=== PATIENT | male | born 1950 | race African-American/Black ===

== ENCOUNTER 2016-08-18 11:49 | Emergency (ER) | payer OTHER ==
[2016-08-18 12:02] VITALS: TEMP 98.5; BMI 22.8
--- NOTE | 2016-08-18 12:22 | PDOC ---
History of Present Illness - History of Present Illness Initial Comments: 08/18/16 12:32 The patient is a 65 year old male with a past medical hx of CVA, dementia, enlarged prostate, hypertension, hyperlipidemia and schizophrenia who presents to the ED via EMS from [facility] with a laceration to the back left side of his head. The patient had an unwitnessed fall. The patients history is limited secondary to patients baseline dementia and mental status. Social: Lives at [facility] <Altagracia Ceballos - Last Filed: 08/18/16 14:52> - General History Source: EMS, Spouse, Old Records Exam Limitations: Clinical Condition, Dementia <Letty Thakkar - Last Filed: 08/20/16 11:26> - General Chief Complaint: Laceration Stated Complaint: HEAD LACERATION Time Seen by Provider: 08/18/16 11:58 Past History <Altagracia Ceballos - Last Filed: 08/18/16 14:52> - Past Medical History Asthma: Yes CVA: Yes Dementia: Yes Disorders: Yes (enlarged prostate,uti) HTN: Yes Hypercholesterolemia: Yes Psychiatric Problems: Yes (schizophrenia) Suicide Attempt (Hx): No - Immunization History Immunization Up to Date: Yes (FLU 2013) - Psycho/Social/Smoking Cessation Hx Anxiety: Yes Suicidal Ideation: No Smoking Status: No Smoking History: Unknown if ever smoked Have you smoked in the past 12 months: No Number of Cigarettes Smoked Daily: 0 Information on smoking cessation initiated: No Hx Alcohol Use: No Drug/Substance Use Hx: No Substance Use Type: None Hx Substance Use Treatment: No <Letty Thakkar - Last Filed: 08/20/16 11:26> - Past Medical History Allergies/Adverse Reactions: Allergies Allergy/AdvReac Type Severity Reaction Status Date / Time haloperidol [From Haldol] Allergy Severe Verified 08/18/16 12:03 benztropine Allergy Verified 08/18/16 12:03 benztropine mesylate Allergy Verified 08/18/16 12:03 [From Cogentin] haloperidol lactate Allergy Verified 08/18/16 12:03 [From Haldol] Home Medications: Ambulatory Orders Acetaminophen [Tylenol] 650 mg PO Q6H PRN 05/11/15 Mirtazapine [Remeron -] 15 mg PO HS 06/19/15 Albuterol 2.5/Ipratropium 0.5 [Duoneb -] 1 neb IH TID 12/20/15 Amlodipine Besylate [Norvasc -] 5 mg PO DAILY 12/20/15 Lisinopril [Prinivil] 20 mg PO DAILY 12/20/15 Lactobacillus Acidophilus [Bacid -] 1 tab PO DAILY tab 12/23/15 Memantine HCl [Namenda -] 10 mg PO BID 08/18/16 Ranitidine [Zantac -] 150 mg PO DAILY 08/18/16 Tamsulosin HCl [Flomax] 0.4 mg PO DAILY 08/18/16 Review of Systems - Review of Systems Able to Perform ROS?: No (dementia) <Altagracia Ceballos - Last Filed: 08/18/16 14:52> *Physical Exam - Vital Signs Last Vital Signs Temp Pulse Resp BP Pulse Ox 98.5 F 72 20 147/78 100 08/18/16 12:00 08/18/16 12:00 08/18/16 12:00 08/18/16 12:00 08/18/16 12:00 - Physical Exam Comments: 08/18/16 12:33 GENERAL: +The patient is sleeping HEAD: +Hematoma and 1 cm vertical laceration on the occiput EYES: +Pupils are equal and 3 mm bilaterally, sclera anicteric, conjunctiva clear. ENT: Ears normal, nares patent, oropharynx clear without exudates. Moist mucous membranes. NECK: Normal range of motion, supple without lymphadenopathy, JVD, or masses. LUNGS: Breath sounds equal, clear to auscultation bilaterally. No wheezes, and no crackles. HEART:Regular rate and rhythm, normal S1 and S2 without murmur, rub or gallop. ABDOMEN: Soft, nontender, normoactive bowel sounds. No guarding, no rebound. EXTREMITIES: Normal range of motion, no edema. No clubbing or cyanosis. No erythema, or tenderness. NEUROLOGICAL: Cranial nerves II through XII grossly intact. Normal speech. No focal neurological deficits. MUSCULOSKELETAL: Back nontender to palpation, no CVA tenderness SKIN: Warm, Dry, normal turgor, no rashes or lesions noted. <Altagracia Ceballos - Last Filed: 08/18/16 14:52> - Vital Signs Last Vital Signs Temp Pulse Resp BP Pulse Ox 98.5 F 72 20 147/78 100 08/18/16 12:00 08/18/16 12:00 08/18/16 12:00 08/18/16 12:00 08/18/16 12:00 <Letty Thakkar - Last Filed: 08/20/16 11:26> Procedures - Laceration/Wound Repair Posterior Occipital Wound Length: to 2.5 cm Wound Explored: clean Wound's Depth, Shape: superficial Irrigated w/ Saline: Yes Betadine Prep: No Wound Debrided: minimal Wound Repaired With: [place] Progress: 08/18/16 15:08 3 bertram placed Pt tolerated this with no difficulty <Letty Thakkar - Last Filed: 08/20/16 11:26> Heart Score/ECG Review #1 ECG reviewed & interpreted by me at: 12:26 08/18/16 12:26 Sinus rhythm rate of 74bpm, axis nml, no st elevation or depression Pr: 174ms, QRS:88ms, QTc:430ms LVH <Letty Thakkar - Last Filed: 08/20/16 11:26> ED Treatment Course - LABORATORY CBC & Chemistry Diagram: 08/18/16 12:20 08/18/16 12:20 - RADIOLOGY Radiograph Interpretation: 08/18/16 14:52 CT scan of the cervical spine without intravenous contrast Coronal and sagittal reconstruction images were obtained. No gross fracture, subluxation or prevertebral soft tissue swelling is seen. No jumped facets are identified. There is prominent anterior bridging osteophytes from C4 through C6 level. There is also anterior osteophyte formation at C3-C4 and C6-C7 level. Calcified plaque at the right and left common carotid bifurcation. Visualized portion of the airway appears unremarkable. No gross enlarged lymph nodes are identified. Lung windows at the thoracic inlet demonstrates minimal biapical pleural thickening IMPRESSION: The alignment is satisfactory. No gross fracture or subluxation is seen. CT scan of the brain without intravenous contrast. Compared to prior examination dated 01/27/2016. There is moderate atrophy, mild to moderate ventricular dilatation and probable mild periventricular chronic microvascular ischemic changes. No mass lesion, focal acute infarct or intracranial hemorrhage is seen. There is no shift of the midline structures. A slightly depressed right zygomatic arch fracture is present. There is minimal mucosal thickening in the ethmoid air cells. The calvarium is intact. IMPRESSION: Minimally depressed right zygomatic arch fracture that was present on prior examination dated 01/27/2016. No acute intracranial pathology is identified. Reported By: Gil Garcia MD 08/18/16 1442 <Altagracia Ceballos - Last Filed: 08/18/16 14:52> - LABORATORY CBC & Chemistry Diagram: 08/18/16 12:20 08/18/16 12:20 <Letty Thakkar - Last Filed: 08/20/16 11:26> Medical Decision Making - Medical Decision Making 08/18/16 12:22 A portion of this note was documented by scribe services under my direction. I have reviewed the details of the note, within reason, and agree with the documentation with the following case summary and management plan written by me. Nursing documentation reviewed and incorporated into medical decision making 08/18/16 12:28 This is a 65 yo M with a history of dementia, resident of [facility] Pt had an unwitnessed fall with head trauma Occipital laceration Pt non verbal Moves extremities and closes eyes when I attempt to force eyes open to view pupils Will do basic labs, ekg (unable to get history) Will do CT head 08/18/16 15:05 08/18/16 15:05 Laboratory Tests 08/18/16 08/18/16 08/18/16 12:20 12:20 12:20 WBC 7.4 D Hgb 14.2 Hct 42.5 Plt Count 147 Neutrophils % 68.8 D Lymphocytes % 17.9 D INR 1.15 H BUN 17 D Creatinine 1.2 Creatine Kinase 134 Troponin I < 0.02 CT: no ICH, no mass (+) atrophy No Cervical spine fracture or dislocation Occipital laceration irrigated with 200 cc NS and stapled, 3 bertram Will discharge to home Staple removal in 7 days 08/18/16 15:09 <Letty Thakkar - Last Filed: 08/20/16 11:26> *DC/Admit/Observation/Transfer - Attestations Scribe Attestion: 08/18/16 12:32 Documentation prepared by Altagracia Ceballos, acting as medical appointment clerk for Letty Thakkar MD/. <Altagracia Ceballos - Last Filed: 08/18/16 14:52> - Discharge Dispostion Admit: No <Letty Thakkar Last Filed: 08/20/16 11:26> Diagnosis at time of Disposition: [facility] at [facility] Qualifiers: Encounter type: initial encounter Qualified Code(s): W19.XXXA - Unspecified fall, initial encounter Closed head injury Qualifiers: Encounter type: initial encounter Qualified Code(s): S09.90XA - Unspecified injury of head, initial encounter Occipital scalp laceration Qualifiers: Encounter type: initial encounter Qualified Code(s): S01.01XA - Laceration without foreign body of scalp, initial encounter - Discharge Dispostion Disposition: [facility] Condition at time of disposition: Stable - Patient Instructions Printed Discharge Instructions: DI for Laceration Repair, DI for Closed Head Injury Additional Instructions: [place] should be removed in 7 days Return to the ER for increased swelling, pain, drainage
[2016-08-18 12:27] LABS: EOSINOPHIL 0.6 % (0-4.5); MCH 30.5 pg (25.7-33.7); MCHC 33.5 g/dl (32.0-35.9); MEAN PLT VOLUME 8.6 fl (7.5-11.1); NEUTROPHILS 68.8 % (42.8-82.8); PLATELET COUNT 147 K/MM3 (134-434); RDW 14.1 % (11.9-15.9); WHITE BLOOD COUNT 7.4 K/mm3 (4.0-10.0)
[2016-08-18 12:40] LABS: INR 1.15 (0.82-1.09); PROTHROMBIN TIME (PATIENT) 12.7 SEC (9.98-11.88)
[2016-08-18 13:01] LABS: ALBUMIN 3.7 g/dl (3.4-5.0); ANION GAP 6 (8-16); CALCIUM 9.4 mg/dL (8.5-10.1); CO2 32 mmol/L (21-32); CREATININE 1.2 mg/dL (0.7-1.3); GLUCOSE,RANDOM 88 mg/dL (74-106); SGOT/AST 10 U/L (15-37); SGPT/ALT 15 U/L (12-78)
[2016-08-18 13:04] LABS: ALK PHOS 121 U/L (45-117); BILIRUBIN,TOTAL 0.7 mg/dL (0.2-1.0); TOT PROT 7.3 g/dl (6.4-8.2); TROPONIN I < 0.02 ng/ml (0.00-0.05)
[2016-08-18 15:22] VITALS: BP 111/73; PULSE 73
--- NOTE | 2016-08-19 21:09 | EKG ---
Test Reason : Blood Pressure : / mmHG Vent. Rate : 074 BPM Atrial Rate : 074 BPM P-R Int : 174 ms QRS Dur : 088 ms QT Int : 388 ms P-R-T Axes : 044 -06 -01 degrees QTc Int : 430 ms NORMAL SINUS RHYTHM POSSIBLE LEFT ATRIAL ENLARGEMENT LEFT VENTRICULAR HYPERTROPHY NONSPECIFIC T WAVE ABNORMALITY ABNORMAL ECG WHEN COMPARED WITH ECG OF 27-JAN-2016 06:01, NO SIGNIFICANT CHANGE WAS FOUND Confirmed by KIRA GREGORY, WEST ([id number]) on 08/19/2016 9:09:11 PM Referred By: Confirmed By:WEST MALONE MD
== END 2016-08-18 16:05 ==
LOC: JER 11:49
PROC: 0HQ0XZZ Repair Scalp Skin, External Approach (ICD-10-PCS; principal; 2016-08-18)
DX: S01.01XA Laceration without foreign body of scalp, initial encounter (principal); W18.39XA Other fall on same level, initial encounter; Y93.89 Activity, other specified; Y92.129 Unspecified place in nursing home as the place of occurrence of the external cause; I10 Essential (primary) hypertension; E78.5 Hyperlipidemia, unspecified; F20.9 Schizophrenia, unspecified; N40.0 Benign prostatic hyperplasia without lower urinary tract symptoms; Z86.73 Personal history of transient ischemic attack (TIA), and cerebral infarction without residual deficits
CPT/HCPCS: 12001-25; 36415; 70450-TC; 72125-TC; 80053; 82550; 84484; 85025; 85610; 86850; 86900; 86901; 93005; 93010; 99283-25

== ENCOUNTER 2016-11-10 11:48 | Inpatient (IN) | payer OTHER ==
[2016-11-10 12:03] VITALS: BMI 24.4
--- NOTE | 2016-11-10 12:26 | PDOC ---
History of Present Illness - General Chief Complaint: Blood Pressure Problem Stated Complaint: IRREGULAR BLOOD PRESSURE Time Seen by Provider: 11/10/16 12:08 History Source: Care Provider, Custodial Records Exam Limitations: No Limitations - History of Present Illness Initial Comments: 11/10/16 12:21 Patient was sent from [facility] for evaluation of labile blood pressure. Per notes patient has had reported orthostatic hypotension for the past few days. This morning his blood pressure was noted to be 189/114. An additional Norvasc 5 mg was given with a repeat blood pressure at approximately 2 hours later showing to be 74/48. Dr. Ontiveros was notified at the [facility] who recommended him transported to the ER for evaluation. Patient currently normotensive with blood pressures of arrival 160/101, repeat 1 hour later was 130/84. Patient is alert however remains expressively aphasic, when asked how he feels if he feels okay, he nods his head and says yes. Will respond appropriately, will lift arm when it requested and appears to be alert and appropriate. Patient has no fever, denies cough or shortness of breath or any nausea vomiting. 11/10/16 12:23 11/10/16 12:57 Timing/Duration: unsure Severity: mild, moderate Modifying Factors: improves with: movement Associated Symptoms: reports: denies symptoms Past History - Travel Traveled outside of the country in the last 30 days: No Close contact w/someone who was outside of country & ill: No - Past Medical History Allergies/Adverse Reactions: Allergies Allergy/AdvReac Type Severity Reaction Status Date / Time haloperidol [From Haldol] Allergy Severe Verified 11/10/16 12:03 benztropine Allergy Verified 11/10/16 12:03 benztropine mesylate Allergy Verified 11/10/16 12:03 [From Cogentin] haloperidol lactate Allergy Verified 11/10/16 12:03 [From Haldol] Home Medications: Ambulatory Orders Acetaminophen [Tylenol] 650 mg PO Q6H PRN 05/11/15 Mirtazapine [Remeron -] 15 mg PO HS 06/19/15 Albuterol 2.5/Ipratropium 0.5 [Duoneb -] 1 neb IH TID 12/20/15 Amlodipine Besylate [Norvasc -] 5 mg PO DAILY 12/20/15 Lisinopril [Prinivil] 20 mg PO DAILY 12/20/15 Lactobacillus Acidophilus [Bacid -] 1 tab PO DAILY tab 12/23/15 Memantine HCl [Namenda -] 10 mg PO BID 08/18/16 Ranitidine [Zantac -] 150 mg PO DAILY 08/18/16 Tamsulosin HCl [Flomax] 0.4 mg PO DAILY 08/18/16 Asthma: Yes CVA: Yes Dementia: Yes Disorders: Yes (enlarged prostate,uti) HTN: Yes Hypercholesterolemia: Yes Psychiatric Problems: Yes (schizophrenia) Suicide Attempt (Hx): No - Immunization History Immunization Up to Date: Yes (FLU 2013) - Psycho/Social/Smoking Cessation Hx Anxiety: No Suicidal Ideation: No Smoking Status: No Smoking History: Unknown if ever smoked Have you smoked in the past 12 months: No Number of Cigarettes Smoked Daily: 0 Information on smoking cessation initiated: No Hx Alcohol Use: No Drug/Substance Use Hx: No Substance Use Type: None Hx Substance Use Treatment: No Review of Systems - Review of Systems Able to Perform ROS?: Yes Is the patient limited Tanzanian proficient: Yes Constitutional: Yes: See HPI. No: Chills, Fever, Loss of Appetite HEENTM: Yes: See HPI. No: Symptoms Reported Respiratory: Yes: See HPI. No: Symptoms reported, Cough, Wheezing Musculoskeletal: Yes: Symptoms Reported, Muscle Weakness Integumentary: Yes: See HPI. No: Symptoms Reported Neurological: Yes: See HPI. No: Symptoms reported All Other Systems: Reviewed and Negative *Physical Exam - Vital Signs Last Vital Signs Temp Pulse Resp BP Pulse Ox 98.4 F 78 20 132/80 99 11/10/16 11:57 11/10/16 12:19 11/10/16 12:19 11/10/16 12:19 11/10/16 12:19 - Physical Exam General Appearance: Yes: Nourished, Appropriately Dressed. No: Apparent Distress HEENT: positive: EOMI, WHIT, Normal ENT Inspection, TMs Normal Neck: positive: Supple. negative: Tender Respiratory/Chest: positive: Lungs Clear, Normal Breath Sounds (course but clear with cough). negative: Chest Tender Cardiovascular: positive: Regular Rhythm Gastrointestinal/Abdominal: positive: Normal Bowel Sounds, Soft. negative: Tender Musculoskeletal: positive: Normal Inspection Extremity: positive: Normal Capillary Refill, Normal Inspection. negative: Normal Range of Motion (limited range of motion with right sided effected status post CVA chronic however mobile and sensation is intact) Integumentary: positive: Dry, Warm, Pale Neurologic: positive: pipe layer II-XII NML intact (patient has expressive aphasia, unable to thoroughly evaluate orientation levels), Alert, Normal Mood/Affect, Normal Response, Responsive Medical Decision Making - Medical Decision Making 11/10/16 12:50 call to [facility], and discussed transfer with nurse responsible for . Mr. Ge's care. He stated Dr. Ontiveros was concerned about his labile blood pressures. Orthostatic vital signs repeated here: 12:56 lyin/113, 80pulse 12:58 sitting : 160/98, 100 pulse 13:01 standin/87, pulse 88 Patient reports feeling well, not dizzy, however does not appear. Steady on his feet. Will discuss findings with Dr. Ontiveros and await further direction 11/10/16 12:59 11/10/16 12:59 11/10/16 13:23 Dr. Ontiveros returned call and is requesting admission for labile blood pressures , in weakness and frequent falls. Patient was updated to plan, orders written, and patient placed in 4 at that *DC/Admit/Observation/Transfer Diagnosis at time of Disposition: Orthostatic hypotension - Discharge Dispostion Admit: Yes
[2016-11-10] MEDS ORDERED: ACETAMINOPHEN 325 MG TABLET (FP) PO PRN (13:15)
[2016-11-10 13:37] LABS: BASOPHIL 0.9 % (0-2.0); MCH 29.7 pg (25.7-33.7); MCHC 33.2 g/dl (32.0-35.9); MEAN CELL VOLUME 89.5 fl (80-96); MEAN PLT VOLUME 8.5 fl (7.5-11.1); NEUTROPHILS 53.1 % (42.8-82.8); PLATELET COUNT 158 K/MM3 (134-434); RDW 13.8 % (11.9-15.9); WHITE BLOOD COUNT 5.7 K/mm3 (4.0-10.0)
[2016-11-10 13:58] LABS: INR 1.27 (0.82-1.09)
[2016-11-10 14:01] LABS: ALBUMIN 3.8 g/dl (3.4-5.0); ANION GAP 7 (8-16); BILIRUBIN,TOTAL 0.7 mg/dL (0.2-1.0); CALCIUM 9.4 mg/dL (8.5-10.1); CO2 29 mmol/L (21-32); COCKROFT - GAULT 64.54; CREATININE 1.3 mg/dL (0.7-1.3); GLUCOSE,RANDOM 91 mg/dL (74-106); SGOT/AST 11 U/L (15-37); SGPT/ALT 17 U/L (12-78); TOT PROT 7.4 g/dl (6.4-8.2)
[2016-11-10 14:09] LABS: ALK PHOS 129 U/L (45-117); THYROID STIMULATING HORMONE 0.07 uIU/ml (0.358-3.74); TROPONIN I < 0.02 ng/ml (0.00-0.05)
[2016-11-10 14:17] LABS: URINE APPEARANCE CLEAR; URINE BILIRUBIN NEGATIVE (NEGATIVE); URINE BLOOD NEGATIVE (NEGATIVE); URINE COLOR LTYELLOW; URINE GLUCOSE (UA) NEGATIVE (NEGATIVE); URINE KETONE NEGATIVE (NEGATIVE); URINE LEUK ESTERASE NEGATIVE (NEGATIVE); URINE NITRITE NEGATIVE (NEGATIVE); URINE PROTEIN NEGATIVE (NEGATIVE); URINE UROBILINOGEN NEGATIVE E.U./dl (0.2-1.0)
--- NOTE | 2016-11-10 16:38 | CON.CARD ---
Cardiology Consult (text) - Consultation Consultation Note: cc: orthostatic hypotension 66 yo with h/o htn, hl, ckd, Lewy Body Dementia who p/w orthostatic hypotension and frequent falls. pmd decreased flomax dose recently pmhx/pshx: per hpi fam hx: social hx: never smoked ros: per hpi Ambulatory Orders Acetaminophen [Tylenol] 650 mg PO Q6H PRN 05/11/15 Mirtazapine [Remeron -] 15 mg PO HS 06/19/15 Albuterol 2.5/Ipratropium 0.5 [Duoneb -] 1 neb IH TID 12/20/15 Amlodipine Besylate [Norvasc -] 5 mg PO DAILY 12/20/15 Lisinopril [Prinivil] 20 mg PO DAILY 12/20/15 Lactobacillus Acidophilus [Bacid -] 1 tab PO DAILY tab 12/23/15 Memantine HCl [Namenda -] 10 mg PO BID 08/18/16 Ranitidine [Zantac -] 150 mg PO DAILY 08/18/16 Tamsulosin HCl [Flomax] 0.4 mg PO DAILY 08/18/16 Current Medications Acetaminophen (Tylenol -) 650 mg PO Q6H PRN PRN Reason: PAIN Albuterol/Ipratropium (Duoneb -) 1 amp NEB TIDR GABI Amlodipine Besylate (Norvasc -) 5 mg PO DAILY G[facility]I Lisinopril (Prinivil) 20 mg PO DAILY [facility] Memantine (Namenda -) 10 mg PO BID G[facility]I Mirtazapine (Remeron -) 7.5 mg PO HS [facility] Ranitidine HCl (Zantac -) 150 mg PO DAILY GABI Tamsulosin HCl (Flomax -) 0.4 mg PO DAILY@0830 [facility] Vital Signs - 24 hr 11/10/16 11/10/16 11:57 12:19 Temperature 98.4 F Pulse Rate 71 Pulse Rate [ 78 Left Radial] Respiratory 20 20 Rate Blood Pressure 160/101 Blood Pressure 132/80 [Right Arm] O2 Sat by Pulse 100 99 Oximetry (%) Intake & Output 11/08/16 11/09/16 11/10/16 11/11/16 07:59 07:59 07:59 07:59 Weight 180 lb CBC, BMP 11/10/16 13:15 11/10/16 13:15 orthostatic hypotension - will start florinef, monitor for volume retention. Will need repeat bmp check - hold amlodipine.
[2016-11-10] MEDS: FLUDROCORTISONE ACETATE 0.1 MG TABLET (FP) PO SCH (21:45)
[2016-11-10] MEDS ORDERED: MIRTAZAPINE 15 MG TABLET (FP) PO SCH (22:00)
[2016-11-10] MEDS ORDERED: MIRTAZAPINE 15 MG TABLET (FP) ONE (22:06)
[2016-11-10] MEDS ORDERED: ALBUTEROL SO4 2.5/IPRATROPIUM 0.5 INH SOL 3 ML VIAL.NEB. NEB ONE (22:07)
[2016-11-10] MEDS: ALBUTEROL SO4 2.5/IPRATROPIUM 0.5 INH SOL 3 ML VIAL.NEB. NEB SCH (22:20)
[2016-11-10] MEDS: MEMANTINE HCL 10 MG TABLET (FP) PO SCH (23:10)
[2016-11-10 23:27] LABS: TROPONIN I < 0.02 ng/ml (0.00-0.05)
[2016-11-11] MEDS: ALBUTEROL SO4 2.5/IPRATROPIUM 0.5 INH SOL 3 ML VIAL.NEB. NEB SCH ×2 (04:58→06:32)
[2016-11-11 06:32] VITALS: TEMP 97.7
[2016-11-11 07:50] LABS: CALCIUM 9.2 mg/dL (8.5-10.1); COCKROFT - GAULT 83.91
[2016-11-11 08:06] LABS: TROPONIN I < 0.02 ng/ml (0.00-0.05)
[2016-11-11] MEDS ORDERED: TAMSULOSIN HCL 0.4 MG CAP.ER.24H (FP) PO SCH (08:30)
[2016-11-11] MEDS ORDERED: RANITIDINE HCL 150 MG TABLET (FP) PO SCH (10:00)
[2016-11-11] MEDS ORDERED: LISINOPRIL 20 MG TABLET (FP) PO SCH (10:00)
[2016-11-11] MEDS ORDERED: amLODIPine BESYLATE 5 MG TABLET (FP) PO SCH (10:00)
[2016-11-11] MEDS: MEMANTINE HCL 10 MG TABLET (FP) PO SCH (11:00)
[2016-11-11] MEDS: FLUDROCORTISONE ACETATE 0.1 MG TABLET (FP) PO SCH (11:00)
[2016-11-11 11:38] VITALS: BP 136/102; PULSE 80
--- NOTE | 2016-11-11 13:37 | HP ---
DATE OF ADMISSION: 11/10/2016 The patient is a 66-year-old male who was transferred from the shelter as patient was found to have labile hypertension. The patient had elevated blood pressure and was given Norvasc and subsequently was found to have orthostatic hypotension with a blood pressure of 74/48 but since admission, the patient has had normal blood pressure and has no complaints. No chest pain, palpitation, headache, dizziness. Past medical history is significant for hypertension, benign prostatic hypertrophy. His present medications include Flomax 0.4 mg p.o. daily, Zantac 150 mg daily, Remeron 15 mg daily, Namenda 10 mg twice a day, lisinopril 20 mg daily, amlodipine 50 mg daily, albuterol inhaler, and Tylenol on a p.r.n. basis. ALLERGIES: HALDOL, BENZTROPINE. SOCIAL HISTORY: Patient claims that he is , he has 2 children. He now lives in a shelter but his history is unreliable. He claims that he is a nonsmoker. He does not drink. He was a [employer]. Family history is significant for 6 siblings. There is no significant family history. Patient's history, however, is unreliable as he carries a diagnosis of dementia; however, he answers all my questions appropriately. PHYSICAL EXAMINATION: Vital Signs: He has a blood pressure of 136/102, pulse rate of 80, respiratory rate of 20, temperature 97. Head and Neck: He is not pale, not icteric. JVD is absent. Thyroid and carotids appear normal. Heart: Regular rhythm. No murmurs. Lungs: He is breathing clearly. Abdomen: Benign. Extremities: No edema. Basic metabolic profile is within normal limits. PT, PTT is normal. CBC is normal. Patient had a CT scan of the head that is normal. ASSESSMENT AND PLAN 1. Hypertension. Blood pressure is controlled and it can be fine-tuned and managed as outpatient. 2. Orthostatic hypotension. This could be also associated with medications like Flomax, etc. These things have to be monitored and controlled as outpatient. In the emergency room, the patient has no orthostatic changes. Would discharge home and follow as outpatient. Bentley [id number]
--- NOTE | 2016-11-12 10:04 | EKG ---
Test Reason : Blood Pressure : / mmHG Vent. Rate : 085 BPM Atrial Rate : 085 BPM P-R Int : 182 ms QRS Dur : 094 ms QT Int : 370 ms P-R-T Axes : 065 015 020 degrees QTc Int : 440 ms NORMAL SINUS RHYTHM POSSIBLE LEFT ATRIAL ENLARGEMENT LEFT VENTRICULAR HYPERTROPHY ABNORMAL ECG WHEN COMPARED WITH ECG OF 18-AUG-2016 12:20, NO SIGNIFICANT CHANGE WAS FOUND Confirmed by WEST MALONE MD ([id number]) on 11/12/2016 10:04:23 AM Referred By: Confirmed By:WEST MALONE MD
== END 2016-11-11 15:15 | disposition home or self-care (01) | DRG 204 ==
LOC: JER 11:48 → JERBED 13:20
PROVIDERS: ADMIT Internal Medicine Geriatric Medicine; ATTEND Internal Medicine Geriatric Medicine
DX: I95.1 Orthostatic hypotension (principal); J45.909 Unspecified asthma, uncomplicated; E78.00 Pure hypercholesterolemia, unspecified; F20.9 Schizophrenia, unspecified; N40.0 Benign prostatic hyperplasia without lower urinary tract symptoms; I12.9 Hypertensive chronic kidney disease with stage 1 through stage 4 chronic kidney disease, or unspecified chronic kidney disease; N18.9 Chronic kidney disease, unspecified; G31.83 Neurocognitive disorder with Lewy bodies; F02.80 Dementia in other diseases classified elsewhere, unspecified severity, without behavioral disturbance, psychotic disturbance, mood disturbance, and anxiety; Z86.73 Personal history of transient ischemic attack (TIA), and cerebral infarction without residual deficits; Z91.81 History of falling
CPT/HCPCS: 36415; 70450-TC; 71020-TC; 80048; 80053; 81003; 82550; 82553; 83036; 83880; 84443; 84484; 85025; 85610; 87086; 93005; 93010; 99284-25

== ENCOUNTER 2017-11-17 01:13 | Emergency (ER) | payer OTHER ==
[2017-11-17 01:53] VITALS: BP 162/91; PULSE 72; TEMP 98.1; BMI 24.4
--- NOTE | 2017-11-17 02:00 | PDOC ---
History of Present Illness <Leana Vergara - Last Filed: 11/17/17 05:13> - General History Source: Patient, Old Records Exam Limitations: No Limitations - History of Present Illness Initial Comments: 11/17/17 05:33 The patient is a 67 year old male, with a significant past medical history of HLD, alzheimer's dementia, COPD, TIA, dysphagia, anxiety, MDD, who presents to the emergency department via EMS s/p fall with, a laceration to the back of the head with associated pain. The patient is a poor historian due to his clinical condition. He reports hitting his head at [facility] where he currently resides and has associated pain. The patient cannot give further details regarding him fall. He denies any recent fevers, chills, headache or dizziness. He denies any recent nausea, vomit, diarrhea or constipation. He denies any recent chest pain or shortness of breath. He denies any recent dysuria, frequency, urgency or hematuria. Allergies: haloperidol, haloperidol lactate, benztropine, benztropine mesylate. PCP: Dr Ontiveros <Karey Cherry - Last Filed: 11/17/17 05:34> - General Chief Complaint: Injury Stated Complaint: LACERTATION TO HEAD Time Seen by Provider: 11/17/17 01:59 Past History - Past Medical History Asthma: Yes CVA: Yes COPD: No Dementia: Yes Disorders: Yes (enlarged prostate,uti) HTN: Yes Hypercholesterolemia: Yes Psychiatric Problems: Yes (schizophrenia) - Immunization History Immunization Up to Date: Yes (2013) - Suicide/Smoking/Psychosocial Hx Smoking Status: No Smoking History: Never smoked Have you smoked in the past 12 months: No Number of Cigarettes Smoked Daily: 0 Information on smoking cessation initiated: No Hx Alcohol Use: No Drug/Substance Use Hx: No Substance Use Type: None Hx Substance Use Treatment: No <Leana Vergara - Last Filed: 11/17/17 05:13> <Karey Cherry - Last Filed: 11/17/17 05:34> - Past Medical History Allergies/Adverse Reactions: Allergies Allergy/AdvReac Type Severity Reaction Status Date / Time haloperidol [From Haldol] Allergy Severe Verified 11/17/17 01:53 benztropine Allergy Verified 11/17/17 01:53 benztropine mesylate Allergy Verified 11/17/17 01:53 [From Cogentin] haloperidol lactate Allergy Verified 11/17/17 01:53 [From Haldol] Home Medications: Ambulatory Orders Acetaminophen 650 mg PO Q6H PRN 09/22/17 Fludrocortisone Acetate [Florinef -] 0.1 mg PO DAILY 09/22/17 Ipratropium/Albuterol Sulfate [Iprat-Albut 0.5-3(2.5) mg/3 ml] 3 ml IH TID PRN 09/22/17 Lactobacillus Acidophilus [Bacid -] 1 each PO DAILY 09/22/17 Lisinopril 10 mg PO DAILY 09/22/17 Memantine HCl [Namenda -] 10 mg PO BID 09/22/17 Mirtazapine [Remeron -] 15 mg PO HS 09/22/17 Ranitidine [Zantac -] 150 mg PO DAILY 09/22/17 Sodium Chloride [Saline Nasal [place]] 1 spray NS TID 09/22/17 Tamsulosin HCl [Flomax] 0.4 mg PO DAILY 09/22/17 Aspirin Coated [Ecotrin -] 81 mg PO DAILY tablet.ec 09/27/17 Atorvastatin Ca [Lipitor] 10 mg PO HS tablet 09/27/17 Review of Systems - Review of Systems Able to Perform ROS?: Yes Comments:: 11/17/17 05:33 GENERAL/CONSTITUTIONAL: No fever or chills. No weakness. +HEAD, EYES, EARS, NOSE AND THROAT: Laceration to the back of the head. No change in vision. No ear pain or discharge. No sore throat. CARDIOVASCULAR: No chest pain or shortness of breath. RESPIRATORY: No cough, wheezing, or hemoptysis. GASTROINTESTINAL: No nausea, vomiting, diarrhea or constipation. GENITOURINARY: No dysuria, frequency, or change in urination. MUSCULOSKELETAL: No joint or muscle swelling or pain. No neck or back pain. SKIN: No rash NEUROLOGIC: No headache, vertigo, loss of consciousness, or change in strength/ sensation. ENDOCRINE: No increased thirst. No abnormal weight change. HEMATOLOGIC/LYMPHATIC: No anemia, easy bleeding, or history of blood clots. ALLERGIC/IMMUNOLOGIC: No hives or skin allergy. All Other Systems: Reviewed and Negative <Karey Cherry Last Filed: 11/17/17 05:34> *Physical Exam - Vital Signs Last Vital Signs Temp Pulse Resp BP Pulse Ox 98.1 F 72 18 162/91 99 11/17/17 01:49 11/17/17 01:49 11/17/17 01:49 11/17/17 01:49 11/17/17 01:49 <Leana Vergara - Last Filed: 11/17/17 05:13> - Vital Signs Last Vital Signs Temp Pulse Resp BP Pulse Ox 98.1 F 72 18 162/91 99 11/17/17 01:49 11/17/17 01:49 11/17/17 01:49 11/17/17 01:49 11/17/17 01:49 - Physical Exam Comments: 11/17/17 05:33 +GENERAL: Weakness. Answering questions. Awake, alert, and fully oriented, in no acute distress +HEAD: 1.5in laceration to the back of the head. EYES: PERRLA, EOMI, sclera anicteric, conjunctiva clear ENT: Auricles normal inspection, hearing grossly normal, nares patent, oropharynx clear without exudates. Moist mucosa NECK: Normal ROM, supple, no lymphadenopathy, JVD, or masses LUNGS: Breath sounds equal, clear to auscultation bilaterally. No wheezes, and no crackles HEART: Regular rate and rhythm, normal S1 and S2, no murmurs, rubs or gallops ABDOMEN: Soft, nontender, normoactive bowel sounds. No guarding, no rebound. No masses EXTREMITIES: Normal range of motion, no edema. No clubbing or cyanosis. No cords, erythema, or tenderness NEUROLOGICAL: Cranial nerves II through XII grossly intact. SKIN: Warm, Dry, normal turgor, no rashes or lesions noted. <Karey Cherry - Last Filed: 11/17/17 05:34> Procedures - Laceration/Wound Repair Posterior Head Wound Length: 2.6 to 5.0 cm Wound's Depth, Shape: into muscle, linear Irrigated w/ Saline: No Betadine Prep: Yes Anesthesia: 1% Lidocaine Amount of Anesthetic (ccs): 3 Wound Repaired With: Sutures Suture Size/Type: 3:0, other Number of Sutures: 4 Layer Closure: No Sterile Dressing Applied: Yes <Leana Vergara - Last Filed: 11/17/17 05:13> Medical Decision Making - Medical Decision Making 11/17/17 05:10 Patient Name: BRANNON VELEZ THIS IS A PRELIMINARY REPORT FROM [facility]AGING [facility]SE COORDIN[facility] DATE OF SERVICE: 2017-11-17 04:33:59 IMAGES: 145 EXAM: HEAD CT WITHOUT CONTRAST HISTORY: Status post fall COMPARISON: None. FINDINGS: The ventricular system is midline and nondilated. The sulcal pattern is normal for the patient's age. There is no bleed, mass, extra-axial fluid collection or mass effect. No skull fracture or skull lesion is identified. The visualized paranasal sinuses and mastoid air cells are clear other than mild right ethmoid sinus mucosal thickening. IMPRESSION: No evidence of acute pathology. Patient Name: BRANNON VELEZ THIS IS A PRELIMINARY REPORT FROM [facility]SE COORDIN[facility] DATE OF SERVICE: 2017-11-17 04:30:56 IMAGES: [id number] EXAM: CERVICAL SPINE CT W/O CONTR HISTORY: Status post fall COMPARISON: None. FINDINGS: There is no fracture, subluxation, prevertebral soft tissue swelling. There are mild degenerative changes. Flowing anterior syndesmophytes are consistent DISH The lung apices are clear. IMPRESSION: No fracture. <Leana Vergara - Last Filed: 11/17/17 05:13> *DC/Admit/Observation/Transfer - Discharge Dispostion Decision to Admit order: No <Leana Vergara - Last Filed: 11/17/17 05:13> - Attestations Scribe Attestion: 11/17/17 05:33 Documentation prepared by Karey Cherry, acting as behavioral medical director for Leana Vergara MD. <Karey Cherry - Last Filed: 11/17/17 05:34> Diagnosis at time of Disposition: Laceration of head - Discharge Dispostion Disposition: HOME Condition at time of disposition: Improved - Referrals Referrals: Jairo Ontiveros MD [Primary Care Provider] - - Patient Instructions Printed Discharge Instructions: DI for Closed Head Injury, How to Care for Absorbable Sutures - Post Discharge Activity
== END 2017-11-17 06:31 ==
LOC: SUPCPDRO 01:13 → JER 01:13
PROC: 0JQ00ZZ Repair Scalp Subcutaneous Tissue and Fascia, Open Approach (ICD-10-PCS; principal; 2017-11-17)
DX: S01.01XA Laceration without foreign body of scalp, initial encounter (principal); W18.39XA Other fall on same level, initial encounter; Y93.89 Activity, other specified; Y92.128 Other place in nursing home as the place of occurrence of the external cause; Y99.8 Other external cause status; G20 Parkinson's disease; F02.80 Dementia in other diseases classified elsewhere, unspecified severity, without behavioral disturbance, psychotic disturbance, mood disturbance, and anxiety; J44.9 Chronic obstructive pulmonary disease, unspecified; F41.9 Anxiety disorder, unspecified; F33.9 Major depressive disorder, recurrent, unspecified; F20.9 Schizophrenia, unspecified; E78.00 Pure hypercholesterolemia, unspecified; N40.0 Benign prostatic hyperplasia without lower urinary tract symptoms; Z87.440 Personal history of urinary (tract) infections
CPT/HCPCS: 12011; 70450-TC; 72125-TC; 99282-25

== ENCOUNTER 2018-07-27 10:47 | Observation (INO) | payer OTHER ==
--- NOTE | 2018-07-27 11:13 | PDOC ---
History of Present Illness - General History Source: Patient Exam Limitations: No Limitations - History of Present Illness Initial Comments: 07/27/18 12:27 67 yo M with a hx of dementia, HTN, HLD, RF, COPD, BPH, and hx of TIA presents to the emergency department s/p unwitnessed fall at [facility]. Per the nursing staff , he fell backwards and hit his head against the radiator on the occipital region. The patient was subsequently found on the ground. Patient does not remember the event and is hard to arouse on exam. <Jeff Garg - Last Filed: 07/30/18 08:38> <Shannan Posey - Last Filed: 07/31/18 07:24> - General Stated Complaint: HEAD LACERATION Past History - Past Medical History Asthma: Yes CVA: Yes COPD: No Dementia: Yes Disorders: Yes (enlarged prostate,uti) HTN: Yes Hypercholesterolemia: Yes Psychiatric Problems: Yes (schizophrenia) - Immunization History Immunization Up to Date: Yes (2013) - Suicide/Smoking/Psychosocial Hx Smoking Status: No Smoking History: Never smoked Have you smoked in the past 12 months: No Number of Cigarettes Smoked Daily: 0 Hx Alcohol Use: No Drug/Substance Use Hx: No Substance Use Type: None Hx Substance Use Treatment: No <Jeff Garg - Last Filed: 07/30/18 08:38> <Shannan Posey - Last Filed: 07/31/18 07:24> - Past Medical History Allergies/Adverse Reactions: Allergies Allergy/AdvReac Type Severity Reaction Status Date / Time haloperidol [From Haldol] Allergy Severe Verified 11/17/17 01:53 benztropine Allergy Verified 11/17/17 01:53 benztropine mesylate Allergy Verified 11/17/17 01:53 [From Cogentin] haloperidol lactate Allergy Verified 11/17/17 01:53 [From Haldol] Home Medications: Ambulatory Orders Fludrocortisone Acetate [Florinef -] 0.1 mg PO DAILY 09/22/17 Ipratropium/Albuterol Sulfate [Iprat-Albut 0.5-3(2.5) mg/3 ml] 3 ml IH TID PRN 09/22/17 Memantine HCl [Namenda -] 10 mg PO BID 09/22/17 Sodium Chloride [Saline Nasal [place]] 1 spray NS TID 09/22/17 Tamsulosin HCl [Flomax] 0.4 mg PO DAILY 09/22/17 Amlodipine Besylate 5 mg PO DAILY 07/27/18 Carbidopa/Levodopa 25/100 [Sinemet 25/100 -] 1 each PO TID 07/27/18 Oseltamivir Phosphate [Tamiflu] 75 mg PO DAILY 07/27/18 Valproic Acid (As Sodium Salt) [Valproic Acid] 500 mg PO DAILY 07/27/18 Review of Systems - Review of Systems Able to Perform ROS?: No (dementia) Is the patient limited Persian proficient: No <Jeff Garg - Last Filed: 07/30/18 08:38> *Physical Exam - Physical Exam General Appearance: Yes: Nourished, Appropriately Dressed, Thin, Other ( pleasantly demented ). No: Apparent Distress HEENT: positive: EOMI, WHIT, Normal ENT Inspection, Normal Voice, Symmetrical, TMs Normal, Pharynx Normal, Hearing Grossly Normal, Other (posterior occipital laceration left midline). negative: Pale Conjunctivae, Scleral Icterus (R), Scleral Icterus (L), Muffled/Hoarse voice, Pharyngeal Erythema, Tonsillar Exudate, Tonsillar Erythema, Nasal Congestion, Rhinorrhea, Sinus Tenderness, Excessive drooling Neck: positive: Trachea midline, Supple. negative: Tender, Lymphadenopathy (R) , Lymphadenopathy (L), Tender lateral, Tender midline Respiratory/Chest: positive: Other (rhonchi breath sounds bilaterally). negative: Chest Tender, Lungs Clear, Normal Breath Sounds, Respiratory Distress , Accessory Muscle Use Cardiovascular: positive: Regular Rhythm, Regular Rate, S1, S2. negative: Systolic Murmur Gastrointestinal/Abdominal: positive: Normal Bowel Sounds, Flat, Soft. negative : Tender, Guarding, Rebound Lymphatic: negative: Adenopathy Musculoskeletal: positive: Normal Inspection. negative: CVA Tenderness, Vertebral Tenderness Extremity: positive: Normal Capillary Refill, Normal Inspection, Normal Range of Motion. 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 negative: Fully Oriented (oriented to self only), EOM Palsy, Facial Droop, Sensory Deficit <Jeff Garg - Last Filed: 07/30/18 08:38> - Vital Signs Last Vital Signs Temp Pulse Resp BP Pulse Ox 98.0 F 78 20 156/78 95 07/28/18 12:40 07/28/18 12:40 07/28/18 12:40 07/28/18 12:40 07/28/18 12:40 <PoseyShannan Isaak - Last Filed: 07/31/18 07:24> Moderate Sedation - Procedure Monitoring Vital Signs: Procedure Monitoring Vital Signs Temperature 98.0 F 07/28/18 12:40 Pulse Rate 78 07/28/18 12:40 Respiratory Rate 20 07/28/18 12:40 Blood Pressure 156/78 07/28/18 12:40 O2 Sat by Pulse Oximetry (%) 95 07/28/18 12:40 <Shannan Posey - Last Filed: 07/31/18 07:24> Procedures - Laceration/Wound Repair Left Posterior Head Wound Length: to 2.5 cm Wound Explored: clean Wound's Depth, Shape: superficial Irrigated w/ Saline: Yes Betadine Prep: Yes Amount of Anesthetic (ccs): 0 Wound Debrided: minimal Wound Repaired With: [place] Number of Sutures: 3 Layer Closure: No Sterile Dressing Applied: Yes (bacitracin applied) <Jeff Garg - Last Filed: 07/30/18 08:38> Heart Score/ECG Review - ECG Intrepretation Comment:: T wave inversion in leads II, III, and avF changed from previous eKG. No ST elevations or depressions noted on EKG. <Jeff Garg - Last Filed: 07/30/18 08:38> ED Treatment Course - LABORATORY CBC & Chemistry Diagram: 07/27/18 12:24 07/28/18 07:08 <Jeff Garg - Last Filed: 07/30/18 08:38> - LABORATORY CBC & Chemistry Diagram: 07/27/18 12:24 07/28/18 07:08 - ADDITIONAL ORDERS Additional order review: 07/27/18 12:24 RBC 4.60 MCV 89.8 MCHC 34.5 RDW 14.3 MPV 9.2 Neutrophils % 61.1 Lymphocytes % 25.6 D Monocytes % 10.8 H Eosinophils % 1.2 Basophils % 1.3 - RADIOLOGY Radiology Studies Ordered: Category Date Time Status CHEST - PA [RAD] Stat Radiology 07/27/18 11:56 Completed - Medications Given in the ED: ED Medications Discontinued Medications Generic Name Dose Route Start Last Admin Trade Name Nirav PRN Reason Stop Dose Admin Amlodipine Besylate 5 mg 07/28/18 10:00 07/28/18 11:53 Norvasc - PO Not Given DAILY GABI Amlodipine Besylate 5 mg 07/27/18 18:48 07/27/18 18:57 Norvasc - PO 07/27/18 18:49 5 mg ONCE ONE Administration Carbidopa/Levodopa 1 each 07/27/18 22:00 07/28/18 06:57 Sinemet 25/100 - PO Not Given TID GABI Diphtheria/Tetanus/Acell Pertussis 0.5 ml 07/27/18 11:53 07/27/18 15:11 Adacel Adolescent/Adult - IM 07/27/18 11:54 Not Given .ONCE ONE Fludrocortisone Acetate 0.1 mg 07/28/18 10:00 07/28/18 11:00 Florinef - PO Not Given DAILY [facility] Heparin Sodium (Porcine) 5,000 unit 07/27/18 15:45 07/28/18 06:33 Heparin - SQ 5,000 unit TID GABI Administration Lorazepam 2 mg 07/27/18 20:28 07/27/18 20:45 Ativan Injection - IVPUSH 07/27/18 20:29 2 mg ONCE ONE Administration Memantine 10 mg 07/27/18 22:00 07/28/18 11:53 Namenda - PO Not Given BID [facility] Oseltamivir Phosphate 75 mg 07/28/18 10:00 07/28/18 11:59 Tamiflu - PO 07/31/18 09:59 Not Given DAILY [facility] Pantoprazole Sodium 20 mg 07/28/18 10:00 07/28/18 11:56 Protonix - PO Not Given DAILY [facility] Sodium Chloride 1 spray 07/27/18 22:00 07/28/18 07:04 [place] Nasal [place] - NS Not Given TID [facility] Tamsulosin HCl 0.4 mg 07/28/18 08:30 07/28/18 11:51 Flomax - PO Not Given DAILY@0830 [facility] Valproate Sodium 500 mg 07/28/18 10:00 07/28/18 11:00 Depakene - PO Not Given DAILY [facility] Shannan Nelson - Last Filed: 07/31/18 07:24> Medical Decision Making - Medical Decision Making 67 yo M with a hx of dementia, HTN, HLD, RF, COPD, BPH, and hx of TIA presents to the emergency department s/p unwitnessed fall at [facility]. Initial vitals: Initial Vital Signs Temp Pulse Resp BP Pulse Ox 98.2 F 80 18 127/77 98 07/27/18 11:27 07/27/18 11:27 07/27/18 11:27 07/27/18 11:27 07/27/18 11:27 Work up: ddx: CVA (ischemic vs hemorrhagic) vs TIA vs Subdural vs subarachnoid vs cervical fracture vs syncope (cardiogenic vs metabolic vs infectious etiology) Laboratory Tests 07/27/18 07/27/18 07/27/18 12:24 12:24 12:24 WBC 6.1 RBC 4.60 Hgb 14.2 Hct 41.3 MCV 89.8 MCH 31.0 MCHC 34.5 RDW 14.3 Plt Count 159 MPV 9.2 Absolute Neuts (auto) 3.7 Neutrophils % 61.1 Lymphocytes % 25.6 D Monocytes % 10.8 H Eosinophils % 1.2 Basophils % 1.3 Nucleated RBC % 0 PT with INR 12.70 INR 1.08 Sodium 140 Potassium 4.4 Chloride 106 Carbon Dioxide 29 Anion Gap 5 L BUN 23 H Creatinine 1.3 Creat Clearance w eGFR 55.06 Random Glucose 82 Calcium 8.9 Magnesium 2.5 H Total Bilirubin 0.6 AST 15 ALT 19 Alkaline Phosphatase 189 H Creatine Kinase 109 Troponin I < 0.02 Total Protein 7.5 Albumin 3.4 TSH 0.55 D labs within normal limits. CT head and cervical spine shows no acute intracranial pathologies and fractures/dislocations respectively. patient has no complaints of pain. Interventions given: IVF. given boostrix for tdap update. patient was stapled. trop negative and EKG shows concerning TWI in multiple leads; will admit for cardiac workup. Dispo: Admit <Jeff Garg - Last Filed: 07/30/18 08:38> *DC/Admit/Observation/Transfer - Discharge Dispostion Decision to Admit order: No <Jeff Garg - Last Filed: 07/30/18 08:38> - Discharge Dispostion Decision to Admit order: Yes <Shannan Posey - Last Filed: 07/31/18 07:24> Diagnosis at time of Disposition: Abnormal EKG Laceration of head Qualifiers: Encounter type: initial encounter Location of open wound of head: scalp Foreign body presence: without foreign body Qualified Code(s): S01.01XA - Laceration without foreign body of scalp, initial encounter Fall Qualifiers: Encounter type: initial encounter Qualified Code(s): W19.XXXA - Unspecified fall, initial encounter - Discharge Dispostion Condition at time of disposition: Guarded
[2018-07-27 11:32] VITALS: BMI 46.7
--- NOTE | 2018-07-27 11:51 | PDOC ---
Attending Attestation - Resident Resident Name: Jeff Garg - ED Attending Attestation I have performed the following: I have examined & evaluated the patient, The case was reviewed & discussed with the resident, I agree w/resident's findings & plan - HPI HPI: 07/27/18 11:49 The patient is a 67 year old male with a significant past medical history of hyperlipidemia, asthma, alzheimers dementia, COPD, dysphagia, TIA, anxiety and MDD who present to the emergency department from [facility] via EMS from retirement with a head lac s/p unwitnessed fall against radiator. Unclear LOC. history limited 2/2 dementia Of note, currently on Tamiflu since 07/25/[address] [facility]. Full code. Social history: Lives at retirement. PMD: Dr. Najera - Physicial Exam PE: 07/27/18 11:49 NAD, demented, minimally verbal. Thin and frail appearing. +posterior scalp laceration with surrounding swelling. PERRL, EOMI, nl conjunctiva, anicteric; neck supple. lungs with adventitial vs rhonchorous breath sounds. RRR, abdomen soft nontender. FINE x4, no focal neuro deficits. No facial droop. No peripheral edema. normal color for ethnicity, WWP. 07/27/18 12:17 - Medical Decision Making 07/27/18 11:49 See HPI for details Vital signs reviewed, wnl. normotensive here/ DDx. CVA, ICH, SDH, EDH, C spine injury/fx. cervical sprain. syncope, ischemia, ACS, arrhythmia, infection. Prior notes reviewed, including admissions, discharges and consultations. laboratory results and imaging reviewed, basic labs and lytes wnl, UA_pending CXR_no acute pathology, stable from prior Cardiac panel_negative trop. EKG normal sinus rhythm, no interval abnormalities, narrow QRS, ST and T wave segments and morphology normal. Nonspecific T wave abnormalities with new TWI in II, III, AVF, changed from prior, suspecting ischemia ED course: CT head and C spine neg for acute bleed/fx or injuries, chronic microvascular changes noted. old dens fx noted. - scalp laceration stapled, see procedure note by resident. - clinically appearing dry, given IVF hydration. Tdap updated here. dispo: admit for fall, abnormal EKG r/o ACS and unclear etiology for his fall and high fall risk 07/27/18 13:32 07/27/18 15:46 Heart Score/ECG Review - ECG Impressions Normal ECG: No Comment:: 07/27/18 11:50 EKG normal sinus rhythm, no interval abnormalities, narrow QRS, ST and T wave segments and morphology normal. Nonspecific T wave abnormalities with new TWI in II, III, AVF, changed from prior, suspecting ischemia
[2018-07-27] MEDS ORDERED: DIPHTH,PERTUSS(ACELL),TET VAC 0.5 ML VIAL IM ONE (11:53)
[2018-07-27 12:30] LABS: BASO % 1.3 % (0-2.0); EOS % 1.2 % (0-4.5); HEMATOCRIT 41.3 % (35.4-49); HEMOGLOBIN 14.2 GM/dL (11.7-16.9); LYMPH % 25.6 % (8-40); MCHC 34.5 g/dl (32.0-35.9); MEAN CELL VOLUME 89.8 fl (80-96); MEAN PLT VOLUME 9.2 fl (7.5-11.1); MONO % 10.8 % (3.8-10.2); NEUT % 61.1 % (42.8-82.8); PLATELET COUNT 159 K/MM3 (134-434); RDW 14.3 % (11.9-15.9); WHITE BLOOD COUNT 6.1 K/mm3 (4.0-10.0)
[2018-07-27 12:53] LABS: INR 1.08 (0.83-1.09); PROTHROMBIN TIME (PATIENT) 12.7 SEC (9.7-13.0)
[2018-07-27 13:07] LABS: ALBUMIN 3.4 g/dl (3.4-5.0); ALK PHOS 189 U/L (45-117); ANION GAP 5 MMOL/L (8-16); BILIRUBIN,TOTAL 0.6 mg/dL (0.2-1); BLOOD UREA NITROGEN 23 mg/dL (7-18); CALCIUM 8.9 mg/dL (8.5-10.1); CHLORIDE 106 mmol/L (98-107); CO2 29 mmol/L (21-32); CREATININE 1.3 mg/dL (0.55-1.3); GLUCOSE,RANDOM 82 mg/dL (74-106); MAGNESIUM 2.5 mg/dL (1.8-2.4); POTASSIUM 4.4 mmol/L (3.5-5.1); SGOT/AST 15 U/L (15-37); SGPT/ALT 19 U/L (13-61); SODIUM 140 mmol/L (136-145); TOT PROT 7.5 g/dl (6.4-8.2)
--- NOTE | 2018-07-27 13:27 | EKG ---
Test Reason : Blood Pressure : / mmHG Vent. Rate : 077 BPM Atrial Rate : 077 BPM P-R Int : 196 ms QRS Dur : 086 ms QT Int : 396 ms P-R-T Axes : 048 -02 -11 degrees QTc Int : 448 ms NORMAL SINUS RHYTHM VOLTAGE CRITERIA FOR LEFT VENTRICULAR HYPERTROPHY ABNORMAL ECG Confirmed by Clif Sommer MD ([id number]) on 07/27/2018 1:27:25 PM Referred By: Confirmed By:Clif Sommer MD
[2018-07-27] MEDS ORDERED: DIPHTH,PERTUSS(ACELL),TET 0.5 ML DISP.SYRIN IM ONE (14:54)
[2018-07-27] MEDS ORDERED: ALBUTEROL SO4 2.5/IPRATROPIUM 0.5 INH SOL 3 ML VIAL.NEB. NEB PRN (15:52)
--- NOTE | 2018-07-27 15:53 | HP ---
CHIEF COMPLAINT: S/P unwitnessed fall PCP: Dr. Ontiveros HISTORY OF PRESENT ILLNESS: Patient is a 67 year old male with a PMHx of Alzheimers dementia, Parkinsonian features, Lewy body dementia with behavioral disturbance, Hyperthyroidism, BPH, HTN, HLD, Asthma/COPD, Hx of TIA with Dysphagia, anxiety/MDD who was BIBEMS from [facility] s/p mechanical unwitnessed fall. According ED staff and nursing staff, patient was found on the floor with his body against the radiator and a laceration at the left occipital region. Patient poor historian and unable to provide any further history. Of note, patient was found to be Influenza positive at the long term and has been on Tamiflu 75mg daily since 07/25/18 and will need a total of 7 days. ER course was notable for: (1) Head CT negative (2) Troponins negative (3) New EKG changes with T wave inversions at the inferior leads Recent Travel: Unable to obtain PAST MEDICAL HISTORY: Alzheimers dementia Parkinsonian features Lewy body dementia with behavioral disturbance Hyperthyroidism BPH HTN HLD Asthma/COPD Hx of TIA with Dysphagia anxiety/MDD PAST SURGICAL HISTORY: Unable to obtain Social History: Lives at [facility] Unable to obtain Family History: N/A Allergies: haloperidol [From Haldol] Allergy (Severe, Verified 11/17/17 01:53) benztropine Allergy (Verified 11/17/17 01:53) HOME MEDICATIONS: Home Medications Medication Instructions Recorded Fludrocortisone Acetate [Florinef 0.1 mg PO DAILY 09/22/17 -] Ipratropium/Albuterol Sulfate 3 ml IH TID PRN 09/22/17 [Iprat-Albut 0.5-3(2.5) mg/3 ml] Memantine HCl [Namenda -] 10 mg PO BID 09/22/17 Sodium Chloride [Saline Nasal 1 spray NS TID 09/22/17 [place]] Tamsulosin HCl [Flomax] 0.4 mg PO DAILY 09/22/17 Amlodipine Besylate 5 mg PO DAILY 07/27/18 Carbidopa/Levodopa 25/100 [Sinemet 1 each PO TID 07/27/18 25/100 -] Oseltamivir Phosphate [Tamiflu] 75 mg PO DAILY 07/27/18 Valproic Acid (As Sodium Salt) 500 mg PO DAILY 07/27/18 [Valproic Acid] REVIEW OF SYSTEMS Unable to obtain PHYSICAL EXAMINATION Vital Signs - 24 hr 07/27/18 11:27 Temperature 98.2 F Pulse Rate 80 Respiratory 18 Rate Blood Pressure 127/77 O2 Sat by Pulse 98 Oximetry (%) GENERAL: Awake, alert, not oriented, hard of speaking, in no acute distress. HEAD: 2.5 cm superficial laceration at the left posterior head EYES: Pupils equal, round and reactive to light, sclera anicteric, conjunctiva clear. ENT: Dry mucous membranes. NECK: Normal range of motion, supple without lymphadenopathy, JVD, or masses. LUNGS: Poor inspiratory effort with Rhonchi's bilaterally and anteriorly with no crackles or wheezes. No accessory muscle use. HEART: Regular rate and rhythm, normal S1 and S2 without murmur, rub or gallop. ABDOMEN: Soft, nontender, not distended, normoactive bowel sounds. MUSCULOSKELETAL: No CVA tenderness. UPPER EXTREMITIES: No peripheral edema. LOWER EXTREMITIES: No peripheral edema. (+) Multiple toes with fungal infection NEUROLOGICAL: Motor strength 5/5 in b/l upper extremities. 4/5 in LE. Hard of speaking with stuttering. Unable to articulate the words PSYCHIATRIC: Good eye contact. SKIN: Warm, dry, normal turgor, no rashes or lesions noted, normal capillary refill. Laboratory Results 07/27/18 07/27/18 07/27/18 12:24 12:24 12:24 WBC 6.1 RBC 4.60 Hgb 14.2 Hct 41.3 MCV 89.8 MCH 31.0 MCHC 34.5 RDW 14.3 Plt Count 159 MPV 9.2 Absolute Neuts (auto) 3.7 Neutrophils % 61.1 Lymphocytes % 25.6 D Monocytes % 10.8 H Eosinophils % 1.2 Basophils % 1.3 Nucleated RBC % 0 PT with INR 12.70 INR 1.08 Sodium 140 Potassium 4.4 Chloride 106 Carbon Dioxide 29 Anion Gap 5 L BUN 23 H Creatinine 1.3 Creat Clearance w eGFR 55.06 Random Glucose 82 Calcium 8.9 Magnesium 2.5 H Total Bilirubin 0.6 AST 15 ALT 19 Alkaline Phosphatase 189 H Creatine Kinase 109 Troponin I < 0.02 Total Protein 7.5 Albumin 3.4 ASSESSMENT/PLAN: Patient is a 67 year old male who was BIBEMS for unwitnessed fall and was found to have a head Laceration as well as EKG changes. Patient admitted to telemetry for further monitoring and management. S/P Unwitnessed Fall -Will Need to rule out cardiac vs. neurologicsl etiology. Patient has dementia with previous falls in the past -Head CT negative for acute pathologies -EKG changes with t-wave inversions -Troponin negative x1 will repeat -TSH ordered -Frequent neuro checks Q6H EKG Changes -Patient has EKG changes with T-wave inversions in inferior leads from previous EKG (09/2018). -Troponin negative X1 with repeat at 1900. -Continuous cardiac monitoring -Obs tele to rule out any arrythmias Left Posterior Head Laceration -S/P fall to the head -3 bertram placed in the ED -Will need to have them removed in 7 days HTN -Controlled -Continue home medication Amlodipine 5mg daily -Continue to monitor BP Orthostatic Hypotension -Continue home medication Florinef 0.1mg daily -Continue to monitor BP BPH -Continue home dose Flomax 0.4mg daily Alzheimers dementia/Parkinsonian features /Lewy body dementia with behavioral disturbance -Continue home medication Sinemet 25/100 TID -Continue Namenda 10mg BID HLD -On no medications Asthma/COPD -1 amp Duo-Neb Q6H PRN -Monitor 02 -Maintain 02 saturation >90% Positive [facility] at [facility] -Currently being treated at the custodial with Tamiflu -Continue Tamiflu 75mg daily for 7 days. (Day #3) -Tylenol 650mg Q4H PRN for pain and fevers -Supportive Care F/E/N -On no fluids -Electrolytes wnl -Chopped solid diet with thin liquids and Ensure BID Prophylaxis -High risk. EAM. Heparin 5000 units TID -Protonix 20mg daily for GI Disposition -Full code -Tele obs -PT for deconditioning Paeg Phillips [id number] Visit type - Emergency Visit Emergency Visit: Yes ED Registration Date: 07/27/18 Care time: The patient presented to the Emergency Department on the above date and was hospitalized for further evaluation of their emergent condition. - New Patient This patient is new to me today: Yes Date on this admission: 07/27/18 - Critical Care Critical Care patient: No
[2018-07-27] MEDS ORDERED: HEPARIN NA (PORCINE) 5,000 UNITS/ML 1ML VIAL ONE (16:09)
[2018-07-27] MEDS: HEPARIN NA (PORCINE) 5,000 UNITS/ML 1ML VIAL SQ SCH ×2 (16:11→22:59)
[2018-07-27] MEDS ORDERED: ACETAMINOPHEN 325 MG TABLET (FP) PO PRN (16:42)
--- NOTE | 2018-07-27 16:44 | PN ---
Teaching Attending Note Name of Resident: Page Phillips ATTENDING PHYSICIAN STATEMENT I saw and evaluated the patient. I reviewed the resident's note and discussed the case with the resident. I agree with the resident's findings and plan as documented. SUBJECTIVE: unable to obtain Past Medical History [employer]RAW[employer]INE [employer] Dementia Cardio/Vascular HTN,Hyperlipdemia Renal/ Renal Failure Past Surgical History Past Surgical History None Allergies Allergy/AdvReac Type Severity Reaction Status Date / Time haloperidol [From Haldol] Allergy Severe Verified 11/17/17 01:53 benztropine Allergy Verified 11/17/17 01:53 benztropine mesylate Allergy Verified 11/17/17 01:53 [From Cogentin] haloperidol lactate Allergy Verified 11/17/17 01:53 [From Haldol] Social History Smoking history Never smoked Have you smoked in the past 12 No months Hx Alcohol Use No History of Substance Use None Usual Living Arrangement [facility] OBJECTIVE: Last Vital Signs Temp Pulse Resp BP Pulse Ox 36.8 C 80 18 127/77 98 07/27/18 11:27 07/27/18 11:27 07/27/18 11:27 07/27/18 11:27 07/27/18 11:27 Gen: nad Pulm: ronchi bilaterally CV: rrr w/o m/r/g Abd: +bs, s/nt/nd Ext: no c/c/e CBC, BMP 07/27/18 12:24 07/27/18 12:24 ASSESSMENT AND PLAN: -admit patient under observation to telemetry -monitor for arrhythmia -since last ECHO and carotid ultrasound were done in september of last year, will repeat -PT consult -continue tamiflu -prn duonebs -fall risk precautions -continue outpatient regimen -plan for discharge tomorrow Problem List - Problems (1) Fall Code(s): W19.XXXA - UNSPECIFIED FALL, INITIAL ENCOUNTER Qualifiers: Encounter type: initial encounter Qualified Code(s): W19.XXXA - Unspecified fall, initial encounter (2) Laceration of head Code(s): S01.91XA - LACERATION W/O FOREIGN BODY OF UNSP PART OF HEAD, INIT Qualifiers: Encounter type: initial encounter Location of open wound of head: scalp Foreign body presence: without foreign body Qualified Code(s): S01.01XA - Laceration without foreign body of scalp, initial encounter (3) Hyperthyroidism Code(s): E05.90 - THYROTOXICOSIS, UNSP WITHOUT THYROTOXIC CRISIS OR STORM (4) BPH (benign prostatic hyperplasia) Code(s): N40.0 - BENIGN PROSTATIC HYPERPLASIA WITHOUT LOWER URINRY TRACT SYMP (5) COPD (chronic obstructive pulmonary disease) Code(s): J44.9 - CHRONIC OBSTRUCTIVE PULMONARY DISEASE, UNSPECIFIED (6) HLD (hyperlipidemia) Code(s): E78.5 - HYPERLIPIDEMIA, UNSPECIFIED (7) HTN (hypertension) Code(s): I10 - ESSENTIAL (PRIMARY) HYPERTENSION Qualifiers: Hypertension type: essential hypertension Qualified Code(s): I10 - Essential (primary) hypertension (8) Lewy body dementia with behavioral disturbance Code(s): G31.83 - DEMENTIA WITH LEWY BODIES; F02.81 - DEMENTIA IN OTH DISEASES CLASSD ELSWHR W BEHAVIORAL DISTURB (9) Orthostatic hypotension Code(s): I95.1 - ORTHOSTATIC HYPOTENSION (10) Influenza A Code(s): J10.1 - FLU DUE TO OTH IDENT INFLUENZA VIRUS W OTH RESP MANIFEST
[2018-07-27 16:50] LABS: URINE APPEARANCE CLEAR; URINE BILIRUBIN NEGATIVE (<2.0 mg/dL); URINE COLOR YELLOW; URINE GLUCOSE (UA) NEGATIVE (NEGATIVE); URINE KETONE NEGATIVE (NEGATIVE); URINE LEUK ESTERASE NEGATIVE (NEGATIVE); URINE NITRITE NEGATIVE (NEGATIVE); URINE PROTEIN NEGATIVE (NEGATIVE)
[2018-07-27] MEDS ORDERED: amLODIPine BESYLATE 5 MG TABLET (FP) PO ONE (18:48)
[2018-07-27] MEDS ORDERED: amLODIPine BESYLATE 5 MG TABLET (FP) ONE (18:55)
[2018-07-27] MEDS ORDERED: LORazepam 2 MG/ML SDV VIAL IVPUSH ONE (20:28)
[2018-07-27] MEDS ORDERED: LORazepam 2 MG/ML SDV VIAL ONE (20:33)
[2018-07-27] MEDS: SODIUM CHLORIDE NASAL SPRAY 44 ML BOTTLE NS SCH (22:59)
[2018-07-27] MEDS: CARBIDOPA/LEVODOPA 25/100 TABLET (FP) PO SCH (22:59)
[2018-07-27] MEDS: MEMANTINE HCL 10 MG TABLET (FP) PO SCH (22:59)
[2018-07-28] MEDS ORDERED: HEPARIN NA (PORCINE) 5,000 UNITS/ML 1ML VIAL ONE (06:17)
[2018-07-28] MEDS ORDERED: CARBIDOPA/LEVODOPA 25/100 TABLET (FP) ONE (06:17)
[2018-07-28] MEDS: HEPARIN NA (PORCINE) 5,000 UNITS/ML 1ML VIAL SQ SCH (06:33)
[2018-07-28] MEDS: CARBIDOPA/LEVODOPA 25/100 TABLET (FP) PO SCH (06:57)
[2018-07-28] MEDS: SODIUM CHLORIDE NASAL SPRAY 44 ML BOTTLE NS SCH (07:04)
[2018-07-28] MEDS ORDERED: TAMSULOSIN HCL 0.4 MG CAP PO SCH (08:30)
[2018-07-28 09:03] LABS: ALBUMIN 3.3 g/dl (3.4-5.0); ALK PHOS 176 U/L (45-117); ANION GAP 5 MMOL/L (8-16); BILIRUBIN,TOTAL 0.8 mg/dL (0.2-1); BLOOD UREA NITROGEN 20 mg/dL (7-18); CALCIUM 8.9 mg/dL (8.5-10.1); CHLORIDE 106 mmol/L (98-107); CO2 29 mmol/L (21-32); CREATININE 0.9 mg/dL (0.55-1.3); GLUCOSE,RANDOM 78 mg/dL (74-106); MAGNESIUM 2.4 mg/dL (1.8-2.4); PHOSPHOROUS 2.7 mg/dL (2.5-4.9); POTASSIUM 4.1 mmol/L (3.5-5.1); SGOT/AST 11 U/L (15-37); SGPT/ALT 16 U/L (13-61); SODIUM 140 mmol/L (136-145); TOT PROT 7.2 g/dl (6.4-8.2)
[2018-07-28] MEDS ORDERED: VALPROATE SODIUM 250 MG/5 ML UNIT DOSE CUP PO SCH (10:00)
[2018-07-28] MEDS ORDERED: amLODIPine BESYLATE 5 MG TABLET (FP) PO SCH (10:00)
[2018-07-28] MEDS ORDERED: FLUDROCORTISONE ACETATE 0.1 MG TABLET (FP) PO SCH (10:00)
[2018-07-28] MEDS ORDERED: PANTOPRAZOLE 20 MG TABLET (FP) PO SCH (10:00)
[2018-07-28] MEDS ORDERED: OSELTAMIVIR PHOSPHATE 75 MG CAPSULE PO SCH (10:00)
--- NOTE | 2018-07-28 10:48 | ECHO ---
Name: BRANNON VELEZ Exam:Adult Echocardiogram Study Date: 07/28/2018 09:45 AM Age: 67 yrs Reason For Study: FALL ? SYNCOPE Height: 74 in Weight: 364 lb BSA: 2.8 m2 MMode/2D Measurements & Calculations IVSd: 0.86 cm Ao root diam: 3.1 cm LVIDd: 4.7 cm LA dimension: 3.1 cm LVIDs: 3.4 cm LVPWd: 0.81 cm EDV(Teich): 103.3 ml TAPSE: 3.5 cm ESV(Teich): 47.7 ml Doppler Measurements & Calculations MV E max julian: 31.8 cm/sec Ao V2 max: 106.2 cm/sec MV A max julian: 56.5 cm/sec Ao max P.5 mmHg MV E/A: 0.56 Ao V2 mean: 63.0 cm/sec MV dec time: 0.16 sec Ao mean P.9 mmHg Ao V2 VTI: 18.0 cm AI P1/2t: 445.3 msec AI max julian: 435.6 cm/sec LV V1 max P.9 mmHg AI max P.9 mmHg LV V1 mean P.90 mmHg LV V1 max: 69.3 cm/sec AI dec slope: 286.5 cm/sec2 LV V1 mean: 43.8 cm/sec LV V1 VTI: 14.2 cm MR max julian: 413.4 cm/sec TR max julian: 188.1 cm/sec MR max P.4 mmHg TR max P.2 mmHg PI end-d julian: 145.5 cm/sec Med Peak E' Julian: 3.7 cm/sec Med E/e': 8.6 Lat Peak E' Julian: 4.3 cm/sec Lat E/e': 7.3 Procedure A complete two-dimensional transthoracic echocardiogram was performed (2D, M-mode, Doppler and color flow Doppler). Left Ventricle The left ventricle is normal in size. Left ventricular systolic function is normal. Grade I diastolic dysfunction, (abnormal relaxation pattern). Ratio E/E'= 8. No regional wall motion abnormalities note d. Right Ventricle The right ventricle is normal size. The right ventricular systolic function is normal. RV systolic TD I is 12 cm/s. Atria The left atrial size is normal. Right atrial size is normal. Mitral Valve There is mild mitral annular calcification. There is mild mitral regurgitation. Tricuspid Valve The tricuspid valve is normal in structure and function. There is mild to moderate tricuspid regurgit ation. Right ventricular systolic pressure is normal. Aortic Valve There is mild aortic sclerosis.;. Mild aortic regurgitation. Pulmonic Valve The pulmonic valve is not well visualized. Mild pulmonic valvular regurgitation. Great Vessels The aortic root is normal size. Pericardium/Pleura There is no pericardial effusion. Interpretation Summary The left ventricle is normal in size. Left ventricular systolic function is normal. No regional wall motion abnormalities noted. Grade I diastolic dysfunction, (abnormal relaxation pattern). Ratio E/E'= 8 The right ventricular systolic function is normal. The left atrial size is normal. Right atrial size is normal. There is mild mitral annular calcification. There is mild mitral regurgitation. There is mild to moderate tricuspid regurgitation. Right ventricular systolic pressure is normal. There is mild aortic sclerosis.; Mild aortic regurgitation. Mild pulmonic valvular regurgitation. There is no pericardial effusion. Previous study is not available for comparison Emanuel Joyner MD 07/28/2018 10:47 AM
--- NOTE | 2018-07-28 11:23 | DS ---
Physical Examination Vital Signs: Vital Signs Temperature 97.0 F L 07/28/18 07:19 Pulse Rate 88 07/28/18 07:19 Respiratory Rate 20 07/28/18 07:19 Blood Pressure 192/109 H 07/28/18 07:19 O2 Sat by Pulse Oximetry (%) 100 07/28/18 07:19 Constitutional: Yes: Well Nourished, No Distress, Calm Cardiovascular: Yes: Regular Rate and Rhythm Respiratory: Yes: WNL, Regular, CTA Bilaterally. No: Accessory Muscle Use, SOB , Tachypnea, Wheezes Gastrointestinal: Yes: WNL, Normal Bowel Sounds, Soft. No: Distention, Tenderness Renal/: Yes: Incontinence Edema: No Neurological: Yes: Confusion, Lethargy Labs: CBC, BMP 07/27/18 12:24 07/28/18 07:08 Discharge Summary Reason For Visit: FALL Current Active Problems Fall (Acute) Influenza A (Acute) Laceration of head (Acute) Hospital Course: 67 year old male admitted for evaluation of possible unwitnessed fall at SNF. Pt was found by staff. Head CT neg. Echo w/out acute findings. trop x 2 negative. All imaging w/out fx. Carotid ultrasound pending. Daughter at bedside and requests pt to be discharged back to SNF,I informed her that we are still waiting on the carotid ultrasound and explained the reason for doing the test and daughter reports she understands and she refuses and demands pt to be discharged. Pt is medically stable for discharge to SNF, labs unremarkable, all infectious/cardiac/neuro etiology negative at the moment. Continue care as prior. - Instructions Diet, Activity, Other Instructions: resume as prior Referrals: Jairo Ontiveros MD [Primary Care Provider] - Disposition: [facility] - Home Medications Comprehensive Discharge Medication List: Ambulatory Orders Fludrocortisone Acetate [Florinef -] 0.1 mg PO DAILY 09/22/17 Ipratropium/Albuterol Sulfate [Iprat-Albut 0.5-3(2.5) mg/3 ml] 3 ml IH TID PRN 09/22/17 Memantine HCl [Namenda -] 10 mg PO BID 09/22/17 Sodium Chloride [Saline Nasal [place]] 1 spray NS TID 09/22/17 Tamsulosin HCl [Flomax] 0.4 mg PO DAILY 09/22/17 Amlodipine Besylate 5 mg PO DAILY 07/27/18 Carbidopa/Levodopa 25/100 [Sinemet 25/100 -] 1 each PO TID 07/27/18 Oseltamivir Phosphate [Tamiflu] 75 mg PO DAILY 07/27/18 Valproic Acid (As Sodium Salt) [Valproic Acid] 500 mg PO DAILY 07/27/18
[2018-07-28] MEDS: MEMANTINE HCL 10 MG TABLET (FP) PO SCH (11:53)
[2018-07-28 12:45] VITALS: BP 156/78; PULSE 78; TEMP 98
--- NOTE | 2018-07-29 16:32 | EKG ---
Test Reason : Blood Pressure : / mmHG Vent. Rate : 073 BPM Atrial Rate : 074 BPM P-R Int : 188 ms QRS Dur : 080 ms QT Int : 416 ms P-R-T Axes : 055 006 005 degrees QTc Int : 458 ms SINUS RHYTHM WITH OCCASIONAL PREMATURE VENTRICULAR COMPLEXES VOLTAGE CRITERIA FOR LEFT VENTRICULAR HYPERTROPHY ABNORMAL ECG WHEN COMPARED WITH ECG OF 27-JUL-2018 11:31, PREMATURE VENTRICULAR COMPLEXES ARE NOW PRESENT Confirmed by Jerrod Bustos ([id number]) on 07/29/2018 4:31:50 PM Referred By: Confirmed By:Jerrod Bustos
== END 2018-07-28 12:59 ==
LOC: JER 10:47 → JERBED 13:55
PROVIDERS: ADMIT Internal Medicine; ATTEND Nurse Practitioner Family
PROC: 0HQ0XZZ Repair Scalp Skin, External Approach (ICD-10-PCS; principal; 2018-07-27)
PROC: 3E033GC Introduction of Other Therapeutic Substance into Peripheral Vein, Percutaneous Approach (ICD-10-PCS; 2018-07-27)
PROC: 3E013GC Introduction of Other Therapeutic Substance into Subcutaneous Tissue, Percutaneous Approach (ICD-10-PCS; 2018-07-27)
PROC: 3E0F7GC Introduction of Other Therapeutic Substance into Respiratory Tract, Via Natural or Artificial Opening (ICD-10-PCS; 2018-07-27)
DX: S01.01XA Laceration without foreign body of scalp, initial encounter (principal); W01.198A Fall on same level from slipping, tripping and stumbling with subsequent striking against other object, initial encounter; Y93.89 Activity, other specified; Y92.128 Other place in nursing home as the place of occurrence of the external cause; R94.31 Abnormal electrocardiogram [ECG] [EKG]; I10 Essential (primary) hypertension; E78.5 Hyperlipidemia, unspecified; G30.9 Alzheimer's disease, unspecified; F02.81 Dementia in other diseases classified elsewhere, unspecified severity, with behavioral disturbance; G31.83 Neurocognitive disorder with Lewy bodies; J44.9 Chronic obstructive pulmonary disease, unspecified; N40.0 Benign prostatic hyperplasia without lower urinary tract symptoms; M06.9 Rheumatoid arthritis, unspecified; F41.9 Anxiety disorder, unspecified; F32.9 Major depressive disorder, single episode, unspecified; E05.90 Thyrotoxicosis, unspecified without thyrotoxic crisis or storm; I95.1 Orthostatic hypotension; J10.1 Influenza due to other identified influenza virus with other respiratory manifestations
CPT/HCPCS: 12011; 36415; 70450-TC; 71045-TC-FY; 72125-TC; 80053; 81003; 82550; 82962; 83735; 84100; 84443; 84484; 85025; 85610; 87086; 93005; 93010; 93306-TC; 94640; 96372; 96374; 99285-25; G0378; J1644

== ENCOUNTER 2018-08-19 10:13 | Inpatient (IN) | payer OTHER ==
[2018-08-19 10:52] LABS: URINE APPEARANCE SLCLOUDY; URINE BILIRUBIN NEGATIVE (<2.0 mg/dL); URINE COLOR YELLOW; URINE GLUCOSE (UA) NEGATIVE (NEGATIVE); URINE KETONE NEGATIVE (NEGATIVE); URINE LEUK ESTERASE NEGATIVE (NEGATIVE); URINE NITRITE NEGATIVE (NEGATIVE); URINE PROTEIN 1+ (NEGATIVE); URINE UROBILINOGEN NEGATIVE mg/dL (0.2-1.0)
[2018-08-19 11:01] LABS: VENOUS PC02 56.6 mmHg (38-52); VENOUS PH 7.37 (7.32-7.42); VENOUS PO2 27.7 mmHg (28-48)
[2018-08-19 11:05] LABS: BASO % 0.7 % (0-2.0); EOS % 1.9 % (0-4.5); HEMATOCRIT 41.5 % (35.4-49); HEMOGLOBIN 14.2 GM/dL (11.7-16.9); LYMPH % 24.6 % (8-40); MCH 30.8 pg (25.7-33.7); MCHC 34.2 g/dl (32.0-35.9); MEAN CELL VOLUME 90.3 fl (80-96); MEAN PLT VOLUME 9.3 fl (7.5-11.1); MONO % 9.6 % (3.8-10.2); NEUT % 63.2 % (42.8-82.8); PLATELET COUNT 126 K/MM3 (134-434); RBC 4.59 M/mm3 (4.00-5.60); RDW 14.5 % (11.9-15.9); WHITE BLOOD COUNT 5.1 K/mm3 (4.0-10.0)
--- NOTE | 2018-08-19 11:09 | PDOC ---
Documentation entered by Sarah Osman SCRIBE, acting as scribe for Sean Dixon MD. Attending Attestation - Resident Resident Name: Diane Duenas - ED Attending Attestation I have performed the following: I have examined & evaluated the patient, The case was reviewed & discussed with the resident, I agree w/resident's findings & plan, Exceptions are as noted - HPI HPI: 08/19/18 10:44 The patient is a 67 year old male, with a significant past medical history of HLD, alzheimer's dementia, COPD, TIA, dysphagia, anxiety, MDD, who presents to the emergency department via EMS from [place] after being found by nursing staff on the floor, unresponsive and hypothermic. The patient is unable to provide history secondary to clinical condition. Allergies: haloperidol, haloperidol lactate, benztropine, benztropine mesylate. PCP: Dr Ontiveros 08/19/18 11:08 - Physicial Exam PE: 08/19/18 10:45 ROS: A complete review of 10 out of 10 review of systems is taken and is negative apart from what is previously mentioned below and in the HPI. Physical Exam: Vitals: Triage vital signs reviewed General Appearance: (+) Somnolent and minimally responsive to painful stimuli. well nourished, well developed Head: Atraumatic Eyes: Pupils equal reactive round, extraocular movement intact Neck: Supple; No nuchal rigidity Chest Wall: Nontender Cardiac: Regular rate and rhythm, no murmurs, no rubs, no gallops Lungs: (+) course breath sounds bilaterally. Abdomen: Soft, nondistended, normal bowel sounds, nontender to palpation Extremities: Full range of motion to all extremities, no cyanosis, clubbing, or edema Skin: Warm and dry, no rashes or lesions, no rash, no petechiae Neuro: (+) minimally responsive to painful stimuli Psych: Normal mood, normal affect - Medical Decision Making 08/19/18 13:57 67 years old with altered mental status Patient is minimally responsive to painful stimuli daughter is at the bedside says patient occasionally becomes like this unsafe to discharge home given that patient is supposed to take meals and medications by mouth we'll require a dysfunction screen here in the emergency department his workup thus for in the ED has been unremarkable his head CT is negative for acute pathology his laboratory analysis and urinalysis is grossly unremarkable his chest x-ray was unremarkable his EKG is nonischemic His altered mental status may be secondary poly pharmacy and the recent addition of seroquel. Will recommend holding seroquel for now and admission to the hospital for further management with appropriate services and consultation. Heart Score/ECG Review - ECG Impressions Comment:: 08/19/18 18:20 EKG performed at [facility] demonstrates normal sinus rhythm no ST elevations incomplete right bundle-branch block T-wave inversion in leads 3 aVF Interpreted by me. Sean Dixon MD, MD/DO: This documentation has been prepared by the Dawson pappas Amanda, SCRIBE, under my direction and personally reviewed by me in its entirety. I confirm that the documentation accurately reflects all work, treatment, procedures, and medical decision making performed by me.
[2018-08-19 11:24] LABS: INR 1.06 (0.83-1.09); PROTHROMBIN TIME (PATIENT) 12.5 SEC (9.7-13.0)
[2018-08-19 11:26] LABS: ACTIVATED PTT 31.4 SECONDS (25.2-36.5)
[2018-08-19 11:35] LABS: ALBUMIN 3.5 g/dl (3.4-5.0); ALK PHOS 218 U/L (45-117); ANION GAP 5 MMOL/L (8-16); BILIRUBIN,TOTAL 0.6 mg/dL (0.2-1); BLOOD UREA NITROGEN 25 mg/dL (7-18); CALCIUM 9.5 mg/dL (8.5-10.1); CHLORIDE 105 mmol/L (98-107); CO2 32 mmol/L (21-32); CREATININE 1.3 mg/dL (0.55-1.3); GLUCOSE,RANDOM 76 mg/dL (74-106); POTASSIUM 4.5 mmol/L (3.5-5.1); SGOT/AST 14 U/L (15-37); SGPT/ALT 21 U/L (13-61); SODIUM 142 mmol/L (136-145); TOT PROT 7.9 g/dl (6.4-8.2)
--- NOTE | 2018-08-19 12:01 | PDOC ---
History of Present Illness <Sean Dixon - Last Filed: 08/20/18 11:39> - History of Present Illness Initial Comments: 08/19/18 12:00 Pt is a 67yo M with PMH of Alzheimer's dementia, COPD, CVA, HTN sent from from [facility] for being unresponsive. Pt was found on the floor and not responding. Upon arrival to ED, pt was found to be hypothermic. Unable to obtain further information from pt. Per daughter, pt was acting normally last Saturday but was started on Seroquel 2 days ago and when she went to visit him, he was not talking. hypothermic. <Diane Duenas - Last Filed: 08/20/18 20:30> - General Chief Complaint: Altered Mental Status Stated Complaint: AMS Time Seen by Provider: 08/19/18 10:20 Past History <Sean Dixon - Last Filed: 08/20/18 11:39> - Past Medical History Asthma: Yes CVA: Yes COPD: No Dementia: Yes (alzheimers) Disorders: Yes (enlarged prostate,uti) HTN: Yes Hypercholesterolemia: Yes Psychiatric Problems: Yes (schizophrenia) - Immunization History Immunization Up to Date: Yes (2013) - Suicide/Smoking/Psychosocial Hx Smoking Status: No Smoking History: Never smoked Have you smoked in the past 12 months: No Number of Cigarettes Smoked Daily: 0 Information on smoking cessation initiated: No Hx Alcohol Use: No Drug/Substance Use Hx: No Substance Use Type: None Hx Substance Use Treatment: No <Diane Duenas - Last Filed: 08/20/18 20:30> - Past Medical History Allergies/Adverse Reactions: Allergies Allergy/AdvReac Type Severity Reaction Status Date / Time haloperidol [From Haldol] Allergy Severe Verified 08/19/18 10:16 benztropine Allergy Verified 08/19/18 10:16 benztropine mesylate Allergy Verified 08/19/18 10:16 [From Cogentin] haloperidol lactate Allergy Verified 08/19/18 10:16 [From Haldol] Home Medications: Ambulatory Orders Fludrocortisone Acetate [Florinef -] 0.1 mg PO DAILY 09/22/17 Ipratropium/Albuterol Sulfate [Iprat-Albut 0.5-3(2.5) mg/3 ml] 3 ml IH TID PRN 09/22/17 Memantine HCl [Namenda -] 10 mg PO BID 09/22/17 Sodium Chloride [Saline Nasal [place]] 1 spray NS TID 09/22/17 Tamsulosin HCl [Flomax] 0.4 mg PO DAILY 09/22/17 Amlodipine Besylate 5 mg PO DAILY 07/27/18 Carbidopa/Levodopa 25/100 [Sinemet 25/100 -] 1 each PO TID 07/27/18 Valproic Acid (As Sodium Salt) [Valproic Acid] 500 mg PO BID 07/27/18 Acetaminophen [Acetaminophen 8 Hour] 650 mg PO Q6H 08/19/18 Divalproex *ER* [Depakote *ER* -] 500 mg PO BID 08/19/18 Quetiapine Fumarate [Seroquel -] 25 mg PO BID 08/19/18 Review of Systems - Review of Systems Able to Perform ROS?: No <Diane Duenas - Last Filed: 08/20/18 20:30> *Physical Exam - Vital Signs Last Vital Signs Temp Pulse Resp BP Pulse Ox 97.9 F 79 17 147/86 100 08/20/18 06:48 08/20/18 06:48 08/20/18 06:48 08/20/18 06:48 08/20/18 07:25 <Sean Dixon - Last Filed: 08/20/18 11:39> - Vital Signs Last Vital Signs Temp Pulse Resp BP Pulse Ox 96.5 F L 68 14 168/110 H 99 08/19/18 10:17 08/19/18 11:15 08/19/18 11:15 08/19/18 11:15 08/19/18 11:15 - Physical Exam General Appearance: Yes: Thin, Other (atraumatic, normocephalic) HEENT: positive: WHIT, Pharynx Normal, Other (pt not opening eyes, preventing passive eye opening. ). negative: Excessive drooling Neck: positive: Trachea midline, Supple. negative: Lymphadenopathy (R), Lymphadenopathy (L) Respiratory/Chest: positive: Decreased Breath Sounds (at bases). negative: Labored Respiration, Crackles, Rales, Rhonchi, Stridor Cardiovascular: positive: Regular Rhythm, Regular Rate, S1, S2. negative: Edema , JVD, Murmur Vascular Pulses: Carotid (R): 2+, Carotid (L): 2+, Dorsalis-Pedis (R): 2+, Doralis-Pedis (L): 2+ Gastrointestinal/Abdominal: positive: Normal Bowel Sounds, Soft. negative: Distended, Guarding, Rebound, Tenderness Male Genitalia: positive: normal genitalia Musculoskeletal: negative: CVA Tenderness Extremity: positive: Normal Capillary Refill, Pelvis Stable. negative: Pedal Edema, Swelling Neurologic: positive: Respond to painful stimul, Responsive. negative: Fully Oriented, Alert, Normal Response, Motor Strength 5/5 (unable to assess), Sensory Deficit <Diane Duenas - Last Filed: 08/20/18 20:30> Moderate Sedation - Procedure Monitoring Vital Signs: Procedure Monitoring Vital Signs Temperature 97.9 F 08/20/18 06:48 Pulse Rate 79 08/20/18 06:48 Respiratory Rate 17 08/20/18 06:48 Blood Pressure 147/86 08/20/18 06:48 O2 Sat by Pulse Oximetry (%) 100 08/20/18 07:25 <Sean Dixon - Last Filed: 08/20/18 11:39> - Procedure Monitoring Vital Signs: Procedure Monitoring Vital Signs Temperature 96.5 F L 08/19/18 10:17 Pulse Rate 68 08/19/18 11:15 Respiratory Rate 14 08/19/18 11:15 Blood Pressure 168/110 H 08/19/18 11:15 O2 Sat by Pulse Oximetry (%) 99 08/19/18 11:15 <Diane Duenas - Last Filed: 08/20/18 20:30> ED Treatment Course - LABORATORY CBC & Chemistry Diagram: 08/19/18 10:43 08/19/18 10:43 - ADDITIONAL ORDERS Additional order review: 08/19/18 10:50 Blood Culture - Preliminary Blood - Peripheral Venous NO GROWTH OBTAINED AFTER 24 HOURS, INCUBATION TO CONTINUE FOR 4 DAYS. 08/19/18 10:43 Blood Culture - Preliminary Blood - Peripheral Venous NO GROWTH OBTAINED AFTER 24 HOURS, INCUBATION TO CONTINUE FOR 4 DAYS. 08/19/18 10:39 Urine Culture - Final Urine - Urine Clean Catch NO GROWTH OBTAINED 08/19/18 08/19/18 10:44 10:43 RBC 4.59 MCV 90.3 MCHC 34.2 RDW 14.5 MPV 9.3 Neutrophils % 63.2 Lymphocytes % 24.6 Monocytes % 9.6 Eosinophils % 1.9 Basophils % 0.7 POC Glucometer 80 - RADIOLOGY Radiology Studies Ordered: Category Date Time Status HEAD CT WITHOUT CONTRAST [CT] Stat CT Scan 08/19/18 11:30 Completed CHEST X-RAY PORTABLE* [RAD] Stat Radiology 08/19/18 10:20 Completed - Medications Given in the ED: ED Medications Discontinued Medications Generic Name Dose Route Start Last Admin Trade Name Freq PRN Reason Stop Dose Admin Metoprolol Tartrate 5 mg 08/19/18 13:33 08/19/18 13:50 Lopressor Injection - IVPUSH 08/19/18 13:34 5 mg ONCE ONE Administration <Sean Dixon - Last Filed: 08/20/18 11:39> - LABORATORY CBC & Chemistry Diagram: 08/19/18 10:43 08/19/18 10:43 - ADDITIONAL ORDERS Additional order review: Laboratory Results 08/19/18 08/19/18 08/19/18 10:44 10:43 10:43 PT with INR INR PTT (Actin FS) VBG pH POC VBG pCO2 POC VBG pO2 Mixed VBG HCO3 Sodium Potassium Chloride Carbon Dioxide Anion Gap BUN Creatinine Creat Clearance w eGFR POC Glucometer 80 Random Glucose Lactic Acid 1.3 Calcium Total Bilirubin AST ALT Alkaline Phosphatase Troponin I < 0.02 Total Protein Albumin Urine Color Urine Appearance Urine pH Ur Specific [place] Urine Protein Urine Glucose (UA) Urine Ketones Urine Blood Urine Nitrite Urine Bilirubin Urine Urobilinogen Ur Leukocyte Esterase Urine WBC (Auto) Urine RBC (Auto) 08/19/18 08/19/18 08/19/18 10:43 10:43 10:43 PT with INR 12.50 INR 1.06 PTT (Actin FS) 31.4 VBG pH 7.37 POC VBG pCO2 56.6 H POC VBG pO2 27.7 L Mixed VBG HCO3 31.8 H Sodium 142 Potassium 4.5 Chloride 105 Carbon Dioxide 32 Anion Gap 5 L BUN 25 H Creatinine 1.3 Creat Clearance w eGFR 55.06 POC Glucometer Random Glucose 76 Lactic Acid Calcium 9.5 Total Bilirubin 0.6 AST 14 L ALT 21 Alkaline Phosphatase 218 H Troponin I Total Protein 7.9 Albumin 3.5 Urine Color Urine Appearance Urine pH Ur Specific [place] Urine Protein Urine Glucose (UA) Urine Ketones Urine Blood Urine Nitrite Urine Bilirubin Urine Urobilinogen Ur Leukocyte Esterase Urine WBC (Auto) Urine RBC (Auto) 08/19/18 10:36 PT with INR INR PTT (Actin FS) VBG pH POC VBG pCO2 POC VBG pO2 Mixed VBG HCO3 Sodium Potassium Chloride Carbon Dioxide Anion Gap BUN Creatinine Creat Clearance w eGFR POC Glucometer Random Glucose Lactic Acid Calcium Total Bilirubin AST ALT Alkaline Phosphatase Troponin I Total Protein Albumin Urine Color Yellow Urine Appearance Slcloudy Urine pH 6.0 Ur Specific [place] 1.019 Urine Protein 1+ H Urine Glucose (UA) Negative Urine Ketones Negative Urine Blood 3+ H Urine Nitrite Negative Urine Bilirubin Negative Urine Urobilinogen Negative Ur Leukocyte Esterase Negative Urine WBC (Auto) 10 Urine RBC (Auto) 1300 08/19/18 08/19/18 10:44 10:43 RBC 4.59 MCV 90.3 MCHC 34.2 RDW 14.5 MPV 9.3 Neutrophils % 63.2 Lymphocytes % 24.6 Monocytes % 9.6 Eosinophils % 1.9 Basophils % 0.7 POC Glucometer 80 <Diane Duenas - Last Filed: 08/20/18 20:30> Medical Decision Making - Medical Decision Making 08/20/18 20:22 Pt is a 67yo M with PMH of Alzheimer's dementia, COPD, CVA, HTN sent from from [facility] for being unresponsive. Pt was found on the floor and not responding. Upon arrival to ED, pt was found to be hypothermic. Unable to obtain further information from pt. Per daughter, pt was acting normally last Saturday but was started on Seroquel 2 days ago and when she went to visit him, he was not talking. hypothermic. Vitals: hypertensive, hypothermic PE: decreased breath sounds at lung base. Pt occasionally responding to commands, protecting airway. Saturating well on RA. Ddx includes but not limited to sepsis, polypharmacy, medication reaction/ interactions, electrolyte abnormality, metabolic disturbance. -sepsis workup -BGM (normal) -ua, ucx -ekg, cxr, CT head 08/20/18 20:25 Labs wnl. slightly elevated CO2. straight cath insert was traumatic, explaining the blood. CT head did not show acute changes or bleeding Pt given metopolol for bp. Daughter seen at bedside, explained that pt is occasionally nonverbal like at presentation however hypothermia unexplained. Most likely due to polypharmacy. Pt will be admitted <Diane Duenas - Last Filed: 08/20/18 20:30> *DC/Admit/Observation/Transfer <Sean Dixon - Last Filed: 08/20/18 11:39> - Discharge Dispostion Decision to Admit order: Yes <Diane Duenas - Last Filed: 08/20/18 20:30> Diagnosis at time of Disposition: Altered mental status Qualifiers: Altered mental status type: unspecified Qualified Code(s): R41.82 - Altered mental status, unspecified Hypothermia Qualifiers: Encounter type: initial encounter Qualified Code(s): T68.XXXA - Hypothermia, initial encounter - Discharge Dispostion Condition at time of disposition: Good
[2018-08-19] MEDS ORDERED: METOPROLOL TARTRATE 5 MG/5 ML VIAL IVPUSH ONE (13:33)
[2018-08-19] MEDS ORDERED: METOPROLOL TARTRATE 5 MG/5 ML VIAL ONE (13:45)
--- NOTE | 2018-08-19 13:45 | EKG ---
Test Reason : Blood Pressure : / mmHG Vent. Rate : 070 BPM Atrial Rate : 070 BPM P-R Int : 192 ms QRS Dur : 094 ms QT Int : 404 ms P-R-T Axes : 043 003 -05 degrees QTc Int : 436 ms NORMAL SINUS RHYTHM VOLTAGE CRITERIA FOR LEFT VENTRICULAR HYPERTROPHY ABNORMAL ECG WHEN COMPARED WITH ECG OF 27-JUL-2018 15:57, PREMATURE VENTRICULAR COMPLEXES ARE NO LONGER PRESENT Confirmed by MD Luis Fernando, Toi ([id number]) on 08/19/2018 1:45:34 PM Referred By: Confirmed By:Toi Gould MD
[2018-08-20] MEDS ORDERED: SODIUM CHLORIDE 0.9% 1000 ML INFUS.BAG IV ONE (11:38)
[2018-08-20] MEDS ORDERED: ALBUTEROL SO4 2.5/IPRATROPIUM 0.5 INH SOL 3 ML VIAL.NEB. NEB PRN (12:30)
[2018-08-20] MEDS ORDERED: ACETAMINOPHEN 325 MG TABLET (FP) PO PRN (12:31)
--- NOTE | 2018-08-20 12:36 | HP ---
Admitting History and Physical - Primary Care Physician PCP: Jairo Ontiveros - Admission Chief Complaint: Unable to obtain History of Present Illness: Mr Bowen is a 67 year old male who presented yesterday with AMS. Unfortunately patient spent 24 hours in the ER before I was made aware of the pending admission. Per ER Mr Bowen was sent over for AMS. He was recently started on seroquel and on Saturday was found on the floor unresponsive and hypothermic. He was brought to the ED on Saturday and planned for admission, however there was confusion to which physician was the proper admitting physician so no orders were placed from decision to admit until I was contacted 24 hours later. Upon seeing the patient, who is well known to me, he was arousable to voice and appears close to baseline. Generally he is not very responsive but arouses to voice. 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 Cardiovascular: Yes: HTN, Hyperlipdemia Renal/: Yes: Renal Failure - Past Surgical History Past Surgical History: Yes: None - Smoking History Smoking history: Never smoked Have you smoked in the past 12 months: No Aproximately how many cigarettes per day: 0 - Alcohol/Substance Use Hx Alcohol Use: No History of Substance Use: reports: None - Social History Usual Living Arrangement: Yes: Senior Care ADL: Support Services History of Recent Travel: Yes Home Medications - Allergies Allergies/Adverse Reactions: Allergies Allergy/AdvReac Type Severity Reaction Status Date / Time haloperidol [From Haldol] Allergy Severe Verified 08/19/18 10:16 benztropine Allergy Verified 08/19/18 10:16 benztropine mesylate Allergy Verified 08/19/18 10:16 [From Cogentin] haloperidol lactate Allergy Verified 08/19/18 10:16 [From Haldol] - Home Medications Home Medications: Ambulatory Orders Fludrocortisone Acetate [Florinef -] 0.1 mg PO DAILY 09/22/17 Ipratropium/Albuterol Sulfate [Iprat-Albut 0.5-3(2.5) mg/3 ml] 3 ml IH TID PRN 09/22/17 Memantine HCl [Namenda -] 10 mg PO BID 09/22/17 Sodium Chloride [Saline Nasal [place]] 1 spray NS TID 09/22/17 Tamsulosin HCl [Flomax] 0.4 mg PO DAILY 09/22/17 Amlodipine Besylate 5 mg PO DAILY 07/27/18 Carbidopa/Levodopa 25/100 [Sinemet 25/100 -] 1 each PO TID 07/27/18 Valproic Acid (As Sodium Salt) [Valproic Acid] 500 mg PO BID 07/27/18 Acetaminophen [Acetaminophen 8 Hour] 650 mg PO Q6H 08/19/18 Divalproex *ER* [Depakote *ER* -] 500 mg PO BID 08/19/18 Quetiapine Fumarate [Seroquel -] 25 mg PO BID 08/19/18 Family Disease History - Family Disease History Family History: Unremarkable Review of Systems Unable to obtain ROS, reason: dementia Physical Examination Vital Signs: Vital Signs Temperature 36.9 C 08/20/18 11:58 Pulse Rate 79 08/20/18 11:57 Respiratory Rate 13 08/20/18 11:57 Blood Pressure 169/94 08/20/18 11:57 O2 Sat by Pulse Oximetry (%) 100 08/20/18 11:57 Constitutional: Yes: No Distress, Calm Eyes: Yes: Conjunctiva Clear, PERRL HENT: Yes: Atraumatic, Normocephalic Cardiovascular: Yes: Regular Rate and Rhythm. No: Gallop, Murmur, Rub Respiratory: Yes: Regular, CTA Bilaterally. No: Rales, Rhonchi, Wheezes Gastrointestinal: Yes: Normal Bowel Sounds, Soft. No: Distention, Tenderness Extremities: Yes: WNL Edema: No Labs: CBC, BMP 08/19/18 10:43 08/19/18 10:43 Imaging - Results Chest X-ray: Report Reviewed, Image Reviewed Problem List - Problems (1) Fall Assessment/Plan: -patient often presents with falls -admit under observation -fall risk precautions -PT consult Code(s): W19.XXXA - UNSPECIFIED FALL, INITIAL ENCOUNTER Qualifiers: Encounter type: initial encounter Qualified Code(s): W19.XXXA - Unspecified fall, initial encounter (2) Toxic metabolic encephalopathy Assessment/Plan: -suspect secondary to seroquel -patient appears closer to baseline today and improved from yesterday per ED doctor -continue to hold seroquel -gentle hydration -monitor Code(s): G92 - TOXIC ENCEPHALOPATHY (3) Dehydration Assessment/Plan: -gentle hydration x24 hours Code(s): E86.0 - DEHYDRATION (4) BPH (benign prostatic hyperplasia) Assessment/Plan: -continue flomax Code(s): N40.0 - BENIGN PROSTATIC HYPERPLASIA WITHOUT LOWER URINRY TRACT SYMP (5) COPD (chronic obstructive pulmonary disease) Assessment/Plan: -not in exacerbation -prn duonebs Code(s): J44.9 - CHRONIC OBSTRUCTIVE PULMONARY DISEASE, UNSPECIFIED (6) HTN (hypertension) Assessment/Plan: -continue norvasc Code(s): I10 - ESSENTIAL (PRIMARY) HYPERTENSION Qualifiers: Hypertension type: essential hypertension Qualified Code(s): I10 - Essential (primary) hypertension (7) Orthostatic hypotension Assessment/Plan: -continue florinef Code(s): I95.1 - ORTHOSTATIC HYPOTENSION (8) Lewy body dementia with behavioral disturbance Assessment/Plan: -continue depakote, depakene, namenda, and sinemet -hold seroquel Code(s): G31.83 - DEMENTIA WITH LEWY BODIES; F02.81 - DEMENTIA IN OTH DISEASES CLASSD ELSWHR W BEHAVIORAL DISTURB
[2018-08-20] MEDS ORDERED: SODIUM CHLORIDE 1,000 ML IV SCH (12:45)
[2018-08-20] MEDS: SODIUM CHLORIDE NASAL SPRAY 44 ML BOTTLE NS SCH ×4 (15:07→22:31)
[2018-08-20] MEDS: CARBIDOPA/LEVODOPA 25/100 TABLET (FP) PO SCH ×3 (15:25→22:21)
[2018-08-20] MEDS ORDERED: METOPROLOL TARTRATE 5 MG/5 ML VIAL IVPUSH ONE ×3 (20:55→23:00)
[2018-08-20] MEDS ORDERED: amLODIPine BESYLATE 5 MG TABLET (FP) PO ONE ×2 (20:57→22:30)
[2018-08-20] MEDS: VALPROATE SODIUM 250 MG/5 ML UNIT DOSE CUP PO SCH ×2 (21:35→22:22)
[2018-08-20] MEDS: DIVALPROEX NA *ER* EXTEND REL 500 MG TABLET.SA (FP) PO SCH ×2 (21:35→22:22)
[2018-08-20] MEDS: MEMANTINE HCL 10 MG TABLET (FP) PO SCH (21:36)
[2018-08-20] MEDS ORDERED: DEXTROSE 50%-WATER - 25 GM/50 ML VIAL IVPUSH ONE ×2 (21:45→21:46)
[2018-08-20] MEDS ORDERED: DEXTROSE 50%-WATER 25 GM/50 ML DISP.SYRIN ONE (21:45)
[2018-08-20 22:02] LABS: BASO % 0.4 % (0-2.0); EOS % 0.5 % (0-4.5); HEMATOCRIT 40.9 % (35.4-49); HEMOGLOBIN 14.1 GM/dL (11.7-16.9); LYMPH % 14.5 % (8-40); MCHC 34.5 g/dl (32.0-35.9); MEAN CELL VOLUME 89.9 fl (80-96); MEAN PLT VOLUME 9.3 fl (7.5-11.1); MONO % 8.1 % (3.8-10.2); NEUT % 76.5 % (42.8-82.8); PLATELET COUNT 123 K/MM3 (134-434); RBC 4.55 M/mm3 (4.00-5.60); RDW 14.2 % (11.9-15.9)
[2018-08-20 22:30] LABS: ANION GAP 8 MMOL/L (8-16); BLOOD UREA NITROGEN 24 mg/dL (7-18); CHLORIDE 108 mmol/L (98-107); CO2 28 mmol/L (21-32); CREATININE 1.1 mg/dL (0.55-1.3); GLUCOSE,RANDOM 83 mg/dL (74-106); MAGNESIUM 2.4 mg/dL (1.8-2.4); PHOSPHOROUS 2.8 mg/dL (2.5-4.9); POTASSIUM 4.2 mmol/L (3.5-5.1); SODIUM 143 mmol/L (136-145)
[2018-08-20 23:52] VITALS: BMI 20.9
[2018-08-21] MEDS: SODIUM CHLORIDE NASAL SPRAY 44 ML BOTTLE NS SCH ×3 (05:27→22:16)
[2018-08-21] MEDS ORDERED: PT OWN MED DRAWER 7, Y5N ONE ×4 (05:31→10:30)
[2018-08-21] MEDS: CARBIDOPA/LEVODOPA 25/100 TABLET (FP) PO SCH ×4 (05:32→22:16)
[2018-08-21] MEDS ORDERED: DEXTROSE 50%-WATER - 25 GM/50 ML VIAL IVPUSH ONE (05:37)
[2018-08-21] MEDS ORDERED: DEXTROSE 50%-WATER - 25 GM/50 ML VIAL ONE (05:45)
[2018-08-21 07:24] LABS: BASO % 0.3 % (0-2.0); EOS % 1.3 % (0-4.5); HEMATOCRIT 37.1 % (35.4-49); HEMOGLOBIN 12.6 GM/dL (11.7-16.9); LYMPH % 22.1 % (8-40); MCH 30.3 pg (25.7-33.7); MEAN CELL VOLUME 89.1 fl (80-96); MEAN PLT VOLUME 9.6 fl (7.5-11.1); MONO % 8.6 % (3.8-10.2); NEUT % 67.7 % (42.8-82.8); PLATELET COUNT 124 K/MM3 (134-434); RBC 4.16 M/mm3 (4.00-5.60); RDW 14.1 % (11.9-15.9); WHITE BLOOD COUNT 6.6 K/mm3 (4.0-10.0)
[2018-08-21 08:05] LABS: ANION GAP 7 MMOL/L (8-16); BLOOD UREA NITROGEN 22 mg/dL (7-18); CALCIUM 8.9 mg/dL (8.5-10.1); CHLORIDE 108 mmol/L (98-107); CO2 28 mmol/L (21-32); CREATININE 1.1 mg/dL (0.55-1.3); GLUCOSE,RANDOM 111 mg/dL (74-106); MAGNESIUM 2.1 mg/dL (1.8-2.4); PHOSPHOROUS 2.5 mg/dL (2.5-4.9); POTASSIUM 4.1 mmol/L (3.5-5.1); SODIUM 143 mmol/L (136-145)
[2018-08-21] MEDS: amLODIPine BESYLATE 5 MG TABLET (FP) PO SCH (10:05)
[2018-08-21] MEDS: MEMANTINE HCL 10 MG TABLET (FP) PO SCH ×2 (10:05→22:16)
[2018-08-21] MEDS: DIVALPROEX NA *ER* EXTEND REL 500 MG TABLET.SA (FP) PO SCH ×3 (10:06→22:16)
[2018-08-21] MEDS: TAMSULOSIN HCL 0.4 MG CAP PO SCH (10:19)
[2018-08-21] MEDS: FLUDROCORTISONE ACETATE 0.1 MG TABLET (FP) PO SCH (10:19)
[2018-08-21] MEDS: VALPROATE SODIUM 250 MG/5 ML UNIT DOSE CUP PO SCH ×2 (10:19→22:16)
--- NOTE | 2018-08-21 11:47 | PN ---
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, Physician Chief Complaint: Unable to obtain, somnolent and cannot arouse. Daughter at bedside, says was awake and interactive earlier. She notes him coughing, however said she gave him some soup and fluids which he tolerated according to her but started coughing after this. - Current Medication List Current Medications: Active Medications Acetaminophen (Tylenol -) 650 mg PO Q4H PRN PRN Reason: FEVER Albuterol/Ipratropium (Duoneb -) 1 amp NEB Q8H PRN PRN Reason: copd Amlodipine Besylate (Norvasc -) 5 mg PO DAILY [facility] Last Admin: 08/21/18 10:05 Dose: 5 mg Carbidopa/Levodopa (Sinemet 25/100 -) 1 each PO TID [facility] Last Admin: 08/21/18 05:50 Dose: Not Given Divalproex Sodium (Depakote *Er* -) 500 mg PO BID [facility] Last Admin: 08/21/18 10:20 Dose: Not Given Fludrocortisone Acetate (Florinef -) 0.1 mg PO DAILY [facility] Last Admin: 08/21/18 10:19 Dose: Not Given Sodium Chloride (Normal Saline -) 1,000 mls @ 50 mls/hr IV ASDIR [facility] Stop: 08/21/18 12:32 Last Admin: 08/20/18 14:00 Dose: 50 mls/hr Memantine (Namenda -) 10 mg PO BID [facility] Last Admin: 08/21/18 10:05 Dose: 10 mg Sodium Chloride (Major [place] Nasal [place] -) 1 spray NS TID [facility] Last Admin: 08/21/18 05:27 Dose: Not Given Tamsulosin HCl (Flomax -) 0.4 mg PO DAILY [facility] Last Admin: 08/21/18 10:19 Dose: Not Given Valproate Sodium (Depakene -) 500 mg PO BID [facility] Last Admin: 08/21/18 10:19 Dose: Not Given - Objective Vital Signs: Vital Signs Temperature 37.2 C 08/21/18 10:00 Pulse Rate 77 08/21/18 10:00 Respiratory Rate 18 08/21/18 10:00 Blood Pressure 162/94 08/21/18 10:00 O2 Sat by Pulse Oximetry (%) 98 08/21/18 04:00 Constitutional: Yes: Other (somnolent, protecting airway) Cardiovascular: Yes: Regular Rate and Rhythm. No: Gallop, Murmur, Rub Respiratory: Yes: Regular, Cough (wet sounding), Rhonchi (slight). No: Rales, Wheezes Gastrointestinal: Yes: Normal Bowel Sounds, Soft. No: Distention, Tenderness Extremities: Yes: WNL Edema: No Labs: CBC, BMP 08/21/18 06:30 08/21/18 06:30 INR, PTT INR 1.06 (0.83-1.09) 08/19/18 10:43 Problem List - Problems (1) Fall Code(s): W19.XXXA - UNSPECIFIED FALL, INITIAL ENCOUNTER Qualifiers: Encounter type: initial encounter Qualified Code(s): W19.XXXA - Unspecified fall, initial encounter (2) Toxic metabolic encephalopathy Code(s): G92 - TOXIC ENCEPHALOPATHY (3) Dehydration Code(s): E86.0 - DEHYDRATION (4) BPH (benign prostatic hyperplasia) Code(s): N40.0 - BENIGN PROSTATIC HYPERPLASIA WITHOUT LOWER URINRY TRACT SYMP (5) COPD (chronic obstructive pulmonary disease) Code(s): J44.9 - CHRONIC OBSTRUCTIVE PULMONARY DISEASE, UNSPECIFIED (6) HTN (hypertension) Code(s): I10 - ESSENTIAL (PRIMARY) HYPERTENSION Qualifiers: Hypertension type: essential hypertension Qualified Code(s): I10 - Essential (primary) hypertension (7) Orthostatic hypotension Code(s): I95.1 - ORTHOSTATIC HYPOTENSION (8) Lewy body dementia with behavioral disturbance Code(s): G31.83 - DEMENTIA WITH LEWY BODIES; F02.81 - DEMENTIA IN OTH DISEASES CLASSD ELSWHR W BEHAVIORAL DISTURB Assessment/Plan (1) Fall Assessment/Plan: -patient remains somnolent today -PT consulted -suspect will be difficult to control since, per daughter, gets up frequently in the SNF Code(s): W19.XXXA - UNSPECIFIED FALL, INITIAL ENCOUNTER Qualifiers: Encounter type: initial encounter Qualified Code(s): W19.XXXA - Unspecified fall, initial encounter (2) Toxic metabolic encephalopathy Assessment/Plan: -currently remains somnolent -continue holding seroquel -cannot ascertain if secondary to seroquel or progression of dementia -continue hydration -will make npo, concern for aspiration -speech therapy consulted -pCXR to evaluate for aspiration -will make inpatient, unsafe discharge at this time Code(s): G92 - TOXIC ENCEPHALOPATHY (3) Dehydration Assessment/Plan: -continue hydration while npo Code(s): E86.0 - DEHYDRATION (4) BPH (benign prostatic hyperplasia) Assessment/Plan: -continue flomax Code(s): N40.0 - BENIGN PROSTATIC HYPERPLASIA WITHOUT LOWER URINRY TRACT SYMP (5) COPD (chronic obstructive pulmonary disease) Assessment/Plan: -not in exacerbation -prn duonebs Code(s): J44.9 - CHRONIC OBSTRUCTIVE PULMONARY DISEASE, UNSPECIFIED (6) HTN (hypertension) Assessment/Plan: -continue norvasc -prn IV metoprolol Code(s): I10 - ESSENTIAL (PRIMARY) HYPERTENSION Qualifiers: Hypertension type: essential hypertension Qualified Code(s): I10 - Essential (primary) hypertension (7) Orthostatic hypotension Assessment/Plan: -monitor, may need to hold florinef while solely in bed Code(s): I95.1 - ORTHOSTATIC HYPOTENSION (8) Lewy body dementia with behavioral disturbance Assessment/Plan: -holding seroquel -otherwise continue current regimen Code(s): G31.83 - DEMENTIA WITH LEWY BODIES; F02.81 - DEMENTIA IN OTH DISEASES CLASSD ESME W BEHAVIORAL DISTURB
--- NOTE | 2018-08-21 14:33 | CONSULT ---
Admitting History and Physical - Primary Care Physician PCP: Hesham Carrizales - Admission History of Present Illness: The patient is a 67 year old male, with a significant past medical history of HLD, dementia, COPD, TIA, dysphagia, anxiety, MDD, who presents to the emergency department via EMS from [place] after being found by nursing staff on the floor, unresponsive and hypothermic. Per PMD,pt was somnolent and cannot arouse. Daughter was at bedside, reported he was awake and interactive and she fed him soup and fluids. He started coughing after this. Nursing was unable to give him meds, with oral holding, coughing, requiring suctioning. Last seen by me September 2017,with impulsive drinking of thin liquid, downgraded to puree/nectar. He has been admitted since but I did not see him. Pt has been on chopped diet/thin liquids/and sandwiches at [place]. 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 However, pt did suck actively on tsp with applesauce.) - Hearing Hearing: Normal Hearing Aide: No Speech Evaluation - Communication Primary Language: [place] Communication: Yes: Non-Communicable (Too lethargic. H/o unintelligible jargon in September 2017) - Swallow Evaluation/Bedside Assessment Current Nutritional Intake: NPO Labial Seal: WFL Oral Prep Time: Increased Timing of Swallow: Delayed (rare initiation but lethargic) Recommendations - Speech Evaluation, Impression/Plan Impression: Awake earlier, given Barley soup by daughter, observed by POWER SYSTEM DISPATCHER. POWER SYSTEM DISPATCHER reported that he did seem to tolerate PO initially but then started coughing. For me, quite lethargic with no reponse to verbalizations or sternal rub. However, pt did suck actively on tsp with applesauce. Rare swallow elicited. Oral holding/cough when alert per report.Suspect swallow delay or lack of initiation places pt at high risk of aspiration at this time.Pt pulled out Iv. Pt will likely pull out NGT unless securely restrained. - Dysphagia Impressions/Plan Dysphagia Impressions: Suspect Aspiration *Silent aspiration: cannot be R/O at bedside Recommendations: Other (Can medication be given through IV? To reassess as pt becomes more alert.) - Recommendations Diet Consistency: NPO Liquids: NPO
[2018-08-22] MEDS: CARBIDOPA/LEVODOPA 25/100 TABLET (FP) PO SCH ×3 (06:11→22:15)
[2018-08-22] MEDS: SODIUM CHLORIDE NASAL SPRAY 44 ML BOTTLE NS SCH ×3 (06:11→22:15)
[2018-08-22 06:42] LABS: BASO % 0.5 % (0-2.0); EOS % 0.9 % (0-4.5); HEMATOCRIT 38.9 % (35.4-49); HEMOGLOBIN 13.3 GM/dL (11.7-16.9); LYMPH % 20.5 % (8-40); MCH 30.7 pg (25.7-33.7); MCHC 34.1 g/dl (32.0-35.9); MEAN CELL VOLUME 89.8 fl (80-96); MEAN PLT VOLUME 9.2 fl (7.5-11.1); MONO % 11.9 % (3.8-10.2); NEUT % 66.2 % (42.8-82.8); PLATELET COUNT 130 K/MM3 (134-434); RBC 4.34 M/mm3 (4.00-5.60); RDW 14.2 % (11.9-15.9); WHITE BLOOD COUNT 8.1 K/mm3 (4.0-10.0)
[2018-08-22 08:10] LABS: ANION GAP 4 MMOL/L (8-16); BLOOD UREA NITROGEN 19 mg/dL (7-18); CALCIUM 8.7 mg/dL (8.5-10.1); CHLORIDE 109 mmol/L (98-107); CO2 28 mmol/L (21-32); CREATININE 1.1 mg/dL (0.55-1.3); GLUCOSE,RANDOM 74 mg/dL (74-106); MAGNESIUM 2.1 mg/dL (1.8-2.4); PHOSPHOROUS 2.9 mg/dL (2.5-4.9); SODIUM 142 mmol/L (136-145)
[2018-08-22] MEDS ORDERED: PT OWN MED DRAWER 7, Y5N ONE ×2 (10:07→23:49)
--- NOTE | 2018-08-22 11:47 | PN ---
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, COMPOSING MACHINE OPERATOR/TENDER - Note 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: 67 yo male seen at bedside for f/u to swallow eval by COMPOSING MACHINE OPERATOR/TENDER Val Alexander with recommendations for NPO. Pt is obtunded (AMS) with minimal response to gentle tactile and auditory stimuli. Pt presents with open mouth posture, occasional eyes open and non-verbal. Nasal cannula in use. present for this session and provided PMHX. COMPOSING MACHINE OPERATOR/TENDER unable to assess swallow function at this time. Recommendations: continue NPO status at this time. . Provide frequent oral care. Pt may have ice chips for hydration when awake and alert. COMPOSING MACHINE OPERATOR/TENDER to follow up when pt mental status improves. Results given verbally to monorail charger operator and to pcp via chart.
[2018-08-22] MEDS: VALPROATE SODIUM 250 MG/5 ML UNIT DOSE CUP PO SCH ×2 (12:21→22:15)
[2018-08-22] MEDS: FLUDROCORTISONE ACETATE 0.1 MG TABLET (FP) PO SCH (12:22)
[2018-08-22] MEDS: DIVALPROEX NA *ER* EXTEND REL 500 MG TABLET.SA (FP) PO SCH ×2 (12:22→22:15)
[2018-08-22] MEDS: TAMSULOSIN HCL 0.4 MG CAP PO SCH (12:22)
[2018-08-22] MEDS: ENOXAPARIN NA (PORCINE) 40 MG/0.4 ML DISP.SYRIN SQ SCH (12:24)
[2018-08-22] MEDS: MEMANTINE HCL 10 MG TABLET (FP) PO SCH ×2 (12:34→22:15)
[2018-08-22] MEDS: amLODIPine BESYLATE 5 MG TABLET (FP) PO SCH (12:35)
--- NOTE | 2018-08-22 13:16 | CON.ID ---
Consult Consult Specialty:: infectious diseases Referred by:: Reason for Consultation:: ams,bacteremia - History of Present Illness Chief Complaint: ams History of Present Illness: patient unable to give any history which is taken from the charts 67 year old male who presented yesterday with AMS. . Per ER Mr Bowen was sent over for AMS. He was recently started on seroquel and on Saturday was found on the floor unresponsive and hypothermic. 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 Cardio/Vascular: Yes: HTN, Hyperlipdemia Renal/: Yes: Renal Failure - Past Surgical History Past Surgical History: Yes: None - Alcohol/Substance Use Hx Alcohol Use: No History of Substance Use: reports: None - Smoking History Smoking history: Unknown if ever smoked Have you smoked in the past 12 months: No Aproximately how many cigarettes per day: 0 - Social History Usual Living Arrangement: Detention ADL: Support Services History of Recent Travel: Yes Home Medications - Allergies Allergies/Adverse Reactions: Allergies Allergy/AdvReac Type Severity Reaction Status Date / Time haloperidol [From Haldol] Allergy Severe Verified 08/19/18 10:16 benztropine Allergy Verified 08/19/18 10:16 benztropine mesylate Allergy Verified 08/19/18 10:16 [From Cogentin] haloperidol lactate Allergy Verified 08/19/18 10:16 [From Haldol] - Home Medications Home Medications: Ambulatory Orders RX: Fludrocortisone Acetate [Florinef -] 0.1 mg PO DAILY 09/22/17 RX: Ipratropium/Albuterol Sulfate [Iprat-Albut 0.5-3(2.5) mg/3 ml] 3 ml IH TID PRN 09/22/17 RX: Memantine HCl [Namenda -] 10 mg PO BID 09/22/17 RX: Sodium Chloride [Saline Nasal [place]] 1 spray NS TID 09/22/17 RX: Tamsulosin HCl [Flomax] 0.4 mg PO DAILY 09/22/17 RX: Amlodipine Besylate 5 mg PO DAILY 07/27/18 RX: Carbidopa/Levodopa 25/100 [Sinemet 25/100 -] 1 each PO TID 07/27/18 Acetaminophen [Acetaminophen 8 Hour] 650 mg PO Q6H 08/19/18 Divalproex *ER* [Depakote *ER* -] 500 mg PO BID 08/19/18 Quetiapine Fumarate [Seroquel -] 75 mg PO BID 08/27/18 Review of Systems Unable to obtain ROS, reason: unable to obtain Physical Exam Vital Signs: Vital Signs Temperature 97.9 F 08/22/18 10:00 Pulse Rate 79 08/22/18 10:00 Respiratory Rate 18 08/22/18 10:00 Blood Pressure 150/92 08/22/18 10:00 O2 Sat by Pulse Oximetry (%) 97 08/21/18 10:00 Constitutional: Yes: Anxious, Other (restless) Eyes: Yes: Conjunctiva Clear HENT: Yes: Atraumatic, Normocephalic Neck: Yes: Supple, Trachea Midline Cardiovascular: Yes: Regular Rate and Rhythm Respiratory: Yes: Regular, Poor Air Entry (bases) Gastrointestinal: Yes: Normal Bowel Sounds, Soft Musculoskeletal: Yes: WNL Extremities: Yes: WNL Neurological: Yes: Confusion, Lethargy Psychiatric: Yes: Other Labs: CBC, BMP 08/22/18 06:00 08/22/18 06:00 Imaging - Results Chest X-ray: Report Reviewed, Image Reviewed Cat Scan: Report Reviewed, Image Reviewed Assessment/Plan Assessment/Plan (1) Fall Code(s): W19.XXXA - UNSPECIFIED FALL, INITIAL ENCOUNTER Qualifiers: Encounter type: initial encounter Qualified Code(s): W19.XXXA - Unspecified fall, initial encounter (2) Toxic metabolic encephalopathy Code(s): G92 - TOXIC ENCEPHALOPATHY (3) Dehydration Code(s): E86.0 - DEHYDRATION (4) BPH (benign prostatic hyperplasia) Code(s): N40.0 - BENIGN PROSTATIC HYPERPLASIA WITHOUT LOWER URINRY TRACT SYMP (5) COPD (chronic obstructive pulmonary disease) Code(s): J44.9 - CHRONIC OBSTRUCTIVE PULMONARY DISEASE, UNSPECIFIED (6) HTN (hypertension) Code(s): I10 - ESSENTIAL (PRIMARY) HYPERTENSION Qualifiers: Hypertension type: essential hypertension Qualified Code(s): I10 - Essential (primary) hypertension (7) Orthostatic hypotension Code(s): I95.1 - ORTHOSTATIC HYPOTENSION (8) Lewy body dementia with behavioral disturbance Code(s): G31.83 - DEMENTIA WITH LEWY BODIES; F02.81 - DEMENTIA IN OTH DISEASES CLASSD ELSWHR W BEHAVIORAL DISTURB (9) Positive blood cultures - plan will start patient on abx await for identification of the organism will repeat blood cx rest as per the team nutrition and hydration
--- NOTE | 2018-08-22 13:53 | PN ---
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, Physician Chief Complaint: Unable to obtain, remains somnolent - Current Medication List Current Medications: Active Medications Acetaminophen (Tylenol -) 650 mg PO Q4H PRN PRN Reason: FEVER Albuterol/Ipratropium (Duoneb -) 1 amp NEB Q8H PRN PRN Reason: copd Last Admin: 08/22/18 13:22 Dose: 1 amp Amlodipine Besylate (Norvasc -) 5 mg PO DAILY [facility] Last Admin: 08/22/18 12:35 Dose: Not Given Carbidopa/Levodopa (Sinemet 25/100 -) 1 each PO TID [facility] Last Admin: 08/22/18 06:11 Dose: Not Given Divalproex Sodium (Depakote *Er* -) 500 mg PO BID [facility] Last Admin: 08/22/18 12:22 Dose: Not Given Enoxaparin Sodium (Lovenox -) 40 mg SQ DAILY [facility] Last Admin: 08/22/18 12:24 Dose: 40 mg Fludrocortisone Acetate (Florinef -) 0.1 mg PO DAILY [facility] Last Admin: 08/22/18 12:22 Dose: Not Given Vancomycin HCl 1,500 mg/ (Dextrose) 500 mls @ 250 mls/hr IVPB ONCE ONE; Protocol Stop: 08/22/18 15:59 Memantine (Namenda -) 10 mg PO BID [facility] Last Admin: 08/22/18 12:34 Dose: Not Given Metoprolol Tartrate (Lopressor Injection -) 5 mg IVPUSH Q4H PRN PRN Reason: HYPERTENSION Sodium Chloride ([place] Nasal [place] -) 1 spray NS TID [facility] Last Admin: 08/22/18 06:11 Dose: Not Given Tamsulosin HCl (Flomax -) 0.4 mg PO DAILY [facility] Last Admin: 08/22/18 12:22 Dose: Not Given Valproate Sodium (Depakene -) 500 mg PO BID [facility] Last Admin: 08/22/18 12:21 Dose: Not Given - Objective Vital Signs: Vital Signs Temperature 36.6 C 08/22/18 10:00 Pulse Rate 79 08/22/18 10:00 Respiratory Rate 18 08/22/18 10:00 Blood Pressure 150/92 08/22/18 10:00 O2 Sat by Pulse Oximetry (%) 97 08/21/18 10:00 Constitutional: Yes: Well Nourished, No Distress, Calm Cardiovascular: Yes: Regular Rate and Rhythm. No: Gallop, Murmur, Rub Respiratory: Yes: Regular, On Nasal O2, Rhonchi. No: CTA Bilaterally, Rales, Wheezes Gastrointestinal: Yes: Normal Bowel Sounds, Soft. No: Distention, Tenderness Extremities: Yes: WNL Edema: No Labs: CBC, BMP 08/22/18 06:00 08/22/18 06:00 INR, PTT INR 1.06 (0.83-1.09) 08/19/18 10:43 Problem List - Problems (1) Fall Code(s): W19.XXXA - UNSPECIFIED FALL, INITIAL ENCOUNTER Qualifiers: Encounter type: initial encounter Qualified Code(s): W19.XXXA - Unspecified fall, initial encounter (2) Toxic metabolic encephalopathy Code(s): G92 - TOXIC ENCEPHALOPATHY (3) Dehydration Code(s): E86.0 - DEHYDRATION (4) BPH (benign prostatic hyperplasia) Code(s): N40.0 - BENIGN PROSTATIC HYPERPLASIA WITHOUT LOWER URINRY TRACT SYMP (5) COPD (chronic obstructive pulmonary disease) Code(s): J44.9 - CHRONIC OBSTRUCTIVE PULMONARY DISEASE, UNSPECIFIED (6) HTN (hypertension) Code(s): I10 - ESSENTIAL (PRIMARY) HYPERTENSION Qualifiers: Hypertension type: essential hypertension Qualified Code(s): I10 - Essential (primary) hypertension (7) Orthostatic hypotension Code(s): I95.1 - ORTHOSTATIC HYPOTENSION (8) Lewy body dementia with behavioral disturbance Code(s): G31.83 - DEMENTIA WITH LEWY BODIES; F02.81 - DEMENTIA IN OTH DISEASES CLASSD ELSWHR W BEHAVIORAL DISTURB Assessment/Plan (1) Fall Assessment/Plan: -remains somnolent Code(s): W19.XXXA - UNSPECIFIED FALL, INITIAL ENCOUNTER Qualifiers: Encounter type: initial encounter Qualified Code(s): W19.XXXA - Unspecified fall, initial encounter (2) Toxic metabolic encephalopathy Assessment/Plan: -mental status has not improved -lower suspicion secondary to seroquel -will check ammonia level -consult neurology Code(s): G92 - TOXIC ENCEPHALOPATHY (3) Dehydration Assessment/Plan: -continue hydration while npo Code(s): E86.0 - DEHYDRATION (4) BPH (benign prostatic hyperplasia) Assessment/Plan: -continue flomax Code(s): N40.0 - BENIGN PROSTATIC HYPERPLASIA WITHOUT LOWER URINRY TRACT SYMP (5) COPD (chronic obstructive pulmonary disease) Assessment/Plan: -not in exacerbation -prn duonebs Code(s): J44.9 - CHRONIC OBSTRUCTIVE PULMONARY DISEASE, UNSPECIFIED (6) HTN (hypertension) Assessment/Plan: -continue norvasc -prn IV metoprolol Code(s): I10 - ESSENTIAL (PRIMARY) HYPERTENSION Qualifiers: Hypertension type: essential hypertension Qualified Code(s): I10 - Essential (primary) hypertension (7) Orthostatic hypotension Assessment/Plan: -monitor, Code(s): I95.1 - ORTHOSTATIC HYPOTENSION (8) Lewy body dementia with behavioral disturbance Assessment/Plan: -currently holding all medications since npo Code(s): G31.83 - DEMENTIA WITH LEWY BODIES; F02.81 - DEMENTIA IN OTH DISEASES CLASSD ELSWHR W BEHAVIORAL DISTURB (9) Positive blood cultures -patient without fever or leukocytosis -suspect blood cultures contaminant -will recheck today -ID consult
[2018-08-22] MEDS ORDERED: VANCOMYCIN HCL 1,500 MG in DEXTROSE 5%-WATER - 500 ML IVPB ONE (14:00)
[2018-08-22] MEDS: SODIUM CHLORIDE 1,000 ML IV SCH (14:26)
--- NOTE | 2018-08-22 17:11 | CONSULT ---
Consult - text type - Consultation Consultation Note: Neurology History of Present Illness: 67 year old male who presented yesterday with AMS from care home. Reportedly , was found on the floor unresponsive and hypothermic. He was brought to the ED for further evaluation and management. He was improving but developed lethargy and somnolence and thus I was consulted this AM. CT head was completed and reviewed and without acute changes. Spoke to nurse and she described patient to be unarousable this AM and required sternal rub. However, during my visit late afternoon, was awake, alert, and minimally cooperative which seems to be his baseline. Agree with hospitalist, likely AMS and toxic metabolic encephalopthy. This may possibly be from dose of serquel or dehydration. ID note reviewed. He does have underlying dementia as noted below but presentation more consistent with delirium. Labs reviewed as below. Patient appears to have improved. 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: Yes: HTN, Hyperlipdemia Renal/: Yes: Renal Failure - Past Surgical History Past Surgical History: Yes: None - Smoking History Smoking history: Never smoked Have you smoked in the past 12 months: No Aproximately how many cigarettes per day: 0 - Alcohol/Substance Use Hx Alcohol Use: No History of Substance Use: reports: None - Social History Usual Living Arrangement: Yes: Long Term ADL: Support Services History of Recent Travel: Yes Home Medications - Allergies Allergies/Adverse Reactions: Allergies Allergy/AdvReac Type Severity Reaction Status Date / Time haloperidol [From Haldol] Allergy Severe Verified 08/19/18 10:16 benztropine Allergy Verified 08/19/18 10:16 benztropine mesylate Allergy Verified 08/19/18 10:16 [From Cogentin] haloperidol lactate Allergy Verified 08/19/18 10:16 [From Haldol] - Home Medications Home Medications: Ambulatory Orders Fludrocortisone Acetate [Florinef -] 0.1 mg PO DAILY 09/22/17 Ipratropium/Albuterol Sulfate [Iprat-Albut 0.5-3(2.5) mg/3 ml] 3 ml IH TID PRN 09/22/17 Memantine HCl [Namenda -] 10 mg PO BID 09/22/17 Sodium Chloride [Saline Nasal [place]] 1 spray NS TID 09/22/17 Tamsulosin HCl [Flomax] 0.4 mg PO DAILY 09/22/17 Amlodipine Besylate 5 mg PO DAILY 07/27/18 Carbidopa/Levodopa 25/100 [Sinemet 25/100 -] 1 each PO TID 07/27/18 Valproic Acid (As Sodium Salt) [Valproic Acid] 500 mg PO BID 07/27/18 Acetaminophen [Acetaminophen 8 Hour] 650 mg PO Q6H 08/19/18 Divalproex *ER* [Depakote *ER* -] 500 mg PO BID 08/19/18 Quetiapine Fumarate [Seroquel -] 25 mg PO BID 08/19/18 Family Disease History - Family Disease History Family History: Unremarkable Review of Systems Unable to obtain ROS, reason: dementia Physical Examination Vital Signs: Vital Signs Temperature 36.9 C 08/20/18 11:58 Pulse Rate 79 08/20/18 11:57 Respiratory Rate 13 08/20/18 11:57 Blood Pressure 169/94 08/20/18 11:57 O2 Sat by Pulse Oximetry (%) 100 08/20/18 11:57 Constitutional: Yes: No Distress, Calm Eyes: Yes: Conjunctiva Clear, PERRL HENT: Yes: Atraumatic, Normocephalic Cardiovascular: Yes: Regular Rate and Rhythm. No: Gallop, Murmur, Rub Respiratory: Yes: Regular, CTA Bilaterally. No: Rales, Rhonchi, Wheezes Gastrointestinal: Yes: Normal Bowel Sounds, Soft. No: Distention, Tenderness Extremities: Yes: WNL Edema: No CBCD WBC 8.1 K/mm3 (4.0-10.0) 08/22/18 06:00 RBC 4.34 M/mm3 (4.00-5.60) 08/22/18 06:00 Hgb 13.3 GM/dL (11.7-16.9) 08/22/18 06:00 Hct 38.9 % (35.4-49) 08/22/18 06:00 MCV 89.8 fl (80-96) 08/22/18 06:00 MCHC 34.1 g/dl (32.0-35.9) 08/22/18 06:00 RDW 14.2 % (11.9-15.9) 08/22/18 06:00 Plt Count 130 K/MM3 (134-434) L 08/22/18 06:00 MPV 9.2 fl (7.5-11.1) 08/22/18 06:00 CMP Sodium 142 mmol/L (136-145) 08/22/18 06:00 Potassium 4.0 mmol/L (3.5-5.1) 08/22/18 06:00 Chloride 109 mmol/L (98-107) H 08/22/18 06:00 Carbon Dioxide 28 mmol/L (21-32) 08/22/18 06:00 Anion Gap 4 MMOL/L (8-16) L 08/22/18 06:00 BUN 19 mg/dL (7-18) H 08/22/18 06:00 Creatinine 1.1 mg/dL (0.55-1.3) 08/22/18 06:00 Creat Clearance w eGFR > 60 (>60) 08/22/18 06:00 Random Glucose 74 mg/dL (74-106) 08/22/18 06:00 Calcium 8.7 mg/dL (8.5-10.1) 08/22/18 06:00 Total Bilirubin 0.6 mg/dL (0.2-1) 08/19/18 10:43 AST 14 U/L (15-37) L 08/19/18 10:43 ALT 21 U/L (13-61) 08/19/18 10:43 Alkaline Phosphatase 218 U/L (45-117) H 08/19/18 10:43 Total Protein 7.9 g/dl (6.4-8.2) 08/19/18 10:43 Albumin 3.5 g/dl (3.4-5.0) 08/19/18 10:43 CARDIAC ENZYMES Troponin I < 0.02 ng/ml (0.00-0.05) 08/19/18 10:[address] head reviewed Plan: 67 year old male who presented yesterday with AMS from care home. Reportedly , was found on the floor unresponsive and hypothermic. He was brought to the ED for further evaluation and management. He was improving but developed lethargy and somnolence and thus I was consulted this AM. CT head was completed and reviewed and without acute changes. Spoke to nurse and she described patient to be unarousable this AM and required sternal rub. However, during my visit late afternoon, was awake, alert, and minimally cooperative which seems to be his baseline. Agree with hospitalist, likely AMS and toxic metabolic encephalopthy. This may possibly be from dose of serquel or dehydration. ID note reviewed. He does have underlying dementia as noted below but presentation more consistent with delirium. Labs reviewed as below. Agree with Ammonia level. Monitor off seroquel for now. Continued gentle hydration. Can take Namenda and Sinemet, don' t believe these are etiology. Also on depakote, can continue for now. If furhter mental status decline, then would reduce depakote to 250bid. Patient appears to have improved. Fall precautions, DVT ppx. Continued close monitoring of mental status, if remains at baseline, can consider return to facility.
[2018-08-23] MEDS: SODIUM CHLORIDE 1,000 ML IV SCH ×3 (06:12→21:37)
[2018-08-23] MEDS: CARBIDOPA/LEVODOPA 25/100 TABLET (FP) PO SCH ×3 (06:34→21:39)
[2018-08-23] MEDS: SODIUM CHLORIDE NASAL SPRAY 44 ML BOTTLE NS SCH ×3 (06:34→21:38)
[2018-08-23 06:52] LABS: BASO % 0.5 % (0-2.0); EOS % 0.6 % (0-4.5); HEMATOCRIT 35.7 % (35.4-49); HEMOGLOBIN 12.2 GM/dL (11.7-16.9); LYMPH % 19.1 % (8-40); MCH 30.4 pg (25.7-33.7); MCHC 34.3 g/dl (32.0-35.9); MEAN CELL VOLUME 88.7 fl (80-96); MEAN PLT VOLUME 8.7 fl (7.5-11.1); MONO % 10.7 % (3.8-10.2); NEUT % 69.1 % (42.8-82.8); PLATELET COUNT 126 K/MM3 (134-434); RBC 4.02 M/mm3 (4.00-5.60); WHITE BLOOD COUNT 8.5 K/mm3 (4.0-10.0)
[2018-08-23 07:47] LABS: ANION GAP 5 MMOL/L (8-16); BLOOD UREA NITROGEN 17 mg/dL (7-18); CALCIUM 8.6 mg/dL (8.5-10.1); CHLORIDE 109 mmol/L (98-107); CO2 28 mmol/L (21-32); CREATININE 1.2 mg/dL (0.55-1.3); GLUCOSE,RANDOM 75 mg/dL (74-106); MAGNESIUM 2.2 mg/dL (1.8-2.4); POTASSIUM 3.8 mmol/L (3.5-5.1); SODIUM 142 mmol/L (136-145)
[2018-08-23] MEDS: VALPROATE SODIUM 250 MG/5 ML UNIT DOSE CUP PO SCH ×2 (09:34→21:38)
[2018-08-23] MEDS: DIVALPROEX NA *ER* EXTEND REL 500 MG TABLET.SA (FP) PO SCH ×2 (09:34→21:38)
[2018-08-23] MEDS: TAMSULOSIN HCL 0.4 MG CAP PO SCH (09:34)
[2018-08-23] MEDS: FLUDROCORTISONE ACETATE 0.1 MG TABLET (FP) PO SCH (09:35)
[2018-08-23] MEDS: MEMANTINE HCL 10 MG TABLET (FP) PO SCH ×2 (09:35→21:38)
[2018-08-23] MEDS: amLODIPine BESYLATE 5 MG TABLET (FP) PO SCH (09:35)
[2018-08-23] MEDS: ENOXAPARIN NA (PORCINE) 40 MG/0.4 ML DISP.SYRIN SQ SCH (09:40)
--- NOTE | 2018-08-23 10:18 | PN ---
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, Physician Chief Complaint: Patient awake today, mutters answers so cannot obtain subjective but much improved today from past two days. - Current Medication List Current Medications: Active Medications Acetaminophen (Tylenol -) 650 mg PO Q4H PRN PRN Reason: FEVER Albuterol/Ipratropium (Duoneb -) 1 amp NEB Q8H PRN PRN Reason: copd Last Admin: 08/22/18 13:22 Dose: 1 amp Amlodipine Besylate (Norvasc -) 5 mg PO DAILY [facility] Last Admin: 08/23/18 09:35 Dose: Not Given Carbidopa/Levodopa (Sinemet 25/100 -) 1 each PO TID [facility] Last Admin: 08/23/18 06:34 Dose: Not Given Divalproex Sodium (Depakote *Er* -) 500 mg PO BID [facility] Last Admin: 08/23/18 09:34 Dose: Not Given Enoxaparin Sodium (Lovenox -) 40 mg SQ DAILY [facility] Last Admin: 08/23/18 09:40 Dose: 40 mg Fludrocortisone Acetate (Florinef -) 0.1 mg PO DAILY [facility] Last Admin: 08/23/18 09:35 Dose: Not Given Sodium Chloride (Normal Saline -) 1,000 mls @ 75 mls/hr IV ASDIR [facility] Last Admin: 08/23/18 06:12 Dose: 75 mls/hr Memantine (Namenda -) 10 mg PO BID [facility] Last Admin: 08/23/18 09:35 Dose: Not Given Metoprolol Tartrate (Lopressor Injection -) 5 mg IVPUSH Q4H PRN PRN Reason: HYPERTENSION Sodium Chloride ([place] Nasal [place] -) 1 spray NS TID [facility] Last Admin: 08/23/18 06:34 Dose: 1 spray Tamsulosin HCl (Flomax -) 0.4 mg PO DAILY [facility] Last Admin: 08/23/18 09:34 Dose: Not Given Valproate Sodium (Depakene -) 500 mg PO BID [facility] Last Admin: 08/23/18 09:34 Dose: Not Given - Objective Vital Signs: Vital Signs Temperature 37.4 C 08/23/18 06:00 Pulse Rate 77 08/23/18 06:00 Respiratory Rate 18 08/23/18 08:39 Blood Pressure 140/84 08/23/18 06:00 O2 Sat by Pulse Oximetry (%) 96 08/23/18 08:39 Constitutional: Yes: Well Nourished, No Distress, Calm Cardiovascular: Yes: Regular Rate and Rhythm. No: Gallop, Murmur, Rub Respiratory: Yes: Regular, CTA Bilaterally. No: Rales, Rhonchi, Wheezes Gastrointestinal: Yes: Normal Bowel Sounds, Soft. No: Distention, Tenderness Extremities: Yes: WNL Edema: No Labs: CBC, BMP 08/23/18 06:15 08/23/18 06:15 INR, PTT INR 1.06 (0.83-1.09) 08/19/18 10:43 Problem List - Problems (1) Fall Code(s): W19.XXXA - UNSPECIFIED FALL, INITIAL ENCOUNTER Qualifiers: Encounter type: initial encounter Qualified Code(s): W19.XXXA - Unspecified fall, initial encounter (2) Toxic metabolic encephalopathy Code(s): G92 - TOXIC ENCEPHALOPATHY (3) Dehydration Code(s): E86.0 - DEHYDRATION (4) BPH (benign prostatic hyperplasia) Code(s): N40.0 - BENIGN PROSTATIC HYPERPLASIA WITHOUT LOWER URINRY TRACT SYMP (5) COPD (chronic obstructive pulmonary disease) Code(s): J44.9 - CHRONIC OBSTRUCTIVE PULMONARY DISEASE, UNSPECIFIED (6) HTN (hypertension) Code(s): I10 - ESSENTIAL (PRIMARY) HYPERTENSION Qualifiers: Hypertension type: essential hypertension Qualified Code(s): I10 - Essential (primary) hypertension (7) Orthostatic hypotension Code(s): I95.1 - ORTHOSTATIC HYPOTENSION (8) Lewy body dementia with behavioral disturbance Code(s): G31.83 - DEMENTIA WITH LEWY BODIES; F02.81 - DEMENTIA IN OTH DISEASES CLASSD ELSWHR W BEHAVIORAL DISTURB Assessment/Plan (1) Fall Assessment/Plan: -more awake today -continue fall precautions -PT when safe Code(s): W19.XXXA - UNSPECIFIED FALL, INITIAL ENCOUNTER Qualifiers: Encounter type: initial encounter Qualified Code(s): W19.XXXA - Unspecified fall, initial encounter (2) Toxic metabolic encephalopathy Assessment/Plan: -appreciate neurology assistance -mental status improved today -ammonia level normal -hopefully medications wearing off -monitor Code(s): G92 - TOXIC ENCEPHALOPATHY (3) Dehydration Assessment/Plan: -continue hydration while npo Code(s): E86.0 - DEHYDRATION (4) BPH (benign prostatic hyperplasia) Assessment/Plan: -continue flomax Code(s): N40.0 - BENIGN PROSTATIC HYPERPLASIA WITHOUT LOWER URINRY TRACT SYMP (5) COPD (chronic obstructive pulmonary disease) Assessment/Plan: -not in exacerbation -prn duonebs Code(s): J44.9 - CHRONIC OBSTRUCTIVE PULMONARY DISEASE, UNSPECIFIED (6) HTN (hypertension) Assessment/Plan: -continue norvasc -prn IV metoprolol Code(s): I10 - ESSENTIAL (PRIMARY) HYPERTENSION Qualifiers: Hypertension type: essential hypertension Qualified Code(s): I10 - Essential (primary) hypertension (7) Orthostatic hypotension Assessment/Plan: -monitor, Code(s): I95.1 - ORTHOSTATIC HYPOTENSION (8) Lewy body dementia with behavioral disturbance Assessment/Plan: -currently holding all medications since npo Code(s): G31.83 - DEMENTIA WITH LEWY BODIES; F02.81 - DEMENTIA IN OTH DISEASES CLASSD ELSWHR W BEHAVIORAL DISTURB (9) Positive blood cultures -appreciate Dr Harrison assistance -had fever overnight, also received vancomycin -blood cultures repeated -follow up culture results -defer further antibiotics to Dr Harrison
--- NOTE | 2018-08-23 15:38 | PN ---
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, Physician History of Present Illness: confused still mental status not at base line awaiting cx reports - Current Medication List Current Medications: Active Medications Acetaminophen (Tylenol -) 650 mg PO Q4H PRN PRN Reason: FEVER Albuterol/Ipratropium (Duoneb -) 1 amp NEB Q8H PRN PRN Reason: copd Last Admin: 08/22/18 13:22 Dose: 1 amp Amlodipine Besylate (Norvasc -) 5 mg PO DAILY [facility] Last Admin: 08/23/18 09:35 Dose: Not Given Carbidopa/Levodopa (Sinemet 25/100 -) 1 each PO TID [facility] Last Admin: 08/23/18 06:34 Dose: Not Given Divalproex Sodium (Depakote *Er* -) 500 mg PO BID [facility] Last Admin: 08/23/18 09:34 Dose: Not Given Enoxaparin Sodium (Lovenox -) 40 mg SQ DAILY [facility] Last Admin: 08/23/18 09:40 Dose: 40 mg Fludrocortisone Acetate (Florinef -) 0.1 mg PO DAILY [facility] Last Admin: 08/23/18 09:35 Dose: Not Given Sodium Chloride (Normal Saline -) 1,000 mls @ 75 mls/hr IV ASDIR [facility] Last Admin: 08/23/18 06:12 Dose: 75 mls/hr Memantine (Namenda -) 10 mg PO BID [facility] Last Admin: 08/23/18 09:35 Dose: Not Given Metoprolol Tartrate (Lopressor Injection -) 5 mg IVPUSH Q4H PRN PRN Reason: HYPERTENSION Sodium Chloride ([place] Nasal [place] -) 1 spray NS TID [facility] Last Admin: 08/23/18 06:34 Dose: 1 spray Tamsulosin HCl (Flomax -) 0.4 mg PO DAILY [facility] Last Admin: 08/23/18 09:34 Dose: Not Given Valproate Sodium (Depakene -) 500 mg PO BID [facility] Last Admin: 08/23/18 09:34 Dose: Not Given - Objective Vital Signs: Vital Signs Temperature 99.7 F H 08/23/18 13:59 Pulse Rate 86 08/23/18 13:59 Respiratory Rate 18 08/23/18 13:59 Blood Pressure 134/96 08/23/18 13:59 O2 Sat by Pulse Oximetry (%) 96 08/23/18 08:39 Constitutional: Yes: No Distress, Calm, Other Cardiovascular: Yes: Regular Rate and Rhythm Respiratory: Yes: Regular, CTA Bilaterally Gastrointestinal: Yes: Normal Bowel Sounds, Soft Musculoskeletal: Yes: WNL Extremities: Yes: WNL Neurological: Yes: Lethargy, Other (confused) Psychiatric: Yes: Other Labs: CBC, BMP 08/23/18 06:15 08/23/18 06:15 INR, PTT INR 1.06 (0.83-1.09) 08/19/18 10:43 Assessment/Plan Problem List - Problems (1) Fall Code(s): W19.XXXA - UNSPECIFIED FALL, INITIAL ENCOUNTER Qualifiers: Encounter type: initial encounter Qualified Code(s): W19.XXXA - Unspecified fall, initial encounter (2) Toxic metabolic encephalopathy Code(s): G92 - TOXIC ENCEPHALOPATHY (3) Dehydration Code(s): E86.0 - DEHYDRATION (4) BPH (benign prostatic hyperplasia) Code(s): N40.0 - BENIGN PROSTATIC HYPERPLASIA WITHOUT LOWER URINRY TRACT SYMP (5) COPD (chronic obstructive pulmonary disease) Code(s): J44.9 - CHRONIC OBSTRUCTIVE PULMONARY DISEASE, UNSPECIFIED (6) HTN (hypertension) Code(s): I10 - ESSENTIAL (PRIMARY) HYPERTENSION Qualifiers: Hypertension type: essential hypertension Qualified Code(s): I10 - Essential (primary) hypertension (7) Orthostatic hypotension Code(s): I95.1 - ORTHOSTATIC HYPOTENSION (8) Lewy body dementia with behavioral disturbance Code(s): G31.83 - DEMENTIA WITH LEWY BODIES; F02.81 - DEMENTIA IN OTH DISEASES CLASSD ELSWHR W BEHAVIORAL DISTURB plan continue abx monitor mental status repeat blood cx negative so far nutrition rest as per the team
[2018-08-23] MEDS: VANCOMYCIN HCL 1,500 MG in DEXTROSE 5%-WATER - 500 ML IVPB SCH (16:28)
[2018-08-24] MEDS ORDERED: PT OWN MED DRAWER 7, Y5N ONE ×3 (05:27→15:31)
[2018-08-24] MEDS: SODIUM CHLORIDE NASAL SPRAY 44 ML BOTTLE NS SCH ×3 (06:18→22:46)
[2018-08-24] MEDS: CARBIDOPA/LEVODOPA 25/100 TABLET (FP) PO SCH ×3 (06:18→22:45)
[2018-08-24 07:29] LABS: BASO % 0.5 % (0-2.0); EOS % 1.3 % (0-4.5); HEMATOCRIT 34.1 % (35.4-49); HEMOGLOBIN 11.6 GM/dL (11.7-16.9); LYMPH % 21.6 % (8-40); MCH 30.3 pg (25.7-33.7); MCHC 34.1 g/dl (32.0-35.9); MEAN CELL VOLUME 88.9 fl (80-96); MEAN PLT VOLUME 8.8 fl (7.5-11.1); MONO % 12.3 % (3.8-10.2); NEUT % 64.3 % (42.8-82.8); PLATELET COUNT 149 K/MM3 (134-434); RBC 3.83 M/mm3 (4.00-5.60); WHITE BLOOD COUNT 7.1 K/mm3 (4.0-10.0)
[2018-08-24 08:23] LABS: ANION GAP 5 MMOL/L (8-16); BLOOD UREA NITROGEN 18 mg/dL (7-18); CALCIUM 8.1 mg/dL (8.5-10.1); CHLORIDE 110 mmol/L (98-107); CO2 27 mmol/L (21-32); GLUCOSE,RANDOM 74 mg/dL (74-106); PHOSPHOROUS 2.7 mg/dL (2.5-4.9); POTASSIUM 3.9 mmol/L (3.5-5.1); SODIUM 142 mmol/L (136-145)
[2018-08-24] MEDS: ENOXAPARIN NA (PORCINE) 40 MG/0.4 ML DISP.SYRIN SQ SCH (09:48)
[2018-08-24] MEDS: VALPROATE SODIUM 250 MG/5 ML UNIT DOSE CUP PO SCH ×2 (10:42→22:45)
[2018-08-24] MEDS: amLODIPine BESYLATE 5 MG TABLET (FP) PO SCH (10:43)
[2018-08-24] MEDS: DIVALPROEX NA *ER* EXTEND REL 500 MG TABLET.SA (FP) PO SCH ×2 (10:43→22:45)
[2018-08-24] MEDS: TAMSULOSIN HCL 0.4 MG CAP PO SCH (10:43)
[2018-08-24] MEDS: MEMANTINE HCL 10 MG TABLET (FP) PO SCH ×2 (10:43→22:45)
[2018-08-24] MEDS: FLUDROCORTISONE ACETATE 0.1 MG TABLET (FP) PO SCH (10:43)
[2018-08-24] MEDS: SODIUM CHLORIDE 1,000 ML IV SCH (13:49)
--- NOTE | 2018-08-24 14:48 | PN ---
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, Physician History of Present Illness: stable mental status better - Current Medication List Current Medications: Active Medications Acetaminophen (Tylenol -) 650 mg PO Q4H PRN PRN Reason: FEVER Albuterol/Ipratropium (Duoneb -) 1 amp NEB Q8H PRN PRN Reason: copd Last Admin: 08/22/18 13:22 Dose: 1 amp Amlodipine Besylate (Norvasc -) 5 mg PO DAILY [facility] Last Admin: 08/24/18 10:43 Dose: Not Given Carbidopa/Levodopa (Sinemet 25/100 -) 1 each PO TID [facility] Last Admin: 08/24/18 14:17 Dose: Not Given Divalproex Sodium (Depakote *Er* -) 500 mg PO BID [facility] Last Admin: 08/24/18 10:43 Dose: Not Given Enoxaparin Sodium (Lovenox -) 40 mg SQ DAILY [facility] Last Admin: 08/24/18 09:48 Dose: 40 mg Fludrocortisone Acetate (Florinef -) 0.1 mg PO DAILY [facility] Last Admin: 08/24/18 10:43 Dose: Not Given Sodium Chloride (Normal Saline -) 1,000 mls @ 75 mls/hr IV ASDIR [facility] Last Admin: 08/24/18 13:49 Dose: 75 mls/hr Vancomycin HCl 1,500 mg/ (Dextrose) 500 mls @ 250 mls/hr IVPB DAILY@1600 [facility]; Protocol Last Admin: 08/23/18 16:28 Dose: 250 mls/hr Memantine (Namenda -) 10 mg PO BID [facility] Last Admin: 08/24/18 10:43 Dose: Not Given Metoprolol Tartrate (Lopressor Injection -) 5 mg IVPUSH Q4H PRN PRN Reason: HYPERTENSION Sodium Chloride ([place] -) 1 spray NS TID [facility] Last Admin: 08/24/18 13:41 Dose: 1 spray Tamsulosin HCl (Flomax -) 0.4 mg PO DAILY [facility] Last Admin: 08/24/18 10:43 Dose: Not Given Valproate Sodium (Depakene -) 500 mg PO BID [facility] Last Admin: 08/24/18 10:42 Dose: Not Given - Objective Vital Signs: Vital Signs Temperature 98.6 F 08/24/18 14:02 Pulse Rate 74 08/24/18 14:02 Respiratory Rate 20 08/24/18 14:02 Blood Pressure 152/87 08/24/18 14:02 O2 Sat by Pulse Oximetry (%) 95 08/24/18 09:00 Constitutional: Yes: No Distress Cardiovascular: Yes: S1, S2 Respiratory: Yes: Regular, CTA Bilaterally Gastrointestinal: Yes: Normal Bowel Sounds, Soft Musculoskeletal: Yes: WNL Extremities: Yes: WNL Neurological: Yes: Alert, Lethargy, Other (confusion) Psychiatric: Yes: Other Labs: CBC, BMP 08/24/18 06:10 08/24/18 06:10 INR, PTT INR 1.06 (0.83-1.09) 08/19/18 10:43 Assessment/Plan Assessment/Plan (1) Fall Code(s): W19.XXXA - UNSPECIFIED FALL, INITIAL ENCOUNTER Qualifiers: Encounter type: initial encounter Qualified Code(s): W19.XXXA - Unspecified fall, initial encounter (2) Toxic metabolic encephalopathy Code(s): G92 - TOXIC ENCEPHALOPATHY (3) Dehydration Code(s): E86.0 - DEHYDRATION (4) BPH (benign prostatic hyperplasia) Code(s): N40.0 - BENIGN PROSTATIC HYPERPLASIA WITHOUT LOWER URINRY TRACT SYMP (5) COPD (chronic obstructive pulmonary disease) Code(s): J44.9 - CHRONIC OBSTRUCTIVE PULMONARY DISEASE, UNSPECIFIED (6) HTN (hypertension) Code(s): I10 - ESSENTIAL (PRIMARY) HYPERTENSION Qualifiers: Hypertension type: essential hypertension Qualified Code(s): I10 - Essential (primary) hypertension (7) Orthostatic hypotension Code(s): I95.1 - ORTHOSTATIC HYPOTENSION (8) Lewy body dementia with behavioral disturbance Code(s): G31.83 - DEMENTIA WITH LEWY BODIES; F02.81 - DEMENTIA IN OTH DISEASES CLASSD ELSWHR W BEHAVIORAL DISTURB (9) Positive blood cultures - plan continue abx close watch monitor mental status rest as per the team
--- NOTE | 2018-08-24 15:05 | PN ---
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, Physician Chief Complaint: Unable to obtain, patient awake and trying to communicate but unable to understand words. Much improved from admission. - Current Medication List Current Medications: Active Medications Acetaminophen (Tylenol -) 650 mg PO Q4H PRN PRN Reason: FEVER Albuterol/Ipratropium (Duoneb -) 1 amp NEB Q8H PRN PRN Reason: copd Last Admin: 08/22/18 13:22 Dose: 1 amp Amlodipine Besylate (Norvasc -) 5 mg PO DAILY [facility] Last Admin: 08/24/18 10:43 Dose: Not Given Carbidopa/Levodopa (Sinemet 25/100 -) 1 each PO TID [facility] Last Admin: 08/24/18 14:17 Dose: Not Given Divalproex Sodium (Depakote *Er* -) 500 mg PO BID [facility] Last Admin: 08/24/18 10:43 Dose: Not Given Enoxaparin Sodium (Lovenox -) 40 mg SQ DAILY [facility] Last Admin: 08/24/18 09:48 Dose: 40 mg Fludrocortisone Acetate (Florinef -) 0.1 mg PO DAILY [facility] Last Admin: 08/24/18 10:43 Dose: Not Given Sodium Chloride (Normal Saline -) 1,000 mls @ 75 mls/hr IV ASDIR [facility] Last Admin: 08/24/18 13:49 Dose: 75 mls/hr Vancomycin HCl 1,500 mg/ (Dextrose) 500 mls @ 250 mls/hr IVPB DAILY@1600 [facility]; Protocol Last Admin: 08/23/18 16:28 Dose: 250 mls/hr Memantine (Namenda -) 10 mg PO BID [facility] Last Admin: 08/24/18 10:43 Dose: Not Given Metoprolol Tartrate (Lopressor Injection -) 5 mg IVPUSH Q4H PRN PRN Reason: HYPERTENSION Sodium Chloride ([place] -) 1 spray NS TID [facility] Last Admin: 08/24/18 13:41 Dose: 1 spray Tamsulosin HCl (Flomax -) 0.4 mg PO DAILY [facility] Last Admin: 08/24/18 10:43 Dose: Not Given Valproate Sodium (Depakene -) 500 mg PO BID [facility] Last Admin: 08/24/18 10:42 Dose: Not Given - Objective Vital Signs: Vital Signs Temperature 37.0 C 08/24/18 14:02 Pulse Rate 74 08/24/18 14:02 Respiratory Rate 20 08/24/18 14:02 Blood Pressure 152/87 08/24/18 14:02 O2 Sat by Pulse Oximetry (%) 95 08/24/18 09:00 Constitutional: Yes: Well Nourished, No Distress, Calm Cardiovascular: Yes: Regular Rate and Rhythm. No: Gallop, Murmur, Rub Respiratory: Yes: Regular, CTA Bilaterally. No: Rales, Rhonchi, Wheezes Gastrointestinal: Yes: Normal Bowel Sounds, Soft. No: Distention, Tenderness Extremities: Yes: WNL Edema: No Labs: CBC, BMP 08/24/18 06:10 08/24/18 06:10 INR, PTT INR 1.06 (0.83-1.09) 08/19/18 10:43 Problem List - Problems (1) Fall Code(s): W19.XXXA - UNSPECIFIED FALL, INITIAL ENCOUNTER Qualifiers: Encounter type: initial encounter Qualified Code(s): W19.XXXA - Unspecified fall, initial encounter (2) Toxic metabolic encephalopathy Code(s): G92 - TOXIC ENCEPHALOPATHY (3) Dehydration Code(s): E86.0 - DEHYDRATION (4) BPH (benign prostatic hyperplasia) Code(s): N40.0 - BENIGN PROSTATIC HYPERPLASIA WITHOUT LOWER URINRY TRACT SYMP (5) COPD (chronic obstructive pulmonary disease) Code(s): J44.9 - CHRONIC OBSTRUCTIVE PULMONARY DISEASE, UNSPECIFIED (6) HTN (hypertension) Code(s): I10 - ESSENTIAL (PRIMARY) HYPERTENSION Qualifiers: Hypertension type: essential hypertension Qualified Code(s): I10 - Essential (primary) hypertension (7) Orthostatic hypotension Code(s): I95.1 - ORTHOSTATIC HYPOTENSION (8) Lewy body dementia with behavioral disturbance Code(s): G31.83 - DEMENTIA WITH LEWY BODIES; F02.81 - DEMENTIA IN OTH DISEASES CLASSD ELSWHR W BEHAVIORAL DISTURB Assessment/Plan (1) Fall Assessment/Plan: -more awake today -continue fall precautions -PT when safe Code(s): W19.XXXA - UNSPECIFIED FALL, INITIAL ENCOUNTER Qualifiers: Encounter type: initial encounter Qualified Code(s): W19.XXXA - Unspecified fall, initial encounter (2) Toxic metabolic encephalopathy Assessment/Plan: -continues to improve -suspect close to baseline Code(s): G92 - TOXIC ENCEPHALOPATHY (3) Dehydration Assessment/Plan: -continue hydration while npo Code(s): E86.0 - DEHYDRATION (4) BPH (benign prostatic hyperplasia) Assessment/Plan: -continue flomax Code(s): N40.0 - BENIGN PROSTATIC HYPERPLASIA WITHOUT LOWER URINRY TRACT SYMP (5) COPD (chronic obstructive pulmonary disease) Assessment/Plan: -not in exacerbation -prn duonebs Code(s): J44.9 - CHRONIC OBSTRUCTIVE PULMONARY DISEASE, UNSPECIFIED (6) HTN (hypertension) Assessment/Plan: -continue norvasc -prn IV metoprolol Code(s): I10 - ESSENTIAL (PRIMARY) HYPERTENSION Qualifiers: Hypertension type: essential hypertension Qualified Code(s): I10 - Essential (primary) hypertension (7) Orthostatic hypotension Assessment/Plan: -monitor Code(s): I95.1 - ORTHOSTATIC HYPOTENSION (8) Lewy body dementia with behavioral disturbance Assessment/Plan: -currently holding all medications since npo -RN states patient still coughing -speech to reassess tomorrow -may need PEG tube Code(s): G31.83 - DEMENTIA WITH LEWY BODIES; F02.81 - DEMENTIA IN OTH DISEASES CLASSD ELSWHR W BEHAVIORAL DISTURB (9) Positive blood cultures -case d/w Dr Harrison -continue vancomycin
[2018-08-24] MEDS: VANCOMYCIN HCL 1,500 MG in DEXTROSE 5%-WATER - 500 ML IVPB SCH (16:50)
[2018-08-25] MEDS: METOPROLOL TARTRATE 5 MG/5 ML VIAL IVPUSH PRN ×2 (02:44→17:25)
[2018-08-25] MEDS: CARBIDOPA/LEVODOPA 25/100 TABLET (FP) PO SCH ×3 (05:33→21:56)
[2018-08-25] MEDS: SODIUM CHLORIDE NASAL SPRAY 44 ML BOTTLE NS SCH ×3 (05:34→23:27)
[2018-08-25 07:03] LABS: BASO % 0.9 % (0-2.0); EOS % 1.7 % (0-4.5); HEMATOCRIT 33.8 % (35.4-49); HEMOGLOBIN 11.7 GM/dL (11.7-16.9); LYMPH % 19.9 % (8-40); MCH 30.5 pg (25.7-33.7); MCHC 34.8 g/dl (32.0-35.9); MEAN CELL VOLUME 87.6 fl (80-96); MEAN PLT VOLUME 8.7 fl (7.5-11.1); MONO % 12.9 % (3.8-10.2); NEUT % 64.6 % (42.8-82.8); PLATELET COUNT 173 K/MM3 (134-434); RBC 3.86 M/mm3 (4.00-5.60); RDW 13.8 % (11.9-15.9); WHITE BLOOD COUNT 7.2 K/mm3 (4.0-10.0)
[2018-08-25 07:37] LABS: ANION GAP 8 MMOL/L (8-16); BLOOD UREA NITROGEN 14 mg/dL (7-18); CALCIUM 8.2 mg/dL (8.5-10.1); CHLORIDE 106 mmol/L (98-107); CO2 26 mmol/L (21-32); CREATININE 0.9 mg/dL (0.55-1.3); GLUCOSE,RANDOM 82 mg/dL (74-106); MAGNESIUM 1.7 mg/dL (1.8-2.4); PHOSPHOROUS 2.5 mg/dL (2.5-4.9); POTASSIUM 3.8 mmol/L (3.5-5.1); SODIUM 140 mmol/L (136-145)
--- NOTE | 2018-08-25 09:24 | PN ---
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 (short form) - Note 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: Neurology History of Present Illness: 67 year old male who presented yesterday with AMS from group home. Reportedly , was found on the floor unresponsive and hypothermic. He was brought to the ED for further evaluation and management. He was improving but developed lethargy and somnolence and thus I was consulted. CT head was completed and reviewed and without acute changes. Spoke to nurse and she described patient to be unarousable and initlaly required sternal rub. However, during my visit late Saturday afternoon, was awake, alert, and minimally cooperative which seems to be his baseline. Agree with hospitalist, likely AMS and toxic metabolic encephalopthy. This may possibly be from dose of serquel or dehydration. ID note reviewed, patient given vanco, positive blood cultures. He does have underlying dementia as noted below but presentation more consistent with delirium. Remains with limited movements but awake. Active Medications Acetaminophen (Tylenol -) 650 mg PO Q4H PRN PRN Reason: FEVER Albuterol/Ipratropium (Duoneb -) 1 amp NEB Q8H PRN PRN Reason: copd Last Admin: 08/22/18 13:22 Dose: 1 amp Amlodipine Besylate (Norvasc -) 5 mg PO DAILY [facility] Last Admin: 08/24/18 10:43 Dose: Not Given Carbidopa/Levodopa (Sinemet 25/100 -) 1 each PO TID [facility] Last Admin: 08/25/18 05:33 Dose: Not Given Divalproex Sodium (Depakote *Er* -) 500 mg PO BID [facility] Last Admin: 08/24/18 22:45 Dose: Not Given Enoxaparin Sodium (Lovenox -) 40 mg SQ DAILY [facility] Last Admin: 08/24/18 09:48 Dose: 40 mg Fludrocortisone Acetate (Florinef -) 0.1 mg PO DAILY [facility] Last Admin: 08/24/18 10:43 Dose: Not Given Sodium Chloride (Normal Saline -) 1,000 mls @ 75 mls/hr IV ASDIR [facility] Last Admin: 08/24/18 13:49 Dose: 75 mls/hr Vancomycin HCl 1,500 mg/ (Dextrose) 500 mls @ 250 mls/hr IVPB DAILY@1600 [facility]; Protocol Last Admin: 08/24/18 16:50 Dose: 250 mls/hr Memantine (Namenda -) 10 mg PO BID [facility] Last Admin: 08/24/18 22:45 Dose: Not Given Metoprolol Tartrate (Lopressor Injection -) 5 mg IVPUSH Q4H PRN PRN Reason: HYPERTENSION Last Admin: 08/25/18 02:44 Dose: 5 mg Sodium Chloride ([place] Nasal [place] -) 1 spray NS TID [facility] Last Admin: 08/25/18 05:34 Dose: 1 spray Tamsulosin HCl (Flomax -) 0.4 mg PO DAILY [facility] Last Admin: 08/24/18 10:43 Dose: Not Given Valproate Sodium (Depakene -) 500 mg PO BID [facility] Last Admin: 08/24/18 22:45 Dose: Not Given Physical Examination Vital Signs Period Temp Pulse Resp BP Sys/Rubi Pulse Ox Last 24 Hr 98.6 F-99.8 F 72-82 18-20 152-176/85-101 96 Constitutional: Yes: No Distress, Calm Eyes: Yes: Conjunctiva Clear, PERRL HENT: Yes: Atraumatic, Normocephalic Cardiovascular: Yes: Regular Rate and Rhythm. No: Gallop, Murmur, Rub Respiratory: Yes: Regular, CTA Bilaterally. No: Rales, Rhonchi, Wheezes Gastrointestinal: Yes: Normal Bowel Sounds, Soft. No: Distention, Tenderness Extremities: Yes: WNL Neuro: Awake, alert, minimally interactive, moves extremities slowly but no focal deficits, intact to LT, responds to tactile stim Edema: No CBCD WBC 7.2 K/mm3 (4.0-10.0) 08/25/18 06:30 RBC 3.86 M/mm3 (4.00-5.60) L 08/25/18 06:30 Hgb 11.7 GM/dL (11.7-16.9) 08/25/18 06:30 Hct 33.8 % (35.4-49) L 08/25/18 06:30 MCV 87.6 fl (80-96) 08/25/18 06:30 MCHC 34.8 g/dl (32.0-35.9) 08/25/18 06:30 RDW 13.8 % (11.9-15.9) 08/25/18 06:30 Plt Count 173 K/MM3 (134-434) 08/25/18 06:30 MPV 8.7 fl (7.5-11.1) 08/25/18 06:30 CMP Sodium 140 mmol/L (136-145) 08/25/18 06:30 Potassium 3.8 mmol/L (3.5-5.1) 08/25/18 06:30 Chloride 106 mmol/L (98-107) 08/25/18 06:30 Carbon Dioxide 26 mmol/L (21-32) 08/25/18 06:30 Anion Gap 8 MMOL/L (8-16) 08/25/18 06:30 BUN 14 mg/dL (7-18) 08/25/18 06:30 Creatinine 0.9 mg/dL (0.55-1.3) 08/25/18 06:30 Creat Clearance w eGFR > 60 (>60) 08/25/18 06:30 Random Glucose 82 mg/dL (74-106) 08/25/18 06:30 Calcium 8.2 mg/dL (8.5-10.1) L 08/25/18 06:30 Total Bilirubin 0.6 mg/dL (0.2-1) 08/19/18 10:43 AST 14 U/L (15-37) L 08/19/18 10:43 ALT 21 U/L (13-61) 08/19/18 10:43 Alkaline Phosphatase 218 U/L (45-117) H 08/19/18 10:43 Total Protein 7.9 g/dl (6.4-8.2) 08/19/18 10:43 Albumin 3.5 g/dl (3.4-5.0) 08/19/18 10:43 CARDIAC ENZYMES Troponin I < 0.02 ng/ml (0.00-0.05) 08/19/18 10:[address] head reviewed Plan: 89 year old male who presented yesterday with AMS from group home. Reportedly , was found on the floor unresponsive and hypothermic. He was brought to the ED for further evaluation and management. He was improving but developed lethargy and somnolence and thus I was consulted. CT head was completed and reviewed and without acute changes. Spoke to nurse and she described patient to be unarousable and initlaly required sternal rub. However, during my visit late Saturday afternoon, was awake, alert, and minimally cooperative which seems to be his baseline. Agree with hospitalist, likely AMS and toxic metabolic encephalopthy. This may possibly be from dose of serquel or dehydration. ID note reviewed, patient given vanco, positive blood cultures. He does have underlying dementia as noted below but presentation more consistent with delirium. Remains with limited movements but awake. Continued gentle hydration. Can take Namenda and Sinemet, don't believe these are etiology. Also on depakote , can continue for now. If further mental status decline, then would reduce depakote to 250bid. Patient appears to have improved. Fall precautions, DVT ppx. ID follow up, infectious mgmt, recommended.
[2018-08-25] MEDS: ENOXAPARIN NA (PORCINE) 40 MG/0.4 ML DISP.SYRIN SQ SCH (10:51)
[2018-08-25] MEDS: VALPROATE SODIUM 250 MG/5 ML UNIT DOSE CUP PO SCH ×2 (10:52→21:56)
[2018-08-25] MEDS: DIVALPROEX NA *ER* EXTEND REL 500 MG TABLET.SA (FP) PO SCH ×2 (10:52→21:56)
[2018-08-25] MEDS: TAMSULOSIN HCL 0.4 MG CAP PO SCH (10:53)
[2018-08-25] MEDS: MEMANTINE HCL 10 MG TABLET (FP) PO SCH ×2 (10:53→21:56)
[2018-08-25] MEDS: FLUDROCORTISONE ACETATE 0.1 MG TABLET (FP) PO SCH (10:53)
[2018-08-25] MEDS: amLODIPine BESYLATE 5 MG TABLET (FP) PO SCH (10:53)
--- NOTE | 2018-08-25 11:02 | PN ---
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: Selected Entries 08/22/18 08/22/18 08/22/18 02:00 06:00 10:00 Breakfast Supper Temperature 98.1 F 98.0 F 97.9 F 08/22/18 08/22/18 08/22/18 14:00 22:00 22:48 Breakfast NPO Supper 0 Temperature 99.2 F 98 F 100.6 F H 08/23/18 08/23/18 08/23/18 01:27 06:00 09:22 Breakfast NPO Supper Temperature 100.1 F H 99.3 F 08/23/18 08/23/18 08/23/18 10:00 13:59 17:53 Breakfast Supper Temperature 98.2 F 99.7 F H 98.7 F 08/23/18 08/23/18 08/24/18 18:00 22:00 03:00 Breakfast Supper NPO Temperature 99.6 F 98.5 F 08/24/18 08/24/18 08/24/18 06:12 14:02 18:00 Breakfast Supper Temperature 98.9 F 98.6 F 99.5 F 08/24/18 08/24/18 08/25/18 21:35 22:00 02:00 Breakfast Supper NPO Temperature 99.2 F 99.8 F H 08/25/18 06:54 Breakfast Supper Temperature 99.4 F Laboratory Tests 08/24/18 08/25/18 06:10 06:30 WBC 7.1 7.2 Pt awake today, rare eye contact,Non verbal/non vocal for me. Rare unintelligible speech for nursing.Swallow reassessed. Sucked on spoon with no posterior transet and no swallow reflex elecited with 1/3 tsp applesauce and tsp water. Pt suctioned, bite reflex on [place], Audible upper airway congestion. Pt has been NPO including medication. High risk of aspiration persists. Pt is a full code. Consider- Temporary NGT for meds/nutrition vs PEG vs comfort? What are pt's end of life wishes? Continue NPO.
--- NOTE | 2018-08-25 12:05 | PN ---
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, Physician History of Present Illness: calm still confused - Current Medication List Current Medications: Active Medications Acetaminophen (Tylenol -) 650 mg PO Q4H PRN PRN Reason: FEVER Albuterol/Ipratropium (Duoneb -) 1 amp NEB Q8H PRN PRN Reason: copd Last Admin: 08/22/18 13:22 Dose: 1 amp Amlodipine Besylate (Norvasc -) 5 mg PO DAILY [facility] Last Admin: 08/25/18 10:53 Dose: Not Given Carbidopa/Levodopa (Sinemet 25/100 -) 1 each PO TID [facility] Last Admin: 08/25/18 05:33 Dose: Not Given Divalproex Sodium (Depakote *Er* -) 500 mg PO BID [facility] Last Admin: 08/25/18 10:52 Dose: Not Given Enoxaparin Sodium (Lovenox -) 40 mg SQ DAILY [facility] Last Admin: 08/25/18 10:51 Dose: 40 mg Fludrocortisone Acetate (Florinef -) 0.1 mg PO DAILY [facility] Last Admin: 08/25/18 10:53 Dose: Not Given Sodium Chloride (Normal Saline -) 1,000 mls @ 75 mls/hr IV ASDIR [facility] Last Admin: 08/24/18 13:49 Dose: 75 mls/hr Vancomycin HCl 1,500 mg/ (Dextrose) 500 mls @ 250 mls/hr IVPB DAILY@1600 [facility]; Protocol Last Admin: 08/24/18 16:50 Dose: 250 mls/hr Memantine (Namenda -) 10 mg PO BID [facility] Last Admin: 08/25/18 10:53 Dose: Not Given Metoprolol Tartrate (Lopressor Injection -) 5 mg IVPUSH Q4H PRN PRN Reason: HYPERTENSION Last Admin: 08/25/18 02:44 Dose: 5 mg Sodium Chloride ([place] Nasal [place] -) 1 spray NS TID [facility] Last Admin: 08/25/18 05:34 Dose: 1 spray Tamsulosin HCl (Flomax -) 0.4 mg PO DAILY [facility] Last Admin: 08/25/18 10:53 Dose: Not Given Valproate Sodium (Depakene -) 500 mg PO BID [facility] Last Admin: 08/25/18 10:52 Dose: Not Given - Objective Vital Signs: Vital Signs Temperature 99.4 F 08/25/18 06:54 Pulse Rate 74 08/25/18 06:54 Respiratory Rate 18 08/25/18 06:54 Blood Pressure 152/85 08/25/18 06:54 O2 Sat by Pulse Oximetry (%) 96 08/24/18 21:00 Constitutional: Yes: No Distress, Calm Cardiovascular: Yes: S1, S2 Gastrointestinal: Yes: Normal Bowel Sounds, Soft Musculoskeletal: Yes: WNL Extremities: Yes: WNL Neurological: Yes: Lethargy, Other Psychiatric: Yes: Other Labs: CBC, BMP 08/25/18 06:30 08/25/18 06:30 INR, PTT INR 1.06 (0.83-1.09) 08/19/18 10:43 Assessment/Plan Problem List - Problems (1) Fall Code(s): W19.XXXA - UNSPECIFIED FALL, INITIAL ENCOUNTER Qualifiers: Encounter type: initial encounter Qualified Code(s): W19.XXXA - Unspecified fall, initial encounter (2) Toxic metabolic encephalopathy Code(s): G92 - TOXIC ENCEPHALOPATHY (3) Dehydration Code(s): E86.0 - DEHYDRATION (4) BPH (benign prostatic hyperplasia) Code(s): N40.0 - BENIGN PROSTATIC HYPERPLASIA WITHOUT LOWER URINRY TRACT SYMP (5) COPD (chronic obstructive pulmonary disease) Code(s): J44.9 - CHRONIC OBSTRUCTIVE PULMONARY DISEASE, UNSPECIFIED (6) HTN (hypertension) Code(s): I10 - ESSENTIAL (PRIMARY) HYPERTENSION Qualifiers: Hypertension type: essential hypertension Qualified Code(s): I10 - Essential (primary) hypertension (7) Orthostatic hypotension Code(s): I95.1 - ORTHOSTATIC HYPOTENSION (8) Lewy body dementia with behavioral disturbance Code(s): G31.83 - DEMENTIA WITH LEWY BODIES; F02.81 - DEMENTIA IN OTH DISEASES CLASSD ELSWHR W BEHAVIORAL DISTURB plan continue abx will check a trough might deescalate abx by wed rest continue current mgmt
--- NOTE | 2018-08-25 12:34 | PN ---
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, Physician Chief Complaint: Unable to obtain, patient wakes up and tries to communicate. - Current Medication List Current Medications: Active Medications Acetaminophen (Tylenol -) 650 mg PO Q4H PRN PRN Reason: FEVER Amlodipine Besylate (Norvasc -) 5 mg PO DAILY [facility] Last Admin: 08/25/18 10:53 Dose: Not Given Carbidopa/Levodopa (Sinemet 25/100 -) 1 each PO TID [facility] Last Admin: 08/25/18 05:33 Dose: Not Given Divalproex Sodium (Depakote *Er* -) 500 mg PO BID [facility] Last Admin: 08/25/18 10:52 Dose: Not Given Enoxaparin Sodium (Lovenox -) 40 mg SQ DAILY [facility] Last Admin: 08/25/18 10:51 Dose: 40 mg Fludrocortisone Acetate (Florinef -) 0.1 mg PO DAILY [facility] Last Admin: 08/25/18 10:53 Dose: Not Given Sodium Chloride (Normal Saline -) 1,000 mls @ 75 mls/hr IV ASDIR [facility] Last Admin: 08/24/18 13:49 Dose: 75 mls/hr Vancomycin HCl 1,500 mg/ (Dextrose) 500 mls @ 250 mls/hr IVPB DAILY@1600 [facility]; Protocol Last Admin: 08/24/18 16:50 Dose: 250 mls/hr Memantine (Namenda -) 10 mg PO BID [facility] Last Admin: 08/25/18 10:53 Dose: Not Given Metoprolol Tartrate (Lopressor Injection -) 5 mg IVPUSH Q4H PRN PRN Reason: HYPERTENSION Last Admin: 08/25/18 02:44 Dose: 5 mg Sodium Chloride ([place] Nasal [place] -) 1 spray NS TID [facility] Last Admin: 08/25/18 05:34 Dose: 1 spray Tamsulosin HCl (Flomax -) 0.4 mg PO DAILY [facility] Last Admin: 08/25/18 10:53 Dose: Not Given Valproate Sodium (Depakene -) 500 mg PO BID [facility] Last Admin: 08/25/18 10:52 Dose: Not Given - Objective Vital Signs: Vital Signs Temperature 37.4 C 08/25/18 06:54 Pulse Rate 74 08/25/18 06:54 Respiratory Rate 18 08/25/18 06:54 Blood Pressure 152/85 08/25/18 06:54 O2 Sat by Pulse Oximetry (%) 96 08/24/18 21:00 Constitutional: Yes: Well Nourished, No Distress, Calm Cardiovascular: Yes: Regular Rate and Rhythm. No: Gallop, Murmur, Rub Respiratory: Yes: Regular, CTA Bilaterally. No: Rales, Rhonchi, Wheezes Gastrointestinal: Yes: Normal Bowel Sounds, Soft. No: Distention, Tenderness Extremities: Yes: WNL Edema: No Labs: CBC, BMP 08/25/18 06:30 08/25/18 06:30 INR, PTT INR 1.06 (0.83-1.09) 08/19/18 10:43 Problem List - Problems (1) Fall Code(s): W19.XXXA - UNSPECIFIED FALL, INITIAL ENCOUNTER Qualifiers: Encounter type: initial encounter Qualified Code(s): W19.XXXA - Unspecified fall, initial encounter (2) Toxic metabolic encephalopathy Code(s): G92 - TOXIC ENCEPHALOPATHY (3) Dehydration Code(s): E86.0 - DEHYDRATION (4) BPH (benign prostatic hyperplasia) Code(s): N40.0 - BENIGN PROSTATIC HYPERPLASIA WITHOUT LOWER URINRY TRACT SYMP (5) COPD (chronic obstructive pulmonary disease) Code(s): J44.9 - CHRONIC OBSTRUCTIVE PULMONARY DISEASE, UNSPECIFIED (6) HTN (hypertension) Code(s): I10 - ESSENTIAL (PRIMARY) HYPERTENSION Qualifiers: Hypertension type: essential hypertension Qualified Code(s): I10 - Essential (primary) hypertension (7) Orthostatic hypotension Code(s): I95.1 - ORTHOSTATIC HYPOTENSION (8) Lewy body dementia with behavioral disturbance Code(s): G31.83 - DEMENTIA WITH LEWY BODIES; F02.81 - DEMENTIA IN OTH DISEASES CLASSD ELSWHR W BEHAVIORAL DISTURB Assessment/Plan (1) Fall Assessment/Plan: -more awake today -continue fall precautions -PT consulted Code(s): W19.XXXA - UNSPECIFIED FALL, INITIAL ENCOUNTER Qualifiers: Encounter type: initial encounter Qualified Code(s): W19.XXXA - Unspecified fall, initial encounter (2) Toxic metabolic encephalopathy Assessment/Plan: -resolved -suspect this is new baseline -will d/w family placing NGT and possible PEG tube Code(s): G92 - TOXIC ENCEPHALOPATHY (3) Dehydration Assessment/Plan: -continue hydration while npo Code(s): E86.0 - DEHYDRATION (4) BPH (benign prostatic hyperplasia) Assessment/Plan: -continue flomax Code(s): N40.0 - BENIGN PROSTATIC HYPERPLASIA WITHOUT LOWER URINRY TRACT SYMP (5) COPD (chronic obstructive pulmonary disease) Assessment/Plan: -not in exacerbation -prn duonebs Code(s): J44.9 - CHRONIC OBSTRUCTIVE PULMONARY DISEASE, UNSPECIFIED (6) HTN (hypertension) Assessment/Plan: -continue norvasc -prn IV metoprolol Code(s): I10 - ESSENTIAL (PRIMARY) HYPERTENSION Qualifiers: Hypertension type: essential hypertension Qualified Code(s): I10 - Essential (primary) hypertension (7) Orthostatic hypotension Assessment/Plan: -monitor Code(s): I95.1 - ORTHOSTATIC HYPOTENSION (8) Lewy body dementia with behavioral disturbance Assessment/Plan: -still unsafe to feed -continue NPO -as above Code(s): G31.83 - DEMENTIA WITH LEWY BODIES; F02.81 - DEMENTIA IN OTH DISEASES CLASSD ELSWHR W BEHAVIORAL DISTURB (9) Positive blood cultures -case d/w Dr Harrison -continue vancomycin
[2018-08-25] MEDS: SODIUM CHLORIDE 1,000 ML IV SCH (14:45)
[2018-08-25] MEDS: AMINO ACIDS 4.25%/D5W 1,000 ML IV SCH (16:25)
[2018-08-25] MEDS ORDERED: ACETAMINOPHEN 1000 MG/100 ML VIAL (NON FORMULARY) IVPB ONE (18:30)
[2018-08-25] MEDS ORDERED: VANCOMYCIN HCL 1,250 MG in DEXTROSE 5%-WATER - 250 ML IVPB ONE (18:40)
--- NOTE | 2018-08-25 18:40 | PN ---
Physical Exam: SUBJECTIVE: Patient seen and examined; lethargic; not eating; starting clinamex ; OBJECTIVE: Vital Signs Period Temp Pulse Resp BP Sys/Rubi Pulse Ox Last 24 Hr 99.1 F-101.2 F 72-81 16-20 145-176/85-101 96 GENERAL: The patient is awake, alert, and fully oriented, in no acute distress. NECK: Trachea midline, full range of motion, supple. LUNGS: decreased breath sounds HEART: Regular rate and rhythm, S1, S2 without murmur, rub or gallop. ABDOMEN: Soft, nontender, nondistended, normoactive bowel sounds, no guarding, no rebound, no hepatosplenomegaly, no masses. EXTREMITIES: 2+ pulses, warm, well-perfused, no edema. NEUROLOGICAL: lethargic Laboratory Results - last 24 hr 08/25/18 08/25/18 08/25/18 06:30 06:30 16:00 WBC 7.2 RBC 3.86 L Hgb 11.7 Hct 33.8 L MCV 87.6 MCH 30.5 MCHC 34.8 RDW 13.8 Plt Count 173 MPV 8.7 Absolute Neuts (auto) 4.6 Neutrophils % 64.6 Lymphocytes % 19.9 Monocytes % 12.9 H Eosinophils % 1.7 Basophils % 0.9 Nucleated RBC % 0 Sodium 140 Potassium 3.8 Chloride 106 Carbon Dioxide 26 Anion Gap 8 BUN 14 Creatinine 0.9 Creat Clearance w eGFR > 60 Random Glucose 82 Calcium 8.2 L Phosphorus 2.5 Magnesium 1.7 L Vancomycin Pre-Dose 8.4 L Active Medications Generic Name Dose Route Start Last Admin Trade Name Freq PRN Reason Stop Dose Admin Acetaminophen 650 mg 08/20/18 12:31 Tylenol - PO Q4H PRN FEVER Acetaminophen 1,000 mg 08/25/18 18:30 Ofirmev Injection - IVPB 08/25/18 18:31 ONCE ONE Amlodipine Besylate 5 mg 08/21/18 10:00 08/25/18 10:53 Norvasc - PO Not Given DAILY [facility] Carbidopa/Levodopa 1 each 08/20/18 14:00 08/25/18 14:43 Sinemet 25/100 - PO Not Given TID [facility] Divalproex Sodium 500 mg 08/20/18 22:00 08/25/18 10:52 Depakote *Er* - PO Not Given BID [facility] Enoxaparin Sodium 40 mg 08/22/18 10:00 08/25/18 10:51 Lovenox - SQ 40 mg DAILY [facility] Administration Fludrocortisone Acetate 0.1 mg 08/21/18 10:00 08/25/18 10:53 Florinef - PO Not Given DAILY [facility] Sodium Chloride 1,000 mls @ 75 mls/hr 08/22/18 14:00 08/25/18 14:45 Normal Saline - IV 75 mls/hr ASDIR [facility] Administration Vancomycin HCl 1,500 mg/ 500 mls @ 250 mls/hr 08/23/18 16:00 08/24/18 16:50 Dextrose IVPB 250 mls/hr DAILY@1600 [facility] Administration Protocol Amino Acids 1,000 mls @ 42 mls/hr 08/25/18 16:00 08/25/18 16:25 Clinimix - IV 42 mls/hr Q12H [facility] Administration Memantine 10 mg 08/20/18 22:00 08/25/18 10:53 Namenda - PO Not Given BID [facility] Metoprolol Tartrate 5 mg 08/21/18 11:45 08/25/18 02:44 Lopressor Injection - IVPUSH 5 mg Q4H PRN Administration HYPERTENSION Sodium Chloride 1 spray 08/20/18 14:00 08/25/18 14:46 [place] Nasal [place] - NS 1 spray TID [facility] Administration Tamsulosin HCl 0.4 mg 08/21/18 10:00 08/25/18 10:53 Flomax - PO Not Given DAILY [facility] Valproate Sodium 500 mg 08/20/18 22:00 08/25/18 10:52 Depakene - PO Not Given BID [facility] ASSESSMENT/PLAN: This is a 67 year old male with dementia sent home form [place] due to unresponsiveness;found to have blood culture. #AMS found to be bacteremic: lethargic -on IV antibiotics; vanco -trough vanco 8.4; -called by nurse axillary temp 102; will give another dose of vancomycin 1250mg IVPB; and IV Tylenol #Lewy body dementia ; -cont namenda, cinemet -currently restrained #protein malnutrition: -not eating; started on clinimex -discuss peg tube with family #fall: -fall precautions #COPDhx; controlled #HTN: controlled on norvas #HLD: cont statin #BPH: cont on flomax #Electrolytes wnl #dvt ppl; on lovenox Visit type - Emergency Visit Emergency Visit: Yes ED Registration Date: 08/21/18 Care time: The patient presented to the Emergency Department on the above date and was hospitalized for further evaluation of their emergent condition. - New Patient This patient is new to me today: Yes Date on this admission: 08/25/18 - Critical Care Critical Care patient: No
[2018-08-25] MEDS: VANCOMYCIN HCL 1,500 MG in DEXTROSE 5%-WATER - 500 ML IVPB SCH (18:58)
[2018-08-25] MEDS ORDERED: METOPROLOL TARTRATE 5 MG/5 ML VIAL IVPUSH PRN ×2 (20:11→20:52)
[2018-08-26] MEDS: AMINO ACIDS 4.25%/D5W 1,000 ML IV SCH ×2 (03:40→16:48)
[2018-08-26] MEDS ORDERED: VANCOMYCIN HCL 1,250 MG in DEXTROSE 5%-WATER - 250 ML IVPB ONE (04:00)
[2018-08-26] MEDS: CARBIDOPA/LEVODOPA 25/100 TABLET (FP) PO SCH ×3 (04:59→23:02)
[2018-08-26] MEDS: SODIUM CHLORIDE NASAL SPRAY 44 ML BOTTLE NS SCH ×3 (05:27→23:26)
[2018-08-26 07:03] LABS: EOS % 1.8 % (0-4.5); HEMATOCRIT 33.4 % (35.4-49); HEMOGLOBIN 11.7 GM/dL (11.7-16.9); LYMPH % 25.5 % (8-40); MCH 30.6 pg (25.7-33.7); MEAN CELL VOLUME 87.3 fl (80-96); MEAN PLT VOLUME 8.6 fl (7.5-11.1); MONO % 12.7 % (3.8-10.2); PLATELET COUNT 191 K/MM3 (134-434); RBC 3.83 M/mm3 (4.00-5.60); RDW 13.5 % (11.9-15.9)
[2018-08-26 07:35] LABS: ANION GAP 6 MMOL/L (8-16); BLOOD UREA NITROGEN 15 mg/dL (7-18); CALCIUM 7.7 mg/dL (8.5-10.1); CHLORIDE 104 mmol/L (98-107); CO2 27 mmol/L (21-32); CREATININE 0.9 mg/dL (0.55-1.3); GLUCOSE,RANDOM 112 mg/dL (74-106); MAGNESIUM 1.7 mg/dL (1.8-2.4); PHOSPHOROUS 2.5 mg/dL (2.5-4.9); POTASSIUM 3.6 mmol/L (3.5-5.1); SODIUM 137 mmol/L (136-145)
--- NOTE | 2018-08-26 09:05 | PN ---
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 (short form) - Note 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: Neurology History of Present Illness: 67 year old male who presented yesterday with AMS from [facility]. Reportedly , was found on the floor unresponsive and hypothermic. He was brought to the ED for further evaluation and management. He was improving but developed lethargy and somnolence and thus I was consulted. CT head was completed and reviewed and without acute changes. Spoke to nurse and she described patient to be unarousable and initlaly required sternal rub. However, during my visit late Saturday afternoon, was awake, alert, and minimally cooperative which seems to be his baseline. Agree with hospitalist, likely AMS and toxic metabolic encephalopthy. This may possibly be from dose of serquel or dehydration. ID note reviewed, patient given vanco, positive blood cultures. He does have underlying dementia as noted below but presentation more consistent with delirium. Was waving hello to me this morning, hypophonic, not articulating clearly which is baseline for him. Active Medications Acetaminophen (Tylenol -) 650 mg PO Q4H PRN PRN Reason: FEVER Amlodipine Besylate (Norvasc -) 5 mg PO DAILY [facility] Last Admin: 08/25/18 10:53 Dose: Not Given Carbidopa/Levodopa (Sinemet 25/100 -) 1 each PO TID [facility] Last Admin: 08/26/18 04:59 Dose: Not Given Divalproex Sodium (Depakote *Er* -) 500 mg PO BID [facility] Last Admin: 08/25/18 21:56 Dose: Not Given Enoxaparin Sodium (Lovenox -) 40 mg SQ DAILY [facility] Last Admin: 08/25/18 10:51 Dose: 40 mg Fludrocortisone Acetate (Florinef -) 0.1 mg PO DAILY [facility] Last Admin: 08/25/18 10:53 Dose: Not Given Sodium Chloride (Normal Saline -) 1,000 mls @ 75 mls/hr IV ASDIR [facility] Last Admin: 08/25/18 14:45 Dose: 75 mls/hr Vancomycin HCl 1,500 mg/ (Dextrose) 500 mls @ 250 mls/hr IVPB DAILY@1600 [facility]; Protocol Last Admin: 08/25/18 18:58 Dose: 250 mls/hr Amino Acids (Clinimix -) 1,000 mls @ 42 mls/hr IV Q12H [facility] Last Admin: 08/26/18 03:40 Dose: Not Given Memantine (Namenda -) 10 mg PO BID [facility] Last Admin: 08/25/18 21:56 Dose: Not Given Metoprolol Tartrate (Lopressor Injection -) 5 mg IVPUSH Q4H PRN PRN Reason: HYPERTENSION Sodium Chloride ([place] Nasal [place] -) 1 spray NS TID [facility] Last Admin: 08/26/18 05:27 Dose: 1 spray Tamsulosin HCl (Flomax -) 0.4 mg PO DAILY [facility] Last Admin: 08/25/18 10:53 Dose: Not Given Valproate Sodium (Depakene -) 500 mg PO BID [facility] Last Admin: 08/25/18 21:56 Dose: Not Given Physical Examination Vital Signs Period Temp Pulse Resp BP Sys/Rubi Pulse Ox Last 24 Hr 97.6 F-101.2 F 73-80 16-20 119-175/75-99 97 Constitutional: Yes: No Distress, Calm Eyes: Yes: Conjunctiva Clear, PERRL HENT: Yes: Atraumatic, Normocephalic Cardiovascular: Yes: Regular Rate and Rhythm. No: Gallop, Murmur, Rub Respiratory: Yes: Regular, CTA Bilaterally. No: Rales, Rhonchi, Wheezes Gastrointestinal: Yes: Normal Bowel Sounds, Soft. No: Distention, Tenderness Extremities: Yes: WNL Neuro: Awake, alert, minimally interactive, moves extremities slowly but no focal deficits, intact to LT, responds to tactile stim Edema: No CBCD WBC 7.0 K/mm3 (4.0-10.0) 08/26/18 06:30 RBC 3.83 M/mm3 (4.00-5.60) L 08/26/18 06:30 Hgb 11.7 GM/dL (11.7-16.9) 08/26/18 06:30 Hct 33.4 % (35.4-49) L 08/26/18 06:30 MCV 87.3 fl (80-96) 08/26/18 06:30 MCHC 35.0 g/dl (32.0-35.9) 08/26/18 06:30 RDW 13.5 % (11.9-15.9) 08/26/18 06:30 Plt Count 191 K/MM3 (134-434) 08/26/18 06:30 MPV 8.6 fl (7.5-11.1) 08/26/18 06:30 CMP Sodium 137 mmol/L (136-145) 08/26/18 06:30 Potassium 3.6 mmol/L (3.5-5.1) 08/26/18 06:30 Chloride 104 mmol/L (98-107) 08/26/18 06:30 Carbon Dioxide 27 mmol/L (21-32) 08/26/18 06:30 Anion Gap 6 MMOL/L (8-16) L 08/26/18 06:30 BUN 15 mg/dL (7-18) 08/26/18 06:30 Creatinine 0.9 mg/dL (0.55-1.3) 08/26/18 06:30 Creat Clearance w eGFR > 60 (>60) 08/26/18 06:30 Calcium 7.7 mg/dL (8.5-10.1) L 08/26/18 06:30 Total Bilirubin 0.6 mg/dL (0.2-1) 08/19/18 10:43 AST 14 U/L (15-37) L 08/19/18 10:43 ALT 21 U/L (13-61) 08/19/18 10:43 Alkaline Phosphatase 218 U/L (45-117) H 08/19/18 10:43 Total Protein 7.9 g/dl (6.4-8.2) 08/19/18 10:43 Albumin 3.5 g/dl (3.4-5.0) 08/19/18 10:[address] head reviewed Plan: 89 year old male who presented yesterday with AMS from [facility]. Reportedly , was found on the floor unresponsive and hypothermic. He was brought to the ED for further evaluation and management. He was improving but developed lethargy and somnolence and thus I was consulted. CT head was completed and reviewed and without acute changes. Spoke to nurse and she described patient to be unarousable and initlaly required sternal rub. However, during my visit late Saturday afternoon, was awake, alert, and minimally cooperative which seems to be his baseline. Agree with hospitalist, likely AMS and toxic metabolic encephalopthy. This may possibly be from dose of serquel or dehydration. ID note reviewed, patient given vanco, positive blood cultures. He does have underlying dementia as noted below but presentation more consistent with delirium. Remains with limited movements but awake. Continued gentle hydration. Can take Namenda and Sinemet, don't believe these are etiology. Also on depakote , can continue for now. If further mental status decline, then would reduce depakote to 250bid. Patient appears to have improved. Fall precautions, DVT ppx. ID follow up, infectious mgmt, recommended. Remains on vanco. Neurologically mental status improved.
[2018-08-26] MEDS: MEMANTINE HCL 10 MG TABLET (FP) PO SCH ×2 (10:24→23:02)
[2018-08-26] MEDS: amLODIPine BESYLATE 5 MG TABLET (FP) PO SCH (10:24)
[2018-08-26] MEDS: VALPROATE SODIUM 250 MG/5 ML UNIT DOSE CUP PO SCH ×2 (10:24→23:01)
[2018-08-26] MEDS: TAMSULOSIN HCL 0.4 MG CAP PO SCH (10:24)
[2018-08-26] MEDS: DIVALPROEX NA *ER* EXTEND REL 500 MG TABLET.SA (FP) PO SCH ×2 (10:24→22:52)
[2018-08-26] MEDS: FLUDROCORTISONE ACETATE 0.1 MG TABLET (FP) PO SCH (10:24)
[2018-08-26] MEDS: ENOXAPARIN NA (PORCINE) 40 MG/0.4 ML DISP.SYRIN SQ SCH (10:39)
[2018-08-26] MEDS: METOPROLOL TARTRATE 5 MG/5 ML VIAL IVPUSH PRN (10:45)
[2018-08-26] MEDS ORDERED: MAGNESIUM SULF 50% (8.12 MEQ/2 ML-1 GM VIAL) IVPB ONE (12:30)
[2018-08-26] MEDS: SODIUM CHLORIDE 1,000 ML IV SCH (14:02)
--- NOTE | 2018-08-26 14:11 | PN ---
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, [facility] - Note 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: Selected Entries 08/25/18 08/25/18 08/25/18 02:00 06:54 14:00 Supper Temperature 99.8 F H 99.4 F 99.1 F 08/25/18 08/25/18 08/25/18 16:50 21:00 23:38 Supper NPO Temperature 101.2 F H 97.6 F 08/26/18 08/26/18 02:00 06:00 Supper Temperature 99.7 F H 99.2 F Laboratory Tests 08/26/18 06:30 WBC 7.0 Pt reassessed with his daughter present. Pt with eyes intermittently open today , verbalizing, although intelligibility is impaired. Pt accepted trials of puree, with delayed swallow onset, sometimes absent, but triggered more so than previous evaluations. Swallow itself, once tiggered, is quite brisk. Intermittent throat clearing observed. Tongue with white patches-r/o thrush Suggest: Trial of Dys puree./[place] thick liquid/Magic cup/2 AUGUST HN Feed only when alert Remind pt to swallow with each bite Single sips, no continuous drinking Monitor nutritional/Pulmonary status. r/o thrush
--- NOTE | 2018-08-26 14:58 | PN ---
Physical Exam: SUBJECTIVE: Patient seen and examined; fever 101F yesterday evening given extra dose of vancomycin; lethargic, but improved OBJECTIVE: Vital Signs Period Temp Pulse Resp BP Sys/Rubi Pulse Ox Last 24 Hr 97.6 F-101.2 F 73-84 16-20 113-179/75-99 97 GENERAL: The patient is awake, lethargic, able to say name but not answer to questions of follow commands, LUNGS: Breath sounds equal, clear to auscultation bilaterally, no wheezes, no crackles, no accessory muscle use. HEART: Regular rate and rhythm, S1, S2 without murmur, rub or gallop. ABDOMEN: Soft, nontender, nondistended, normoactive bowel sounds, no guarding, no rebound, no hepatosplenomegaly, no masses. EXTREMITIES: 2+ pulses, warm, well-perfused, no edema. NEUROLOGICAL: lethargic, not able to follow commands; Laboratory Results - last 24 hr 08/25/18 08/26/18 08/26/18 16:00 06:30 06:30 WBC 7.0 RBC 3.83 L Hgb 11.7 Hct 33.4 L MCV 87.3 MCH 30.6 MCHC 35.0 RDW 13.5 Plt Count 191 MPV 8.6 Absolute Neuts (auto) 4.1 Neutrophils % 59.0 Lymphocytes % 25.5 D Monocytes % 12.7 H Eosinophils % 1.8 Basophils % 1.0 Nucleated RBC % 0 Sodium 137 Potassium 3.6 Chloride 104 Carbon Dioxide 27 Anion Gap 6 L BUN 15 Creatinine 0.9 Creat Clearance w eGFR > 60 Random Glucose 112 H Calcium 7.7 L Phosphorus 2.5 Magnesium 1.7 L Vancomycin Pre-Dose 8.4 L Active Medications Generic Name Dose Route Start Last Admin Trade Name Freq PRN Reason Stop Dose Admin Acetaminophen 650 mg 08/20/18 12:31 Tylenol - PO Q4H PRN FEVER Amlodipine Besylate 5 mg 08/21/18 10:00 08/26/18 10:24 Norvasc - PO Not Given DAILY [facility] Carbidopa/Levodopa 1 each 08/20/18 14:00 08/26/18 14:03 Sinemet 25/100 - PO Not Given TID [facility] Divalproex Sodium 500 mg 08/20/18 22:00 08/26/18 10:24 Depakote *Er* - PO Not Given BID [facility] Enoxaparin Sodium 40 mg 08/22/18 10:00 08/26/18 10:39 Lovenox - SQ 40 mg DAILY [facility] Administration Fludrocortisone Acetate 0.1 mg 08/21/18 10:00 08/26/18 10:24 Florinef - PO Not Given DAILY [facility] Vancomycin HCl 1,500 mg/ 500 mls @ 250 mls/hr 08/23/18 16:00 08/25/18 18:58 Dextrose IVPB 250 mls/hr DAILY@1600 [facility] Administration Protocol Amino Acids 1,000 mls @ 42 mls/hr 08/25/18 16:00 08/26/18 03:40 Clinimix - IV Not Given Q12H [facility] Memantine 10 mg 08/20/18 22:00 08/26/18 10:24 Namenda - PO Not Given BID [facility] Metoprolol Tartrate 5 mg 08/25/18 21:25 08/26/18 10:45 Lopressor Injection - IVPUSH 5 mg Q4H PRN Administration HYPERTENSION Sodium Chloride 1 spray 08/20/18 14:00 08/26/18 14:02 [place] Nasal [place] - NS 1 spray TID [facility] Administration Tamsulosin HCl 0.4 mg 08/21/18 10:00 08/26/18 10:24 Flomax - PO Not Given DAILY [facility] Valproate Sodium 500 mg 08/20/18 22:00 08/26/18 10:24 Depakene - PO Not Given BID [facility] ASSESSMENT/PLAN: This is a 67 year old male with dementia sent home form [place] due to unresponsiveness;found to have alex + blood culture x one bottle. Work up for etiology includes infectious vs metabolic, mal nutrition, dementia. Multifactorial. #AMS found to be bacteremic: lethargic; -cont IV ; vanco -trough vanco 8.4; -sridevi ID recs #Lewy body dementia ; -cont namenda, cinemet -restart cinemet; now pn puree diet -currently restrained #malnutrition: -started on clinimex -seen by speech; swallow; -start purre diet -nutrition consult #fall: -fall precautions #COPDhx; controlled #HTN: controlled on norvas #HLD: cont statin #BPH: cont on flomax #hypomagnesimia; replace #Diet: puree diet as per speech/swallow #dvt ppl; on lovenox Visit type - Emergency Visit Emergency Visit: Yes ED Registration Date: 08/21/18 Care time: The patient presented to the Emergency Department on the above date and was hospitalized for further evaluation of their emergent condition. - New Patient This patient is new to me today: No - Critical Care Critical Care patient: No
--- NOTE | 2018-08-26 15:18 | PN ---
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, Physician History of Present Illness: patient spiked fever vanco trough noted given additional dose currently patient comfortable more awake still restless with sitter - Current Medication List Current Medications: Active Medications Acetaminophen (Tylenol -) 650 mg PO Q4H PRN PRN Reason: FEVER Amlodipine Besylate (Norvasc -) 5 mg PO DAILY [facility] Last Admin: 08/26/18 10:24 Dose: Not Given Carbidopa/Levodopa (Sinemet 25/100 -) 1 each PO TID [facility] Last Admin: 08/26/18 14:03 Dose: Not Given Divalproex Sodium (Depakote *Er* -) 500 mg PO BID [facility] Last Admin: 08/26/18 10:24 Dose: Not Given Enoxaparin Sodium (Lovenox -) 40 mg SQ DAILY [facility] Last Admin: 08/26/18 10:39 Dose: 40 mg Fludrocortisone Acetate (Florinef -) 0.1 mg PO DAILY [facility] Last Admin: 08/26/18 10:24 Dose: Not Given Vancomycin HCl 1,500 mg/ (Dextrose) 500 mls @ 250 mls/hr IVPB DAILY@1600 [facility]; Protocol Last Admin: 08/25/18 18:58 Dose: 250 mls/hr Amino Acids (Clinimix -) 1,000 mls @ 42 mls/hr IV Q12H [facility] Last Admin: 08/26/18 03:40 Dose: Not Given Memantine (Namenda -) 10 mg PO BID [facility] Last Admin: 08/26/18 10:24 Dose: Not Given Metoprolol Tartrate (Lopressor Injection -) 5 mg IVPUSH Q4H PRN PRN Reason: HYPERTENSION Last Admin: 08/26/18 10:45 Dose: 5 mg Sodium Chloride ([place] Nasal [place] -) 1 spray NS TID [facility] Last Admin: 08/26/18 14:02 Dose: 1 spray Tamsulosin HCl (Flomax -) 0.4 mg PO DAILY [facility] Last Admin: 08/26/18 10:24 Dose: Not Given Valproate Sodium (Depakene -) 500 mg PO BID [facility] Last Admin: 08/26/18 10:24 Dose: Not Given - Objective Vital Signs: Vital Signs Temperature 98.9 F 08/26/18 14:00 Pulse Rate 83 08/26/18 14:00 Respiratory Rate 16 08/26/18 14:00 Blood Pressure 113/79 08/26/18 14:00 O2 Sat by Pulse Oximetry (%) 97 08/25/18 21:00 Constitutional: Yes: Anxious, Other (restless,) Cardiovascular: Yes: Regular Rate and Rhythm Respiratory: Yes: Regular, CTA Bilaterally Gastrointestinal: Yes: Normal Bowel Sounds, Soft Musculoskeletal: Yes: WNL Extremities: Yes: WNL Neurological: Yes: Confusion, Other Psychiatric: Yes: Other Labs: CBC, BMP 08/26/18 06:30 08/26/18 06:30 INR, PTT INR 1.06 (0.83-1.09) 08/19/18 10:43 Assessment/Plan Assessment/Plan (1) Fall Code(s): W19.XXXA - UNSPECIFIED FALL, INITIAL ENCOUNTER Qualifiers: Encounter type: initial encounter Qualified Code(s): W19.XXXA - Unspecified fall, initial encounter (2) Toxic metabolic encephalopathy Code(s): G92 - TOXIC ENCEPHALOPATHY (3) Dehydration Code(s): E86.0 - DEHYDRATION (4) BPH (benign prostatic hyperplasia) Code(s): N40.0 - BENIGN PROSTATIC HYPERPLASIA WITHOUT LOWER URINRY TRACT SYMP (5) COPD (chronic obstructive pulmonary disease) Code(s): J44.9 - CHRONIC OBSTRUCTIVE PULMONARY DISEASE, UNSPECIFIED (6) HTN (hypertension) Code(s): I10 - ESSENTIAL (PRIMARY) HYPERTENSION Qualifiers: Hypertension type: essential hypertension Qualified Code(s): I10 - Essential (primary) hypertension (7) Orthostatic hypotension Code(s): I95.1 - ORTHOSTATIC HYPOTENSION (8) Lewy body dementia with behavioral disturbance Code(s): G31.83 - DEMENTIA WITH LEWY BODIES; F02.81 - DEMENTIA IN OTH DISEASES CLASSD ELSWHR W BEHAVIORAL DISTURB (9) Positive blood cultures - plan continue abx will monitor vanco repeat blood cx noted await for finalization rest as per the team
[2018-08-26] MEDS ORDERED: PT OWN MED DRAWER 7, Y5N ONE ×2 (16:45→22:47)
[2018-08-26] MEDS: VANCOMYCIN HCL 1,500 MG in DEXTROSE 5%-WATER - 500 ML IVPB SCH (17:44)
--- NOTE | 2018-08-26 17:57 | PN ---
Teaching Attending Note Name of Resident: Lety Moore ATTENDING PHYSICIAN STATEMENT I saw and evaluated the patient. I reviewed the resident's note and discussed the case with the resident. I agree with the resident's findings and plan as documented. SUBJECTIVE: Mr Bowen is able to say his name and say he is hungry. Unable to obtain further subjective OBJECTIVE: Last Vital Signs Temp Pulse Resp BP Pulse Ox 37.2 C 83 16 113/79 97 08/26/18 14:00 08/26/18 14:00 08/26/18 14:00 08/26/18 14:00 08/25/18 21:00 Gen: nad Pulm: ctab w/o w/r/r CV: rrr w/o m/r/g Abd: +bs, s/nt/nd Ext: no c/c/e CBC, BMP 08/26/18 06:30 08/26/18 06:30 ASSESSMENT AND PLAN: (1) Fall Assessment/Plan: -more awake today -continue fall precautions -PT following Code(s): W19.XXXA - UNSPECIFIED FALL, INITIAL ENCOUNTER Qualifiers: Encounter type: initial encounter Qualified Code(s): W19.XXXA - Unspecified fall, initial encounter (2) Toxic metabolic encephalopathy Assessment/Plan: -resolved -suspect this is new baseline -seen by speech therapy -trial diet Code(s): G92 - TOXIC ENCEPHALOPATHY (3) Dehydration Assessment/Plan: -continue hydration while npo Code(s): E86.0 - DEHYDRATION (4) BPH (benign prostatic hyperplasia) Assessment/Plan: -continue flomax Code(s): N40.0 - BENIGN PROSTATIC HYPERPLASIA WITHOUT LOWER URINRY TRACT SYMP (5) COPD (chronic obstructive pulmonary disease) Assessment/Plan: -not in exacerbation -prn duonebs Code(s): J44.9 - CHRONIC OBSTRUCTIVE PULMONARY DISEASE, UNSPECIFIED (6) HTN (hypertension) Assessment/Plan: -continue norvasc -prn IV metoprolol Code(s): I10 - ESSENTIAL (PRIMARY) HYPERTENSION Qualifiers: Hypertension type: essential hypertension Qualified Code(s): I10 - Essential (primary) hypertension (7) Orthostatic hypotension Assessment/Plan: -monitor Code(s): I95.1 - ORTHOSTATIC HYPOTENSION (8) Lewy body dementia with behavioral disturbance Assessment/Plan: -improved today -seen by speech therapy -trial diet Code(s): G31.83 - DEMENTIA WITH LEWY BODIES; F02.81 - DEMENTIA IN OTH DISEASES CLASSD ESME Rodriguez BEHAVIORAL DISTURB (9) Positive blood cultures -case d/w Dr Harrison -continue vancomycin Problem List - Problems (1) Fall Code(s): W19.XXXA - UNSPECIFIED FALL, INITIAL ENCOUNTER Qualifiers: Encounter type: initial encounter Qualified Code(s): W19.XXXA - Unspecified fall, initial encounter (2) Toxic metabolic encephalopathy Code(s): G92 - TOXIC ENCEPHALOPATHY (3) Dehydration Code(s): E86.0 - DEHYDRATION (4) BPH (benign prostatic hyperplasia) Code(s): N40.0 - BENIGN PROSTATIC HYPERPLASIA WITHOUT LOWER URINRY TRACT SYMP (5) COPD (chronic obstructive pulmonary disease) Code(s): J44.9 - CHRONIC OBSTRUCTIVE PULMONARY DISEASE, UNSPECIFIED (6) HTN (hypertension) Code(s): I10 - ESSENTIAL (PRIMARY) HYPERTENSION Qualifiers: Hypertension type: essential hypertension Qualified Code(s): I10 - Essential (primary) hypertension (7) Orthostatic hypotension Code(s): I95.1 - ORTHOSTATIC HYPOTENSION (8) Lewy body dementia with behavioral disturbance Code(s): G31.83 - DEMENTIA WITH LEWY BODIES; F02.81 - DEMENTIA IN OTH DISEASES CLASSD ESME Rodriguez BEHAVIORAL DISTURB
[2018-08-27] MEDS ORDERED: PT OWN MED DRAWER 7, Y5N ONE ×7 (03:11→17:55)
[2018-08-27] MEDS: VANCOMYCIN 750 MG in DEXTROSE 5%-WATER - 250 ML IVPB SCH (03:45)
[2018-08-27] MEDS: AMINO ACIDS 4.25%/D5W 1,000 ML IV SCH ×2 (03:46→17:50)
[2018-08-27 06:09] LABS: BASO % 0.7 % (0-2.0); EOS % 1.2 % (0-4.5); HEMATOCRIT 34.1 % (35.4-49); LYMPH % 25.6 % (8-40); MCH 30.7 pg (25.7-33.7); MCHC 35.1 g/dl (32.0-35.9); MEAN CELL VOLUME 87.3 fl (80-96); MEAN PLT VOLUME 8.2 fl (7.5-11.1); NEUT % 60.5 % (42.8-82.8); PLATELET COUNT 199 K/MM3 (134-434); RDW 13.5 % (11.9-15.9); WHITE BLOOD COUNT 7.8 K/mm3 (4.0-10.0)
[2018-08-27 06:41] LABS: ALBUMIN 2.6 g/dl (3.4-5.0); ALK PHOS 127 U/L (45-117); ANION GAP 7 MMOL/L (8-16); BILIRUBIN,TOTAL 0.8 mg/dL (0.2-1); BLOOD UREA NITROGEN 14 mg/dL (7-18); CALCIUM 8.1 mg/dL (8.5-10.1); CHLORIDE 103 mmol/L (98-107); CO2 27 mmol/L (21-32); GLUCOSE,RANDOM 113 mg/dL (74-106); PHOSPHOROUS 2.6 mg/dL (2.5-4.9); POTASSIUM 3.4 mmol/L (3.5-5.1); SGOT/AST 8 U/L (15-37); SGPT/ALT 9 U/L (13-61); SODIUM 136 mmol/L (136-145); TOT PROT 6.5 g/dl (6.4-8.2)
[2018-08-27] MEDS: SODIUM CHLORIDE NASAL SPRAY 44 ML BOTTLE NS SCH ×3 (06:41→23:07)
[2018-08-27] MEDS: CARBIDOPA/LEVODOPA 25/100 TABLET (FP) PO SCH ×3 (06:54→23:07)
[2018-08-27] MEDS ORDERED: MAGNESIUM SULF 50% (8.12 MEQ/2 ML-1 GM VIAL) IVPB ONE (08:26)
--- NOTE | 2018-08-27 08:58 | PN ---
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 (short form) - Note 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: Neurology History of Present Illness: 67 year old male who presented yesterday with AMS from custodial. Reportedly , was found on the floor unresponsive and hypothermic. He was brought to the ED for further evaluation and management. He was improving but developed lethargy and somnolence and thus I was consulted. CT head was completed and reviewed and without acute changes. Spoke to nurse and she described patient to be unarousable and initlaly required sternal rub. However, during my visit late Saturday afternoon, was awake, alert, and minimally cooperative which seems to be his baseline. Agree with hospitalist, likely AMS and toxic metabolic encephalopthy. This may possibly be from dose of serquel or dehydration. ID note reviewed, patient given vanco, positive blood cultures. He does have underlying dementia as noted below but presentation more consistent with delirium. Alert this AM and hypophonic in speech, unclear verbalization, seems to be at his baseline without lethagy, some somnolence noted. Not aggitated or uncooperative. Active Medications Acetaminophen (Tylenol -) 650 mg PO Q4H PRN PRN Reason: FEVER Amlodipine Besylate (Norvasc -) 5 mg PO DAILY [facility] Last Admin: 08/26/18 10:24 Dose: Not Given Carbidopa/Levodopa (Sinemet 25/100 -) 1 each PO TID [facility] Last Admin: 08/27/18 06:54 Dose: Not Given Divalproex Sodium (Depakote *Er* -) 500 mg PO BID [facility] Last Admin: 08/26/18 22:52 Dose: Not Given Enoxaparin Sodium (Lovenox -) 40 mg SQ DAILY [facility] Last Admin: 08/26/18 10:39 Dose: 40 mg Fludrocortisone Acetate (Florinef -) 0.1 mg PO DAILY [facility] Last Admin: 08/26/18 10:24 Dose: Not Given Vancomycin HCl 1,500 mg/ (Dextrose) 500 mls @ 250 mls/hr IVPB DAILY@1600 [facility]; Protocol Last Admin: 08/26/18 17:44 Dose: 250 mls/hr Amino Acids (Clinimix -) 1,000 mls @ 42 mls/hr IV Q12H [facility] Last Admin: 08/27/18 03:46 Dose: 42 mls/hr Vancomycin HCl 750 mg/ (Dextrose) 250 mls @ 250 mls/hr IVPB DAILY@0400 [facility] Last Admin: 08/27/18 03:45 Dose: 250 mls/hr Potassium Chloride (Potassium Chloride 10 Meq Premix Ivpb -) 10 meq in 100 mls @ 100 mls/hr IVPB Q60M [facility] Stop: 08/27/18 11:29 Memantine (Namenda -) 10 mg PO BID [facility] Last Admin: 08/26/18 23:02 Dose: Not Given Metoprolol Tartrate (Lopressor Injection -) 5 mg IVPUSH Q4H PRN PRN Reason: HYPERTENSION Last Admin: 08/26/18 10:45 Dose: 5 mg Nystatin (Nystatin Oral Suspension -) 500,000 units PO Q6HPO [facility] Sodium Chloride ([place] Nasal [place] -) 1 spray NS TID [facility] Last Admin: 08/27/18 06:41 Dose: 1 spray Tamsulosin HCl (Flomax -) 0.4 mg PO DAILY [facility] Last Admin: 08/26/18 10:24 Dose: Not Given Valproate Sodium (Depakene -) 500 mg PO BID [facility] Last Admin: 08/26/18 23:01 Dose: Not Given Physical Examination Vital Signs Temperature 99.4 F 08/27/18 06:00 Pulse Rate 65 08/27/18 06:00 Respiratory Rate 20 08/27/18 06:00 Blood Pressure 136/84 08/27/18 06:00 O2 Sat by Pulse Oximetry (%) 97 08/26/18 21:00 Constitutional: Yes: No Distress, Calm Eyes: Yes: Conjunctiva Clear, PERRL HENT: Yes: Atraumatic, Normocephalic Cardiovascular: Yes: Regular Rate and Rhythm. No: Gallop, Murmur, Rub Respiratory: Yes: Regular, CTA Bilaterally. No: Rales, Rhonchi, Wheezes Gastrointestinal: Yes: Normal Bowel Sounds, Soft. No: Distention, Tenderness Extremities: Yes: WNL Neuro: Awake, alert, minimally interactive, moves extremities slowly but no focal deficits, intact to LT, responds to tactile stim Edema: No CBCD WBC 7.8 K/mm3 (4.0-10.0) 08/27/18 05:55 RBC 3.90 M/mm3 (4.00-5.60) L 08/27/18 05:55 Hgb 12.0 GM/dL (11.7-16.9) 08/27/18 05:55 Hct 34.1 % (35.4-49) L 08/27/18 05:55 MCV 87.3 fl (80-96) 08/27/18 05:55 MCHC 35.1 g/dl (32.0-35.9) 08/27/18 05:55 RDW 13.5 % (11.9-15.9) 08/27/18 05:55 Plt Count 199 K/MM3 (134-434) 08/27/18 05:55 MPV 8.2 fl (7.5-11.1) 08/27/18 05:55 CMP Sodium 136 mmol/L (136-145) 08/27/18 05:55 Potassium 3.4 mmol/L (3.5-5.1) L 08/27/18 05:55 Chloride 103 mmol/L (98-107) 08/27/18 05:55 Carbon Dioxide 27 mmol/L (21-32) 08/27/18 05:55 Anion Gap 7 MMOL/L (8-16) L 08/27/18 05:55 BUN 14 mg/dL (7-18) 08/27/18 05:55 Creatinine 1.0 mg/dL (0.55-1.3) 08/27/18 05:55 Creat Clearance w eGFR > 60 (>60) 08/27/18 05:55 Random Glucose 113 mg/dL (74-106) H 08/27/18 05:55 Calcium 8.1 mg/dL (8.5-10.1) L 08/27/18 05:55 Total Bilirubin 0.8 mg/dL (0.2-1) 08/27/18 05:55 AST 8 U/L (15-37) L 08/27/18 05:55 ALT 9 U/L (13-61) L 08/27/18 05:55 Alkaline Phosphatase 127 U/L (45-117) H 08/27/18 05:55 Total Protein 6.5 g/dl (6.4-8.2) 08/27/18 05:55 Albumin 2.6 g/dl (3.4-5.0) L 08/27/18 05:55 CARDIAC ENZYMES Troponin I < 0.02 ng/ml (0.00-0.05) 08/19/18 10:[address] head reviewed Plan: 89 year old male who presented yesterday with AMS from custodial. Reportedly , was found on the floor unresponsive and hypothermic. He was brought to the ED for further evaluation and management. He was improving but developed lethargy and somnolence and thus I was consulted. CT head was completed and reviewed and without acute changes. Spoke to nurse and she described patient to be unarousable and initlaly required sternal rub. However, during my visit late Saturday afternoon, was awake, alert, and minimally cooperative which seems to be his baseline. Agree with hospitalist, likely AMS and toxic metabolic encephalopthy. This may possibly be from dose of serquel or dehydration. ID note reviewed, patient given vanco, positive blood cultures. He does have underlying dementia as noted below but presentation more consistent with delirium. Remains with limited movements but awake. Continued gentle hydration. Can take Namenda and Sinemet, don't believe these are etiology. Also on depakote , can continue for now. If further mental status decline, then would reduce depakote to 250bid. Patient appears to have improved. Fall precautions, DVT ppx. ID follow up, infectious mgmt, recommended. Remains on vanco. Neurologically mental status near baseline. Monitor for decline/deterioration.
[2018-08-27] MEDS: DIVALPROEX NA *ER* EXTEND REL 500 MG TABLET.SA (FP) PO SCH (10:26)
[2018-08-27] MEDS: VALPROATE SODIUM 250 MG/5 ML UNIT DOSE CUP PO SCH (10:26)
[2018-08-27] MEDS: FLUDROCORTISONE ACETATE 0.1 MG TABLET (FP) PO SCH (10:27)
[2018-08-27] MEDS: TAMSULOSIN HCL 0.4 MG CAP PO SCH (10:27)
[2018-08-27] MEDS: MEMANTINE HCL 10 MG TABLET (FP) PO SCH ×2 (10:27→23:06)
[2018-08-27] MEDS: amLODIPine BESYLATE 5 MG TABLET (FP) PO SCH (10:27)
[2018-08-27] MEDS: ENOXAPARIN NA (PORCINE) 40 MG/0.4 ML DISP.SYRIN SQ SCH (10:28)
[2018-08-27] MEDS: KCL 10 MEQ IVPB 10 MEQ/100 ML INFUS.BAG IVPB SCH ×3 (11:15→13:28)
--- NOTE | 2018-08-27 11:23 | PN ---
Physical Exam: SUBJECTIVE: Patient seen and examined; more awake and alert; had puree food yest ; although as per nurse he is not taking meds; or wanting to open mouth OBJECTIVE: Vital Signs Period Temp Pulse Resp BP Sys/Rubi Pulse Ox Last 24 Hr 98.9 F-100.4 F 65-84 16-20 113-148/79-84 97 GENERAL: The patient is lethargis; but now able to arouse; eye opening Throat: thrush; whit palate LUNGS: decreased breath sounds HEART: Regular rate and rhythm, S1, S2 without murmur, rub or gallop. ABDOMEN: Soft, nontender, nondistended, normoactive bowel sounds, no guarding, no rebound, no hepatosplenomegaly, no masses. EXTREMITIES: 2+ pulses, warm, well-perfused, no edema. NEUROLOGICAL: mild improvement in mental status; eye open ; but not wanting to open mouth Laboratory Results - last 24 hr 08/27/18 08/27/18 05:55 05:55 WBC 7.8 RBC 3.90 L Hgb 12.0 Hct 34.1 L MCV 87.3 MCH 30.7 MCHC 35.1 RDW 13.5 Plt Count 199 MPV 8.2 Absolute Neuts (auto) 4.7 Neutrophils % 60.5 Lymphocytes % 25.6 Monocytes % 12.0 H Eosinophils % 1.2 Basophils % 0.7 Nucleated RBC % 0 Sodium 136 Potassium 3.4 L Chloride 103 Carbon Dioxide 27 Anion Gap 7 L BUN 14 Creatinine 1.0 Creat Clearance w eGFR > 60 Random Glucose 113 H Calcium 8.1 L Phosphorus 2.6 Magnesium 2.0 Total Bilirubin 0.8 AST 8 L ALT 9 L Alkaline Phosphatase 127 H Total Protein 6.5 Albumin 2.6 L Active Medications Generic Name Dose Route Start Last Admin Trade Name Freq PRN Reason Stop Dose Admin Acetaminophen 650 mg 08/20/18 12:31 Tylenol - PO Q4H PRN FEVER Amlodipine Besylate 5 mg 08/21/18 10:00 08/27/18 10:27 Norvasc - PO Not Given DAILY [facility] Carbidopa/Levodopa 1 each 08/20/18 14:00 08/27/18 06:54 Sinemet 25/100 - PO Not Given TID [facility] Divalproex Sodium 500 mg 08/20/18 22:00 03/13/19 10:26 Depakote *Er* - PO Not Given BID [facility] Enoxaparin Sodium 40 mg 08/22/18 10:00 08/27/18 10:28 Lovenox - SQ 40 mg DAILY [facility] Administration Fludrocortisone Acetate 0.1 mg 08/21/18 10:00 08/27/18 10:27 Florinef - PO Not Given DAILY [facility] Vancomycin HCl 1,500 mg/ 500 mls @ 250 mls/hr 08/23/18 16:00 08/26/18 17:44 Dextrose IVPB 250 mls/hr DAILY@1600 [facility] Administration Protocol Amino Acids 1,000 mls @ 42 mls/hr 08/25/18 16:00 08/27/18 03:46 Clinimix - IV 42 mls/hr Q12H [facility] Administration Vancomycin HCl 750 mg/ 250 mls @ 250 mls/hr 08/27/18 04:00 08/27/18 03:45 Dextrose IVPB 250 mls/hr DAILY@0400 [facility] Administration Potassium Chloride 10 meq in 100 mls @ 100 mls/hr 08/27/18 08:30 Potassium Chloride 10 Meq Premix Ivpb - IVPB 08/27/18 11:29 Q60M [facility] Memantine 10 mg 08/20/18 22:00 08/27/18 10:27 Namenda - PO Not Given BID [facility] Metoprolol Tartrate 5 mg 08/25/18 21:25 08/26/18 10:45 Lopressor Injection - IVPUSH 5 mg Q4H PRN Administration HYPERTENSION Nystatin 500,000 units 08/27/18 12:00 Nystatin Oral Suspension - PO Q6HPO [facility] Sodium Chloride 1 spray 08/20/18 14:00 08/27/18 06:41 [place] Nasal [place] - NS 1 spray TID [facility] Administration Tamsulosin HCl 0.4 mg 08/21/18 10:00 08/27/18 10:27 Flomax - PO Not Given DAILY [facility] Valproate Sodium 500 mg 08/20/18 22:00 08/27/18 10:26 Depakene - PO Not Given BID [facility] ASSESSMENT/PLAN: This is a 67 year old male with dementia sent home form [place] due to unresponsiveness;found to have alex + blood culture x one bottle. Work up for etiology includes infectious vs metabolic, mal nutrition, dementia. Multifactorial. #AMS found to be bacteremic: lethargic; metabolic syn -cont IV ; vanco -low grade fever ml due to met encephalopathy -sridevi ID recs #thrush -start nystatin #Lewy body dementia ; -cont namenda, cinemet -restart cinemet; now pn puree diet -currently restrained #malnutrition: -started on clinimex -seen by speech; swallow; -start puree diet -nutrition consult -need to reconsider peg tube if patient refusing food; #fall: -fall precautions #COPDhx; controlled #HTN: controlled on norvas #HLD: cont statin #BPH: cont on flomax #hypomagnesimia; replaced #hypokalemia: replaced #Diet: puree diet #dvt ppl; on lovenox Visit type - Emergency Visit Emergency Visit: Yes ED Registration Date: 08/21/18 Care time: The patient presented to the Emergency Department on the above date and was hospitalized for further evaluation of their emergent condition. - New Patient This patient is new to me today: No - Critical Care Critical Care patient: No
--- NOTE | 2018-08-27 11:30 | PN ---
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, Physician History of Present Illness: patient is more awake answering few questions still very lethargic and drowsy - Current Medication List Current Medications: Active Medications Acetaminophen (Tylenol -) 650 mg PO Q4H PRN PRN Reason: FEVER Amlodipine Besylate (Norvasc -) 5 mg PO DAILY [facility] Last Admin: 08/27/18 10:27 Dose: Not Given Carbidopa/Levodopa (Sinemet 25/100 -) 1 each PO TID [facility] Last Admin: 08/27/18 06:54 Dose: Not Given Divalproex Sodium (Depakote *Er* -) 500 mg PO BID [facility] Last Admin: 08/27/18 10:26 Dose: Not Given Enoxaparin Sodium (Lovenox -) 40 mg SQ DAILY [facility] Last Admin: 08/27/18 10:28 Dose: 40 mg Fludrocortisone Acetate (Florinef -) 0.1 mg PO DAILY [facility] Last Admin: 08/27/18 10:27 Dose: Not Given Vancomycin HCl 1,500 mg/ (Dextrose) 500 mls @ 250 mls/hr IVPB DAILY@1600 [facility]; Protocol Last Admin: 08/26/18 17:44 Dose: 250 mls/hr Amino Acids (Clinimix -) 1,000 mls @ 42 mls/hr IV Q12H [facility] Last Admin: 08/27/18 03:46 Dose: 42 mls/hr Vancomycin HCl 750 mg/ (Dextrose) 250 mls @ 250 mls/hr IVPB DAILY@0400 [facility] Last Admin: 08/27/18 03:45 Dose: 250 mls/hr Memantine (Namenda -) 10 mg PO BID [facility] Last Admin: 08/27/18 10:27 Dose: Not Given Metoprolol Tartrate (Lopressor Injection -) 5 mg IVPUSH Q4H PRN PRN Reason: HYPERTENSION Last Admin: 08/26/18 10:45 Dose: 5 mg Nystatin (Nystatin Oral Suspension -) 500,000 units PO Q6HPO [facility] Sodium Chloride ([place] Nasal [place] -) 1 spray NS TID [facility] Last Admin: 08/27/18 06:41 Dose: 1 spray Tamsulosin HCl (Flomax -) 0.4 mg PO DAILY [facility] Last Admin: 08/27/18 10:27 Dose: Not Given Valproate Sodium (Depakene -) 500 mg PO BID [facility] Last Admin: 03/13/19 10:26 Dose: Not Given - Objective Vital Signs: Vital Signs Temperature 99.4 F 08/27/18 06:00 Pulse Rate 65 08/27/18 06:00 Respiratory Rate 20 08/27/18 06:00 Blood Pressure 136/84 08/27/18 06:00 O2 Sat by Pulse Oximetry (%) 97 08/26/18 21:00 Constitutional: Yes: No Distress, Calm Cardiovascular: Yes: Regular Rate and Rhythm Respiratory: Yes: Regular, CTA Bilaterally Gastrointestinal: Yes: Normal Bowel Sounds, Soft Musculoskeletal: Yes: WNL Extremities: Yes: WNL Neurological: Yes: Other Labs: CBC, BMP 08/27/18 05:55 08/27/18 05:55 INR, PTT INR 1.06 (0.83-1.09) 08/19/18 10:43 Assessment/Plan Assessment/Plan (1) Fall Code(s): W19.XXXA - UNSPECIFIED FALL, INITIAL ENCOUNTER Qualifiers: Encounter type: initial encounter Qualified Code(s): W19.XXXA - Unspecified fall, initial encounter (2) Toxic metabolic encephalopathy Code(s): G92 - TOXIC ENCEPHALOPATHY (3) Dehydration Code(s): E86.0 - DEHYDRATION (4) BPH (benign prostatic hyperplasia) Code(s): N40.0 - BENIGN PROSTATIC HYPERPLASIA WITHOUT LOWER URINRY TRACT SYMP (5) COPD (chronic obstructive pulmonary disease) Code(s): J44.9 - CHRONIC OBSTRUCTIVE PULMONARY DISEASE, UNSPECIFIED (6) HTN (hypertension) Code(s): I10 - ESSENTIAL (PRIMARY) HYPERTENSION Qualifiers: Hypertension type: essential hypertension Qualified Code(s): I10 - Essential (primary) hypertension (7) Orthostatic hypotension Code(s): I95.1 - ORTHOSTATIC HYPOTENSION (8) Lewy body dementia with behavioral disturbance Code(s): G31.83 - DEMENTIA WITH LEWY BODIES; F02.81 - DEMENTIA IN OTH DISEASES CLASSD ELSWHR W BEHAVIORAL DISTURB (9) Positive blood cultures - plan continue abx close watch monitor mental status rest as per the team
--- NOTE | 2018-08-27 11:54 | PN ---
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, COMMERCIAL CORRESPONDENT - Note 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: Selected Entries 08/26/18 08/26/18 08/26/18 02:00 06:00 14:00 Supper Temperature 99.7 F H 99.2 F 98.9 F 08/26/18 08/26/18 08/27/18 18:00 22:00 02:00 Supper 25% Temperature 100.4 F H 99.6 F 99.9 F H 08/27/18 06:00 Supper Temperature 99.4 F Laboratory Tests 08/27/18 05:55 WBC 7.8 Although pt was alert, verbalizing, swallowing yesterday, pt holding po trials and spitting it out today. Consider PEG insertion with possible pleasure feedings in future in pt improves.
[2018-08-27] MEDS: NYSTATIN 500,000 UNITS/5 ML SUSPENSION PO SCH ×3 (13:28→23:07)
--- NOTE | 2018-08-27 13:54 | PN ---
Teaching Attending Note Name of Resident: Lety Moore ATTENDING PHYSICIAN STATEMENT I saw and evaluated the patient. I reviewed the resident's note and discussed the case with the resident. I agree with the resident's findings and plan as documented with exceptions below. SUBJECTIVE: Patient seen and examined. at bedside, lethargic, follows few commands, attempting to feed. Unable to do ROS. OBJECTIVE: Vital Signs Period Temp Pulse Resp BP Sys/Rubi Pulse Ox Last 24 Hr 98.9 F-100.4 F 65-84 16-20 113-148/79-84 97 Intake & Output 08/24/18 08/25/18 08/26/18 08/27/18 23:59 23:59 23:59 23:59 Intake Total 1650 814 Balance 1650 814 General: sitting in bed, lethargic Chest: poor effort, occasional coarse rales Abdomen:soft, NT, ND Extremities: no edema Neuro: lethargic, follows few commands, facial symmetry, minimally follows commands, generalized weakness, no focal deficits, but limited exam given lack of full co-operation Home Medications Medication Instructions Recorded Fludrocortisone Acetate [Florinef 0.1 mg PO DAILY 09/22/17 -] Ipratropium/Albuterol Sulfate 3 ml IH TID PRN 09/22/17 [Iprat-Albut 0.5-3(2.5) mg/3 ml] Memantine HCl [Namenda -] 10 mg PO BID 09/22/17 Sodium Chloride [[place] Nasal 1 spray NS TID 09/22/17 [place]] Tamsulosin HCl [Flomax] 0.4 mg PO DAILY 09/22/17 Amlodipine Besylate 5 mg PO DAILY 07/27/18 Carbidopa/Levodopa 25/100 [Sinemet 1 each PO TID 07/27/18 25/100 -] Valproic Acid (As Sodium Salt) 500 mg PO BID 07/27/18 [Valproic Acid] Acetaminophen [Acetaminophen 8 650 mg PO Q6H 08/19/18 Hour] Divalproex *ER* [Depakote *ER* -] 500 mg PO BID 08/19/18 Quetiapine Fumarate [Seroquel -] 25 mg PO BID 08/19/18 Active Medications Acetaminophen (Tylenol -) 650 mg PO Q4H PRN PRN Reason: FEVER Amlodipine Besylate (Norvasc -) 5 mg PO DAILY [facility] Last Admin: 08/27/18 10:27 Dose: Not Given Carbidopa/Levodopa (Sinemet 25/100 -) 1 each PO TID [facility] Last Admin: 08/27/18 06:54 Dose: Not Given Divalproex Sodium (Depakote *Er* -) 500 mg PO BID [facility] Last Admin: 08/27/18 10:26 Dose: Not Given Enoxaparin Sodium (Lovenox -) 40 mg SQ DAILY [facility] Last Admin: 08/27/18 10:28 Dose: 40 mg Fludrocortisone Acetate (Florinef -) 0.1 mg PO DAILY [facility] Last Admin: 08/27/18 10:27 Dose: Not Given Vancomycin HCl 1,500 mg/ (Dextrose) 500 mls @ 250 mls/hr IVPB DAILY@1600 [facility]; Protocol Last Admin: 08/26/18 17:44 Dose: 250 mls/hr Amino Acids (Clinimix -) 1,000 mls @ 42 mls/hr IV Q12H [facility] Last Admin: 08/27/18 03:46 Dose: 42 mls/hr Vancomycin HCl 750 mg/ (Dextrose) 250 mls @ 250 mls/hr IVPB DAILY@0400 [facility] Last Admin: 08/27/18 03:45 Dose: 250 mls/hr Memantine (Namenda -) 10 mg PO BID [facility] Last Admin: 08/27/18 10:27 Dose: Not Given Metoprolol Tartrate (Lopressor Injection -) 5 mg IVPUSH Q4H PRN PRN Reason: HYPERTENSION Last Admin: 08/26/18 10:45 Dose: 5 mg Nystatin (Nystatin Oral Suspension -) 500,000 units PO Q6HPO [facility] Last Admin: 08/27/18 13:28 Dose: 500,000 units Sodium Chloride ([place] Nasal [place] -) 1 spray NS TID [facility] Last Admin: 08/27/18 13:39 Dose: 1 spray Tamsulosin HCl (Flomax -) 0.4 mg PO DAILY [facility] Last Admin: 08/27/18 10:27 Dose: Not Given Valproate Sodium (Depakene -) 500 mg PO BID [facility] Last Admin: 08/27/18 10:26 Dose: Not Given Laboratory Results - last 24 hr 08/27/18 08/27/18 05:55 05:55 WBC 7.8 RBC 3.90 L Hgb 12.0 Hct 34.1 L MCV 87.3 MCH 30.7 MCHC 35.1 RDW 13.5 Plt Count 199 MPV 8.2 Absolute Neuts (auto) 4.7 Neutrophils % 60.5 Lymphocytes % 25.6 Monocytes % 12.0 H Eosinophils % 1.2 Basophils % 0.7 Nucleated RBC % 0 Sodium 136 Potassium 3.4 L Chloride 103 Carbon Dioxide 27 Anion Gap 7 L BUN 14 Creatinine 1.0 Creat Clearance w eGFR > 60 Random Glucose 113 H Calcium 8.1 L Phosphorus 2.6 Magnesium 2.0 Total Bilirubin 0.8 AST 8 L ALT 9 L Alkaline Phosphatase 127 H Total Protein 6.5 Albumin 2.6 L Microbiology 08/22/18 12:10 Blood - Peripheral Venous Blood Culture - Final NO GROWTH AFTER 5 DAYS INCUBATION 08/22/18 12:00 Blood - Peripheral Venous Blood Culture - Final NO GROWTH AFTER 5 DAYS INCUBATION 08/23/18 07:38 Blood - Peripheral Venous Blood Culture - Preliminary NO GROWTH OBTAINED AFTER 96 HOURS, INCUBATION TO CONTINUE FOR 1 DAYS. 08/23/18 06:15 Blood - Peripheral Venous Blood Culture - Preliminary NO GROWTH OBTAINED AFTER 96 HOURS, INCUBATION TO CONTINUE FOR 1 DAYS. 08/19/18 10:43 Blood - Peripheral Venous Blood Culture - Final Gemella Morbillorum 08/19/18 10:50 Blood - Peripheral Venous Blood Culture - Final Gemella Morbillorum 08/19/18 10:39 Urine - Urine Clean Catch Urine Culture - Final NO GROWTH OBTAINED ASSESSMENT AND PLAN: 67 yom with PMHx of Alzheimers dementia, Parkinsonian features, Lewy body dementia with behavioral disturbance, Hyperthyroidism, BPH, HTN, HLD, Asthma/ COPD, Hx of TIA with Dysphagia, anxiety/MDD recently started on seroquel, admitted with AMS, found on floor, hypothermic/unresponsive. -AMS, suspect toxic metabolic encephalopathy from infection, ?aspiration, medication related (recently started on seroquel) -Unwitnessed fall -Hypothermia, ?From infection -Alzheimer's dementia -Parkinsonian features -LEwy body dementia with behavioral disturbance -Hyperthyroidism -BPH -HTN -HLD -Asthma/COPD -h/o TIA -Dysphagia -Anxiety/MDD Plan; Discussed with suha, patient was started on seroquel 75 mg BID on 08/18. Also was transitioned from valproic acid to depakote ER on 08/18. As discussed with NH RN, patient with occasional poor responsiveness and overall reliable po intake till 2 days prior to admission. Continue to hold seroquel. D/c valproic acid. Continue depakote, taper to 250 mg BID as recommended by neurology as mental status overall not much better (patient was on valproate 500 mg daily on recent admit in 07/2018) ID input noted. vancomycin. repeat blood cx neg. CT chest to assess for airspace disease/aspiration as would also help ascertain need for feeding tube. Sinemet as tolerated Discussed with Sol, Palliative care. patient was started on PO trial yesterday , however still with poor intake, keeps spitting medications. Will monitor over 24 hours and discuss with family if can assist in improving medication compliance. In the meantime, taper depakote. Continue ongoing palliative care discussion with family to address PEG tube for feeding if continues to have poor oral intake. Clinimix till able to address rn long term care nutrition. Do not think is a candidate for NG tube given his mental status and high risk for pulling. DVTPPX lovenox Dispo pending plan above, plan for d/c back to [facility]. Discussed with , also with palliative care.
[2018-08-27] MEDS: VANCOMYCIN HCL 1,500 MG in DEXTROSE 5%-WATER - 500 ML IVPB SCH (18:25)
[2018-08-28] MEDS: VANCOMYCIN 750 MG in DEXTROSE 5%-WATER - 250 ML IVPB SCH (03:15)
[2018-08-28] MEDS: AMINO ACIDS 4.25%/D5W 1,000 ML IV SCH ×2 (06:45→18:38)
[2018-08-28] MEDS: NYSTATIN 500,000 UNITS/5 ML SUSPENSION PO SCH ×3 (06:47→18:38)
[2018-08-28] MEDS: SODIUM CHLORIDE NASAL SPRAY 44 ML BOTTLE NS SCH ×3 (06:48→22:36)
[2018-08-28] MEDS: CARBIDOPA/LEVODOPA 25/100 TABLET (FP) PO SCH ×3 (06:48→22:36)
[2018-08-28 08:06] LABS: BASO % 0.8 % (0-2.0); EOS % 1.7 % (0-4.5); HEMATOCRIT 32.9 % (35.4-49); HEMOGLOBIN 11.4 GM/dL (11.7-16.9); LYMPH % 21.7 % (8-40); MCH 30.4 pg (25.7-33.7); MCHC 34.7 g/dl (32.0-35.9); MEAN CELL VOLUME 87.7 fl (80-96); MEAN PLT VOLUME 8.4 fl (7.5-11.1); MONO % 10.1 % (3.8-10.2); NEUT % 65.7 % (42.8-82.8); PLATELET COUNT 229 K/MM3 (134-434); RBC 3.75 M/mm3 (4.00-5.60); RDW 13.8 % (11.9-15.9); WHITE BLOOD COUNT 7.7 K/mm3 (4.0-10.0)
[2018-08-28 08:42] LABS: ALBUMIN 2.6 g/dl (3.4-5.0); ALK PHOS 120 U/L (45-117); ANION GAP 6 MMOL/L (8-16); BILIRUBIN,TOTAL 0.6 mg/dL (0.2-1); BLOOD UREA NITROGEN 16 mg/dL (7-18); CALCIUM 8.4 mg/dL (8.5-10.1); CHLORIDE 104 mmol/L (98-107); CO2 25 mmol/L (21-32); CREATININE 0.8 mg/dL (0.55-1.3); GLUCOSE,RANDOM 97 mg/dL (74-106); MAGNESIUM 2.2 mg/dL (1.8-2.4); PHOSPHOROUS 2.5 mg/dL (2.5-4.9); POTASSIUM 3.5 mmol/L (3.5-5.1); SGOT/AST 12 U/L (15-37); SGPT/ALT 6 U/L (13-61); SODIUM 135 mmol/L (136-145); TOT PROT 6.5 g/dl (6.4-8.2)
--- NOTE | 2018-08-28 09:14 | PN ---
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 (short form) - Note 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: Neurology History of Present Illness: 67 year old male who presented yesterday with AMS from [facility]. Reportedly , was found on the floor unresponsive and hypothermic. He was brought to the ED for further evaluation and management. He was improving but developed lethargy and somnolence and thus I was consulted. CT head was completed and reviewed and without acute changes. Spoke to nurse and she described patient to be unarousable and initlaly required sternal rub. However, during my visit late Saturday afternoon, was awake, alert, and minimally cooperative which seems to be his baseline. Agree with hospitalist, likely AMS and toxic metabolic encephalopthy. This may possibly be from dose of serquel or dehydration. ID note reviewed, patient given vanco, positive blood cultures. He does have underlying dementia as noted below but presentation more consistent with delirium. Alert this AM and hypophonic in speech, unclear verbalization, seems to be at his baseline without lethagy, some somnolence noted. Not aggitated or uncooperative. CT chest reviewed and confirmed L sided consolidation, consistent with PNA. Remains on Vanco. Active Medications Acetaminophen (Tylenol -) 650 mg PO Q4H PRN PRN Reason: FEVER Amlodipine Besylate (Norvasc -) 5 mg PO DAILY [facility] Last Admin: 08/27/18 10:27 Dose: Not Given Carbidopa/Levodopa (Sinemet 25/100 -) 1 each PO TID [facility] Last Admin: 08/28/18 06:48 Dose: 1 each Divalproex Sodium (Depakote *Er* -) 500 mg PO DAILY [facility] Enoxaparin Sodium (Lovenox -) 40 mg SQ DAILY [facility] Last Admin: 08/27/18 10:28 Dose: 40 mg Fludrocortisone Acetate (Florinef -) 0.1 mg PO DAILY [facility] Last Admin: 08/27/18 10:27 Dose: Not Given Vancomycin HCl 1,500 mg/ (Dextrose) 500 mls @ 250 mls/hr IVPB DAILY@1600 [facility]; Protocol Last Admin: 08/27/18 18:25 Dose: 250 mls/hr Amino Acids (Clinimix -) 1,000 mls @ 42 mls/hr IV Q12H [facility] Last Admin: 08/28/18 06:45 Dose: 42 mls/hr Vancomycin HCl 750 mg/ (Dextrose) 250 mls @ 250 mls/hr IVPB DAILY@0400 [facility] Last Admin: 08/28/18 03:15 Dose: 250 mls/hr Memantine (Namenda -) 10 mg PO BID [facility] Last Admin: 08/27/18 23:06 Dose: 10 mg Metoprolol Tartrate (Lopressor Injection -) 5 mg IVPUSH Q4H PRN PRN Reason: HYPERTENSION Last Admin: 08/26/18 10:45 Dose: 5 mg Nystatin (Nystatin Oral Suspension -) 500,000 units PO Q6HPO [facility] Last Admin: 08/28/18 06:47 Dose: 500,000 units Sodium Chloride ([place] Nasal [place] -) 1 spray NS TID [facility] Last Admin: 08/28/18 06:48 Dose: 1 spray Tamsulosin HCl (Flomax -) 0.4 mg PO DAILY [facility] Last Admin: 08/27/18 10:27 Dose: Not Given Physical Examination Vital Signs Period Temp Pulse Resp BP Sys/Rubi Pulse Ox Last 24 Hr 97.9 F-99.2 F 62-82 16-20 115-139/65-94 95-100 Constitutional: Yes: No Distress, Calm Eyes: Yes: Conjunctiva Clear, PERRL HENT: Yes: Atraumatic, Normocephalic Cardiovascular: Yes: Regular Rate and Rhythm. No: Gallop, Murmur, Rub Respiratory: Yes: Regular, CTA Bilaterally. No: Rales, Rhonchi, Wheezes Gastrointestinal: Yes: Normal Bowel Sounds, Soft. No: Distention, Tenderness Extremities: Yes: WNL Neuro: Awake, alert, minimally interactive, moves extremities slowly but no focal deficits, intact to LT, responds to tactile stim Edema: No CBCD WBC 7.7 K/mm3 (4.0-10.0) 08/28/18 06:17 RBC 3.75 M/mm3 (4.00-5.60) L 08/28/18 06:17 Hgb 11.4 GM/dL (11.7-16.9) L 08/28/18 06:17 Hct 32.9 % (35.4-49) L 08/28/18 06:17 MCV 87.7 fl (80-96) 08/28/18 06:17 MCHC 34.7 g/dl (32.0-35.9) 08/28/18 06:17 RDW 13.8 % (11.9-15.9) 08/28/18 06:17 Plt Count 229 K/MM3 (134-434) 08/28/18 06:17 MPV 8.4 fl (7.5-11.1) 08/28/18 06:17 CMP Sodium 135 mmol/L (136-145) L 08/28/18 06:17 Potassium 3.5 mmol/L (3.5-5.1) 08/28/18 06:17 Chloride 104 mmol/L (98-107) 08/28/18 06:17 Carbon Dioxide 25 mmol/L (21-32) 08/28/18 06:17 Anion Gap 6 MMOL/L (8-16) L 08/28/18 06:17 BUN 16 mg/dL (7-18) 08/28/18 06:17 Creatinine 0.8 mg/dL (0.55-1.3) 08/28/18 06:17 Creat Clearance w eGFR > 60 (>60) 08/28/18 06:17 Random Glucose 97 mg/dL (74-106) 08/28/18 06:17 Calcium 8.4 mg/dL (8.5-10.1) L 08/28/18 06:17 Total Bilirubin 0.6 mg/dL (0.2-1) 08/28/18 06:17 AST 12 U/L (15-37) L 08/28/18 06:17 ALT 6 U/L (13-61) L 08/28/18 06:17 Alkaline Phosphatase 120 U/L (45-117) H 08/28/18 06:17 Total Protein 6.5 g/dl (6.4-8.2) 08/28/18 06:17 Albumin 2.6 g/dl (3.4-5.0) L 08/28/18 06:17 CARDIAC ENZYMES Troponin I < 0.02 ng/ml (0.00-0.05) 08/19/18 10:[address] head reviewed Plan: 89 year old male who presented yesterday with AMS from prison. Reportedly , was found on the floor unresponsive and hypothermic. He was brought to the ED for further evaluation and management. He was improving but developed lethargy and somnolence and thus I was consulted. CT head was completed and reviewed and without acute changes. Spoke to nurse and she described patient to be unarousable and initlaly required sternal rub. However, during my visit late Saturday afternoon, was awake, alert, and minimally cooperative which seems to be his baseline. Agree with hospitalist, likely AMS and toxic metabolic encephalopthy. This may possibly be from dose of serquel or dehydration. ID note reviewed, patient given vanco, positive blood cultures. He does have underlying dementia as noted below but presentation more consistent with delirium. Remains with limited movements but awake. Continued gentle hydration. Can take Namenda and Sinemet, don't believe these are etiology. Also on depakote , can continue for now. If further mental status decline, then would reduce depakote to 250bid. CT chest confirmed consolidation and likely PNA. ID follow up, infectious mgmt, recommended. Remains on vanco. Neurologically mental status near baseline. Monitor for decline/deterioration.
[2018-08-28] MEDS ORDERED: PT OWN MED DRAWER 7, Y5N ONE ×3 (10:13→22:06)
[2018-08-28] MEDS: FLUDROCORTISONE ACETATE 0.1 MG TABLET (FP) PO SCH (10:17)
[2018-08-28] MEDS: ENOXAPARIN NA (PORCINE) 40 MG/0.4 ML DISP.SYRIN SQ SCH (10:17)
[2018-08-28] MEDS: amLODIPine BESYLATE 5 MG TABLET (FP) PO SCH (10:17)
[2018-08-28] MEDS: MEMANTINE HCL 10 MG TABLET (FP) PO SCH ×2 (10:17→22:35)
[2018-08-28] MEDS: DIVALPROEX NA *ER* EXTEND REL 500 MG TABLET.SA (FP) PO SCH ×2 (10:17→11:57)
[2018-08-28] MEDS: TAMSULOSIN HCL 0.4 MG CAP PO SCH ×2 (10:17→11:57)
--- NOTE | 2018-08-28 11:13 | PN ---
Teaching Attending Note Name of Resident: Lety Moore ATTENDING PHYSICIAN STATEMENT I saw and evaluated the patient. I reviewed the resident's note and discussed the case with the resident. I agree with the resident's findings and plan as documented with exceptions below. SUBJECTIVE: Patient seen and examined. More awake, conversant, asking for food, wondering about his blood sugars, asking for sandwich, does not want apple sauce. OBJECTIVE: Vital Signs Period Temp Pulse Resp BP Sys/Ruib Pulse Ox Last 24 Hr 97.9 F-98.5 F 62-82 16-19 115-135/65-94 95-100 Intake & Output 08/25/18 08/26/18 08/27/18 08/28/18 23:59 23:59 23:59 23:59 Intake Total 1650 814 922 Balance 1650 814 922 General: sitting in bed, slurred speech but more awake and conversant today Chest: poor effort, scattered rales, L>R Abdomen:soft, NT, ND Extremities: no edema Home Medications Medication Instructions Recorded Fludrocortisone Acetate [Florinef 0.1 mg PO DAILY 09/22/17 -] Ipratropium/Albuterol Sulfate 3 ml IH TID PRN 09/22/17 [Iprat-Albut 0.5-3(2.5) mg/3 ml] Memantine HCl [Namenda -] 10 mg PO BID 09/22/17 Sodium Chloride [Saline Nasal 1 spray NS TID 09/22/17 [place]] Tamsulosin HCl [Flomax] 0.4 mg PO DAILY 09/22/17 Amlodipine Besylate 5 mg PO DAILY 07/27/18 Carbidopa/Levodopa 25/100 [Sinemet 1 each PO TID 07/27/18 25/100 -] Acetaminophen [Acetaminophen 8 650 mg PO Q6H 08/19/18 Hour] Divalproex *ER* [Depakote *ER* -] 500 mg PO BID 08/19/18 Quetiapine Fumarate [Seroquel -] 75 mg PO BID 08/27/18 Active Medications Acetaminophen (Tylenol -) 650 mg PO Q4H PRN PRN Reason: FEVER Amlodipine Besylate (Norvasc -) 5 mg PO DAILY [facility] Last Admin: 08/28/18 10:17 Dose: 5 mg Carbidopa/Levodopa (Sinemet 25/100 -) 1 each PO TID [facility] Last Admin: 08/28/18 06:48 Dose: 1 each Divalproex Sodium (Depakote *Er* -) 500 mg PO DAILY [facility] Last Admin: 08/28/18 10:17 Dose: 500 mg Enoxaparin Sodium (Lovenox -) 40 mg SQ DAILY [facility] Last Admin: 08/28/18 10:17 Dose: 40 mg Fludrocortisone Acetate (Florinef -) 0.1 mg PO DAILY [facility] Last Admin: 08/28/18 10:17 Dose: 0.1 mg Vancomycin HCl 1,500 mg/ (Dextrose) 500 mls @ 250 mls/hr IVPB DAILY@1600 [facility]; Protocol Last Admin: 08/27/18 18:25 Dose: 250 mls/hr Amino Acids (Clinimix -) 1,000 mls @ 42 mls/hr IV Q12H [facility] Last Admin: 08/28/18 06:45 Dose: 42 mls/hr Vancomycin HCl 750 mg/ (Dextrose) 250 mls @ 250 mls/hr IVPB DAILY@0400 [facility] Last Admin: 08/28/18 03:15 Dose: 250 mls/hr Memantine (Namenda -) 10 mg PO BID [facility] Last Admin: 08/28/18 10:17 Dose: 10 mg Metoprolol Tartrate (Lopressor Injection -) 5 mg IVPUSH Q4H PRN PRN Reason: HYPERTENSION Last Admin: 08/26/18 10:45 Dose: 5 mg Nystatin (Nystatin Oral Suspension -) 500,000 units PO Q6HPO [facility] Last Admin: 08/28/18 06:47 Dose: 500,000 units Sodium Chloride ([place] Nasal [place] -) 1 spray NS TID [facility] Last Admin: 08/28/18 06:48 Dose: 1 spray Tamsulosin HCl (Flomax -) 0.4 mg PO DAILY [facility] Last Admin: 08/28/18 10:17 Dose: 0.4 mg Laboratory Results - last 24 hr 08/28/18 08/28/18 08/28/18 06:17 06:17 06:17 WBC 7.7 RBC 3.75 L Hgb 11.4 L Hct 32.9 L MCV 87.7 MCH 30.4 MCHC 34.7 RDW 13.8 Plt Count 229 MPV 8.4 Absolute Neuts (auto) 5.1 Neutrophils % 65.7 Lymphocytes % 21.7 Monocytes % 10.1 Eosinophils % 1.7 Basophils % 0.8 Nucleated RBC % 0 Sodium 135 L Potassium 3.5 Chloride 104 Carbon Dioxide 25 Anion Gap 6 L BUN 16 Creatinine 0.8 Creat Clearance w eGFR > 60 Random Glucose 97 Calcium 8.4 L Phosphorus 2.5 Magnesium 2.2 Total Bilirubin 0.6 AST 12 L ALT 6 L Alkaline Phosphatase 120 H Total Protein 6.5 Albumin 2.6 L TSH 0.32 L D Free T4 1.29 H Random Vancomycin 08/28/18 09:30 WBC RBC Hgb Hct MCV MCH MCHC RDW Plt Count MPV Absolute Neuts (auto) Neutrophils % Lymphocytes % Monocytes % Eosinophils % Basophils % Nucleated RBC % Sodium Potassium Chloride Carbon Dioxide Anion Gap BUN Creatinine Creat Clearance w eGFR Random Glucose Calcium Phosphorus Magnesium Total Bilirubin AST ALT Alkaline Phosphatase Total Protein Albumin TSH Free T4 Random Vancomycin 25.6 CT chest results reviewed ASSESSMENT AND PLAN: 67 yom with PMHx of Alzheimers dementia, Parkinsonian features, Lewy body dementia with behavioral disturbance, Hyperthyroidism, BPH, HTN, HLD, Asthma/ COPD, Hx of TIA with Dysphagia, anxiety/MDD recently started on seroquel, admitted with AMS, found on floor, hypothermic/unresponsive. -AMS, suspect toxic metabolic encephalopathy from infection, ?aspiration, medication related (recently started on seroquel) -STEVE/LLL PNA, suspect aspiration PNA -Unwitnessed fall -Hypothermia, ?From infection -Alzheimer's dementia -Parkinsonian features -LEwy body dementia with behavioral disturbance -Hyperthyroidism -BPH -HTN -HLD -Asthma/COPD -h/o TIA -Dysphagia -Anxiety/MDD Plan; More awake today, asking for food. Discussed with Sheri Alexander, will follow up repeat speech/swallow eval, PO as tolerated with calorie count. CT Chest noted, Suspect aspiration PNA. Currently afebrile with normal WBC. On vancomycin based on blood cx, hold off on additional abx. Aspiration precautions. Vanco levels noted, however sent right after abx administration this AM, discussed with nursing to repeat trough dose this Afternoon. Redose accordingly. Discussed with suha, patient was started on seroquel 75 mg BID on 08/18. Also was transitioned from valproic acid to depakote ER on 08/18. As discussed with NH RN, patient with occasional poor responsiveness and overall reliable po intake till 2 days prior to admission. Continue to hold seroquel. Depakote decreased to 500 mg daily for now. Suspect medication changes partly contributory to AMS on admission Sinemet as tolerated Palliative care input noted. Continue ongoing PEG discussions with family based on clinical improvement and PO intake. Mental status improved though patient ongoing aspiration risk due to underlying neurological condition. Do not think is a candidate for NG tube given his mental status and high risk for pulling. D/c clinimix once PO feeds improved. DVTPPX lovenox Dispo pending plan above, plan for d/c back to [facility]. Discussed with , also with palliative care. PLan discussed with nursing, all questions answered.
[2018-08-28] MEDS: VALPROATE SODIUM 250 MG/5 ML UNIT DOSE CUP PO SCH ×2 (14:41→22:35)
--- NOTE | 2018-08-28 14:42 | PN ---
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, RN RADIOLOGY - Note 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: Today, significant improvement with good KARY, verbal, good po acceptance and tolerance, Selected Entries 08/27/18 08/27/18 08/28/18 10:00 22:00 02:00 Breakfast Lunch Supper 25% 25% Temperature 98.3 F 08/28/18 08/28/18 08/28/18 06:00 08:30 10:00 Breakfast 75% Lunch Supper Temperature 98.4 F 97.9 F 08/28/18 14:26 Breakfast Lunch 100% Supper Temperature 97.9 F Laboratory Tests 08/28/18 06:17 WBC 7.7 Per Palliative care, pt did not want PEG but NGT only, if needed. CT chest Acute Left PNA. Consider MBS r/o aspiration? Has not had one previously. Will that change mgmt? Pt on puree/nectar with overtly good tolerance. Silent aspiration can not be r/ o at bedside.
--- NOTE | 2018-08-28 15:39 | PN ---
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, Physician History of Present Illness: patient much more awake and alert tolerating food no complaints - Current Medication List Current Medications: Active Medications Acetaminophen (Tylenol -) 650 mg PO Q4H PRN PRN Reason: FEVER Amlodipine Besylate (Norvasc -) 5 mg PO DAILY [facility] Last Admin: 08/28/18 10:17 Dose: 5 mg Carbidopa/Levodopa (Sinemet 25/100 -) 1 each PO TID [facility] Last Admin: 08/28/18 14:54 Dose: 1 each Enoxaparin Sodium (Lovenox -) 40 mg SQ DAILY [facility] Last Admin: 08/28/18 10:17 Dose: 40 mg Fludrocortisone Acetate (Florinef -) 0.1 mg PO DAILY [facility] Last Admin: 08/28/18 10:17 Dose: 0.1 mg Vancomycin HCl 1,500 mg/ (Dextrose) 500 mls @ 250 mls/hr IVPB DAILY@1600 [facility]; Protocol Last Admin: 08/27/18 18:25 Dose: 250 mls/hr Amino Acids (Clinimix -) 1,000 mls @ 42 mls/hr IV Q12H [facility] Last Admin: 08/28/18 06:45 Dose: 42 mls/hr Vancomycin HCl 750 mg/ (Dextrose) 250 mls @ 250 mls/hr IVPB DAILY@0400 [facility] Last Admin: 08/28/18 03:15 Dose: 250 mls/hr Memantine (Namenda -) 10 mg PO BID [facility] Last Admin: 08/28/18 10:17 Dose: 10 mg Metoprolol Tartrate (Lopressor Injection -) 5 mg IVPUSH Q4H PRN PRN Reason: HYPERTENSION Last Admin: 08/26/18 10:45 Dose: 5 mg Nystatin (Nystatin Oral Suspension -) 500,000 units PO Q6HPO [facility] Last Admin: 08/28/18 14:52 Dose: 500,000 units Sodium Chloride ([place] Nasal [place] -) 1 spray NS TID [facility] Last Admin: 08/28/18 14:56 Dose: 1 spray Tamsulosin HCl (Flomax -) 0.4 mg PO DAILY [facility] Last Admin: 08/28/18 11:57 Dose: Not Given Valproate Sodium (Depakene -) 250 mg PO BID [facility] Last Admin: 08/28/18 14:41 Dose: 250 mg - Objective Vital Signs: Vital Signs Temperature 97.9 F 08/28/18 14:26 Pulse Rate 74 08/28/18 14:26 Respiratory Rate 17 08/28/18 14:26 Blood Pressure 116/68 08/28/18 14:26 O2 Sat by Pulse Oximetry (%) 95 08/28/18 08:31 Constitutional: Yes: No Distress, Calm Cardiovascular: Yes: Regular Rate and Rhythm Respiratory: Yes: Regular, CTA Bilaterally Gastrointestinal: Yes: Normal Bowel Sounds, Soft Musculoskeletal: Yes: WNL Extremities: Yes: WNL Neurological: Yes: Alert, Other Psychiatric: Yes: Other Labs: CBC, BMP 08/28/18 06:17 08/28/18 06:17 INR, PTT INR 1.06 (0.83-1.09) 08/19/18 10:43 Assessment/Plan Assessment/Plan (1) Fall Code(s): W19.XXXA - UNSPECIFIED FALL, INITIAL ENCOUNTER Qualifiers: Encounter type: initial encounter Qualified Code(s): W19.XXXA - Unspecified fall, initial encounter (2) Toxic metabolic encephalopathy Code(s): G92 - TOXIC ENCEPHALOPATHY (3) Dehydration Code(s): E86.0 - DEHYDRATION (4) BPH (benign prostatic hyperplasia) Code(s): N40.0 - BENIGN PROSTATIC HYPERPLASIA WITHOUT LOWER URINRY TRACT SYMP (5) COPD (chronic obstructive pulmonary disease) Code(s): J44.9 - CHRONIC OBSTRUCTIVE PULMONARY DISEASE, UNSPECIFIED (6) HTN (hypertension) Code(s): I10 - ESSENTIAL (PRIMARY) HYPERTENSION Qualifiers: Hypertension type: essential hypertension Qualified Code(s): I10 - Essential (primary) hypertension (7) Orthostatic hypotension Code(s): I95.1 - ORTHOSTATIC HYPOTENSION (8) Lewy body dementia with behavioral disturbance Code(s): G31.83 - DEMENTIA WITH LEWY BODIES; F02.81 - DEMENTIA IN OTH DISEASES CLASSD ELSWHR W BEHAVIORAL DISTURB (9) Positive blood cultures - plan continue abx will consider deescalting once patient is s table rest as per the team nutrition
[2018-08-28] MEDS: VANCOMYCIN HCL 1,500 MG in DEXTROSE 5%-WATER - 500 ML IVPB SCH (19:39)
--- NOTE | 2018-08-28 23:18 | CONSULT ---
Consult Consult Specialty:: endocrinology Referred by:: dr.shukla bernardo Reason for Consultation:: abnormal thyroid function - History of Present Illness Chief Complaint: ams History of Present Illness: 67 year old male who presented with AMS. . was found on the floor unresponsive and hypothermic. 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 Cardio/Vascular: Yes: HTN, Hyperlipdemia Renal/: Yes: Renal Failure - Past Surgical History Past Surgical History: Yes: None - Alcohol/Substance Use Hx Alcohol Use: No History of Substance Use: reports: None - Smoking History Smoking history: Unknown if ever smoked Have you smoked in the past 12 months: No Aproximately how many cigarettes per day: 0 - Social History Usual Living Arrangement: Group Home ADL: Support Services History of Recent Travel: Yes Home Medications - Allergies Allergies/Adverse Reactions: Allergies Allergy/AdvReac Type Severity Reaction Status Date / Time haloperidol [From Haldol] Allergy Severe Verified 08/19/18 10:16 benztropine Allergy Verified 08/19/18 10:16 benztropine mesylate Allergy Verified 08/19/18 10:16 [From Cogentin] haloperidol lactate Allergy Verified 08/19/18 10:16 [From Haldol] - Home Medications Home Medications: Ambulatory Orders Fludrocortisone Acetate [Florinef -] 0.1 mg PO DAILY 09/22/17 Ipratropium/Albuterol Sulfate [Iprat-Albut 0.5-3(2.5) mg/3 ml] 3 ml IH TID PRN 09/22/17 Memantine HCl [Namenda -] 10 mg PO BID 09/22/17 Sodium Chloride [Saline Nasal [place]] 1 spray NS TID 09/22/17 Tamsulosin HCl [Flomax] 0.4 mg PO DAILY 09/22/17 Amlodipine Besylate 5 mg PO DAILY 07/27/18 Carbidopa/Levodopa 25/100 [Sinemet 25/100 -] 1 each PO TID 07/27/18 Acetaminophen [Acetaminophen 8 Hour] 650 mg PO Q6H 08/19/18 Divalproex *ER* [Depakote *ER* -] 500 mg PO BID 08/19/18 Quetiapine Fumarate [Seroquel -] 75 mg PO BID 08/27/18 Review of Systems Unable to obtain ROS, reason: lethargic - Review of Systems Constitutional: reports: Lethargy, Weakness Physical Exam Vital Signs: Vital Signs Temperature 98 F 08/28/18 18:42 Pulse Rate 75 08/28/18 18:42 Respiratory Rate 18 08/28/18 18:42 Blood Pressure 130/71 08/28/18 18:42 O2 Sat by Pulse Oximetry (%) 95 08/28/18 08:31 Constitutional: Yes: Calm Eyes: Yes: EOM Intact HENT: Yes: Normocephalic Neck: Yes: Trachea Midline Cardiovascular: Yes: Regular Rate and Rhythm Respiratory: Yes: CTA Bilaterally Gastrointestinal: Yes: Normal Bowel Sounds ...Rectal Exam: Yes: Deferred Renal/: Yes: WNL Breast(s): Yes: WNL Musculoskeletal: Yes: Joint Stiffness, Muscle Weakness Extremities: Yes: WNL Neurological: Yes: Alert, Aphasia, Confusion, Weakness Labs: CBC, BMP 08/28/18 06:17 08/28/18 06:17 Assessment/Plan Current Active Problems abnormal thyroid function central , euthyroid sick syndrome adrenal deficiency Altered mental status (Acute) Hypothermia (Acute) Abnormal Lab Results 08/28/18 08/28/18 08/28/18 06:17 06:17 06:17 RBC 3.75 L Hgb 11.4 L Hct 32.9 L Sodium 135 L Anion Gap 6 L Calcium 8.4 L AST 12 L ALT 6 L Alkaline Phosphatase 120 H Albumin 2.6 L TSH 0.32 L D Free T4 1.29 H Vancomycin Pre-Dose 08/28/18 16:20 RBC Hgb Hct Sodium Anion Gap Calcium AST ALT Alkaline Phosphatase Albumin TSH Free T4 Vancomycin Pre-Dose 17.0 L Laboratory Results - last 24 hr 08/28/18 08/28/18 08/28/18 06:17 06:17 06:17 WBC 7.7 RBC 3.75 L Hgb 11.4 L Hct 32.9 L MCV 87.7 MCH 30.4 MCHC 34.7 RDW 13.8 Plt Count 229 MPV 8.4 Absolute Neuts (auto) 5.1 Neutrophils % 65.7 Lymphocytes % 21.7 Monocytes % 10.1 Eosinophils % 1.7 Basophils % 0.8 Nucleated RBC % 0 Sodium 135 L Potassium 3.5 Chloride 104 Carbon Dioxide 25 Anion Gap 6 L BUN 16 Creatinine 0.8 Creat Clearance w eGFR > 60 Random Glucose 97 Calcium 8.4 L Phosphorus 2.5 Magnesium 2.2 Total Bilirubin 0.6 AST 12 L ALT 6 L Alkaline Phosphatase 120 H Total Protein 6.5 Albumin 2.6 L TSH 0.32 L D Free T4 1.29 H Random Vancomycin Vancomycin Pre-Dose 08/28/18 08/28/18 09:30 16:20 WBC RBC Hgb Hct MCV MCH MCHC RDW Plt Count MPV Absolute Neuts (auto) Neutrophils % Lymphocytes % Monocytes % Eosinophils % Basophils % Nucleated RBC % Sodium Potassium Chloride Carbon Dioxide Anion Gap BUN Creatinine Creat Clearance w eGFR Random Glucose Calcium Phosphorus Magnesium Total Bilirubin AST ALT Alkaline Phosphatase Total Protein Albumin TSH Free T4 Random Vancomycin 25.6 Vancomycin Pre-Dose 17.0 L plan: repeat free t4 tsh [id number] acth /cortisol level
[2018-08-29] MEDS: NYSTATIN 500,000 UNITS/5 ML SUSPENSION PO SCH ×4 (00:56→17:24)
[2018-08-29] MEDS ORDERED: PT OWN MED DRAWER 7, Y5N ONE ×3 (04:50→17:35)
[2018-08-29] MEDS: AMINO ACIDS 4.25%/D5W 1,000 ML IV SCH ×3 (04:56→16:57)
[2018-08-29] MEDS: VANCOMYCIN 750 MG in DEXTROSE 5%-WATER - 250 ML IVPB SCH (04:56)
[2018-08-29] MEDS: SODIUM CHLORIDE NASAL SPRAY 44 ML BOTTLE NS SCH ×3 (05:38→22:45)
[2018-08-29] MEDS: CARBIDOPA/LEVODOPA 25/100 TABLET (FP) PO SCH ×3 (05:39→22:44)
--- NOTE | 2018-08-29 08:51 | PN ---
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 (short form) - Note 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: Neurology History of Present Illness: 67 year old male who presented yesterday with AMS from detention. Reportedly , was found on the floor unresponsive and hypothermic. He was brought to the ED for further evaluation and management. He was improving but developed lethargy and somnolence and thus I was consulted. CT head was completed and reviewed and without acute changes. Spoke to nurse and she described patient to be unarousable and initially required sternal rub. This may possibly be from dose of serquel or dehydration. ID following, patient given vanco, positive blood cultures. He does have underlying dementia as noted below but presentation more consistent with delirium. Remains alert and hypophonic in speech, unclear verbalization, seems to be at his baseline without lethagy, some somnolence noted. Not aggitated or uncooperative. CT chest reviewed and confirmed L sided consolidation, consistent with PNA. Remains on Vanco. Dr. garg note reviewed. Neurologically stable. Active Medications Acetaminophen (Tylenol -) 650 mg PO Q4H PRN PRN Reason: FEVER Amlodipine Besylate (Norvasc -) 5 mg PO DAILY [facility] Last Admin: 08/28/18 10:17 Dose: 5 mg Carbidopa/Levodopa (Sinemet 25/100 -) 1 each PO TID [facility] Last Admin: 08/29/18 05:39 Dose: 1 each Enoxaparin Sodium (Lovenox -) 40 mg SQ DAILY [facility] Last Admin: 08/28/18 10:17 Dose: 40 mg Fludrocortisone Acetate (Florinef -) 0.1 mg PO DAILY [facility] Last Admin: 08/28/18 10:17 Dose: 0.1 mg Vancomycin HCl 1,500 mg/ (Dextrose) 500 mls @ 250 mls/hr IVPB DAILY@1600 [facility]; Protocol Last Admin: 08/28/18 19:39 Dose: 250 mls/hr Amino Acids (Clinimix -) 1,000 mls @ 42 mls/hr IV Q12H [facility] Last Admin: 08/29/18 07:05 Dose: 42 mls/hr Vancomycin HCl 750 mg/ (Dextrose) 250 mls @ 250 mls/hr IVPB DAILY@0400 [facility] Last Admin: 08/29/18 04:56 Dose: 250 mls/hr Memantine (Namenda -) 10 mg PO BID [facility] Last Admin: 08/28/18 22:35 Dose: 10 mg Metoprolol Tartrate (Lopressor Injection -) 5 mg IVPUSH Q4H PRN PRN Reason: HYPERTENSION Last Admin: 08/26/18 10:45 Dose: 5 mg Nystatin (Nystatin Oral Suspension -) 500,000 units PO Q6HPO [facility] Last Admin: 08/29/18 05:38 Dose: 500,000 units Sodium Chloride ([place] Nasal [place] -) 1 spray NS TID [facility] Last Admin: 08/29/18 05:38 Dose: 1 spray Tamsulosin HCl (Flomax -) 0.4 mg PO DAILY [facility] Last Admin: 08/28/18 11:57 Dose: Not Given Valproate Sodium (Depakene -) 250 mg PO BID [facility] Last Admin: 08/28/18 22:35 Dose: 250 mg Physical Examination Vital Signs Period Temp Pulse Resp BP Sys/Rubi Pulse Ox Last 24 Hr 97.9 F-99.9 F 65-75 17-20 113-130/68-71 98 Constitutional: Yes: No Distress, Calm Eyes: Yes: Conjunctiva Clear, PERRL HENT: Yes: Atraumatic, Normocephalic Cardiovascular: Yes: Regular Rate and Rhythm. No: Gallop, Murmur, Rub Respiratory: Yes: Regular, CTA Bilaterally. No: Rales, Rhonchi, Wheezes Gastrointestinal: Yes: Normal Bowel Sounds, Soft. No: Distention, Tenderness Extremities: Yes: WNL Neuro: Awake, alert, minimally interactive, moves extremities slowly but no focal deficits, intact to LT, responds to tactile stim Edema: No CBCD WBC 7.7 K/mm3 (4.0-10.0) 08/28/18 06:17 RBC 3.75 M/mm3 (4.00-5.60) L 08/28/18 06:17 Hgb 11.4 GM/dL (11.7-16.9) L 08/28/18 06:17 Hct 32.9 % (35.4-49) L 08/28/18 06:17 MCV 87.7 fl (80-96) 08/28/18 06:17 MCHC 34.7 g/dl (32.0-35.9) 08/28/18 06:17 RDW 13.8 % (11.9-15.9) 08/28/18 06:17 Plt Count 229 K/MM3 (134-434) 08/28/18 06:17 MPV 8.4 fl (7.5-11.1) 08/28/18 06:17 CMP Sodium 135 mmol/L (136-145) L 08/28/18 06:17 Potassium 3.5 mmol/L (3.5-5.1) 08/28/18 06:17 Chloride 104 mmol/L (98-107) 08/28/18 06:17 Carbon Dioxide 25 mmol/L (21-32) 08/28/18 06:17 Anion Gap 6 MMOL/L (8-16) L 08/28/18 06:17 BUN 16 mg/dL (7-18) 08/28/18 06:17 Creatinine 0.8 mg/dL (0.55-1.3) 08/28/18 06:17 Creat Clearance w eGFR > 60 (>60) 08/28/18 06:17 Random Glucose 97 mg/dL (74-106) 08/28/18 06:17 Calcium 8.4 mg/dL (8.5-10.1) L 08/28/18 06:17 Total Bilirubin 0.6 mg/dL (0.2-1) 08/28/18 06:17 AST 12 U/L (15-37) L 08/28/18 06:17 ALT 6 U/L (13-61) L 08/28/18 06:17 Alkaline Phosphatase 120 U/L (45-117) H 08/28/18 06:17 Total Protein 6.5 g/dl (6.4-8.2) 08/28/18 06:17 Albumin 2.6 g/dl (3.4-5.0) L 08/28/18 06:17 CARDIAC ENZYMES Troponin I < 0.02 ng/ml (0.00-0.05) 08/19/18 10:[address] head reviewed Plan: 67 year old male who presented yesterday with AMS from detention. Reportedly , was found on the floor unresponsive and hypothermic. He was brought to the ED for further evaluation and management. He was improving but developed lethargy and somnolence and thus I was consulted. CT head was completed and reviewed and without acute changes. Spoke to nurse and she described patient to be unarousable and initially required sternal rub. This may possibly be from dose of serquel or dehydration. ID following, patient given vanco, positive blood cultures. He does have underlying dementia as noted below but presentation more consistent with delirium. Remains alert and hypophonic in speech, unclear verbalization, seems to be at his baseline without lethagy, some somnolence noted. Not aggitated or uncooperative. CT chest reviewed and confirmed L sided consolidation, consistent with PNA. Remains on Vanco. Dr. garg note reviewed. Neurologically stable. Continued gentle hydration. Can take Namenda and Sinemet, don't believe these are etiology. Also on depakote, can continue for now. CT chest confirmed consolidation and likely PNA. ID follow up, infectious mgmt, recommended. Remains on vanco. Neurologically mental status near baseline. Monitor for decline/deterioration. Neurologically stable.
[2018-08-29] MEDS: TAMSULOSIN HCL 0.4 MG CAP PO SCH (09:21)
[2018-08-29] MEDS: FLUDROCORTISONE ACETATE 0.1 MG TABLET (FP) PO SCH ×2 (09:22→09:35)
[2018-08-29] MEDS: VALPROATE SODIUM 250 MG/5 ML UNIT DOSE CUP PO SCH ×3 (09:23→22:43)
[2018-08-29] MEDS: amLODIPine BESYLATE 5 MG TABLET (FP) PO SCH ×2 (09:23→09:35)
[2018-08-29] MEDS: MEMANTINE HCL 10 MG TABLET (FP) PO SCH ×3 (09:23→22:43)
--- NOTE | 2018-08-29 11:03 | PN ---
Teaching Attending Note Name of Resident: Lety Moore ATTENDING PHYSICIAN STATEMENT I saw and evaluated the patient. I reviewed the resident's note and discussed the case with the resident. I agree with the resident's findings and plan as documented with exceptions below. SUBJECTIVE: Patient seen and examined. Sounds gurgly , incomprehensible speech, denies pain , further ROS limited given the same. OBJECTIVE: Vital Signs Period Temp Pulse Resp BP Sys/Rubi Pulse Ox Last 24 Hr 97.9 F-99.9 F 65-75 17-20 103-130/56-71 98 Intake & Output 08/26/18 08/27/18 08/28/18 08/29/18 23:59 23:59 23:59 23:59 Intake Total 088 908 5661 Balance 894 197 1050 General: sitting in bed, audible gurling sounds Chest: bilateral coarse scattered audible rales, no wheezing Abdomen:soft, NT Extremities: no edema Neuro: awake, interactive, incomprehensible speech, moves all extremities. Unchanged exam from yesterday Home Medications Medication Instructions Recorded Fludrocortisone Acetate [Florinef 0.1 mg PO DAILY 09/22/17 -] Ipratropium/Albuterol Sulfate 3 ml IH TID PRN 09/22/17 [Iprat-Albut 0.5-3(2.5) mg/3 ml] Memantine HCl [Namenda -] 10 mg PO BID 09/22/17 Sodium Chloride [[place] Nasal 1 spray NS TID 09/22/17 [place]] Tamsulosin HCl [Flomax] 0.4 mg PO DAILY 09/22/17 Amlodipine Besylate 5 mg PO DAILY 07/27/18 Carbidopa/Levodopa 25/100 [Sinemet 1 each PO TID 07/27/18 25/100 -] Acetaminophen [Acetaminophen 8 650 mg PO Q6H 08/19/18 Hour] Divalproex *ER* [Depakote *ER* -] 500 mg PO BID 08/19/18 Quetiapine Fumarate [Seroquel -] 75 mg PO BID 08/27/18 Active Medications Acetaminophen (Tylenol -) 650 mg PO Q4H PRN PRN Reason: FEVER Amlodipine Besylate (Norvasc -) 5 mg PO DAILY [facility] Last Admin: 08/29/18 09:35 Dose: Not Given Carbidopa/Levodopa (Sinemet 25/100 -) 1 each PO TID [facility] Last Admin: 08/29/18 05:39 Dose: 1 each Fludrocortisone Acetate (Florinef -) 0.1 mg PO DAILY [facility] Last Admin: 08/29/18 09:35 Dose: Not Given Vancomycin HCl 1,500 mg/ (Dextrose) 500 mls @ 250 mls/hr IVPB DAILY@1600 [facility]; Protocol Last Admin: 08/28/18 19:39 Dose: 250 mls/hr Amino Acids (Clinimix -) 1,000 mls @ 42 mls/hr IV Q12H [facility] Last Admin: 08/29/18 07:05 Dose: 42 mls/hr Vancomycin HCl 750 mg/ (Dextrose) 250 mls @ 250 mls/hr IVPB DAILY@0400 [facility] Last Admin: 08/29/18 04:56 Dose: 250 mls/hr Memantine (Namenda -) 10 mg PO BID [facility] Last Admin: 08/29/18 09:34 Dose: Not Given Metoprolol Tartrate (Lopressor Injection -) 5 mg IVPUSH Q4H PRN PRN Reason: HYPERTENSION Last Admin: 08/26/18 10:45 Dose: 5 mg Nystatin (Nystatin Oral Suspension -) 500,000 units PO Q6HPO [facility] Last Admin: 08/29/18 05:38 Dose: 500,000 units Sodium Chloride ([place] Nasal [place] -) 1 spray NS TID [facility] Last Admin: 08/29/18 05:38 Dose: 1 spray Tamsulosin HCl (Flomax -) 0.4 mg PO DAILY [facility] Last Admin: 08/28/18 11:57 Dose: Not Given Valproate Sodium (Depakene -) 250 mg PO BID [facility] Last Admin: 08/29/18 09:33 Dose: Not Given Laboratory Results - last 24 hr 08/28/18 08/28/18 08/29/18 09:30 16:20 05:30 TSH 0.24 L D Free T4 1.27 H Random Vancomycin 25.6 Vancomycin Pre-Dose 17.0 L Microbiology 08/23/18 07:38 Blood - Peripheral Venous Blood Culture - Final NO GROWTH AFTER 5 DAYS INCUBATION 08/23/18 06:15 Blood - Peripheral Venous Blood Culture - Final NO GROWTH AFTER 5 DAYS INCUBATION 08/22/18 12:10 Blood - Peripheral Venous Blood Culture - Final NO GROWTH AFTER 5 DAYS INCUBATION 08/22/18 12:00 Blood - Peripheral Venous Blood Culture - Final NO GROWTH AFTER 5 DAYS INCUBATION 08/19/18 10:43 Blood - Peripheral Venous Blood Culture - Final [place]ella [place] 08/19/18 10:50 Blood - Peripheral Venous Blood Culture - Final Gemella [place] 08/19/18 10:39 Urine - Urine Clean Catch Urine Culture - Final NO GROWTH OBTAINED ASSESSMENT AND PLAN: 67 yom with PMHx of Alzheimers dementia, Parkinsonian features, Lewy body dementia with behavioral disturbance, Hyperthyroidism, BPH, HTN, HLD, Asthma/ COPD, Hx of TIA with Dysphagia, anxiety/MDD recently started on seroquel, admitted with AMS, found on floor, hypothermic/unresponsive. -AMS, suspect toxic metabolic encephalopathy from infection, ?aspiration, medication related (recently started on seroquel) -STEVE/LLL PNA, suspect aspiration PNA -Unwitnessed fall -Hypothermia, ?From infection -Alzheimer's dementia -Parkinsonian features -LEwy body dementia with behavioral disturbance -Hyperthyroidism -BPH -HTN -HLD -Asthma/COPD -h/o TIA -Dysphagia -Anxiety/MDD Plan; Audible rales today after advancing PO yesterday. Suspect ongoing aspiration. Discussed with speech therapist, MBS today. Palliative care input noted. Family meeting to address ongoing aspiration pending MBS and overall goals of care. Discussed with Dr. Harrison, d/c vancomycin, start augmentin and monitor for new symptoms. High aspiration risk, low threshold to advance abx in case of fevers/ leucocytosis or respiratory distress. Discussed with [place], patient was started on seroquel 75 mg BID on 08/18 and transitioned from valproic acid to depakote ER on 08/18. As discussed with [facility] RN, patient with occasional poor responsiveness and overall reliable po intake till 2 days prior to admission. Continue to hold seroquel. Depakote decreased to 250 mg BID. Suspect medication changes partly contributory to AMS on admission Sinemet as tolerated Do not think is a candidate for NG tube given his mental status and high risk for pulling. D/c clinimix once PO adequate and goals of care addressed. DVTPPX lovenox Dispo pending plan above, plan for d/c back to [facility]. PLan discussed with nursing, CM, speech therapist, all questions answered.
--- NOTE | 2018-08-29 11:54 | PN ---
Physical Exam: SUBJECTIVE: Patient seen and examined; still having difficult with feedings, not wanting to open mouth. Currently on dyspahgia diet. afebrile. ; diffiuclty with barium swallow;patient did not want to participate OBJECTIVE: Vital Signs Period Temp Pulse Resp BP Sys/Rubi Pulse Ox Last 24 Hr 97.9 F-99.9 F 65-75 17-20 103-130/56-71 98 GENERAL: The patient is awake, more arousable,not wanting to take po intake; oral thrus LUNGS:decreased breath sounds HEART: Regular rate and rhythm, S1, S2 without murmur, rub or gallop. ABDOMEN: Soft, nontender, nondistended, normoactive bowel sounds, no guarding, no rebound, no hepatosplenomegaly, no masses. EXTREMITIES: 2+ pulses, warm, well-perfused, no edema. NEUROLOGICAL: dementia; parkinsons; not wantiong to answer PSYCH: Normal mood, normal affect. SKIN: Warm, dry, normal turgor, no rashes or lesions noted Laboratory Results - last 24 hr 08/28/18 08/29/18 16:20 05:30 TSH 0.24 L D Free T4 1.27 H Vancomycin Pre-Dose 17.0 L Active Medications Generic Name Dose Route Start Last Admin Trade Name Freq PRN Reason Stop Dose Admin Acetaminophen 650 mg 08/20/18 12:31 Tylenol - PO Q4H PRN FEVER Amlodipine Besylate 5 mg 08/21/18 10:00 08/29/18 09:35 Norvasc - PO Not Given DAILY [facility] Amoxicillin/Clavulanate Potassium 875 mg 08/29/18 17:30 Augmentin 125 Mg/5 Ml Oral Suspension - PO BID@0800,1730 [facility] Carbidopa/Levodopa 1 each 08/20/18 14:00 08/29/18 05:39 Sinemet 25/100 - PO 1 each TID [facility] Administration Fludrocortisone Acetate 0.1 mg 08/21/18 10:00 08/29/18 09:35 Florinef - PO Not Given DAILY [facility] Amino Acids 1,000 mls @ 42 mls/hr 08/25/18 16:00 08/29/18 07:05 Clinimix - IV 42 mls/hr Q12H [facility] Administration Memantine 10 mg 08/20/18 22:00 08/29/18 09:34 Namenda - PO Not Given BID [facility] Metoprolol Tartrate 5 mg 08/25/18 21:25 08/26/18 10:45 Lopressor Injection - IVPUSH 5 mg Q4H PRN Administration HYPERTENSION Nystatin 500,000 units 08/27/18 12:00 08/29/18 05:38 Nystatin Oral Suspension - PO 500,000 units Q6HPO [facility] Administration Sodium Chloride 1 spray 08/20/18 14:00 08/29/18 05:38 [place] Nasal [place] - NS 1 spray TID [facility] Administration Tamsulosin HCl 0.4 mg 08/21/18 10:00 08/28/18 11:57 Flomax - PO Not Given DAILY [facility] Valproate Sodium 250 mg 08/28/18 13:00 08/29/18 09:33 Depakene - PO Not Given BID [facility] ASSESSMENT/PLAN: This is a 67 year old male with dementia sent home form [place] due to unresponsiveness;found to have alex + blood culture x one bottle. Work up for etiology includes infectious vs metabolic, mal nutrition, dementia. Multifactorial. #AMS found to be bacteremic: lethargic; metabolic syn -started on augmentin oral soln -low grade fever ml due to met encephalopathy -sridevi ID recs # po intake; -did dot want to participate with barium swalloe; -goal s of care need to be discusses; consider peg tube #malnutrition: -started on clinimex -seen by speech; swallow; -started puree diet -nutrition consult -need to reconsider peg tube if patient refusing food; discuss goals of car with family #thrush -nystatin #labs indicate hypothyroid; -follow up t3; -endocrine following #Lewy body dementia ; -cont namenda, cinemet -restart cinemet; now pn puree diet -currently restraine #fall: -fall precautions #COPDhx; controlled #HTN: controlled on norvas #HLD: cont statin #BPH: cont on flomax #hypomagnesimia; replaced #hypokalemia: replaced #Diet: puree diet #dvt ppl; on lovenox Visit type - Emergency Visit Emergency Visit: Yes ED Registration Date: 08/21/18 Care time: The patient presented to the Emergency Department on the above date and was hospitalized for further evaluation of their emergent condition. - New Patient This patient is new to me today: No - Critical Care Critical Care patient: No
--- NOTE | 2018-08-29 14:42 | PN ---
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, Physician History of Present Illness: stable awake no complaints calm - Current Medication List Current Medications: Active Medications Acetaminophen (Tylenol -) 650 mg PO Q4H PRN PRN Reason: FEVER Amlodipine Besylate (Norvasc -) 5 mg PO DAILY [facility] Last Admin: 08/29/18 09:35 Dose: Not Given Amoxicillin/Clavulanate Potassium (Augmentin 250 Mg/5 Ml Oral Suspension -) 500 mg PO TIDCM [facility] Carbidopa/Levodopa (Sinemet 25/100 -) 1 each PO TID [facility] Last Admin: 08/29/18 05:39 Dose: 1 each Fludrocortisone Acetate (Florinef -) 0.1 mg PO DAILY [facility] Last Admin: 08/29/18 09:35 Dose: Not Given Amino Acids (Clinimix -) 1,000 mls @ 42 mls/hr IV Q12H [facility] Last Admin: 08/29/18 07:05 Dose: 42 mls/hr Memantine (Namenda -) 10 mg PO BID [facility] Last Admin: 08/29/18 09:34 Dose: Not Given Metoprolol Tartrate (Lopressor Injection -) 5 mg IVPUSH Q4H PRN PRN Reason: HYPERTENSION Last Admin: 08/26/18 10:45 Dose: 5 mg Nystatin (Nystatin Oral Suspension -) 500,000 units PO Q6HPO [facility] Last Admin: 08/29/18 12:40 Dose: 500,000 units Sodium Chloride ([place] Nasal [place] -) 1 spray NS TID [facility] Last Admin: 08/29/18 05:38 Dose: 1 spray Tamsulosin HCl (Flomax -) 0.4 mg PO DAILY [facility] Last Admin: 08/28/18 11:57 Dose: Not Given Valproate Sodium (Depakene -) 250 mg PO BID [facility] Last Admin: 08/29/18 09:33 Dose: Not Given - Objective Vital Signs: Vital Signs Temperature 99.9 F H 08/29/18 09:40 Pulse Rate 75 08/29/18 09:40 Respiratory Rate 18 08/29/18 09:40 Blood Pressure 103/56 L 08/29/18 09:40 O2 Sat by Pulse Oximetry (%) 98 08/28/18 21:00 Constitutional: Yes: No Distress, Calm Cardiovascular: Yes: Regular Rate and Rhythm Respiratory: Yes: Regular, CTA Bilaterally, On Nasal O2 Gastrointestinal: Yes: Normal Bowel Sounds, Soft Musculoskeletal: Yes: WNL Extremities: Yes: WNL Neurological: Yes: Alert Psychiatric: Yes: Alert Labs: CBC, BMP 08/28/18 06:17 08/28/18 06:17 INR, PTT INR 1.06 (0.83-1.09) 08/19/18 10:43 Assessment/Plan Assessment/Plan (1) Fall Code(s): W19.XXXA - UNSPECIFIED FALL, INITIAL ENCOUNTER Qualifiers: Encounter type: initial encounter Qualified Code(s): W19.XXXA - Unspecified fall, initial encounter (2) Toxic metabolic encephalopathy Code(s): G92 - TOXIC ENCEPHALOPATHY (3) Dehydration Code(s): E86.0 - DEHYDRATION (4) BPH (benign prostatic hyperplasia) Code(s): N40.0 - BENIGN PROSTATIC HYPERPLASIA WITHOUT LOWER URINRY TRACT SYMP (5) COPD (chronic obstructive pulmonary disease) Code(s): J44.9 - CHRONIC OBSTRUCTIVE PULMONARY DISEASE, UNSPECIFIED (6) HTN (hypertension) Code(s): I10 - ESSENTIAL (PRIMARY) HYPERTENSION Qualifiers: Hypertension type: essential hypertension Qualified Code(s): I10 - Essential (primary) hypertension (7) Orthostatic hypotension Code(s): I95.1 - ORTHOSTATIC HYPOTENSION (8) Lewy body dementia with behavioral disturbance Code(s): G31.83 - DEMENTIA WITH LEWY BODIES; F02.81 - DEMENTIA IN OTH DISEASES CLASSD ELSWHR W BEHAVIORAL DISTURB (9) Positive blood cultures - plan continue abx can stop abx from tomorrow and monitor off of them nutrition rest as per the team
--- NOTE | 2018-08-29 16:54 | PN ---
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, NURSE FIRST ASSIST - Note 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: Case reviewed with PMD. Limited assessment of aspiration during MBS due to oral holding. AStrong suspicion for risk of aspiration, likely sec to orpharyngeal dyscoordination. Trial Puree/honey thick liquid.Moniutor PO tolerance/pulmonary status. Family have not decided on PEG insertion. For PEG in future, if indicated.
[2018-08-29] MEDS: AMOX TR/POTASSIUM CLAVULANATE 250 MG/5 ML BOTTLE PO SCH (17:24)
[2018-08-29] MEDS ORDERED: AMOX TR/POTASSIUM CLAVULANATE 125 MG/5 ML BOTTLE 75ML PO SCH (17:30)
--- NOTE | 2018-08-29 23:24 | PN ---
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, Physician Chief Complaint: ams,difficult responsive yet incoherent speech History of Present Illness: 67 y male with ams,admitted for changes in behavior,found to have weakness and hypothermia,abnormal tfts - Current Medication List Current Medications: Active Medications Acetaminophen (Tylenol -) 650 mg PO Q4H PRN PRN Reason: FEVER Amlodipine Besylate (Norvasc -) 5 mg PO DAILY [facility] Last Admin: 08/29/18 09:35 Dose: Not Given Amoxicillin/Clavulanate Potassium (Augmentin 250 Mg/5 Ml Oral Suspension -) 500 mg PO TIDCM [facility] Last Admin: 08/29/18 17:24 Dose: Not Given Carbidopa/Levodopa (Sinemet 25/100 -) 1 each PO TID [facility] Last Admin: 08/29/18 22:44 Dose: Not Given Fludrocortisone Acetate (Florine[place] -) 0.1 mg PO DAILY [facility] Last Admin: 08/29/18 09:35 Dose: Not Given Amino Acids (Clinimix -) 1,000 mls @ 42 mls/hr IV Q12H [facility] Last Admin: 08/29/18 16:57 Dose: 42 mls/hr Memantine (Namenda -) 10 mg PO BID [facility] Last Admin: 08/29/18 22:43 Dose: Not Given Metoprolol Tartrate (Lopressor Injection -) 5 mg IVPUSH Q4H PRN PRN Reason: HYPERTENSION Last Admin: 08/26/18 10:45 Dose: 5 mg Nystatin (Nystatin Oral Suspension -) 500,000 units PO Q6HPO [facility] Last Admin: 08/29/18 17:24 Dose: Not Given Sodium Chloride ([place] Nasal [place] -) 1 spray NS TID [facility] Last Admin: 08/29/18 22:45 Dose: 1 spray Tamsulosin HCl (Flomax -) 0.4 mg PO DAILY [facility] Last Admin: 08/28/18 11:57 Dose: Not Given Valproate Sodium (Depakene -) 250 mg PO BID [facility] Last Admin: 08/29/18 22:43 Dose: Not Given - Objective Vital Signs: Vital Signs Temperature 98.1 F 08/29/18 22:32 Pulse Rate 70 08/29/18 22:32 Respiratory Rate 18 08/29/18 22:32 Blood Pressure 137/90 08/29/18 22:32 O2 Sat by Pulse Oximetry (%) 98 08/29/18 21:00 Constitutional: Yes: Calm Eyes: Yes: EOM Intact HENT: Yes: Normocephalic Neck: Yes: Trachea Midline Cardiovascular: Yes: Regular Rate and Rhythm Respiratory: Yes: CTA Bilaterally Gastrointestinal: Yes: WNL Musculoskeletal: Yes: Joint Stiffness, Muscle Weakness Edema: No Neurological: Yes: Alert, Confusion, Weakness Labs: CBC, BMP 08/28/18 06:17 08/28/18 06:17 INR, PTT INR 1.06 (0.83-1.09) 08/19/18 10:43 Problem List - Problems (1) Altered mental status Code(s): R41.82 - ALTERED MENTAL STATUS, UNSPECIFIED Qualifiers: Altered mental status type: unspecified Qualified Code(s): R41.82 - Altered mental status, unspecified (2) Hypothermia Code(s): T68.XXXA - HYPOTHERMIA, INITIAL ENCOUNTER Qualifiers: Encounter type: initial encounter Qualified Code(s): T68.XXXA - Hypothermia , initial encounter (3) Hyperthyroidism Code(s): E05.90 - THYROTOXICOSIS, UNSP WITHOUT THYROTOXIC CRISIS OR STORM (4) Euthyroid sick syndrome Code(s): E07.81 - SICK-EUTHYROID SYNDROME Assessment/Plan Current Active Problems Altered mental status (Acute) Hypothermia (Acute euthyroid sick syndrome Abnormal Lab Results 08/29/18 05:30 TSH 0.24 L D Free T4 1.27 H clinical determinants await free t4 direct dialysis given overall clinical presentation free t4 may be transient elevated
[2018-08-30] MEDS: NYSTATIN 500,000 UNITS/5 ML SUSPENSION PO SCH ×5 (00:05→23:11)
[2018-08-30] MEDS: AMINO ACIDS 4.25%/D5W 1,000 ML IV SCH ×2 (06:31→16:09)
[2018-08-30] MEDS: SODIUM CHLORIDE NASAL SPRAY 44 ML BOTTLE NS SCH ×3 (06:34→23:11)
[2018-08-30] MEDS: CARBIDOPA/LEVODOPA 25/100 TABLET (FP) PO SCH ×3 (06:35→23:10)
[2018-08-30] MEDS ORDERED: PT OWN MED DRAWER 7, Y5N ONE ×2 (06:47→08:49)
[2018-08-30 06:54] LABS: EOS % 1.6 % (0-4.5); HEMATOCRIT 34.5 % (35.4-49); HEMOGLOBIN 11.9 GM/dL (11.7-16.9); LYMPH % 24.9 % (8-40); MCH 30.4 pg (25.7-33.7); MCHC 34.5 g/dl (32.0-35.9); MEAN PLT VOLUME 8.3 fl (7.5-11.1); MONO % 9.8 % (3.8-10.2); NEUT % 62.7 % (42.8-82.8); PLATELET COUNT 285 K/MM3 (134-434); RBC 3.93 M/mm3 (4.00-5.60); RDW 13.7 % (11.9-15.9)
[2018-08-30 07:29] LABS: ANION GAP 8 MMOL/L (8-16); BLOOD UREA NITROGEN 15 mg/dL (7-18); CALCIUM 8.7 mg/dL (8.5-10.1); CHLORIDE 105 mmol/L (98-107); CO2 25 mmol/L (21-32); GLUCOSE,RANDOM 86 mg/dL (74-106); MAGNESIUM 2.1 mg/dL (1.8-2.4); PHOSPHOROUS 2.8 mg/dL (2.5-4.9); POTASSIUM 3.5 mmol/L (3.5-5.1); SODIUM 139 mmol/L (136-145)
[2018-08-30] MEDS: METOPROLOL TARTRATE 5 MG/5 ML VIAL IVPUSH PRN (08:55)
[2018-08-30] MEDS: AMOX TR/POTASSIUM CLAVULANATE 250 MG/5 ML BOTTLE PO SCH (10:58)
[2018-08-30] MEDS: amLODIPine BESYLATE 5 MG TABLET (FP) PO SCH (10:58)
[2018-08-30] MEDS: VALPROATE SODIUM 250 MG/5 ML UNIT DOSE CUP PO SCH ×2 (10:58→23:09)
[2018-08-30] MEDS: FLUDROCORTISONE ACETATE 0.1 MG TABLET (FP) PO SCH (10:58)
[2018-08-30] MEDS: MEMANTINE HCL 10 MG TABLET (FP) PO SCH ×2 (10:58→23:09)
[2018-08-30] MEDS: TAMSULOSIN HCL 0.4 MG CAP PO SCH (10:58)
--- NOTE | 2018-08-30 11:19 | PN ---
Physical Exam: SUBJECTIVE: Patient seen and examined, incomprehensible speech, responds to name , but unable to do ROS. OBJECTIVE: Vital Signs Period Temp Pulse Resp BP Sys/Rubi Pulse Ox Last 24 Hr 98.0 F-98.9 F 68-78 18-18 136-157/82-97 98-98 GENERAL: awake, responds to name, confused, incomprehensible, less gurgly today Chest; audible rales but improved Abdomen:soft, NT, ND Extremities: no edema neuro: Awake, responds to name, incomprehensible speech, does not follow commands, moves all extremities, unchanged exam from yesterday otherwise Neck: soft, supple. Laboratory Results - last 24 hr 08/29/18 08/30/18 08/30/18 05:30 06:15 06:15 WBC 7.0 RBC 3.93 L Hgb 11.9 Hct 34.5 L MCV 88.0 MCH 30.4 MCHC 34.5 RDW 13.7 Plt Count 285 D MPV 8.3 Absolute Neuts (auto) 4.4 Neutrophils % 62.7 Lymphocytes % 24.9 Monocytes % 9.8 Eosinophils % 1.6 Basophils % 1.0 Nucleated RBC % 0 Sodium 139 Potassium 3.5 Chloride 105 Carbon Dioxide 25 Anion Gap 8 BUN 15 Creatinine 1.0 Creat Clearance w eGFR 74.53 Random Glucose 86 Calcium 8.7 Phosphorus 2.8 Magnesium 2.1 Total T3 75.00 Active Medications Generic Name Dose Route Start Last Admin Trade Name Danielitoq PRN Reason Stop Dose Admin Acetaminophen 650 mg 08/20/18 12:31 Tylenol - PO Q4H PRN FEVER Amlodipine Besylate 5 mg 08/21/18 10:00 08/30/18 10:58 Norvasc - PO Not Given DAILY [facility] Carbidopa/Levodopa 1 each 08/20/18 14:00 08/30/18 06:35 Sinemet 25/100 - PO Not Given TID GABI Fludrocortisone Acetate 0.1 mg 08/21/18 10:00 08/30/18 10:58 Florinef - PO Not Given DAILY [facility] Amino Acids 1,000 mls @ 42 mls/hr 08/25/18 16:00 08/30/18 06:31 Clinimix - IV Not Given Q12H GABI Ampicillin Sodium/Sulbactam 100 mls @ 200 mls/hr 08/30/18 15:00 Sodium 1.5 gm/ Sodium Chloride IVPB Q6H-IV GABI Potassium Chloride 10 meq in 100 mls @ 100 mls/hr 08/30/18 11:15 Potassium Chloride 10 Meq Premix Ivpb - IVPB 08/30/18 13:14 Q60M [facility] Memantine 10 mg 08/20/18 22:00 08/30/18 10:58 Namenda - PO Not Given BID [facility] Metoprolol Tartrate 5 mg 08/25/18 21:25 08/26/18 10:45 Lopressor Injection - IVPUSH 5 mg Q4H PRN Administration HYPERTENSION Nystatin 500,000 units 08/27/18 12:00 08/30/18 06:32 Nystatin Oral Suspension - PO 500,000 units Q6HPO GABI Administration Sodium Chloride 1 spray 08/20/18 14:00 08/30/18 06:34 [place] Nasal [place] - NS 1 spray TID GABI Administration Tamsulosin HCl 0.4 mg 08/21/18 10:00 08/30/18 10:58 Flomax - PO Not Given DAILY [facility] Valproate Sodium 250 mg 08/28/18 13:00 08/30/18 10:58 Depakene - PO Not Given BID [facility] Microbiology 08/23/18 07:38 Blood - Peripheral Venous Blood Culture - Final NO GROWTH AFTER 5 DAYS INCUBATION 08/23/18 06:15 Blood - Peripheral Venous Blood Culture - Final NO GROWTH AFTER 5 DAYS INCUBATION 08/22/18 12:10 Blood - Peripheral Venous Blood Culture - Final NO GROWTH AFTER 5 DAYS INCUBATION 08/22/18 12:00 Blood - Peripheral Venous Blood Culture - Final NO GROWTH AFTER 5 DAYS INCUBATION 08/19/18 10:43 Blood - Peripheral Venous Blood Culture - Final Gemella Morbillorum 08/19/18 10:50 Blood - Peripheral Venous Blood Culture - Final Gemella Morbillorum 08/19/18 10:39 Urine - Urine Clean Catch Urine Culture - Final NO GROWTH OBTAINED ASSESSMENT/PLAN: 67 yom with PMHx of Alzheimers dementia, Parkinsonian features, Lewy body dementia with behavioral disturbance, Hyperthyroidism, BPH, HTN, HLD, Asthma/ COPD, Hx of TIA with Dysphagia, anxiety/MDD recently started on seroquel, admitted with AMS, found on floor, hypothermic/unresponsive. -AMS, suspect toxic metabolic encephalopathy from infection, ?aspiration, medication related (recently started on seroquel) -STEVE/LLL PNA, suspect aspiration PNA -Unwitnessed fall -Hypothermia, ?From infection -Alzheimer's dementia -Parkinsonian features -LEwy body dementia with behavioral disturbance -Hyperthyroidism -BPH -HTN -HLD -Asthma/COPD -h/o TIA -Dysphagia -Anxiety/MDD Plan; MBS noted, patient did not co-operate with PO. Discussed with nursing, holds food and meds in mouth, spits, noted coughing. Discussed with on 08/29, explained in detail about current lack of co- operation, ongoing aspiration. Not a candidate for NG tube as high risk for pulling and would not address retirement concerns for poor cognition, lack of co- operation with PO and ongoing aspiration. does not want to decide on feeding tube currently. Relays full understanding of risks of feeding including aspiration, PNA, respiratory failure and . 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 Ethics consult. Not taking po. D/c augmentin. Will place on ceftriaxone/flagyl for now to cover for aspiration PNA. Was recently started on seroquel at [facility] on 08/18, stopped in 2 days. Unlikely to be still contributory to his mental status. Sinemet as tolerated. Depakote decreased. DVTPPX lovenox d/c tele Declined by [facility]. Dispo planning on hold given ongoing clinical concerns, no SNF bed available. Plan discussed with nursing and CM, all questions answered. Visit type - Emergency Visit Emergency Visit: Yes ED Registration Date: 08/21/18 Care time: The patient presented to the Emergency Department on the above date and was hospitalized for further evaluation of their emergent condition. - New Patient This patient is new to me today: No - Critical Care Critical Care patient: No - Discharge Referral Referred to [facility] Med P.C.: No
[2018-08-30] MEDS ORDERED: PIPERACILLIN/TAZOB 3.375 GM 3.375 GM in DEXTROSE 5%-WATER - 50 ML IVPB SCH (11:30)
[2018-08-30] MEDS: KCL 10 MEQ IVPB 10 MEQ/100 ML INFUS.BAG IVPB SCH ×2 (11:56→13:09)
[2018-08-30] MEDS ORDERED: cefTRIAXone SODIUM 1 GM VIAL ONE (14:25)
[2018-08-30] MEDS ORDERED: DEXTROSE 5%-WATER - 50 ML IVPB ONE (14:25)
[2018-08-30] MEDS: CEFTRIAXONE 1 GM in DEXTROSE 5%-WATER - 50 ML IVPB SCH (14:33)
[2018-08-30] MEDS ORDERED: AMPICILLIN NA/SULBACTAM NA 1.5 GM in SODIUM CHLORIDE 100 ML IVPB SCH (15:00)
--- NOTE | 2018-08-30 18:20 | PN ---
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, Physician History of Present Illness: Pt seen and examined. Events noted. He remains lethargic, not tolerating oral intake. - Current Medication List Current Medications: Active Medications Acetaminophen (Tylenol -) 650 mg PO Q4H PRN PRN Reason: FEVER Amlodipine Besylate (Norvasc -) 5 mg PO DAILY [facility] Last Admin: 08/30/18 10:58 Dose: Not Given Carbidopa/Levodopa (Sinemet 25/100 -) 1 each PO TID GABI Last Admin: 08/30/18 13:09 Dose: Not Given Fludrocortisone Acetate (Florinef -) 0.1 mg PO DAILY [facility] Last Admin: 08/30/18 10:58 Dose: Not Given Amino Acids (Clinimix -) 1,000 mls @ 42 mls/hr IV Q12H [facility]ABI Last Admin: 08/30/18 16:09 Dose: 42 mls/hr Ceftriaxone Sodium 1 gm/ (Dextrose) 50 mls @ 200 mls/hr IVPB DAILY [facility]; Protocol Last Admin: 08/30/18 14:33 Dose: 200 mls/hr Memantine (Namenda -) 10 mg PO BID [facility] Last Admin: 08/30/18 10:58 Dose: Not Given Metoprolol Tartrate (Lopressor Injection -) 5 mg IVPUSH Q4H PRN PRN Reason: HYPERTENSION Last Admin: 08/30/18 08:55 Dose: 5 mg Nystatin (Nystatin Oral Suspension -) 500,000 units PO Q6HPO GABI Last Admin: 08/30/18 17:09 Dose: 500,000 units Sodium Chloride ([place] Nasal [place] -) 1 spray NS TID [facility] Last Admin: 08/30/18 13:09 Dose: 1 spray Tamsulosin HCl (Flomax -) 0.4 mg PO DAILY [facility] Last Admin: 08/30/18 10:58 Dose: Not Given Valproate Sodium (Depakene -) 250 mg PO BID [facility] Last Admin: 08/30/18 10:58 Dose: Not Given - Objective Vital Signs: Vital Signs Temperature 97.5 F L 08/30/18 13:13 Pulse Rate 75 08/30/18 13:13 Respiratory Rate 20 08/30/18 13:13 Blood Pressure 143/83 08/30/18 13:13 O2 Sat by Pulse Oximetry (%) 98 08/30/18 09:00 Constitutional: Yes: No Distress Cardiovascular: Yes: Regular Rate and Rhythm Respiratory: Yes: Regular Gastrointestinal: Yes: Normal Bowel Sounds, Soft Extremities: Yes: WNL Neurological: Yes: Lethargy Labs: CBC, BMP 08/30/18 06:15 08/30/18 06:15 INR, PTT INR 1.06 (0.83-1.09) 08/19/18 10:43 Microbiology 08/23/18 07:38 Blood - Peripheral Venous Blood Culture - Final NO GROWTH AFTER 5 DAYS INCUBATION 08/23/18 06:15 Blood - Peripheral Venous Blood Culture - Final NO GROWTH AFTER 5 DAYS INCUBATION 08/22/18 12:10 Blood - Peripheral Venous Blood Culture - Final NO GROWTH AFTER 5 DAYS INCUBATION 08/22/18 12:00 Blood - Peripheral Venous Blood Culture - Final NO GROWTH AFTER 5 DAYS INCUBATION 08/19/18 10:43 Blood - Peripheral Venous Blood Culture - Final Gemella Morbillorum 08/19/18 10:50 Blood - Peripheral Venous Blood Culture - Final Gemella Morbillorum 08/19/18 10:39 Urine - Urine Clean Catch Urine Culture - Final NO GROWTH OBTAINED - ....Imaging Chest X-ray: Report Reviewed Cat Scan: Report Reviewed Problem List - Problems (1) Altered mental status Code(s): R41.82 - ALTERED MENTAL STATUS, UNSPECIFIED Qualifiers: Altered mental status type: unspecified Qualified Code(s): R41.82 - Altered mental status, unspecified (2) Hyperthyroidism Code(s): E05.90 - THYROTOXICOSIS, UNSP WITHOUT THYROTOXIC CRISIS OR STORM (3) BPH (benign prostatic hyperplasia) Code(s): N40.0 - BENIGN PROSTATIC HYPERPLASIA WITHOUT LOWER URINRY TRACT SYMP (4) COPD (chronic obstructive pulmonary disease) Code(s): J44.9 - CHRONIC OBSTRUCTIVE PULMONARY DISEASE, UNSPECIFIED (5) HLD (hyperlipidemia) Code(s): E78.5 - HYPERLIPIDEMIA, UNSPECIFIED (6) HTN (hypertension) Code(s): I10 - ESSENTIAL (PRIMARY) HYPERTENSION Qualifiers: Hypertension type: essential hypertension Qualified Code(s): I10 - Essential (primary) hypertension (7) Lewy body dementia with behavioral disturbance Code(s): G31.83 - DEMENTIA WITH LEWY BODIES; F02.81 - DEMENTIA IN OTH DISEASES CLASSD ELSWHR W BEHAVIORAL DISTURB Assessment/Plan b/l PNA - likely Aspiration -- Pt not taking po antibiotics, will switch to Clindamycin, continue Ceftriaxone ordered -- aspiration precautions -- awaiting for decision on Peg placement continue monitor d/w Dr. Robb
[2018-08-31] MEDS: AMINO ACIDS 4.25%/D5W 1,000 ML IV SCH ×2 (06:39→16:11)
[2018-08-31] MEDS: SODIUM CHLORIDE NASAL SPRAY 44 ML BOTTLE NS SCH ×3 (06:40→22:31)
[2018-08-31] MEDS: CARBIDOPA/LEVODOPA 25/100 TABLET (FP) PO SCH ×3 (06:40→22:27)
[2018-08-31] MEDS: NYSTATIN 500,000 UNITS/5 ML SUSPENSION PO SCH ×4 (06:40→23:47)
[2018-08-31] MEDS ORDERED: PT OWN MED DRAWER 7, Y5N ONE ×2 (08:07→13:31)
[2018-08-31] MEDS ORDERED: cefTRIAXone SODIUM 1 GM VIAL ONE (08:07)
[2018-08-31] MEDS ORDERED: DEXTROSE 5%-WATER - 50 ML IVPB ONE (08:07)
[2018-08-31] MEDS: CEFTRIAXONE 1 GM in DEXTROSE 5%-WATER - 50 ML IVPB SCH (09:19)
[2018-08-31] MEDS: amLODIPine BESYLATE 5 MG TABLET (FP) PO SCH (09:21)
[2018-08-31] MEDS: FLUDROCORTISONE ACETATE 0.1 MG TABLET (FP) PO SCH (09:21)
[2018-08-31] MEDS: MEMANTINE HCL 10 MG TABLET (FP) PO SCH ×2 (09:21→22:27)
[2018-08-31] MEDS: VALPROATE SODIUM 250 MG/5 ML UNIT DOSE CUP PO SCH ×2 (09:21→22:27)
[2018-08-31] MEDS: TAMSULOSIN HCL 0.4 MG CAP PO SCH (09:21)
--- NOTE | 2018-08-31 10:19 | PN ---
Physical Exam: SUBJECTIVE: Patient seen and examined, lethargic, minimal incomprehensible speech, unable to do ROS. OBJECTIVE: Vital Signs Period Temp Pulse Resp BP Sys/Rubi Pulse Ox Last 24 Hr 97.5 F-98.4 F 65-75 16-20 130-143/75-86 98 Intake & Output 08/28/18 08/29/18 08/30/18 08/31/18 23:59 23:59 23:59 23:59 Intake Total 1020 1263 420 Output Total 0 Balance 1020 1263 420 GENERAL: awake, responds to name, confused, incomprehensible, less gurgly today Chest; poor air entry and effort, occasional scattered coarse rales, limited exam given lack of co-operation Abdomen:soft, NT, ND Extremities: no edema neuro: Awake, responds to name, incomprehensible speech, does not follow commands, moves all extremities, unchanged exam from yesterday otherwise Neck: soft, supple. Laboratory Results - last 24 hr 08/29/18 08/29/18 05:30 05:30 Cortisol AM Sample 6.2 ACTH 13.2 Active Medications Generic Name Dose Route Start Last Admin Trade Name Nirav PRN Reason Stop Dose Admin Acetaminophen 650 mg 08/20/18 12:31 Tylenol - PO Q4H PRN FEVER Amlodipine Besylate 5 mg 08/21/18 10:00 08/31/18 09:21 Norvasc - PO Not Given DAILY [facility] Carbidopa/Levodopa 1 each 08/20/18 14:00 08/31/18 06:40 Sinemet 25/100 - PO Not Given TID GABI Fludrocortisone Acetate 0.1 mg 08/21/18 10:00 08/31/18 09:21 Florinef - PO Not Given DAILY [facility] Amino Acids 1,000 mls @ 42 mls/hr 08/25/18 16:00 08/31/18 06:39 Clinimix - IV Not Given Q12H GABI Ceftriaxone Sodium 1 gm/ 50 mls @ 200 mls/hr 08/30/18 11:45 08/31/18 09:19 Dextrose IVPB 200 mls/hr DAILY [facility]I Administration Protocol Clindamycin Phosphate 600 mg in 50 mls @ 100 mls/hr 08/31/18 18:30 Cleocin 600 Mg Premix Ivpb - IVPB Q8H-IV GABI Protocol Memantine 10 mg 08/20/18 22:00 08/31/18 09:21 Namenda - PO Not Given BID [facility] Metoprolol Tartrate 5 mg 08/25/18 21:25 08/30/18 08:55 Lopressor Injection - IVPUSH 5 mg Q4H PRN Administration HYPERTENSION Nystatin 500,000 units 08/27/18 12:00 08/31/18 06:40 Nystatin Oral Suspension - PO 500,000 units Q6HPO GABI Administration Sodium Chloride 1 spray 08/20/18 14:00 08/31/18 06:40 [place] Nasal [place] - NS 1 spray TID GABI Administration Tamsulosin HCl 0.4 mg 08/21/18 10:00 08/31/18 09:21 Flomax - PO Not Given DAILY [facility] Valproate Sodium 250 mg 08/28/18 13:00 08/31/18 09:21 Depakene - PO Not Given BID [facility] Microbiology 08/23/18 07:38 Blood - Peripheral Venous Blood Culture - Final NO GROWTH AFTER 5 DAYS INCUBATION 08/23/18 06:15 Blood - Peripheral Venous Blood Culture - Final NO GROWTH AFTER 5 DAYS INCUBATION 08/22/18 12:10 Blood - Peripheral Venous Blood Culture - Final NO GROWTH AFTER 5 DAYS INCUBATION 08/22/18 12:00 Blood - Peripheral Venous Blood Culture - Final NO GROWTH AFTER 5 DAYS INCUBATION 08/19/18 10:43 Blood - Peripheral Venous Blood Culture - Final Gemella Morbillorum 08/19/18 10:50 Blood - Peripheral Venous Blood Culture - Final Gemella Morbillorum 08/19/18 10:39 Urine - Urine Clean Catch Urine Culture - Final NO GROWTH OBTAINED ASSESSMENT/PLAN: 67 yom with PMHx of Alzheimers dementia, Parkinsonian features, Lewy body dementia with behavioral disturbance, Hyperthyroidism, BPH, HTN, HLD, Asthma/ COPD, Hx of TIA with Dysphagia, anxiety/MDD recently started on seroquel, admitted with AMS, found on floor, hypothermic/unresponsive. -AMS, suspect toxic metabolic encephalopathy from infection, ?aspiration, medication related (recently started on seroquel) -STEVE/LLL PNA, suspect aspiration PNA -Unwitnessed fall -Hypothermia, ?From infection -Alzheimer's dementia -Parkinsonian features -LEwy body dementia with behavioral disturbance -Hyperthyroidism -BPH -HTN -HLD -Asthma/COPD -h/o TIA -Dysphagia -Anxiety/MDD Plan; MBS noted, patient did not co-operate with PO. Discussed with nursing, holds food and meds in mouth, spits, noted coughing. Discussed with on 08/29, explained in detail about current lack of co- operation, ongoing aspiration. 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 does not want to decide on feeding tube inspite of multiple attempts to address current poo oral intake, lack of co-operation and high risk for progressive decline and malnutrition. Relays full understanding of risks of feeding including aspiration, PNA, respiratory failure and . Patient continues to refuse meds and PO.Suspect from underlying neurological disorder and severe cognitive dysfunction. Palliative care/ethics consult and family meeting to address goals of care. Ceftriaxone/clindamycin day 2 to cover for aspiration PNA. Was recently started on seroquel at [facility] on 08/18, stopped in 2 days. Unlikely to be still contributory to his mental status. Sinemet as tolerated. Depakote decreased. DVTPPX lovenox Await med-surg bed. Declined by [facility]. Dispo planning on hold given ongoing clinical concerns, no SNF bed available. Plan discussed with nursing and CM, all questions answered. Visit type - Emergency Visit Emergency Visit: Yes ED Registration Date: 08/21/18 Care time: The patient presented to the Emergency Department on the above date and was hospitalized for further evaluation of their emergent condition. - New Patient This patient is new to me today: No - Critical Care Critical Care patient: No - Discharge Referral Referred to [facility] Med P.C.: No
--- NOTE | 2018-08-31 11:03 | PN ---
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, Physician History of Present Illness: Pt appears more alert today. Verbally responsive, denies SOB, Abd or CP. Remains afebrile. - Current Medication List Current Medications: Active Medications Acetaminophen (Tylenol -) 650 mg PO Q4H PRN PRN Reason: FEVER Amlodipine Besylate (Norvasc -) 5 mg PO DAILY [facility] Last Admin: 08/31/18 09:21 Dose: Not Given Carbidopa/Levodopa (Sinemet 25/100 -) 1 each PO TID [facility] Last Admin: 08/31/18 06:40 Dose: Not Given Fludrocortisone Acetate (Florinef -) 0.1 mg PO DAILY [facility] Last Admin: 08/31/18 09:21 Dose: Not Given Amino Acids (Clinimix -) 1,000 mls @ 42 mls/hr IV Q12H [facility] Last Admin: 08/31/18 06:39 Dose: Not Given Ceftriaxone Sodium 1 gm/ (Dextrose) 50 mls @ 200 mls/hr IVPB DAILY [facility]; Protocol Last Admin: 08/31/18 09:19 Dose: 200 mls/hr Clindamycin Phosphate (Cleocin 600 Mg Premix Ivpb -) 600 mg in 50 mls @ 100 mls /hr IVPB Q8H-IV [facility]; Protocol Memantine (Namenda -) 10 mg PO BID [facility] Last Admin: 08/31/18 09:21 Dose: Not Given Metoprolol Tartrate (Lopressor Injection -) 5 mg IVPUSH Q4H PRN PRN Reason: HYPERTENSION Last Admin: 08/30/18 08:55 Dose: 5 mg Nystatin (Nystatin Oral Suspension -) 500,000 units PO Q6HPO [facility] Last Admin: 08/31/18 06:40 Dose: 500,000 units Sodium Chloride ([place] Nasal [place] -) 1 spray NS TID [facility] Last Admin: 08/31/18 06:40 Dose: 1 spray Tamsulosin HCl (Flomax -) 0.4 mg PO DAILY [facility] Last Admin: 08/31/18 09:21 Dose: Not Given Valproate Sodium (Depakene -) 250 mg PO BID [facility] Last Admin: 08/31/18 09:21 Dose: Not Given - Objective Vital Signs: Vital Signs Temperature 98.1 F 08/31/18 05:53 Pulse Rate 65 08/31/18 05:53 Respiratory Rate 16 08/31/18 05:53 Blood Pressure 139/86 08/31/18 05:53 O2 Sat by Pulse Oximetry (%) 98 08/30/18 21:00 Constitutional: Yes: No Distress Cardiovascular: Yes: Regular Rate and Rhythm Respiratory: Yes: Rhonchi Gastrointestinal: Yes: Normal Bowel Sounds, Soft Extremities: Yes: WNL Neurological: Yes: Weakness Labs: CBC, BMP 08/30/18 06:15 08/30/18 06:15 INR, PTT INR 1.06 (0.83-1.09) 08/19/18 10:43 Problem List - Problems (1) Altered mental status Code(s): R41.82 - ALTERED MENTAL STATUS, UNSPECIFIED Qualifiers: Altered mental status type: unspecified Qualified Code(s): R41.82 - Altered mental status, unspecified (2) Hyperthyroidism Code(s): E05.90 - THYROTOXICOSIS, UNSP WITHOUT THYROTOXIC CRISIS OR STORM (3) BPH (benign prostatic hyperplasia) Code(s): N40.0 - BENIGN PROSTATIC HYPERPLASIA WITHOUT LOWER URINRY TRACT SYMP (4) COPD (chronic obstructive pulmonary disease) Code(s): J44.9 - CHRONIC OBSTRUCTIVE PULMONARY DISEASE, UNSPECIFIED (5) HLD (hyperlipidemia) Code(s): E78.5 - HYPERLIPIDEMIA, UNSPECIFIED (6) HTN (hypertension) Code(s): I10 - ESSENTIAL (PRIMARY) HYPERTENSION Qualifiers: Hypertension type: essential hypertension Qualified Code(s): I10 - Essential (primary) hypertension (7) Lewy body dementia with behavioral disturbance Code(s): G31.83 - DEMENTIA WITH LEWY BODIES; F02.81 - DEMENTIA IN OTH DISEASES CLASSD ELSWHR W BEHAVIORAL DISTURB Assessment/Plan b/l PNA - likely Aspiration Alzheimers Lewy body dementia AMS s/p TIA HTN HLD -- Continue current antibiotics -- aspiration precautions, remains high-risk -- pt afebrile, remains weak, currently more alert, without acute resp distress
[2018-08-31] MEDS: CLINDAMYCIN 600MG PREMIX IVPB 600 MG/50 ML BAG IVPB SCH (18:18)
[2018-09-01] MEDS: CLINDAMYCIN 600MG PREMIX IVPB 600 MG/50 ML BAG IVPB SCH ×3 (01:17→17:32)
[2018-09-01] MEDS: AMINO ACIDS 4.25%/D5W 1,000 ML IV SCH ×2 (04:15→16:00)
[2018-09-01] MEDS: NYSTATIN 500,000 UNITS/5 ML SUSPENSION PO SCH ×4 (05:09→23:28)
[2018-09-01] MEDS: CARBIDOPA/LEVODOPA 25/100 TABLET (FP) PO SCH ×3 (05:09→22:35)
[2018-09-01] MEDS: SODIUM CHLORIDE NASAL SPRAY 44 ML BOTTLE NS SCH ×3 (05:14→22:44)
[2018-09-01 07:33] LABS: EOS % 1.3 % (0-4.5); HEMATOCRIT 32.9 % (35.4-49); HEMOGLOBIN 11.6 GM/dL (11.7-16.9); LYMPH % 17.4 % (8-40); MCH 30.8 pg (25.7-33.7); MCHC 35.1 g/dl (32.0-35.9); MEAN CELL VOLUME 87.7 fl (80-96); MEAN PLT VOLUME 8.1 fl (7.5-11.1); MONO % 9.5 % (3.8-10.2); NEUT % 70.8 % (42.8-82.8); PLATELET COUNT 316 K/MM3 (134-434); RBC 3.76 M/mm3 (4.00-5.60); RDW 13.6 % (11.9-15.9); WHITE BLOOD COUNT 7.5 K/mm3 (4.0-10.0)
--- NOTE | 2018-09-01 08:53 | PN ---
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 (short form) - Note 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: Neurology History of Present Illness: 67 year old male who presented yesterday with AMS from halfway. Reportedly , was found on the floor unresponsive and hypothermic. He was brought to the ED for further evaluation and management. He was improving but developed lethargy and somnolence and thus I was consulted. CT head was completed and reviewed and without acute changes. Spoke to nurse and she described patient to be unarousable and initially required sternal rub. Patient treated for underlying pulmonary infection and followed by infectious diseases, currently on ceftriaxone and appears to have improved mental status. Barium swallow completed and reviewed. Appears to be at or near baseline at this time and neurologically stable. Active Medications Acetaminophen (Tylenol -) 650 mg PO Q4H PRN PRN Reason: FEVER Amlodipine Besylate (Norvasc -) 5 mg PO DAILY [facility] Last Admin: 08/31/18 09:21 Dose: Not Given Carbidopa/Levodopa (Sinemet 25/100 -) 1 each PO TID [facility] Last Admin: 09/01/18 05:09 Dose: Not Given Fludrocortisone Acetate (Florinef -) 0.1 mg PO DAILY [facility] Last Admin: 08/31/18 09:21 Dose: Not Given Amino Acids (Clinimix -) 1,000 mls @ 42 mls/hr IV Q12H [facility] Last Admin: 09/01/18 04:15 Dose: Not Given Ceftriaxone Sodium 1 gm/ (Dextrose) 50 mls @ 200 mls/hr IVPB DAILY [facility]; Protocol Last Admin: 08/31/18 09:19 Dose: 200 mls/hr Clindamycin Phosphate (Cleocin 600 Mg Premix Ivpb -) 600 mg in 50 mls @ 100 mls /hr IVPB Q8H-IV [facility]; Protocol Last Admin: 09/01/18 01:17 Dose: 100 mls/hr Memantine (Namenda -) 10 mg PO BID [facility] Last Admin: 08/31/18 22:27 Dose: Not Given Nystatin (Nystatin Oral Suspension -) 500,000 units PO Q6HPO [facility] Last Admin: 09/01/18 05:09 Dose: Not Given Sodium Chloride ([place] Nasal [place] -) 1 spray NS TID [facility] Last Admin: 09/01/18 05:14 Dose: 1 spray Tamsulosin HCl (Flomax -) 0.4 mg PO DAILY [facility] Last Admin: 08/31/18 09:21 Dose: Not Given Valproate Sodium (Depakene -) 250 mg PO BID [facility] Last Admin: 08/31/18 22:27 Dose: Not Given Physical Examination Vital Signs Period Temp Pulse Resp BP Sys/Rubi Pulse Ox Last 24 Hr 97.2 F-98.2 F 64-71 16-18 127-152/72-88 98-98 Constitutional: Yes: No Distress, Calm Eyes: Yes: Conjunctiva Clear, PERRL HENT: Yes: Atraumatic, Normocephalic Cardiovascular: Yes: Regular Rate and Rhythm. No: Gallop, Murmur, Rub Respiratory: Yes: Regular, CTA Bilaterally. No: Rales, Rhonchi, Wheezes Gastrointestinal: Yes: Normal Bowel Sounds, Soft. No: Distention, Tenderness Extremities: Yes: WNL Neuro: Awake, alert, minimally interactive, moves extremities slowly but no focal deficits, intact to LT, responds to tactile stim Edema: No CBCD WBC 7.5 K/mm3 (4.0-10.0) 09/01/18 05:30 RBC 3.76 M/mm3 (4.00-5.60) L 09/01/18 05:30 Hgb 11.6 GM/dL (11.7-16.9) L 09/01/18 05:30 Hct 32.9 % (35.4-49) L 09/01/18 05:30 MCV 87.7 fl (80-96) 09/01/18 05:30 MCHC 35.1 g/dl (32.0-35.9) 09/01/18 05:30 RDW 13.6 % (11.9-15.9) 09/01/18 05:30 Plt Count 316 K/MM3 (134-434) 09/01/18 05:30 MPV 8.1 fl (7.5-11.1) 09/01/18 05:30 CMP Sodium 139 mmol/L (136-145) 08/30/18 06:15 Potassium 3.5 mmol/L (3.5-5.1) 08/30/18 06:15 Chloride 105 mmol/L (98-107) 08/30/18 06:15 Carbon Dioxide 25 mmol/L (21-32) 08/30/18 06:15 Anion Gap 8 MMOL/L (8-16) 08/30/18 06:15 BUN 15 mg/dL (7-18) 08/30/18 06:15 Creatinine 1.0 mg/dL (0.55-1.3) 08/30/18 06:15 Creat Clearance w eGFR 74.53 (>60) 08/30/18 06:15 Random Glucose 86 mg/dL (74-106) 08/30/18 06:15 Calcium 8.7 mg/dL (8.5-10.1) 08/30/18 06:15 Total Bilirubin 0.6 mg/dL (0.2-1) 08/28/18 06:17 AST 12 U/L (15-37) L 08/28/18 06:17 ALT 6 U/L (13-61) L 08/28/18 06:17 Alkaline Phosphatase 120 U/L (45-117) H 08/28/18 06:17 Total Protein 6.5 g/dl (6.4-8.2) 08/28/18 06:17 Albumin 2.6 g/dl (3.4-5.0) L 08/28/18 06:17 CARDIAC ENZYMES Troponin I < 0.02 ng/ml (0.00-0.05) 08/19/18 10:[address] head reviewed Plan: 67 year old male who presented yesterday with AMS from halfway. Reportedly , was found on the floor unresponsive and hypothermic. He was brought to the ED for further evaluation and management. He was improving but developed lethargy and somnolence and thus I was consulted. CT head was completed and reviewed and without acute changes. Spoke to nurse and she described patient to be unarousable and initially required sternal rub. Patient treated for underlying pulmonary infection and followed by infectious diseases, currently on ceftriaxone and appears to have improved mental status. Barium swallow completed and reviewed. Appears to be at or near baseline at this time and neurologically stable. Continued gentle hydration. Remains stable on Namenda and Sinemet, don't believe these are etiology. Also on depakote, being continued. Continue to monitor mental status. Placement per case management/ family.
[2018-09-01] MEDS ORDERED: ACETAMINOPHEN 325 MG TABLET (FP) PO PRN (08:55)
--- NOTE | 2018-09-01 09:39 | PN ---
Teaching Attending Note Name of Resident: Lety Moore ATTENDING PHYSICIAN STATEMENT I saw and evaluated the patient. I reviewed the resident's note and discussed the case with the resident. I agree with the resident's findings and plan as documented with exceptions below. SUBJECTIVE: Patient seen and examined. Lethargic, opens eyes to voice and sternal rub, minimal incomprehensible speech. OBJECTIVE: Vital Signs Period Temp Pulse Resp BP Sys/Rubi Pulse Ox Last 24 Hr 97.2 F-98.2 F 64-71 16-18 127-152/72-88 98-98 Intake & Output 08/29/18 08/30/18 08/31/18 09/01/18 23:59 23:59 23:59 23:59 Intake Total 1263 974 554 Output Total 0 Balance 1263 974 554 General: lethargic, arousable to voice, sternal rub Chest: poor effort, occasional coarse rales Abdomen:Soft, NT, ND, positive bowel sounsd Extremities: no edema noted ASSESSMENT AND PLAN: 67 yom with PMHx of Alzheimers dementia, Parkinsonian features, Lewy body dementia with behavioral disturbance, Hyperthyroidism, BPH, HTN, HLD, Asthma/ COPD, Hx of TIA with Dysphagia, anxiety/MDD recently started on seroquel, admitted with AMS, found on floor, hypothermic/unresponsive. -AMS, suspect toxic metabolic encephalopathy from infection, from aspiration, ? medication related (recently started on seroquel) -STEVE/LLL PNA, suspect aspiration PNA -Unwitnessed fall -Hypothermia, ?From infection -Alzheimer's dementia -Parkinsonian features -LEwy body dementia with behavioral disturbance -Hyperthyroidism -BPH -HTN -HLD -Asthma/COPD -h/o TIA -Dysphagia -Anxiety/MDD Plan; MBS noted, patient did not co-operate with PO. Discussed with nursing, not complying with PO meds or diet. Not a candidate for NG tube as high risk for pulling and would not address intermediate card tender concerns for poor cognition, lack of co-operation with PO and ongoing aspiration and would rather put patient at more risk than benefit. Ethics consulted, case discussed with Dr. Donohue. Family meeting with , palliative care to address further options. Ceftriaxone/clindamycin day 3 to cover for aspiration PNA. Was recently started on seroquel at [facility] on 3/4, stopped in 2 days. Unlikely to be still contributory to his mental status. Sinemet as tolerated. Depakote decreased. However patient not taking any PO meds currently. DVTPPX lovenox Await med-surg bed. Declined by Michael. Dispo planning pending family meeting and further discussion about goals of care. ?NH with PEG if patient continues to refuse PO and family agrees vs possible [place] vs NH with hospice. Plan discussed with nursing and CM, all questions answered.
[2018-09-01] MEDS: FLUDROCORTISONE ACETATE 0.1 MG TABLET (FP) PO SCH ×2 (09:55→10:59)
[2018-09-01] MEDS: VALPROATE SODIUM 250 MG/5 ML UNIT DOSE CUP PO SCH ×3 (09:55→22:35)
[2018-09-01] MEDS: TAMSULOSIN HCL 0.4 MG CAP PO SCH (09:55)
[2018-09-01] MEDS: amLODIPine BESYLATE 5 MG TABLET (FP) PO SCH ×2 (09:58→10:58)
[2018-09-01] MEDS: MEMANTINE HCL 10 MG TABLET (FP) PO SCH ×3 (09:58→22:35)
[2018-09-01] MEDS ORDERED: DEXTROSE 5%-WATER - 50 ML IVPB ONE (10:10)
[2018-09-01] MEDS ORDERED: cefTRIAXone SODIUM 1 GM VIAL ONE (10:10)
[2018-09-01] MEDS ORDERED: PT OWN MED DRAWER 7, Y5N ONE (10:58)
[2018-09-01] MEDS: CEFTRIAXONE 1 GM in DEXTROSE 5%-WATER - 50 ML IVPB SCH (11:34)
--- NOTE | 2018-09-01 13:11 | PN ---
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, Physician History of Present Illness: stable still a bit lethargic - Current Medication List Current Medications: Active Medications Acetaminophen (Tylenol -) 650 mg PO Q4H PRN PRN Reason: FEVER Amlodipine Besylate (Norvasc -) 5 mg PO DAILY [facility] Last Admin: 09/01/18 10:58 Dose: 5 mg Carbidopa/Levodopa (Sinemet 25/100 -) 1 each PO TID [facility] Fludrocortisone Acetate (Florinef -) 0.1 mg PO DAILY [facility] Last Admin: 09/01/18 10:59 Dose: 0.1 mg Ceftriaxone Sodium 1 gm/ (Dextrose) 50 mls @ 200 mls/hr IVPB DAILY [facility]; Protocol Last Admin: 09/01/18 11:34 Dose: 200 mls/hr Clindamycin Phosphate (Cleocin 600 Mg Premix Ivpb -) 600 mg in 50 mls @ 100 mls /hr IVPB Q8H-IV [facility]; Protocol Last Admin: 09/01/18 10:56 Dose: 100 mls/hr Amino Acids (Clinimix -) 1,000 mls @ 42 mls/hr IV Q24H [facility] Memantine (Namenda -) 10 mg PO BID [facility] Last Admin: 09/01/18 10:59 Dose: 10 mg Nystatin (Nystatin Oral Suspension -) 500,000 units PO Q6HPO [facility] Sodium Chloride ([place] Nasal [place] -) 1 spray NS TID [facility] Tamsulosin HCl (Flomax -) 0.4 mg PO DAILY@0830 [facility] Last Admin: 09/01/18 09:55 Dose: Not Given Valproate Sodium (Depakene -) 250 mg PO BID [facility] Last Admin: 09/01/18 10:59 Dose: 250 mg - Objective Vital Signs: Vital Signs Temperature 97.2 F L 09/01/18 02:00 Pulse Rate 68 09/01/18 07:02 Respiratory Rate 18 09/01/18 07:02 Blood Pressure 132/72 09/01/18 07:02 O2 Sat by Pulse Oximetry (%) 98 08/31/18 21:00 Constitutional: Yes: No Distress, Calm Cardiovascular: Yes: S1, S2 Respiratory: Yes: Regular Gastrointestinal: Yes: Normal Bowel Sounds, Soft Neurological: Yes: Alert, Other Labs: CBC, BMP 09/01/18 05:30 08/30/18 06:15 INR, PTT INR 1.06 (0.83-1.09) 08/19/18 10:43 Assessment/Plan Assessment/Plan (1) Fall Code(s): W19.XXXA - UNSPECIFIED FALL, INITIAL ENCOUNTER Qualifiers: Encounter type: initial encounter Qualified Code(s): W19.XXXA - Unspecified fall, initial encounter (2) Toxic metabolic encephalopathy Code(s): G92 - TOXIC ENCEPHALOPATHY (3) Dehydration Code(s): E86.0 - DEHYDRATION (4) BPH (benign prostatic hyperplasia) Code(s): N40.0 - BENIGN PROSTATIC HYPERPLASIA WITHOUT LOWER URINRY TRACT SYMP (5) COPD (chronic obstructive pulmonary disease) Code(s): J44.9 - CHRONIC OBSTRUCTIVE PULMONARY DISEASE, UNSPECIFIED (6) HTN (hypertension) Code(s): I10 - ESSENTIAL (PRIMARY) HYPERTENSION Qualifiers: Hypertension type: essential hypertension Qualified Code(s): I10 - Essential (primary) hypertension (7) Orthostatic hypotension Code(s): I95.1 - ORTHOSTATIC HYPOTENSION (8) Lewy body dementia with behavioral disturbance Code(s): G31.83 - DEMENTIA WITH LEWY BODIES; F02.81 - DEMENTIA IN OTH DISEASES CLASSD ELSWHR W BEHAVIORAL DISTURB (9) Positive blood cultures - plan patient abx started for aspiration rest as per the team g tube if needed rest as per the team
--- NOTE | 2018-09-01 16:26 | PN ---
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, NURSE STAFF - Note 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: Selected Entries 08/29/18 08/29/18 08/30/18 09:50 10:00 09:56 Breakfast 0 0 0 Diet Tolerated Well Poor Lunch Temperature 08/30/18 08/30/18 08/31/18 10:00 23:23 05:53 Breakfast 0 Diet Tolerated Refused Lunch Temperature 98.1 F 08/31/18 08/31/18 08/31/18 10:00 13:00 14:00 Breakfast 0 0 Diet Tolerated Refused Poor Lunch Temperature 97.8 F 97.5 F L 08/31/18 08/31/18 09/01/18 17:00 22:00 02:00 Breakfast Diet Tolerated Lunch Temperature 98.0 F 98.2 F 97.2 F L 09/01/18 09/01/18 14:43 14:44 Breakfast 50% Diet Tolerated Lunch 50% Temperature 97.9 F Per PMD- Dispo planning pending family meeting and further discussion about goals of care. ?NH with PEG if patient continues to refuse PO and family agrees vs possible [place] vs NH with hospice.
--- NOTE | 2018-09-01 17:11 | PN ---
Physical Exam: SUBJECTIVE: Patient seen and examined; lethergic; no cooperative OBJECTIVE: Vital Signs Period Temp Pulse Resp BP Sys/Rubi Pulse Ox Last 24 Hr 97.2 F-98.2 F 64-79 18-18 102-146/61-82 98-98 GENERAL: The patient is lethargic; no responding to commands; cacectic LUNGS: Breath sounds equal, clear to auscultation bilaterally, no wheezes, no crackles, no accessory muscle use. HEART: Regular rate and rhythm, S1, S2 without murmur, rub or gallop. ABDOMEN: Soft, nontender, nondistended, normoactive bowel sounds, no guarding, no rebound, no hepatosplenomegaly, no masses. EXTREMITIES: 2+ pulses, warm, well-perfused, no edema. NEUROLOGICAL: will not speak; follow commands Laboratory Results - last 24 hr 09/01/18 05:30 WBC 7.5 RBC 3.76 L Hgb 11.6 L Hct 32.9 L MCV 87.7 MCH 30.8 MCHC 35.1 RDW 13.6 Plt Count 316 MPV 8.1 Absolute Neuts (auto) 5.3 Neutrophils % 70.8 Lymphocytes % 17.4 D Monocytes % 9.5 Eosinophils % 1.3 Basophils % 1.0 Nucleated RBC % 0 Active Medications Generic Name Dose Route Start Last Admin Trade Name Freq PRN Reason Stop Dose Admin Acetaminophen 650 mg 09/01/18 08:55 Tylenol - PO Q4H PRN FEVER Amlodipine Besylate 5 mg 09/01/18 10:00 09/01/18 10:58 Norvasc - PO 5 mg DAILY [facility] Administration Carbidopa/Levodopa 1 each 09/01/18 14:00 09/01/18 14:55 Sinemet 25/100 - PO 1 each TID [facility] Administration Fludrocortisone Acetate 0.1 mg 09/01/18 10:00 09/01/18 10:59 Florinef - PO 0.1 mg DAILY [facility] Administration Ceftriaxone Sodium 1 gm/ 50 mls @ 200 mls/hr 08/30/18 11:45 09/01/18 11:34 Dextrose IVPB 200 mls/hr DAILY [facility] Administration Protocol Clindamycin Phosphate 600 mg in 50 mls @ 100 mls/hr 08/31/18 18:30 09/01/18 10:56 Cleocin 600 Mg Premix Ivpb - IVPB 100 mls/hr Q8H-IV [facility] Administration Protocol Amino Acids 1,000 mls @ 42 mls/hr 09/01/18 16:00 Clinimix - IV Q24H [facility] Memantine 10 mg 09/01/18 10:00 09/01/18 10:59 Namenda - PO 10 mg BID [facility] Administration Nystatin 500,000 units 09/01/18 12:00 09/01/18 13:18 Nystatin Oral Suspension - PO 500,000 units Q6HPO [facility] Administration Sodium Chloride 1 spray 09/01/18 14:00 09/01/18 15:46 [place] Nasal [place] - NS Not Given TID [facility] Tamsulosin HCl 0.4 mg 09/01/18 09:15 09/01/18 09:55 Flomax - PO Not Given DAILY@0830 [facility] Valproate Sodium 250 mg 09/01/18 10:00 09/01/18 10:59 Depakene - PO 250 mg BID [facility] Administration ASSESSMENT/PLAN: This is a 67 year old male with dementia sent [place] due to unresponsiveness;found to have alex + blood culture x one bottle. Work up for etiology includes infectious vs metabolic, mal nutrition, dementia. Multifactorial. #AMS found to be bacteremic: lethargic; metabolic syn -ceftriaxone and clindamycin -low grade fever ml due to met encephalopathy -sridevi ID recs # po intake; -did dot want to participate with barium swalloe; -goal s of care need to be discusses; consider peg tube #malnutrition: -started on clinimex -seen by speech; swallow; -started puree diet -nutrition consult -need to reconsider peg tube if patient refusing food; discuss goals of car with family #thrush -nystatin #labs indicate hypothyroid; -follow up t3; -endocrine following #Lewy body dementia ; -cont namenda, cinemet -restart cinemet; now pn puree diet -currently restraine #fall: -fall precautions #COPDhx; controlled #HTN: controlled on norvas #HLD: cont statin #BPH: cont on flomax #hypomagnesimia; replaced #hypokalemia: replaced #Diet: puree diet #dvt ppl; on lovenox Ethics consulted, case discussed with Dr. Donohue. case discussed with family by my attending; they are unwilling to make decision as to peg tube; patient not cooperative with feeds or meds Visit type - Emergency Visit Emergency Visit: Yes ED Registration Date: 08/21/18 Care time: The patient presented to the Emergency Department on the above date and was hospitalized for further evaluation of their emergent condition. - New Patient This patient is new to me today: No - Critical Care Critical Care patient: No
[2018-09-02] MEDS: CLINDAMYCIN 600MG PREMIX IVPB 600 MG/50 ML BAG IVPB SCH ×2 (01:39→10:34)
[2018-09-02] MEDS: CARBIDOPA/LEVODOPA 25/100 TABLET (FP) PO SCH ×2 (05:36→14:14)
[2018-09-02] MEDS: SODIUM CHLORIDE NASAL SPRAY 44 ML BOTTLE NS SCH ×2 (05:44→14:14)
[2018-09-02] MEDS: NYSTATIN 500,000 UNITS/5 ML SUSPENSION PO SCH ×2 (05:44→12:21)
[2018-09-02 07:26] LABS: BASO % 1.2 % (0-2.0); HEMOGLOBIN 11.1 GM/dL (11.7-16.9); LYMPH % 29.6 % (8-40); MCH 30.7 pg (25.7-33.7); MCHC 34.8 g/dl (32.0-35.9); MEAN CELL VOLUME 88.1 fl (80-96); MONO % 10.2 % (3.8-10.2); PLATELET COUNT 346 K/MM3 (134-434); RBC 3.64 M/mm3 (4.00-5.60); RDW 13.8 % (11.9-15.9); WHITE BLOOD COUNT 6.7 K/mm3 (4.0-10.0)
[2018-09-02 07:42] LABS: ALBUMIN 2.7 g/dl (3.4-5.0); ALK PHOS 159 U/L (45-117); ANION GAP 7 MMOL/L (8-16); BILIRUBIN,TOTAL 0.4 mg/dL (0.2-1); BLOOD UREA NITROGEN 16 mg/dL (7-18); CALCIUM 8.8 mg/dL (8.5-10.1); CHLORIDE 104 mmol/L (98-107); CO2 27 mmol/L (21-32); CREATININE 1.2 mg/dL (0.55-1.3); GLUCOSE,RANDOM 88 mg/dL (74-106); MAGNESIUM 2.1 mg/dL (1.8-2.4); PHOSPHOROUS 2.6 mg/dL (2.5-4.9); POTASSIUM 3.7 mmol/L (3.5-5.1); SGOT/AST 7 U/L (15-37); SGPT/ALT 6 U/L (13-61); SODIUM 139 mmol/L (136-145); TOT PROT 6.8 g/dl (6.4-8.2)
[2018-09-02] MEDS: TAMSULOSIN HCL 0.4 MG CAP PO SCH (08:53)
--- NOTE | 2018-09-02 08:54 | PN ---
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 (short form) - Note 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: Neurology History of Present Illness: 67 year old male who [facility]. Reportedly , was found on the floor unresponsive and hypothermic. He was brought to the ED for further evaluation and management. He was improving but developed lethargy and somnolence and thus I was consulted. CT head was completed and reviewed and without acute changes. Spoke to nurse and she described patient to be unarousable and initially required sternal rub. Patient treated for underlying pulmonary infection and followed by infectious diseases, on ceftriaxone slightly somnolent this AM. ID note reviewed. Spoke with hospitalist yesterday regarding overall decline and deconditioning. Active Medications Acetaminophen (Tylenol -) 650 mg PO Q4H PRN PRN Reason: FEVER Amlodipine Besylate (Norvasc -) 5 mg PO DAILY [facility] Last Admin: 09/01/18 10:58 Dose: 5 mg Carbidopa/Levodopa (Sinemet 25/100 -) 1 each PO TID [facility] Last Admin: 09/02/18 05:36 Dose: 1 each Fludrocortisone Acetate (Florinef -) 0.1 mg PO DAILY [facility] Last Admin: 09/01/18 10:59 Dose: 0.1 mg Ceftriaxone Sodium 1 gm/ (Dextrose) 50 mls @ 200 mls/hr IVPB DAILY [facility]; Protocol Last Admin: 09/01/18 11:34 Dose: 200 mls/hr Clindamycin Phosphate (Cleocin 600 Mg Premix Ivpb -) 600 mg in 50 mls @ 100 mls /hr IVPB Q8H-IV [facility]; Protocol Last Admin: 09/02/18 01:39 Dose: 100 mls/hr Amino Acids (Clinimix -) 1,000 mls @ 42 mls/hr IV Q24H [facility] Last Admin: 09/01/18 16:00 Dose: 42 mls/hr Memantine (Namenda -) 10 mg PO BID [facility] Last Admin: 09/01/18 22:35 Dose: 10 mg Nystatin (Nystatin Oral Suspension -) 500,000 units PO Q6HPO [facility] Last Admin: 09/02/18 05:44 Dose: 500,000 units Sodium Chloride ([place] Nasal [place] -) 1 spray NS TID [facility] Last Admin: 09/02/18 05:44 Dose: 1 spray Tamsulosin HCl (Flomax -) 0.4 mg PO DAILY@0830 [facility] Last Admin: 09/01/18 09:55 Dose: Not Given Valproate Sodium (Depakene -) 250 mg PO BID [facility] Last Admin: 09/01/18 22:35 Dose: 250 mg Physical Examination Vital Signs Period Temp Pulse Resp BP Sys/Rubi Pulse Ox Last 24 Hr 97.6 F-98.7 F 62-79 17-18 94-136/57-78 98-98 Constitutional: Yes: No Distress, Calm Eyes: Yes: Conjunctiva Clear, PERRL HENT: Yes: Atraumatic, Normocephalic Cardiovascular: Yes: Regular Rate and Rhythm. No: Gallop, Murmur, Rub Respiratory: Yes: Regular, CTA Bilaterally. No: Rales, Rhonchi, Wheezes Gastrointestinal: Yes: Normal Bowel Sounds, Soft. No: Distention, Tenderness Extremities: Yes: WNL Neuro: Awake, alert, minimally interactive, moves extremities slowly but no focal deficits, intact to LT, responds to tactile stim Edema: No CBCD WBC 6.7 K/mm3 (4.0-10.0) 09/02/18 06:05 RBC 3.64 M/mm3 (4.00-5.60) L 09/02/18 06:05 Hgb 11.1 GM/dL (11.7-16.9) L 09/02/18 06:05 Hct 32.0 % (35.4-49) L 09/02/18 06:05 MCV 88.1 fl (80-96) 09/02/18 06:05 MCHC 34.8 g/dl (32.0-35.9) 09/02/18 06:05 RDW 13.8 % (11.9-15.9) 09/02/18 06:05 Plt Count 346 K/MM3 (134-434) 09/02/18 06:05 MPV 8.0 fl (7.5-11.1) 09/02/18 06:05 CMP Sodium 139 mmol/L (136-145) 09/02/18 06:05 Potassium 3.7 mmol/L (3.5-5.1) 09/02/18 06:05 Chloride 104 mmol/L (98-107) 09/02/18 06:05 Carbon Dioxide 27 mmol/L (21-32) 09/02/18 06:05 Anion Gap 7 MMOL/L (8-16) L 09/02/18 06:05 BUN 16 mg/dL (7-18) 09/02/18 06:05 Creatinine 1.2 mg/dL (0.55-1.3) 09/02/18 06:05 Creat Clearance w eGFR 60.39 (>60) 09/02/18 06:05 Random Glucose 88 mg/dL (74-106) 09/02/18 06:05 Calcium 8.8 mg/dL (8.5-10.1) 09/02/18 06:05 Total Bilirubin 0.4 mg/dL (0.2-1) 09/02/18 06:05 AST 7 U/L (15-37) L 09/02/18 06:05 ALT 6 U/L (13-61) L 09/02/18 06:05 Alkaline Phosphatase 159 U/L (45-117) H 09/02/18 06:05 Total Protein 6.8 g/dl (6.4-8.2) 09/02/18 06:05 Albumin 2.7 g/dl (3.4-5.0) L 09/02/18 06:05 CARDIAC ENZYMES Troponin I < 0.02 ng/ml (0.00-0.05) 08/19/18 10:[address] head reviewed Plan: 67 year old male who presented yesterday [facility] from jail. Reportedly , was found on the floor unresponsive and hypothermic. He was brought to the ED for further evaluation and management. He was improving but developed lethargy and somnolence and thus I was consulted. CT head was completed and reviewed and without acute changes. Spoke to nurse and she described patient to be unarousable and initially required sternal rub. Patient treated for underlying pulmonary infection and followed by infectious diseases, currently on ceftriaxone and appears to have improved mental status though has intervals of somnolence. Barium swallow completed and reviewed. Appears to be at or near baseline at this time and neurologically stable. Continued gentle hydration. Remains stable on Namenda and Sinemet, don't believe these are etiology. Also on depakote, being continued. Continue to monitor mental status. Placement per case management/family.
[2018-09-02] MEDS ORDERED: cefTRIAXone SODIUM 1 GM VIAL ONE (10:05)
[2018-09-02] MEDS ORDERED: DEXTROSE 5%-WATER - 50 ML IVPB ONE (10:05)
[2018-09-02] MEDS: amLODIPine BESYLATE 5 MG TABLET (FP) PO SCH (10:34)
[2018-09-02] MEDS: VALPROATE SODIUM 250 MG/5 ML UNIT DOSE CUP PO SCH (10:34)
[2018-09-02] MEDS: CEFTRIAXONE 1 GM in DEXTROSE 5%-WATER - 50 ML IVPB SCH (10:34)
[2018-09-02] MEDS: MEMANTINE HCL 10 MG TABLET (FP) PO SCH (10:34)
[2018-09-02] MEDS: FLUDROCORTISONE ACETATE 0.1 MG TABLET (FP) PO SCH (10:50)
--- NOTE | 2018-09-02 11:43 | PN ---
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, Physician History of Present Illness: patient much more awake and alert daughter in the room feeding the patient - Current Medication List Current Medications: Active Medications Acetaminophen (Tylenol -) 650 mg PO Q4H PRN PRN Reason: FEVER Amlodipine Besylate (Norvasc -) 5 mg PO DAILY [facility] Last Admin: 09/02/18 10:34 Dose: 5 mg Carbidopa/Levodopa (Sinemet 25/100 -) 1 each PO TID [facility] Last Admin: 09/02/18 05:36 Dose: 1 each Fludrocortisone Acetate (Florinef -) 0.1 mg PO DAILY [facility] Last Admin: 09/01/18 10:59 Dose: 0.1 mg Ceftriaxone Sodium 1 gm/ (Dextrose) 50 mls @ 200 mls/hr IVPB DAILY [facility]; Protocol Last Admin: 09/02/18 10:34 Dose: 200 mls/hr Clindamycin Phosphate (Cleocin 600 Mg Premix Ivpb -) 600 mg in 50 mls @ 100 mls /hr IVPB Q8H-IV [facility]; Protocol Last Admin: 09/02/18 10:34 Dose: 100 mls/hr Amino Acids (Clinimix -) 1,000 mls @ 42 mls/hr IV Q24H [facility] Last Admin: 09/01/18 16:00 Dose: 42 mls/hr Memantine (Namenda -) 10 mg PO BID [facility] Last Admin: 09/02/18 10:34 Dose: 10 mg Nystatin (Nystatin Oral Suspension -) 500,000 units PO Q6HPO [facility] Last Admin: 09/02/18 05:44 Dose: 500,000 units Sodium Chloride ([place] Nasal [place] -) 1 spray NS TID [facility] Last Admin: 09/02/18 05:44 Dose: 1 spray Tamsulosin HCl (Flomax -) 0.4 mg PO DAILY@0830 [facility] Last Admin: 09/02/18 08:53 Dose: 0.4 mg Valproate Sodium (Depakene -) 250 mg PO BID [facility] Last Admin: 09/02/18 10:34 Dose: 250 mg - Objective Vital Signs: Vital Signs Temperature 98.7 F 09/02/18 05:33 Pulse Rate 62 09/02/18 05:33 Respiratory Rate 17 09/02/18 05:33 Blood Pressure 94/57 L 09/02/18 05:33 O2 Sat by Pulse Oximetry (%) 98 09/01/18 21:00 Constitutional: Yes: No Distress, Calm Cardiovascular: Yes: Regular Rate and Rhythm Respiratory: Yes: Regular, CTA Bilaterally Musculoskeletal: Yes: WNL Extremities: Yes: Other Neurological: Yes: Alert, Other Psychiatric: Yes: Other Labs: CBC, BMP 09/02/18 06:05 09/02/18 06:05 INR, PTT INR 1.06 (0.83-1.09) 08/19/18 10:43 Assessment/Plan Assessment/Plan (1) Fall Code(s): W19.XXXA - UNSPECIFIED FALL, INITIAL ENCOUNTER Qualifiers: Encounter type: initial encounter Qualified Code(s): W19.XXXA - Unspecified fall, initial encounter (2) Toxic metabolic encephalopathy Code(s): G92 - TOXIC ENCEPHALOPATHY (3) Dehydration Code(s): E86.0 - DEHYDRATION (4) BPH (benign prostatic hyperplasia) Code(s): N40.0 - BENIGN PROSTATIC HYPERPLASIA WITHOUT LOWER URINRY TRACT SYMP (5) COPD (chronic obstructive pulmonary disease) Code(s): J44.9 - CHRONIC OBSTRUCTIVE PULMONARY DISEASE, UNSPECIFIED (6) HTN (hypertension) Code(s): I10 - ESSENTIAL (PRIMARY) HYPERTENSION Qualifiers: Hypertension type: essential hypertension Qualified Code(s): I10 - Essential (primary) hypertension (7) Orthostatic hypotension Code(s): I95.1 - ORTHOSTATIC HYPOTENSION (8) Lewy body dementia with behavioral disturbance Code(s): G31.83 - DEMENTIA WITH LEWY BODIES; F02.81 - DEMENTIA IN OTH DISEASES CLASSD ELSWHR W BEHAVIORAL DISTURB (9) Positive blood cultures - plan continue current mgm asp precautions rest as per the team patien eating can change to oral if tolerated
--- NOTE | 2018-09-02 12:18 | PN ---
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, S[facility] SORTER - Note 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: Selected Entries 09/01/18 09/01/18 09/01/18 02:00 14:43 14:44 Breakfast 50% Lunch 50% Supper Temperature 97.2 F L 97.9 F 09/01/18 09/01/18 09/01/18 18:20 19:27 22:00 Breakfast Lunch Supper 50% 50% Temperature 97.6 F 09/01/18 09/02/18 23:00 05:33 Breakfast Lunch Supper Temperature 97.8 F 98.7 F Laboratory Tests 09/02/18 06:05 WBC 6.7 Eatig lunch, fed by family. Pt benefits from verbal cues to swallow. So far tolerating Puree/nectar thick liquid, per md order.. NH placement
[2018-09-02] MEDS ORDERED: PT OWN MED DRAWER 7, Y5N ONE ×2 (12:24→16:25)
--- NOTE | 2018-09-02 12:25 | PN ---
Teaching Attending Note Name of Resident: Lety Moore ATTENDING PHYSICIAN STATEMENT I saw and evaluated the patient. I reviewed the resident's note and discussed the case with the resident. I agree with the resident's findings and plan as documented with exceptions below. SUBJECTIVE: Patient seen and examined. more awake today, denies pain or complaints. OBJECTIVE: Vital Signs Period Temp Pulse Resp BP Sys/Rubi Pulse Ox Last 24 Hr 97.6 F-98.7 F 62-79 17-18 94-124/57-76 98 Intake & Output 08/30/18 08/31/18 09/01/18 09/02/18 23:59 23:59 23:59 23:59 Intake Total 2101 280 9997 554 Output Total 0 Balance 4401 966 3442 554 General: sitting in bed, awake, no acute distress Chest: improved air entry, no audible rales today Abdomen:soft, NT Extremities: no edema Neuro: more awake, interactive today, otherwise unchanged exam Home Medications Medication Instructions Recorded Fludrocortisone Acetate [Florinef 0.1 mg PO DAILY 09/22/17 -] Ipratropium/Albuterol Sulfate 3 ml IH TID PRN 09/22/17 [Iprat-Albut 0.5-3(2.5) mg/3 ml] Memantine HCl [Namenda -] 10 mg PO BID 09/22/17 Sodium Chloride [[place] Nasal 1 spray NS TID 09/22/17 [place]] Tamsulosin HCl [Flomax] 0.4 mg PO DAILY 09/22/17 Amlodipine Besylate 5 mg PO DAILY 07/27/18 Carbidopa/Levodopa 25/100 [Sinemet 1 each PO TID 07/27/18 25/100 -] Acetaminophen [Acetaminophen 8 650 mg PO Q6H 08/19/18 Hour] Amox-Tr/K Cl [Augmentin Suspension 500 mg PO TID 3 Days #9 ml 09/02/18 -] Nystatin Oral Suspension - 500,000 units PO Q6HPO cup 09/02/18 [Nystatin Oral Susp 437087 Units/5 ML -] Tamsulosin HCl [Flomax -] 0.4 mg PO DAILY@0830 cap.er.24h 09/02/18 Valproate Sodium [Depakene -] 250 mg PO BID cup 09/02/18 Laboratory Results - last 24 hr 09/02/18 09/02/18 06:05 06:05 WBC 6.7 RBC 3.64 L Hgb 11.1 L Hct 32.0 L MCV 88.1 MCH 30.7 MCHC 34.8 RDW 13.8 Plt Count 346 MPV 8.0 Absolute Neuts (auto) 3.8 Neutrophils % 57.0 Lymphocytes % 29.6 D Monocytes % 10.2 Eosinophils % 2.0 Basophils % 1.2 Nucleated RBC % 0 Sodium 139 Potassium 3.7 Chloride 104 Carbon Dioxide 27 Anion Gap 7 L BUN 16 Creatinine 1.2 Creat Clearance w eGFR 60.39 Random Glucose 88 Calcium 8.8 Phosphorus 2.6 Magnesium 2.1 Total Bilirubin 0.4 AST 7 L ALT 6 L Alkaline Phosphatase 159 H Total Protein 6.8 Albumin 2.7 L ASSESSMENT AND PLAN: 67 yom with PMHx of Alzheimers dementia, Parkinsonian features, Lewy body dementia with behavioral disturbance, Hyperthyroidism, BPH, HTN, HLD, Asthma/ COPD, Hx of TIA with Dysphagia, anxiety/MDD recently started on seroquel, admitted with AMS, found on floor, hypothermic/unresponsive. -AMS, suspect toxic metabolic encephalopathy from infection, from aspiration, ? medication related (recently started on seroquel) -STEVE/LLL PNA, suspect aspiration PNA -Unwitnessed fall -Hypothermia, ?From infection -Alzheimer's dementia -Parkinsonian features -LEwy body dementia with behavioral disturbance -Hyperthyroidism -BPH -HTN -HLD -Asthma/COPD -h/o TIA -Dysphagia -Anxiety/MDD Plan; Extensive discussion held with daughter Jenni and palliative care RN Sol Soto. Discussed in detail, about high risk of ongoing aspiration, pneumonia, respiratory failure and with ongoing PO. Not a candidate for NG tube as high risk for pulling and would not address ad terminal makeup operator concerns for poor cognition, lack of co-operation with PO and ongoing aspiration and would rather put patient at more risk than benefit. Daughter was able to relay full understanding of the risks, strongly declined any feeding tube and was not willing to further address goals of care or consider [place] placement. Per daughter, patient tolerated PO with daughter yesterday More awake today. Currently afebrile, normal WBC. Discussed with infectious disease, plan to transition to augmentin as tolerated for 3 more days . Will continue to hold seroquel and continue on decreased dose of valproic acid. Bed available at [facility]. Will d/c to SNF on oral antibiotics. On multiple occasions, family has been strongly encouraged to address goals of care and have an advanced directive in place. Also are fully aware of ongoing aspiration risk and relay full understanding of the same. Plan discussed with nursing and CM, all questions answered.
[2018-09-02 15:56] VITALS: BP 95/50; PULSE 73; TEMP 97.9
[2018-09-02] MEDS: AMINO ACIDS 4.25%/D5W 1,000 ML IV SCH (16:24)
[2018-09-02] MEDS ORDERED: AMOX TR/POTASSIUM CLAVULANATE 250 MG/5 ML BOTTLE PO SCH (17:30)
--- NOTE | 2018-09-29 17:45 | DS ---
Physical Exam: SUBJECTIVE: Patient seen and examined, more awake, no pain or complaints. OBJECTIVE: PHYSICAL EXAM General: sitting in bed, awake, no acute distress Chest: improved air entry, no audible rales today Abdomen:soft, NT Extremities: no edema Neuro: more awake, interactive today, otherwise unchanged exam LABS Laboratory Tests 08/19/18 08/19/18 08/19/18 10:36 10:43 10:43 WBC 5.1 RBC 4.59 Hgb 14.2 Hct 41.5 MCV 90.3 MCH 30.8 MCHC 34.2 RDW 14.5 Plt Count 126 L D MPV 9.3 Absolute Neuts (auto) 3.2 Neutrophils % 63.2 Lymphocytes % 24.6 Monocytes % 9.6 Eosinophils % 1.9 Basophils % 0.7 Nucleated RBC % 0 PT with INR 12.50 INR 1.06 PTT (Actin FS) 31.4 VBG pH POC VBG pCO2 POC VBG pO2 Mixed VBG HCO3 Sodium Potassium Chloride Carbon Dioxide Anion Gap BUN Creatinine Creat Clearance w eGFR POC Glucometer Random Glucose Lactic Acid Calcium Phosphorus Magnesium Total Bilirubin AST ALT Alkaline Phosphatase Ammonia Troponin I Total Protein Albumin TSH Free T4 Free T4 (Dialysis) Total T3 Cortisol AM Sample ACTH Urine Color Yellow Urine Appearance Slcloudy Urine pH 6.0 Ur Specific [place] 1.019 Urine Protein 1+ H Urine Glucose (UA) Negative Urine Ketones Negative Urine Blood 3+ H Urine Nitrite Negative Urine Bilirubin Negative Urine Urobilinogen Negative Ur Leukocyte Esterase Negative Urine WBC (Auto) 10 Urine RBC (Auto) 1300 Random Vancomycin Vancomycin Pre-Dose 08/19/18 08/19/18 08/19/18 10:43 10:43 10:43 WBC RBC Hgb Hct MCV MCH MCHC RDW Plt Count MPV Absolute Neuts (auto) Neutrophils % Lymphocytes % Monocytes % Eosinophils % Basophils % Nucleated RBC % PT with INR INR PTT (Actin FS) VBG pH 7.37 POC VBG pCO2 56.6 H POC VBG pO2 27.7 L Mixed VBG HCO3 31.8 H Sodium 142 Potassium 4.5 Chloride 105 Carbon Dioxide 32 Anion Gap 5 L BUN 25 H Creatinine 1.3 Creat Clearance w eGFR 55.06 POC Glucometer Random Glucose 76 Lactic Acid Calcium 9.5 Phosphorus Magnesium Total Bilirubin 0.6 AST 14 L ALT 21 Alkaline Phosphatase 218 H Ammonia Troponin I < 0.02 Total Protein 7.9 Albumin 3.5 TSH Free T4 Free T4 (Dialysis) Total T3 Cortisol AM Sample ACTH Urine Color Urine Appearance Urine pH Ur Specific [place] Urine Protein Urine Glucose (UA) Urine Ketones Urine Blood Urine Nitrite Urine Bilirubin Urine Urobilinogen Ur Leukocyte Esterase Urine WBC (Auto) Urine RBC (Auto) Random Vancomycin Vancomycin Pre-Dose 08/19/18 08/19/18 08/20/18 10:43 10:44 21:29 WBC RBC Hgb Hct MCV MCH MCHC RDW Plt Count MPV Absolute Neuts (auto) Neutrophils % Lymphocytes % Monocytes % Eosinophils % Basophils % Nucleated RBC % PT with INR INR PTT (Actin FS) VBG pH POC VBG pCO2 POC VBG pO2 Mixed VBG HCO3 Sodium Potassium Chloride Carbon Dioxide Anion Gap BUN Creatinine Creat Clearance w eGFR POC Glucometer 80 88 Random Glucose Lactic Acid 1.3 Calcium Phosphorus Magnesium Total Bilirubin AST ALT Alkaline Phosphatase Ammonia Troponin I Total Protein Albumin TSH Free T4 Free T4 (Dialysis) Total T3 Cortisol AM Sample ACTH Urine Color Urine Appearance Urine pH Ur Specific [place] Urine Protein Urine Glucose (UA) Urine Ketones Urine Blood Urine Nitrite Urine Bilirubin Urine Urobilinogen Ur Leukocyte Esterase Urine WBC (Auto) Urine RBC (Auto) Random Vancomycin Vancomycin Pre-Dose 08/20/18 08/20/18 08/20/18 21:30 21:30 22:11 WBC 8.0 RBC 4.55 Hgb 14.1 Hct 40.9 MCV 89.9 MCH 31.0 MCHC 34.5 RDW 14.2 Plt Count 123 L MPV 9.3 Absolute Neuts (auto) 6.1 Neutrophils % 76.5 D Lymphocytes % 14.5 D Monocytes % 8.1 Eosinophils % 0.5 Basophils % 0.4 Nucleated RBC % 0 PT with INR INR PTT (Actin FS) VBG pH POC VBG pCO2 POC VBG pO2 Mixed VBG HCO3 Sodium 143 Potassium 4.2 Chloride 108 H Carbon Dioxide 28 Anion Gap 8 BUN 24 H Creatinine 1.1 Creat Clearance w eGFR > 60 POC Glucometer 149 Random Glucose 83 Lactic Acid Calcium 9.0 Phosphorus 2.8 Magnesium 2.4 Total Bilirubin AST ALT Alkaline Phosphatase Ammonia Troponin I Total Protein Albumin TSH Free T4 Free T4 (Dialysis) Total T3 Cortisol AM Sample ACTH Urine Color Urine Appearance Urine pH Ur Specific [place] Urine Protein Urine Glucose (UA) Urine Ketones Urine Blood Urine Nitrite Urine Bilirubin Urine Urobilinogen Ur Leukocyte Esterase Urine WBC (Auto) Urine RBC (Auto) Random Vancomycin Vancomycin Pre-Dose 08/21/18 08/21/18 08/21/18 05:34 06:05 06:30 WBC 6.6 RBC 4.16 Hgb 12.6 Hct 37.1 MCV 89.1 MCH 30.3 MCHC 34.0 RDW 14.1 Plt Count 124 L MPV 9.6 Absolute Neuts (auto) 4.5 Neutrophils % 67.7 Lymphocytes % 22.1 D Monocytes % 8.6 Eosinophils % 1.3 D Basophils % 0.3 Nucleated RBC % 0 PT with INR INR PTT (Actin FS) VBG pH POC VBG pCO2 POC VBG pO2 Mixed VBG HCO3 Sodium Potassium Chloride Carbon Dioxide Anion Gap BUN Creatinine Creat Clearance w eGFR POC Glucometer 75 133 Random Glucose Lactic Acid Calcium Phosphorus Magnesium Total Bilirubin AST ALT Alkaline Phosphatase Ammonia Troponin I Total Protein Albumin TSH Free T4 Free T4 (Dialysis) Total T3 Cortisol AM Sample ACTH Urine Color Urine Appearance Urine pH Ur Specific [place] Urine Protein Urine Glucose (UA) Urine Ketones Urine Blood Urine Nitrite Urine Bilirubin Urine Urobilinogen Ur Leukocyte Esterase Urine WBC (Auto) Urine RBC (Auto) Random Vancomycin Vancomycin Pre-Dose 08/21/18 08/22/18 08/22/18 06:30 06:00 06:00 WBC 8.1 RBC 4.34 Hgb 13.3 Hct 38.9 MCV 89.8 MCH 30.7 MCHC 34.1 RDW 14.2 Plt Count 130 L MPV 9.2 Absolute Neuts (auto) 5.4 Neutrophils % 66.2 Lymphocytes % 20.5 Monocytes % 11.9 H Eosinophils % 0.9 Basophils % 0.5 Nucleated RBC % 0 PT with INR INR PTT (Actin FS) VBG pH POC VBG pCO2 POC VBG pO2 Mixed VBG HCO3 Sodium 143 142 Potassium 4.1 4.0 Chloride 108 H 109 H Carbon Dioxide 28 28 Anion Gap 7 L 4 L BUN 22 H 19 H Creatinine 1.1 1.1 Creat Clearance w eGFR > 60 > 60 POC Glucometer Random Glucose 111 H 74 Lactic Acid Calcium 8.9 8.7 Phosphorus 2.5 2.9 Magnesium 2.1 2.1 Total Bilirubin AST ALT Alkaline Phosphatase Ammonia Troponin I Total Protein Albumin TSH Free T4 Free T4 (Dialysis) Total T3 Cortisol AM Sample ACTH Urine Color Urine Appearance Urine pH Ur Specific [place] Urine Protein Urine Glucose (UA) Urine Ketones Urine Blood Urine Nitrite Urine Bilirubin Urine Urobilinogen Ur Leukocyte Esterase Urine WBC (Auto) Urine RBC (Auto) Random Vancomycin Vancomycin Pre-Dose 08/23/18 08/23/18 08/23/18 06:15 06:15 06:15 WBC 8.5 RBC 4.02 Hgb 12.2 Hct 35.7 MCV 88.7 MCH 30.4 MCHC 34.3 RDW 14.0 Plt Count 126 L MPV 8.7 Absolute Neuts (auto) 5.9 Neutrophils % 69.1 Lymphocytes % 19.1 Monocytes % 10.7 H Eosinophils % 0.6 Basophils % 0.5 Nucleated RBC % 0 PT with INR INR PTT (Actin FS) VBG pH POC VBG pCO2 POC VBG pO2 Mixed VBG HCO3 Sodium 142 Potassium 3.8 Chloride 109 H Carbon Dioxide 28 Anion Gap 5 L BUN 17 Creatinine 1.2 Creat Clearance w eGFR > 60 POC Glucometer Random Glucose 75 Lactic Acid Calcium 8.6 Phosphorus 3.0 Magnesium 2.2 Total Bilirubin AST ALT Alkaline Phosphatase Ammonia 24.40 Troponin I Total Protein Albumin TSH Free T4 Free T4 (Dialysis) Total T3 Cortisol AM Sample ACTH Urine Color Urine Appearance Urine pH Ur Specific [place] Urine Protein Urine Glucose (UA) Urine Ketones Urine Blood Urine Nitrite Urine Bilirubin Urine Urobilinogen Ur Leukocyte Esterase Urine WBC (Auto) Urine RBC (Auto) Random Vancomycin Vancomycin Pre-Dose 08/24/18 08/24/18 08/25/18 06:10 06:10 06:30 WBC 7.1 7.2 RBC 3.83 L 3.86 L Hgb 11.6 L 11.7 Hct 34.1 L 33.8 L MCV 88.9 87.6 MCH 30.3 30.5 MCHC 34.1 34.8 RDW 14.0 13.8 Plt Count 149 173 MPV 8.8 8.7 Absolute Neuts (auto) 4.6 4.6 Neutrophils % 64.3 64.6 Lymphocytes % 21.6 19.9 Monocytes % 12.3 H 12.9 H Eosinophils % 1.3 D 1.7 Basophils % 0.5 0.9 Nucleated RBC % 0 0 PT with INR INR PTT (Actin FS) VBG pH POC VBG pCO2 POC VBG pO2 Mixed VBG HCO3 Sodium 142 Potassium 3.9 Chloride 110 H Carbon Dioxide 27 Anion Gap 5 L BUN 18 Creatinine 1.0 Creat Clearance w eGFR > 60 POC Glucometer Random Glucose 74 Lactic Acid Calcium 8.1 L Phosphorus 2.7 Magnesium 2.0 Total Bilirubin AST ALT Alkaline Phosphatase Ammonia Troponin I Total Protein Albumin TSH Free T4 Free T4 (Dialysis) Total T3 Cortisol AM Sample ACTH Urine Color Urine Appearance Urine pH Ur Specific [place] Urine Protein Urine Glucose (UA) Urine Ketones Urine Blood Urine Nitrite Urine Bilirubin Urine Urobilinogen Ur Leukocyte Esterase Urine WBC (Auto) Urine RBC (Auto) Random Vancomycin Vancomycin Pre-Dose 08/25/18 08/25/18 08/26/18 06:30 16:00 06:30 WBC 7.0 RBC 3.83 L Hgb 11.7 Hct 33.4 L MCV 87.3 MCH 30.6 MCHC 35.0 RDW 13.5 Plt Count 191 MPV 8.6 Absolute Neuts (auto) 4.1 Neutrophils % 59.0 Lymphocytes % 25.5 D Monocytes % 12.7 H Eosinophils % 1.8 Basophils % 1.0 Nucleated RBC % 0 PT with INR INR PTT (Actin FS) VBG pH POC VBG pCO2 POC VBG pO2 Mixed VBG HCO3 Sodium 140 Potassium 3.8 Chloride 106 Carbon Dioxide 26 Anion Gap 8 BUN 14 Creatinine 0.9 Creat Clearance w eGFR > 60 POC Glucometer Random Glucose 82 Lactic Acid Calcium 8.2 L Phosphorus 2.5 Magnesium 1.7 L Total Bilirubin AST ALT Alkaline Phosphatase Ammonia Troponin I Total Protein Albumin TSH Free T4 Free T4 (Dialysis) Total T3 Cortisol AM Sample ACTH Urine Color Urine Appearance Urine pH Ur Specific [place] Urine Protein Urine Glucose (UA) Urine Ketones Urine Blood Urine Nitrite Urine Bilirubin Urine Urobilinogen Ur Leukocyte Esterase Urine WBC (Auto) Urine RBC (Auto) Random Vancomycin Vancomycin Pre-Dose 8.4 L 08/26/18 08/27/18 08/27/18 06:30 05:55 05:55 WBC 7.8 RBC 3.90 L Hgb 12.0 Hct 34.1 L MCV 87.3 MCH 30.7 MCHC 35.1 RDW 13.5 Plt Count 199 MPV 8.2 Absolute Neuts (auto) 4.7 Neutrophils % 60.5 Lymphocytes % 25.6 Monocytes % 12.0 H Eosinophils % 1.2 Basophils % 0.7 Nucleated RBC % 0 PT with INR INR PTT (Actin FS) VBG pH POC VBG pCO2 POC VBG pO2 Mixed VBG HCO3 Sodium 137 136 Potassium 3.6 3.4 L Chloride 104 103 Carbon Dioxide 27 27 Anion Gap 6 L 7 L BUN 15 14 Creatinine 0.9 1.0 Creat Clearance w eGFR > 60 > 60 POC Glucometer Random Glucose 112 H 113 H Lactic Acid Calcium 7.7 L 8.1 L Phosphorus 2.5 2.6 Magnesium 1.7 L 2.0 Total Bilirubin 0.8 AST 8 L ALT 9 L Alkaline Phosphatase 127 H Ammonia Troponin I Total Protein 6.5 Albumin 2.6 L TSH Free T4 Free T4 (Dialysis) Total T3 Cortisol AM Sample ACTH Urine Color Urine Appearance Urine pH Ur Specific [place] Urine Protein Urine Glucose (UA) Urine Ketones Urine Blood Urine Nitrite Urine Bilirubin Urine Urobilinogen Ur Leukocyte Esterase Urine WBC (Auto) Urine RBC (Auto) Random Vancomycin Vancomycin Pre-Dose 08/28/18 08/28/18 08/28/18 06:17 06:17 06:17 WBC 7.7 RBC 3.75 L Hgb 11.4 L Hct 32.9 L MCV 87.7 MCH 30.4 MCHC 34.7 RDW 13.8 Plt Count 229 MPV 8.4 Absolute Neuts (auto) 5.1 Neutrophils % 65.7 Lymphocytes % 21.7 Monocytes % 10.1 Eosinophils % 1.7 Basophils % 0.8 Nucleated RBC % 0 PT with INR INR PTT (Actin FS) VBG pH POC VBG pCO2 POC VBG pO2 Mixed VBG HCO3 Sodium 135 L Potassium 3.5 Chloride 104 Carbon Dioxide 25 Anion Gap 6 L BUN 16 Creatinine 0.8 Creat Clearance w eGFR > 60 POC Glucometer Random Glucose 97 Lactic Acid Calcium 8.4 L Phosphorus 2.5 Magnesium 2.2 Total Bilirubin 0.6 AST 12 L ALT 6 L Alkaline Phosphatase 120 H Ammonia Troponin I Total Protein 6.5 Albumin 2.6 L TSH 0.32 L D Free T4 1.29 H Free T4 (Dialysis) Total T3 Cortisol AM Sample ACTH Urine Color Urine Appearance Urine pH Ur Specific [place] Urine Protein Urine Glucose (UA) Urine Ketones Urine Blood Urine Nitrite Urine Bilirubin Urine Urobilinogen Ur Leukocyte Esterase Urine WBC (Auto) Urine RBC (Auto) Random Vancomycin Vancomycin Pre-Dose 08/28/18 08/28/18 08/29/18 09:30 16:20 05:30 WBC RBC Hgb Hct MCV MCH MCHC RDW Plt Count MPV Absolute Neuts (auto) Neutrophils % Lymphocytes % Monocytes % Eosinophils % Basophils % Nucleated RBC % PT with INR INR PTT (Actin FS) VBG pH POC VBG pCO2 POC VBG pO2 Mixed VBG HCO3 Sodium Potassium Chloride Carbon Dioxide Anion Gap BUN Creatinine Creat Clearance w eGFR POC Glucometer Random Glucose Lactic Acid Calcium Phosphorus Magnesium Total Bilirubin AST ALT Alkaline Phosphatase Ammonia Troponin I Total Protein Albumin TSH Free T4 Free T4 (Dialysis) Total T3 Cortisol AM Sample 6.2 ACTH Urine Color Urine Appearance Urine pH Ur Specific [place] Urine Protein Urine Glucose (UA) Urine Ketones Urine Blood Urine Nitrite Urine Bilirubin Urine Urobilinogen Ur Leukocyte Esterase Urine WBC (Auto) Urine RBC (Auto) Random Vancomycin 25.6 Vancomycin Pre-Dose 17.0 L 08/29/18 08/29/18 08/29/18 05:30 05:30 11:30 WBC RBC Hgb Hct MCV MCH MCHC RDW Plt Count MPV Absolute Neuts (auto) Neutrophils % Lymphocytes % Monocytes % Eosinophils % Basophils % Nucleated RBC % PT with INR INR PTT (Actin FS) VBG pH POC VBG pCO2 POC VBG pO2 Mixed VBG HCO3 Sodium Potassium Chloride Carbon Dioxide Anion Gap BUN Creatinine Creat Clearance w eGFR POC Glucometer Random Glucose Lactic Acid Calcium Phosphorus Magnesium Total Bilirubin AST ALT Alkaline Phosphatase Ammonia Troponin I Total Protein Albumin TSH 0.24 L D Free T4 1.27 H Free T4 (Dialysis) 1.8 H Total T3 75.00 Cortisol AM Sample ACTH 13.2 Urine Color Urine Appearance Urine pH Ur Specific [place] Urine Protein Urine Glucose (UA) Urine Ketones Urine Blood Urine Nitrite Urine Bilirubin Urine Urobilinogen Ur Leukocyte Esterase Urine WBC (Auto) Urine RBC (Auto) Random Vancomycin Vancomycin Pre-Dose 08/30/18 08/30/18 09/01/18 06:15 06:15 05:30 WBC 7.0 7.5 RBC 3.93 L 3.76 L Hgb 11.9 11.6 L Hct 34.5 L 32.9 L MCV 88.0 87.7 MCH 30.4 30.8 MCHC 34.5 35.1 RDW 13.7 13.6 Plt Count 285 D 316 MPV 8.3 8.1 Absolute Neuts (auto) 4.4 5.3 Neutrophils % 62.7 70.8 Lymphocytes % 24.9 17.4 D Monocytes % 9.8 9.5 Eosinophils % 1.6 1.3 Basophils % 1.0 1.0 Nucleated RBC % 0 0 PT with INR INR PTT (Actin FS) VBG pH POC VBG pCO2 POC VBG pO2 Mixed VBG HCO3 Sodium 139 Potassium 3.5 Chloride 105 Carbon Dioxide 25 Anion Gap 8 BUN 15 Creatinine 1.0 Creat Clearance w eGFR 74.53 POC Glucometer Random Glucose 86 Lactic Acid Calcium 8.7 Phosphorus 2.8 Magnesium 2.1 Total Bilirubin AST ALT Alkaline Phosphatase Ammonia Troponin I Total Protein Albumin TSH Free T4 Free T4 (Dialysis) Total T3 Cortisol AM Sample ACTH Urine Color Urine Appearance Urine pH Ur Specific [place] Urine Protein Urine Glucose (UA) Urine Ketones Urine Blood Urine Nitrite Urine Bilirubin Urine Urobilinogen Ur Leukocyte Esterase Urine WBC (Auto) Urine RBC (Auto) Random Vancomycin Vancomycin Pre-Dose 09/02/18 09/02/18 06:05 06:05 WBC 6.7 RBC 3.64 L Hgb 11.1 L Hct 32.0 L MCV 88.1 MCH 30.7 MCHC 34.8 RDW 13.8 Plt Count 346 MPV 8.0 Absolute Neuts (auto) 3.8 Neutrophils % 57.0 Lymphocytes % 29.6 D Monocytes % 10.2 Eosinophils % 2.0 Basophils % 1.2 Nucleated RBC % 0 PT with INR INR PTT (Actin FS) VBG pH POC VBG pCO2 POC VBG pO2 Mixed VBG HCO3 Sodium 139 Potassium 3.7 Chloride 104 Carbon Dioxide 27 Anion Gap 7 L BUN 16 Creatinine 1.2 Creat Clearance w eGFR 60.39 POC Glucometer Random Glucose 88 Lactic Acid Calcium 8.8 Phosphorus 2.6 Magnesium 2.1 Total Bilirubin 0.4 AST 7 L ALT 6 L Alkaline Phosphatase 159 H Ammonia Troponin I Total Protein 6.8 Albumin 2.7 L TSH Free T4 Free T4 (Dialysis) Total T3 Cortisol AM Sample ACTH Urine Color Urine Appearance Urine pH Ur Specific [place] Urine Protein Urine Glucose (UA) Urine Ketones Urine Blood Urine Nitrite Urine Bilirubin Urine Urobilinogen Ur Leukocyte Esterase Urine WBC (Auto) Urine RBC (Auto) Random Vancomycin Vancomycin Pre-Dose CT chest: Patchy consolidation is identified within the left lower lobe that is concerning for acute pneumonia. A smaller area of consolidation is noted within the left upper lobe posteriorly. The right lung is clear. No pulmonary masses or pleural effusions are identified. Examination of the mediastinum demonstrates no evidence of mediastinal masses, fluid collections or lymphadenopathy. The heart is not enlarged. There is a small amount of pericardial fluid present. Evaluation of the upper abdomen demonstrates no acute abnormalities. There is no evidence of acute bony pathology. IMPRESSION: Left upper and lower lobe consolidation suspicious for acute pneumonia. Clinical correlation and follow-up recommended. Please see above discussion. Swallowing eval: Patient resistant to accepting food although patient was alert and verbal. He accepted 2 small sips of nectar thick liquid with severe oral holding with no transfer into the pharynx. He then requested water which we gave him, hoping that it would mixed with nectar thick and enter the pharynx to assess swallowing function. There was no transfer of the contrast into the pharynx. IMPRESSION: Severe oral holding to dementia. I suspect patient is aspirating intermittently due to oral pharyngeal discoordination. Patient is at risk of dehydration and malnutrition and aspiration. RECOMMENDATIONS: Palliative care consult regarding end of life wishes. HOSPITAL COURSE: Date of Admission:08/21/18 Date of Discharge: 09/29/18 Minutes to complete discharge: 40 Discharge Summary Reason For Visit: HYPOTHERMIA,AMS Hospital Course: 67 yom with PMHx of Alzheimers dementia, Parkinsonian features, Lewy body dementia with behavioral disturbance, Hyperthyroidism, BPH, HTN, HLD, Asthma/ COPD, Hx of TIA with Dysphagia, anxiety/MDD recently started on seroquel, admitted with AMS, found on floor, hypothermic/unresponsive. per discussion with NH, patient was started on seroquel 75 mg BID and valproic acid was changed to depakote ER 2 days prior to admission. He was seen by neurology, his seroquel was discontinued and depakote was tapered to 250 mg BID. 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 He was evaluated by speech and swallow therapist and had MBS. He was deemed high aspiration risk and recommend PEG placement. He also had CT chest that showed concerns for aspiration pneumonia, he was afebrile with normal WBC, and was transitioned to augmentin. Multiple discussions were held with family who adamantly declined PEG placement. He was tried on pureed diet with nectar thick liquids and had recurrent episodes of worsening coarse rales and respiratory distress and intermitting refusal and spitting of his meds and feeds. Family continued to decline PEG placement and requested NG tube. Ethics and palliative care were consulted. Patient was not deemed a candidate for NG given high risk for pulling and would not address care home concerns for poor cognition, lack of co- operation with PO and ongoing aspiration and would rather put patient at more risk than benefit. Options including calvary placement/hospice were addressed. Family declined calvary. Patient was noted with intermittent improvement in his mental status and better oral intake with family around, his mental status and oral intake improved and he was discharged on augmentin to OR to strong recommendation for ongoing palliative care follow up and goals of care discussion. Condition: Fair - Instructions Diet, Activity, Other Instructions: MR Lee; you have been treated for a pneumonia. This was due to aspiration due to your difficulty swallowing. We recommended a PEG tube where you will get feeds directly to your stomach, although your family has declined. This leaves you for further risk of developing pneumonia. Please be aware. DIET: You are currently on dysphagia pureed diet with nectar thick liquids with 1: 1 assist. Please note that you continue to be an aspiration risk and multiple discussions have been held with family about the same. Please sit upright for all meals and 90 minutes after meals. 1:1 assist and stop if coughing, choking or new concerns All medications will need to be crushed in apple sauce. YOU ARE STRONGLY ADVISED TO CONTINUE TO ADDRESS GOALS OF CARE WITH YOUR DOCTOR AND HAVE AN ADVANCED DIRECTIVES IN PLACE. YOU will continue taking antibiotic; Augmentin as directed for 3 more days. You continued medication list is attached If you experience any worsening of symptoms included fever, chills, cough, shortness of breath, altered mental status, return to the emergency room. Disposition: [facility] - Home Medications Comprehensive Discharge Medication List: Ambulatory Orders Fludrocortisone Acetate [Florinef -] 0.1 mg PO DAILY 09/22/17 Ipratropium/Albuterol Sulfate [Iprat-Albut 0.5-3(2.5) mg/3 ml] 3 ml IH TID PRN 09/22/17 Memantine HCl [Namenda -] 10 mg PO BID 09/22/17 Sodium Chloride [Saline Nasal [place]] 1 spray NS TID 09/22/17 Tamsulosin HCl [Flomax] 0.4 mg PO DAILY 09/22/17 Amlodipine Besylate 5 mg PO DAILY 07/27/18 Carbidopa/Levodopa 25/100 [Sinemet 25/100 -] 1 each PO TID 07/27/18 Acetaminophen [Acetaminophen 8 Hour] 650 mg PO Q6H 08/19/18 Amox-Tr/K Cl [Augmentin Suspension -] 500 mg PO TID 3 Days #9 ml 09/02/18 Nystatin Oral Suspension - [Nystatin Oral Susp 060561 Units/5 ML -] 500,000 units PO Q6HPO cup 09/02/18 Tamsulosin HCl [Flomax -] 0.4 mg PO DAILY@0830 cap.er.24h 09/02/18 Valproate Sodium [Depakene -] 250 mg PO BID cup 09/02/18 This patient is new to me today: No Emergency Visit: Yes ED Registration Date: 08/21/18 Care time: The patient presented to the Emergency Department on the above date and was hospitalized for further evaluation of their emergent condition. Critical Care patient: No - Discharge Referral Referred to [facility] No
== END 2018-09-02 18:02 | DRG 137 ==
LOC: JER 10:13 → JERBED 13:16 → INTOOBSV 13:16 → J4S 08-20 20:29 → OBSVTOIN 08-21 11:44 → J5S 08-31 15:39
PROVIDERS: ADMIT Internal Medicine; ATTEND Hospitalist
DX: J69.0 Pneumonitis due to inhalation of food and vomit (principal); G92 Toxic encephalopathy; I45.10 Unspecified right bundle-branch block; E78.5 Hyperlipidemia, unspecified; J44.9 Chronic obstructive pulmonary disease, unspecified; F41.8 Other specified anxiety disorders; R41.82 Altered mental status, unspecified; R13.10 Dysphagia, unspecified; G30.9 Alzheimer's disease, unspecified; F02.80 Dementia in other diseases classified elsewhere, unspecified severity, without behavioral disturbance, psychotic disturbance, mood disturbance, and anxiety; R68.0 Hypothermia, not associated with low environmental temperature; N40.0 Benign prostatic hyperplasia without lower urinary tract symptoms; F20.9 Schizophrenia, unspecified; E86.0 Dehydration; I95.1 Orthostatic hypotension; G31.83 Neurocognitive disorder with Lewy bodies; F02.81 Dementia in other diseases classified elsewhere, unspecified severity, with behavioral disturbance; T43.595A Adverse effect of other antipsychotics and neuroleptics, initial encounter; Y92.89 Other specified places as the place of occurrence of the external cause; R78.81 Bacteremia; E46 Unspecified protein-calorie malnutrition; Z68.20 Body mass index [BMI] 20.0-20.9, adult; E83.42 Hypomagnesemia; E05.90 Thyrotoxicosis, unspecified without thyrotoxic crisis or storm; E87.6 Hypokalemia; E07.81 Sick-euthyroid syndrome; W19.XXXA Unspecified fall, initial encounter; Z86.73 Personal history of transient ischemic attack (TIA), and cerebral infarction without residual deficits
CPT/HCPCS: 36415; 70450-TC; 71045-TC-FY; 71250-TC; 74230-TC-FY; 80048; 80053; 81003; 81015; 82024; 82140; 82533; 82803; 82962; 83605; 83735; 84100; 84439; 84443; 84480; 84484; 85025; 85610; 85730; 87040; 87086; 92611-GN; 93005; 93010; 94640; 97116-GP; 97162-GP; 99285-25; G0378; G0480; J0131; J7030

== ENCOUNTER 2018-10-03 14:40 | Inpatient (IN) | payer OTHER ==
--- NOTE | 2018-10-03 15:03 | PDOC ---
History of Present Illness - General Stated Complaint: UNABLE TO THRIVE Time Seen by Provider: 10/03/18 15:03 History Source: Senior Living Records Exam Limitations: No Limitations - History of Present Illness Initial Comments: 10/03/18 15:35 67 year old man with a history of Alzheimer's dementia, COPD, CVA, HTN sent from from [facility] for poor oral intake for 3 days and with a reported potassium of 6.7. Per Regen the patient has minmally verbal and can answer yes and no questions though mainly incomprhehensibly, nursing also reports that the patient has been afebrile. Spoke with daughter to discuss baseline and code status, she states the patient can sometimes talk and that she would like to have him remain as a full code. The patient cannot provide any history. GCS 8. Code Status: Full Past History - Past Medical History Allergies/Adverse Reactions: Allergies Allergy/AdvReac Type Severity Reaction Status Date / Time haloperidol [From Haldol] Allergy Severe Verified 08/19/18 10:16 benztropine Allergy Verified 08/19/18 10:16 benztropine mesylate Allergy Verified 08/19/18 10:16 [From Cogentin] haloperidol lactate Allergy Verified 08/19/18 10:16 [From Haldol] Home Medications: Ambulatory Orders Fludrocortisone Acetate [Florinef -] 0.1 mg PO DAILY 09/22/17 Memantine HCl [Namenda -] 10 mg PO BID 09/22/17 Sodium Chloride [Saline Nasal [place]] 1 spray NS TID 09/22/17 Tamsulosin HCl [Flomax] 0.4 mg PO BID 09/22/17 Amlodipine Besylate 5 mg PO DAILY 07/27/18 Carbidopa/Levodopa 25/100 [Sinemet 25/100 -] 1 each PO TID 07/27/18 Acetaminophen [Acetaminophen 8 Hour] 650 mg PO Q6H 08/19/18 Nystatin Oral Suspension - [Nystatin Oral Susp 466563 Units/5 ML -] 500,000 units PO Q6HPO cup 09/02/18 Albuterol 0.083% Nebulizer Gloria [Ventolin 0.083% Nebulizer Soln -] 1 neb NEB Q6H 10/03/18 Guaifenesin [Dorothy-Tussin] 100 mg PO Q4H 10/03/18 Mirtazapine 7.5 mg PO HS 10/03/18 Valproate Sodium Liquid [Depakene] 250 mg PO BID 10/03/18 Asthma: Yes CVA: Yes COPD: No Dementia: Yes Disorders: Yes (enlarged prostate,uti) HTN: Yes Hypercholesterolemia: Yes Psychiatric Problems: Yes (schizophrenia) - Immunization History Immunization Up to Date: Yes (FLU 2013) - Suicide/Smoking/Psychosocial Hx Smoking Status: No Smoking History: Unknown if ever smoked Have you smoked in the past 12 months: No Number of Cigarettes Smoked Daily: 0 Hx Alcohol Use: No Drug/Substance Use Hx: No Substance Use Type: None Hx Substance Use Treatment: No Review of Systems - Review of Systems Able to Perform ROS?: No (altered) *Physical Exam - Physical Exam Comments: 10/03/18 15:38 GCS: 8 GENERAL: withdraws to pain, incomprehensible noises, closes eyes HEAD: No signs of trauma, normocephalic, atraumatic EYES: PERRLA, sclera anicteric, conjunctiva clear ENT: oropharynx with dry mucosa, yellow and white exudates on tongue NECK: Normal ROM, LUNGS: wet sounding cough with coarse breath sounds anteriorly HEART: Regular rate and rhythm, normal S1 and S2, no murmurs, rubs or gallops, peripheral pulses normal and equal bilaterally. ABDOMEN: Soft, nontender, normoactive bowel sounds. No guarding, no rebound. No masses EXTREMITIES : Normal inspection, Normal range of motion, no edema. No clubbing or cyanosis. dry appearing NEUROLOGICAL: withdraws to pain, incomprehensible noises, closes eyes SKIN: dry, no rashes or lesions noted ED Treatment Course - LABORATORY CBC & Chemistry Diagram: 10/07/18 05:30 10/07/18 05:30 Medical Decision Making - Medical Decision Making 10/03/18 16:30 67 year old man with a history of Alzheimer's dementia, COPD, CVA, HTN sent from from [facility] for poor oral intake for 3 days and with a reported potassium of 6.7. Per [facility] the patient has minmally verbal and can answer yes and no questions though mainly incomprhehensibly, nursing also reports that the patient has been afebrile. ED Course: Patient sirs in ED with fever of 102, requiring oxygen to sat > 93 consider source urine vs resp vs gi r/o intracranial pathology for ams vs electrolye abnormality empiric van and zosyn hypernatremic will give D51/2NS 30cc/kg lactic of 3 agustina Patient will require admissin for frther workup and evalaution/treatememt *DC/Admit/Observation/Transfer Diagnosis at time of Disposition: Sepsis, Acute hypernatremia - Discharge Dispostion Condition at time of disposition: Stable Decision to Admit order: Yes - Referrals - Patient Instructions - Post Discharge Activity
[2018-10-03 15:55] LABS: BASO % 0.5 % (0-2.0); EOS % 0.1 % (0-4.5); HEMATOCRIT 38.1 % (35.4-49); HEMOGLOBIN 12.3 GM/dL (11.7-16.9); LYMPH % 15.1 % (8-40); MCHC 32.3 g/dl (32.0-35.9); MEAN CELL VOLUME 89.9 fl (80-96); MEAN PLT VOLUME 9.6 fl (7.5-11.1); MONO % 7.3 % (3.8-10.2); PLATELET COUNT 226 K/MM3 (134-434); RBC 4.24 M/mm3 (4.00-5.60); WHITE BLOOD COUNT 11.5 K/mm3 (4.0-10.0)
[2018-10-03] MEDS ORDERED: PIPERACILLIN/TAZOB 4.5 GM 4.5 GM in DEXTROSE 5%-WATER 100 ML IVPB ONE (15:59)
[2018-10-03] MEDS ORDERED: VANCOMYCIN HCL 1,500 MG in DEXTROSE 5%-WATER - 500 ML IVPB ONE (15:59)
[2018-10-03] MEDS ORDERED: SODIUM CHLORIDE 2,000 ML IV SCH (16:00)
[2018-10-03 16:08] LABS: INR 1.54 (0.83-1.09); PROTHROMBIN TIME (PATIENT) 18.2 SEC (9.7-13.0)
[2018-10-03 16:10] LABS: ACTIVATED PTT 31.8 SECONDS (25.2-36.5); VENOUS PC02 49.5 mmHg (41-51); VENOUS PH 7.34 (7.31-7.41)
[2018-10-03 16:11] LABS: VENOUS PO2 17.8 mmHg (30-40)
[2018-10-03 16:15] LABS: ALBUMIN 3.1 g/dl (3.4-5.0); ALK PHOS 146 U/L (45-117); ANION GAP 6 MMOL/L (8-16); BILIRUBIN,TOTAL 1.2 mg/dL (0.2-1); BLOOD UREA NITROGEN 22 mg/dL (7-18); CALCIUM 9.6 mg/dL (8.5-10.1); CHLORIDE 117 mmol/L (98-107); CO2 28 mmol/L (21-32); CREATININE 1.4 mg/dL (0.55-1.3); GLUCOSE,RANDOM 107 mg/dL (74-106); POTASSIUM 3.9 mmol/L (3.5-5.1); SGOT/AST 13 U/L (15-37); SGPT/ALT 13 U/L (13-61); SODIUM 151 mmol/L (136-145); TOT PROT 8.2 g/dl (6.4-8.2)
[2018-10-03] MEDS ORDERED: PIPERACILLIN/TAZOB 4.5 GM 4.5 GM/100 ML BAG IVPB ONE (16:18)
[2018-10-03] MEDS ORDERED: VANCOMYCIN 1 GRAM (PRE-DOCKED) 1,000 MG/250 ML BAG IVPB ONE (16:18)
[2018-10-03] MEDS ORDERED: ACETAMINOPHEN INJECTION 100 ML IVPB ONE (16:18)
[2018-10-03] MEDS ORDERED: DEXTROSE 5%-0.45% SALINE 1,000 ML IV SCH (16:45)
[2018-10-03 16:59] LABS: EPI CELLS 1.9 /HPF (0-5/HPF); URINE APPEARANCE CLEAR; URINE BACTERIA 0.5 /hpf (NEGATIVE); URINE BILIRUBIN 2+ (NEGATIVE); URINE CASTS 13 /lpf (0-8); URINE COLOR DK YELLOW; URINE GLUCOSE (UA) NEGATIVE (NEGATIVE); URINE KETONE 1+ (NEGATIVE); URINE LEUK ESTERASE 1+ (NEGATIVE); URINE NITRITE NEGATIVE (NEGATIVE); URINE PROTEIN 1+ (NEGATIVE); URINE WBC 1 /hpf (0-5)
[2018-10-03 17:32] LABS: URINE RBC 3.9 /hpf (0-4)
[2018-10-03] MEDS ORDERED: ACETAMINOPHEN 1000 MG/100 ML VIAL (NON FORMULARY) IVPB ONE (17:40)
--- NOTE | 2018-10-03 18:25 | PDOC ---
Documentation entered by Martha Coronado SCRIBE, acting as scribe for Suzi Jeffrey MD. Suzi Jeffrey MD: This documentation has been prepared by the Cliff pappas Collisia, SCRIBE, under my direction and personally reviewed by me in its entirety. I confirm that the documentation accurately reflects all work, treatment, procedures, and medical decision making performed by me. Attending Attestation - Resident Resident Name: Kaur Logan - ED Attending Attestation I have performed the following: I have examined & evaluated the patient, The case was reviewed & discussed with the resident, I agree w/resident's findings & plan, Exceptions are as noted - HPI HPI: 10/03/18 16:51 The patient is a 67 year old male with a significant past medical history of asthma, COPD, CVA, hypertension, hypercholesterolemia, and Alzheimers dementia who presents to the emergency department from [facility] for decrease in oral intake for 3 days. As per snf, the patient has had a loss of appetite and has not been taking anything orally. The also report a potassium level of 6.7. The patient is non- verbal at bedside but as per snf this is similar to his baseline. The patient was sent for further evaluation. No other symptoms or complaints are reported although history is limited due to pt's dementia. - Physicial Exam PE: 10/03/18 18:19 agree with resident exam - Medical Decision Making 10/03/18 18:20 67yo M with MMP including dementia presents to the ED with abnormal labs, lethargy, fever found to have hypernatremia, dehydration. Given fever, mild tachycardia, pt covered empirically for sepsis with vanc/zosyn. Free water deficit calculated at 1.7 L. D5 1/2 NS initiated at 150mL per hour to correct. CTH found to have possible acute nonhemorrhagic infarct. Pt with no new deficits per AR. Neurology has been consulted, will evaluate pt. Pt admitted for further mgmt to Dr. De La Garza (requested decision to admit under private Dr. Ham)
[2018-10-03 20:20] LABS: ALBUMIN 2.5 g/dl (3.4-5.0); ALK PHOS 119 U/L (45-117); ANION GAP 7 MMOL/L (8-16); BILIRUBIN,TOTAL 1.1 mg/dL (0.2-1); BLOOD UREA NITROGEN 20 mg/dL (7-18); CALCIUM 8.3 mg/dL (8.5-10.1); CHLORIDE 115 mmol/L (98-107); CO2 26 mmol/L (21-32); CREATININE 1.2 mg/dL (0.55-1.3); POTASSIUM 3.6 mmol/L (3.5-5.1); SGOT/AST 11 U/L (15-37); SGPT/ALT 9 U/L (13-61); SODIUM 149 mmol/L (136-145); TOT PROT 6.6 g/dl (6.4-8.2)
[2018-10-03 20:23] LABS: GLUCOSE,RANDOM 359 mg/dL (74-106)
--- NOTE | 2018-10-03 22:05 | HP ---
CHIEF COMPLAINT: poor oral intake PCP: Jitendra HISTORY OF PRESENT ILLNESS: 67 year old man from [facility] with poor oral intake for 3 days, hyperkalemia in NH -with K of 6.7- (normal here in ER), minimally responsive, had fever in ER of 102.1F, borderline tachy, leukocytosis, low o2 sat, found to have residual food stuffs in oral cavity. Head CT coincidentally showed subtle hypodense lesion. ER course was notable for: (1) head ct (2) zosyn (3) vanco Recent Travel: no PAST MEDICAL HISTORY: Alzheimer's dementia, COPD, CVA, HTN PAST SURGICAL HISTORY: unable to obtain Social History: unable to obtain Smoking: Alcohol: Drugs: Family History: unknown Allergies haloperidol [From Haldol] Allergy (Severe, Verified 08/19/18 10:16) JUST GIVEN IN OCTOBER 2014 AND WAS IN A COMA IN [facility] FOR 3 WEEKS. benztropine Allergy (Verified 08/19/18 10:16) benztropine mesylate [From Cogentin] Allergy (Verified 08/19/18 10:16) haloperidol lactate [From Haldol] Allergy (Verified 08/19/18 10:16) HOME MEDICATIONS: Home Medications Medication Instructions Recorded Fludrocortisone Acetate [Florinef 0.1 mg PO DAILY 09/22/17 -] Memantine HCl [Namenda -] 10 mg PO BID 09/22/17 Sodium Chloride [Saline Nasal 1 spray NS TID 09/22/17 [place]] Tamsulosin HCl [Flomax] 0.4 mg PO BID 09/22/17 Amlodipine Besylate 5 mg PO DAILY 07/27/18 Carbidopa/Levodopa 25/100 [Sinemet 1 each PO TID 07/27/18 25/100 -] Acetaminophen [Acetaminophen 8 650 mg PO Q6H 08/19/18 Hour] Nystatin Oral Suspension - 500,000 units PO Q6HPO cup 09/02/18 [Nystatin Oral Susp 061588 Units/5 ML -] Albuterol 0.083% Nebulizer Gloria 1 neb NEB Q6H 10/03/18 [Ventolin 0.083% Nebulizer Soln -] Guaifenesin [Dorothy-Tussin] 100 mg PO Q4H 10/03/18 Mirtazapine 7.5 mg PO HS 10/03/18 Valproate Sodium Liquid [Depakene] 250 mg PO BID 10/03/18 REVIEW OF SYSTEMS -unable to obtain as patient is nonverbal PHYSICAL EXAMINATION Vital Signs - 24 hr 10/03/18 10/03/18 10/03/18 15:04 17:02 21:49 Temperature 102.1 F H 99.6 F 99.2 F Pulse Rate 93 H 97 H 82 Pulse Rate [ 97 H Left Apical] Respiratory 16 14 18 Rate Blood Pressure 115/69 145/89 Blood Pressure 120/74 [Left Arm] O2 Sat by Pulse 98 100 Oximetry (%) GENERAL: Awake, alert, nonverbal, bedbound HEAD: Normal with no signs of trauma. EYES: Pupils equal, round and reactive to light, extraocular movements intact, sclera anicteric, conjunctiva clear. No lid lag. EARS, NOSE, THROAT: residual foodstuff in oral cavity NECK: Normal range of motion, supple without lymphadenopathy, JVD, or masses. LUNGS: Breath sounds equal, b/l present HEART: Regular rate and rhythm, normal S1 and S2 without murmur, rub or gallop. ABDOMEN: Soft, nontender, not distended, normoactive bowel sounds, no guarding, no rebound, no masses. No hepatomegaly or splenomegaly. MUSCULOSKELETAL: Normal range of motion at all joints. No bony deformities or tenderness. No CVA tenderness. UPPER EXTREMITIES: 2+ pulses, warm, well-perfused. No cyanosis. No clubbing. No peripheral edema. LOWER EXTREMITIES: 2+ pulses, warm, well-perfused. No calf tenderness. No peripheral edema. PSYCHIATRIC: Cooperative. Good eye contact. Appropriate mood and affect. SKIN: poor skin turgor, no decubitus ulcers reported as per nursing Laboratory Results - last 24 hr 10/03/18 10/03/18 10/03/18 15:14 15:14 15:14 WBC 11.5 H RBC 4.24 Hgb 12.3 Hct 38.1 D MCV 89.9 MCH 29.0 MCHC 32.3 RDW 15.0 Plt Count 226 D MPV 9.6 D Absolute Neuts (auto) 8.8 H Neutrophils % 77.0 D Lymphocytes % 15.1 D Monocytes % 7.3 Eosinophils % 0.1 D Basophils % 0.5 Nucleated RBC % 0 PT with INR 18.20 H INR 1.54 H PTT (Actin FS) 31.8 VBG pH 7.34 POC VBG pCO2 49.5 POC VBG pO2 17.8 L VBG HCO3 26.2 VBG O2 Sat (Flo) 15.9 L VBG Base Excess 0.7 Sodium Potassium Chloride Carbon Dioxide Anion Gap BUN Creatinine Creat Clearance w eGFR Random Glucose Lactic Acid Calcium Total Bilirubin AST ALT Alkaline Phosphatase Troponin I Total Protein Albumin Urine Color Urine Appearance Urine pH Ur Specific [place] Urine Protein Urine Glucose (UA) Urine Ketones Urine Blood Urine Nitrite Urine Bilirubin Urine Urobilinogen Ur Leukocyte Esterase Urine WBC (Auto) Urine RBC (Auto) Urine Casts (Auto) U Epithel Cells (Auto) Urine Bacteria (Auto) Urine Osmolality 10/03/18 10/03/18 10/03/18 15:14 15:14 16:00 WBC RBC Hgb Hct MCV MCH MCHC RDW Plt Count MPV Absolute Neuts (auto) Neutrophils % Lymphocytes % Monocytes % Eosinophils % Basophils % Nucleated RBC % PT with INR INR PTT (Actin FS) VBG pH POC VBG pCO2 POC VBG pO2 VBG HCO3 VBG O2 Sat (Flo) VBG Base Excess Sodium 151 H Potassium 3.9 Chloride 117 H Carbon Dioxide 28 Anion Gap 6 L BUN 22 H Creatinine 1.4 H Creat Clearance w eGFR 50.55 Random Glucose 107 H Lactic Acid 3.1 H* Calcium 9.6 Total Bilirubin 1.2 H AST 13 L ALT 13 Alkaline Phosphatase 146 H Troponin I < 0.02 Total Protein 8.2 Albumin 3.1 L Urine Color Dk yellow Urine Appearance Clear Urine pH 5.0 Ur Specific [place] 1.032 Urine Protein 1+ H Urine Glucose (UA) Negative Urine Ketones 1+ H Urine Blood Negative Urine Nitrite Negative Urine Bilirubin 2+ H Urine Urobilinogen 1.0 Ur Leukocyte Esterase 1+ H Urine WBC (Auto) 1 Urine RBC (Auto) 3.9 Urine Casts (Auto) 13 U Epithel Cells (Auto) 1.9 Urine Bacteria (Auto) 0.5 Urine Osmolality 10/03/18 10/03/18 10/03/18 17:56 18:15 18:15 WBC RBC Hgb Hct MCV MCH MCHC RDW Plt Count MPV Absolute Neuts (auto) Neutrophils % Lymphocytes % Monocytes % Eosinophils % Basophils % Nucleated RBC % PT with INR INR PTT (Actin FS) VBG pH POC VBG pCO2 POC VBG pO2 VBG HCO3 VBG O2 Sat (Flo) VBG Base Excess Sodium 149 H Potassium 3.6 Chloride 115 H Carbon Dioxide 26 Anion Gap 7 L BUN 20 H Creatinine 1.2 Creat Clearance w eGFR 60.39 Random Glucose 359 H* Lactic Acid 2.0 Calcium 8.3 L Total Bilirubin 1.1 H AST 11 L ALT 9 L Alkaline Phosphatase 119 H Troponin I < 0.02 Total Protein 6.6 Albumin 2.5 L Urine Color Urine Appearance Urine pH Ur Specific [place] Urine Protein Urine Glucose (UA) Urine Ketones Urine Blood Urine Nitrite Urine Bilirubin Urine Urobilinogen Ur Leukocyte Esterase Urine WBC (Auto) Urine RBC (Auto) Urine Casts (Auto) U Epithel Cells (Auto) Urine Bacteria (Auto) Urine Osmolality 977 H Imaging studies reviewed ASSESSMENT/PLAN: #Sepsis - may be secondary to aspiration pneumonia -c/w zosyn -supplemental oxygen via nasal cannula -keep NPO for now -keep head of bed elevated -speech and swallow evaluation -ID consult #Hypernatremia -likely secondary to fluid losses -1/2 NS-gentle hydration (no d5w due to hyperglycemia) -monitor bmp q6hrs -i/o -daily weights #Uncontrolled hyperglycemia -novolog sliding scale -gentle IV fluid hydration -a1c #Hypodense lesion on head CT- old infarct? no focal neuro deficits noted, nor mentioned in history -neuro eval for further recs #Parkinson dz -c/w carbidopa/levadopa -neuro is consulted -valproate ? send- level - confirm with PCP #Alzhemiers -bed rest -fall precautions -memantine #DVT ppx -heparin sc Visit type - Emergency Visit Emergency Visit: Yes ED Registration Date: 10/03/18 Care time: The patient presented to the Emergency Department on the above date and was hospitalized for further evaluation of their emergent condition. - New Patient This patient is new to me today: Yes Date on this admission: 10/04/18 - Critical Care Critical Care patient: No
[2018-10-03] MEDS ORDERED: SODIUM CHLORIDE 0.45% 1,000 ML IV SCH (22:15)
[2018-10-03] MEDS ORDERED: PIPERACILLIN/TAZOB 3.375 GM 3.375 GM in DEXTROSE 5%-WATER - 50 ML IVPB ONE (23:59)
[2018-10-04 01:37] VITALS: BMI 19.8
[2018-10-04] MEDS: CARBIDOPA/LEVODOPA 25/100 TABLET (FP) PO SCH ×3 (05:48→21:48)
[2018-10-04 08:07] LABS: BASO % 0.6 % (0-2.0); EOS % 1.2 % (0-4.5); HEMATOCRIT 36.5 % (35.4-49); LYMPH % 12.8 % (8-40); MCH 29.3 pg (25.7-33.7); MCHC 32.8 g/dl (32.0-35.9); MEAN CELL VOLUME 89.2 fl (80-96); MEAN PLT VOLUME 9.5 fl (7.5-11.1); NEUT % 79.4 % (42.8-82.8); PLATELET COUNT 185 K/MM3 (134-434); RBC 4.09 M/mm3 (4.00-5.60); WHITE BLOOD COUNT 9.5 K/mm3 (4.0-10.0)
[2018-10-04 08:34] LABS: ANION GAP 7 MMOL/L (8-16); BLOOD UREA NITROGEN 17 mg/dL (7-18); CALCIUM 9.5 mg/dL (8.5-10.1); CHLORIDE 116 mmol/L (98-107); CO2 28 mmol/L (21-32); CREATININE 1.1 mg/dL (0.55-1.3); GLUCOSE,RANDOM 114 mg/dL (74-106); SODIUM 151 mmol/L (136-145)
[2018-10-04] MEDS: TAMSULOSIN HCL 0.4 MG CAP PO SCH ×2 (11:09→21:48)
[2018-10-04] MEDS: MEMANTINE HCL 10 MG TABLET (FP) PO SCH ×2 (11:24→21:48)
[2018-10-04] MEDS: FLUDROCORTISONE ACETATE 0.1 MG TABLET (FP) PO SCH (11:24)
[2018-10-04] MEDS: amLODIPine BESYLATE 5 MG TABLET (FP) PO SCH (11:25)
--- NOTE | 2018-10-04 12:15 | PN ---
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 (short form) - Note 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: pt seen/ examined awake/ poor historian chronic ill appearance npo chart reviewed got abx i/d / and neuro consults requested last discharge summary reviewed -- Pts family refuses peg / hospice care Vital Signs Temp 98.7 F 10/04/18 06:00 Pulse 81 10/04/18 06:00 Resp 18 10/04/18 06:00 BP 145/77 10/04/18 06:00 Pulse Ox 100 10/03/18 17:02 Intake & Output 10/03/18 10/04/18 10/04/18 23:59 11:59 23:59 Intake Total 200 Balance 200 Weight 138 lb 3 oz Intake: IV 200 1/2 Normal Saline 1,000 200 ml @ 75 mls/hr IV ASDIR [facility] Rx#:[id number] Other: Voiding Method Diaper Bowel Movement Yes Yes # Bowel Movements 1 Height 5 ft 10 in Body Mass Index (BMI) 19.8 Weight Measurement Method [facility] Weight Measurement Method Estimated by Staff Active Medications Albuterol Sulfate (Ventolin 0.083% Nebulizer Soln -) 1 amp NEB Q6H PRN PRN Reason: WHEEZING Amlodipine Besylate (Norvasc -) 5 mg PO DAILY [facility] Last Admin: 10/04/18 11:25 Dose: Not Given Carbidopa/Levodopa (Sinemet 25/100 -) 1 each PO TID [facility] Last Admin: 10/04/18 05:48 Dose: Not Given Fludrocortisone Acetate (Florinef -) 0.1 mg PO DAILY [facility] Last Admin: 10/04/18 11:24 Dose: Not Given Heparin Sodium (Porcine) (Heparin -) 5,000 unit SQ BID [facility] Dextrose/Sodium Chloride (D5-1/2ns -) 1,000 mls @ 83 mls/hr IV ASDIR [facility] Insulin Aspart (Novolog Vial Sliding Scale -) 1 vial SQ ACHS [facility]; Protocol Memantine (Namenda -) 10 mg PO BID [facility] Last Admin: 10/04/18 11:24 Dose: Not Given Mirtazapine (Remeron -) 7.5 mg PO HS [facility] Tamsulosin HCl (Flomax -) 0.4 mg PO BID [facility] Last Admin: 10/04/18 11:09 Dose: Not Given Valproate Sodium (Depakene -) 250 mg PO BID [facility] CBC, BMP 10/04/18 07:50 10/04/18 07:50 ct Head - reviewed Physical Exam awake poorly responsive heent- no jvd luns- diminished cvs---s1, s2 rrr abd - soft ext- no edema A/P Keep Npo fluids -- change to D5 i/d/ neurology to follow hold po meds Discussed with Dr. Harrison and Dr. Hathaway today -- will see pt pt had failed mbs - last visit-- will consult palliative care prognosis poor / gaurded will discuss with family will follow Problem List - Problems (1) Aspiration pneumonia Code(s): J69.0 - PNEUMONITIS DUE TO INHALATION OF FOOD AND VOMIT (2) Altered mental status Code(s): R41.82 - ALTERED MENTAL STATUS, UNSPECIFIED Qualifiers: Altered mental status type: unspecified Qualified Code(s): R41.82 - Altered mental status, unspecified (3) Lewy body dementia with behavioral disturbance Code(s): G31.83 - DEMENTIA WITH LEWY BODIES; F02.81 - DEMENTIA IN OTH DISEASES CLASSD ELSWHR W BEHAVIORAL DISTURB (4) Parkinsonian features Code(s): R25.9 - UNSPECIFIED ABNORMAL INVOLUNTARY MOVEMENTS
[2018-10-04] MEDS ORDERED: PT OWN MED DRAWER 7, Y5N ONE ×2 (12:27→21:18)
--- NOTE | 2018-10-04 12:27 | CON.ID ---
Consult Consult Specialty:: infectious diseases Referred by:: Reason for Consultation:: pneumonia - History of Present Illness Chief Complaint: fever,ams,leukocytosis - Past Medical History [employer]: Yes: Dementia Cardio/Vascular: Yes: HTN, Hyperlipdemia Renal/: Yes: Renal Failure - Past Surgical History Past Surgical History: Yes: None - Alcohol/Substance Use Hx Alcohol Use: No History of Substance Use: reports: None - Smoking History Smoking history: Never smoked Have you smoked in the past 12 months: No Aproximately how many cigarettes per day: 0 - Social History Usual Living Arrangement: [facility] ADL: Support Services History of Recent Travel: Yes Home Medications - Allergies Allergies/Adverse Reactions: Allergies Allergy/AdvReac Type Severity Reaction Status Date / Time haloperidol [From Haldol] Allergy Severe Verified 08/19/18 10:16 benztropine Allergy Verified 08/19/18 10:16 benztropine mesylate Allergy Verified 08/19/18 10:16 [From Cogentin] haloperidol lactate Allergy Verified 08/19/18 10:16 [From Haldol] - Home Medications Home Medications: Ambulatory Orders Fludrocortisone Acetate [Florinef -] 0.1 mg PO DAILY 09/22/17 Memantine HCl [Namenda -] 10 mg PO BID 09/22/17 Sodium Chloride [Saline Nasal [place]] 1 spray NS TID 09/22/17 Tamsulosin HCl [Flomax] 0.4 mg PO BID 09/22/17 Amlodipine Besylate 5 mg PO DAILY 07/27/18 Carbidopa/Levodopa 25/100 [Sinemet 25/100 -] 1 each PO TID 07/27/18 Acetaminophen [Acetaminophen 8 Hour] 650 mg PO Q6H 08/19/18 Nystatin Oral Suspension - [Nystatin Oral Susp 755537 Units/5 ML -] 500,000 units PO Q6HPO cup 09/02/18 Albuterol 0.083% Nebulizer Gloria [Ventolin 0.083% Nebulizer Soln -] 1 neb NEB Q6H 10/03/18 Guaifenesin [Dorothy-Tussin] 100 mg PO Q4H 10/03/18 Mirtazapine 7.5 mg PO HS 10/03/18 Valproate Sodium Liquid [Depakene] 250 mg PO BID 10/03/18 Physical Exam Vital Signs: Vital Signs Temperature 98.7 F 04/20/19 06:00 Pulse Rate 81 10/04/18 06:00 Respiratory Rate 18 10/04/18 06:00 Blood Pressure 145/77 10/04/18 06:00 O2 Sat by Pulse Oximetry (%) 100 10/03/18 17:02 Labs: CBC, BMP 10/04/18 07:50 10/04/18 07:50
[2018-10-04] MEDS: VALPROATE SODIUM 250 MG/5 ML UNIT DOSE CUP PO SCH ×2 (12:35→21:48)
[2018-10-04] MEDS: HEPARIN NA (PORCINE) 5,000 UNITS/ML 1ML VIAL SQ SCH ×2 (12:35→21:47)
[2018-10-04] MEDS: INSULIN SLIDING SCALE (NOVOLOG) 1 VIAL SQ SCH ×3 (12:36→21:53)
[2018-10-04] MEDS ORDERED: PIPERACILLIN/TAZOBACTAM 3.375 GM VIAL IVPB ONE ×2 (12:59→18:02)
[2018-10-04] MEDS ORDERED: DEXTROSE 5%-WATER - 50 ML IVPB ONE ×2 (13:00→18:03)
[2018-10-04] MEDS: PIPERACILLIN/TAZOB 3.375 GM 3.375 GM in DEXTROSE 5%-WATER - 50 ML IVPB SCH ×2 (13:06→18:08)
--- NOTE | 2018-10-04 13:49 | CONSULT ---
Consult - text type - Consultation Consultation Note: Neurology CHIEF COMPLAINT: poor oral intake PCP: Jitendra HISTORY OF PRESENT ILLNESS: 67 year old man from [facility] with poor oral intake for 3 days, hyperkalemia in NH -with K of 6.7- (normal here in ER), minimally responsive, had fever in ER of 102.1F, borderline tachy, leukocytosis, low o2 sat, found to have residual food stuffs in oral cavity. Head CT coincidentally showed subtle hypodense lesion, ? infarct, new compared to CT head from August 2018. Discussed with daughter at bedside. She was inquiring if infarct found how mgmt would change and explained cardiovascular risk reduction that would be desired with antiplalet and statin mgmt. Recommended MRI brain, daughter in agreement, ordered. Daughter concerned about reduced PO intake, PEG tube discussed by PCP with her and she seems supportive of this. Of note, patient with dementia and on memantine. Also with Parkinson's and on Sinemet. Would not adjust these medications for now. Recent Travel: no PAST MEDICAL HISTORY: Alzheimer's dementia, COPD, CVA, HTN PAST SURGICAL HISTORY: unable to obtain Social History: No smoking, no EToh: Family History: HTN Allergies haloperidol [From Haldol] Allergy (Severe, Verified 08/19/18 10:16) JUST GIVEN IN OCTOBER 2014 AND WAS IN A COMA IN [facility] FOR 3 WEEKS. benztropine Allergy (Verified 08/19/18 10:16) benztropine mesylate [From Cogentin] Allergy (Verified 08/19/18 10:16) haloperidol lactate [From Haldol] Allergy (Verified 08/19/18 10:16) HOME MEDICATIONS: Home Medications Medication Instructions Recorded Fludrocortisone Acetate [Florinef 0.1 mg PO DAILY 09/22/17 -] Memantine HCl [Namenda -] 10 mg PO BID 09/22/17 Sodium Chloride [Saline Nasal 1 spray NS TID 09/22/17 [place]] Tamsulosin HCl [Flomax] 0.4 mg PO BID 09/22/17 Amlodipine Besylate 5 mg PO DAILY 07/27/18 Carbidopa/Levodopa 25/100 [Sinemet 1 each PO TID 07/27/18 25/100 -] Acetaminophen [Acetaminophen 8 650 mg PO Q6H 08/19/18 Hour] Nystatin Oral Suspension - 500,000 units PO Q6HPO cup 09/02/18 [Nystatin Oral Susp 712728 Units/5 ML -] Albuterol 0.083% Nebulizer Gloria 1 neb NEB Q6H 10/03/18 [Ventolin 0.083% Nebulizer Soln -] Guaifenesin [Dorothy-Tussin] 100 mg PO Q4H 10/03/18 Mirtazapine 7.5 mg PO HS 10/03/18 Valproate Sodium Liquid [Depakene] 250 mg PO BID 10/03/18 REVIEW OF SYSTEMS -unable to obtain as patient is nonverbal PHYSICAL EXAMINATION Vital Signs - 24 hr 10/03/18 10/03/18 10/03/18 15:04 17:02 21:49 Temperature 102.1 F H 99.6 F 99.2 F Pulse Rate 93 H 97 H 82 Pulse Rate [ 97 H Left Apical] Respiratory 16 14 18 Rate Blood Pressure 115/69 145/89 Blood Pressure 120/74 [Left Arm] O2 Sat by Pulse 98 100 Oximetry (%) GENERAL: Awake, alert, nonverbal, bedbound HEAD: Normal with no signs of trauma. EYES: Pupils equal, round and reactive to light, extraocular movements intact, sclera anicteric, conjunctiva clear. No lid lag. EARS, NOSE, THROAT: residual foodstuff in oral cavity NECK: Normal range of motion, supple without lymphadenopathy, JVD, or masses. LUNGS: Breath sounds equal, b/l present HEART: Regular rate and rhythm, normal S1 and S2 without murmur, rub or gallop. ABDOMEN: Soft, nontender, not distended, normoactive bowel sounds, no guarding, no rebound, no masses. No hepatomegaly or splenomegaly. MUSCULOSKELETAL: Normal range of motion at all joints. No bony deformities or tenderness. No CVA tenderness. UPPER EXTREMITIES: 2+ pulses, warm, well-perfused. No cyanosis. No clubbing. No peripheral edema. LOWER EXTREMITIES: 2+ pulses, warm, well-perfused. No calf tenderness. No peripheral edema. PSYCHIATRIC: Somnolent SKIN: poor skin turgor, no decubitus ulcers reported as per nursing Neuro: Awake, but nonverbal, not moving extremities, sensory intact to LT Laboratory Results - last 24 hr 10/03/18 10/03/18 10/03/18 15:14 15:14 15:14 WBC 11.5 H RBC 4.24 Hgb 12.3 Hct 38.1 D MCV 89.9 MCH 29.0 MCHC 32.3 RDW 15.0 Plt Count 226 D MPV 9.6 D Absolute Neuts (auto) 8.8 H Neutrophils % 77.0 D Lymphocytes % 15.1 D Monocytes % 7.3 Eosinophils % 0.1 D Basophils % 0.5 Nucleated RBC % 0 PT with INR 18.20 H INR 1.54 H PTT (Actin FS) 31.8 VBG pH 7.34 POC VBG pCO2 49.5 POC VBG pO2 17.8 L VBG HCO3 26.2 VBG O2 Sat (Flo) 15.9 L VBG Base Excess 0.7 Sodium Potassium Chloride Carbon Dioxide Anion Gap BUN Creatinine Creat Clearance w eGFR Random Glucose Lactic Acid Calcium Total Bilirubin AST ALT Alkaline Phosphatase Troponin I Total Protein Albumin Urine Color Urine Appearance Urine pH Ur Specific Gillespie Urine Protein Urine Glucose (UA) Urine Ketones Urine Blood Urine Nitrite Urine Bilirubin Urine Urobilinogen Ur Leukocyte Esterase Urine WBC (Auto) Urine RBC (Auto) Urine Casts (Auto) U Epithel Cells (Auto) Urine Bacteria (Auto) Urine Osmolality 10/03/18 10/03/18 10/03/18 15:14 15:14 16:00 WBC RBC Hgb Hct MCV MCH MCHC RDW Plt Count MPV Absolute Neuts (auto) Neutrophils % Lymphocytes % Monocytes % Eosinophils % Basophils % Nucleated RBC % PT with INR INR PTT (Actin FS) VBG pH POC VBG pCO2 POC VBG pO2 VBG HCO3 VBG O2 Sat (Flo) VBG Base Excess Sodium 151 H Potassium 3.9 Chloride 117 H Carbon Dioxide 28 Anion Gap 6 L BUN 22 H Creatinine 1.4 H Creat Clearance w eGFR 50.55 Random Glucose 107 H Lactic Acid 3.1 H* Calcium 9.6 Total Bilirubin 1.2 H AST 13 L ALT 13 Alkaline Phosphatase 146 H Troponin I < 0.02 Total Protein 8.2 Albumin 3.1 L Urine Color Dk yellow Urine Appearance Clear Urine pH 5.0 Ur Specific Gillespie 1.032 Urine Protein 1+ H Urine Glucose (UA) Negative Urine Ketones 1+ H Urine Blood Negative Urine Nitrite Negative Urine Bilirubin 2+ H Urine Urobilinogen 1.0 Ur Leukocyte Esterase 1+ H Urine WBC (Auto) 1 Urine RBC (Auto) 3.9 Urine Casts (Auto) 13 U Epithel Cells (Auto) 1.9 Urine Bacteria (Auto) 0.5 Urine Osmolality 10/03/18 10/03/18 10/03/18 17:56 18:15 18:15 WBC RBC Hgb Hct MCV MCH MCHC RDW Plt Count MPV Absolute Neuts (auto) Neutrophils % Lymphocytes % Monocytes % Eosinophils % Basophils % Nucleated RBC % PT with INR INR PTT (Actin FS) VBG pH POC VBG pCO2 POC VBG pO2 VBG HCO3 VBG O2 Sat (Flo) VBG Base Excess Sodium 149 H Potassium 3.6 Chloride 115 H Carbon Dioxide 26 Anion Gap 7 L BUN 20 H Creatinine 1.2 Creat Clearance w eGFR 60.39 Random Glucose 359 H* Lactic Acid 2.0 Calcium 8.3 L Total Bilirubin 1.1 H AST 11 L ALT 9 L Alkaline Phosphatase 119 H Troponin I < 0.02 Total Protein 6.6 Albumin 2.5 L Urine Color Urine Appearance Urine pH Ur Specific Gillespie Urine Protein Urine Glucose (UA) Urine Ketones Urine Blood Urine Nitrite Urine Bilirubin Urine Urobilinogen Ur Leukocyte Esterase Urine WBC (Auto) Urine RBC (Auto) Urine Casts (Auto) U Epithel Cells (Auto) Urine Bacteria (Auto) Urine Osmolality 977 H Imaging studies reviewed ASSESSMENT/PLAN: 67 year old man from [facility] with poor oral intake for 3 days, hyperkalemia in NH -with K of 6.7- (normal here in ER), minimally responsive, had fever in ER of 102.1F, borderline tachy, leukocytosis, low o2 sat, found to have residual food stuffs in oral cavity. Head CT coincidentally showed subtle hypodense lesion, ? infarct, new compared to CT head from August 2018. Discussed with daughter at bedside. She was inquiring if infarct found how mgmt would change and explained cardiovascular risk reduction that would be desired with antiplalet and statin mgmt. Recommended MRI brain, daughter in agreement, ordered. Daughter concerned about reduced PO intake, PEG tube discussed by PCP with her and she seems supportive of this. Of note, patient with dementia and on memantine. Also with Parkinson's and on Sinemet. Would not adjust these medications for now. Recommend gmt for infection, maintain hydration, monitor electrolytes (hypernatremia noted), tight gylcemic control for DM. Discussed with destinither at bedside.
--- NOTE | 2018-10-04 14:10 | EKG ---
Test Reason : Blood Pressure : / mmHG Vent. Rate : 077 BPM Atrial Rate : 077 BPM P-R Int : 162 ms QRS Dur : 082 ms QT Int : 428 ms P-R-T Axes : 027 -01 001 degrees QTc Int : 484 ms SINUS RHYTHM WITH OCCASIONAL PREMATURE VENTRICULAR COMPLEXES VOLTAGE CRITERIA FOR LEFT VENTRICULAR HYPERTROPHY NONSPECIFIC T WAVE ABNORMALITY BASELINE ARTIFACT ABNORMAL ECG Confirmed by MD ALLEY, HAMILTON ([id number]) on 10/04/2018 2:10:20 PM Referred By: Confirmed By:HAMILTON HAGER MD
[2018-10-04] MEDS: VANCOMYCIN HCL 1,250 MG in DEXTROSE 5%-WATER - 250 ML IVPB SCH (14:13)
[2018-10-04] MEDS: DEXTROSE 5%-0.45% SALINE 1,000 ML IV SCH (14:14)
--- NOTE | 2018-10-04 14:21 | EKG ---
Test Reason : Blood Pressure : / mmHG Vent. Rate : 092 BPM Atrial Rate : 092 BPM P-R Int : 168 ms QRS Dur : 086 ms QT Int : 366 ms P-R-T Axes : 065 015 001 degrees QTc Int : 452 ms NORMAL SINUS RHYTHM VOLTAGE CRITERIA FOR LEFT VENTRICULAR HYPERTROPHY NONSPECIFIC T WAVE ABNORMALITY ABNORMAL ECG Confirmed by MD ALLEY, HAMILTON ([id number]) on 10/04/2018 2:20:53 PM Referred By: Confirmed By:HAMILTON HAGER MD
[2018-10-04] MEDS: MIRTAZAPINE 15 MG TABLET (FP) PO SCH (21:48)
[2018-10-05] MEDS ORDERED: DEXTROSE 5%-WATER - 50 ML IVPB ONE ×3 (01:21→16:53)
[2018-10-05] MEDS ORDERED: PIPERACILLIN/TAZOBACTAM 3.375 GM VIAL IVPB ONE ×3 (01:21→16:53)
[2018-10-05] MEDS: PIPERACILLIN/TAZOB 3.375 GM 3.375 GM in DEXTROSE 5%-WATER - 50 ML IVPB SCH ×3 (01:30→17:03)
[2018-10-05] MEDS: CARBIDOPA/LEVODOPA 25/100 TABLET (FP) PO SCH ×3 (06:05→21:52)
[2018-10-05] MEDS: INSULIN SLIDING SCALE (NOVOLOG) 1 VIAL SQ SCH ×4 (06:06→21:51)
[2018-10-05 09:49] LABS: BASO % 0.8 % (0-2.0); EOS % 1.9 % (0-4.5); HEMATOCRIT 33.2 % (35.4-49); HEMOGLOBIN 10.9 GM/dL (11.7-16.9); LYMPH % 14.8 % (8-40); MCHC 32.9 g/dl (32.0-35.9); MEAN CELL VOLUME 88.1 fl (80-96); MEAN PLT VOLUME 9.8 fl (7.5-11.1); MONO % 7.9 % (3.8-10.2); NEUT % 74.6 % (42.8-82.8); PLATELET COUNT 181 K/MM3 (134-434); RBC 3.77 M/mm3 (4.00-5.60); RDW 14.6 % (11.9-15.9); WHITE BLOOD COUNT 7.9 K/mm3 (4.0-10.0)
[2018-10-05 10:14] LABS: ALBUMIN 2.4 g/dl (3.4-5.0); ALK PHOS 119 U/L (45-117); ANION GAP 4 MMOL/L (8-16); BILIRUBIN,TOTAL 0.9 mg/dL (0.2-1); BLOOD UREA NITROGEN 11 mg/dL (7-18); CALCIUM 8.9 mg/dL (8.5-10.1); CHLORIDE 114 mmol/L (98-107); CO2 28 mmol/L (21-32); CREATININE 0.9 mg/dL (0.55-1.3); GLUCOSE,RANDOM 128 mg/dL (74-106); POTASSIUM 3.7 mmol/L (3.5-5.1); SGOT/AST 11 U/L (15-37); SGPT/ALT 8 U/L (13-61); SODIUM 147 mmol/L (136-145); TOT PROT 6.8 g/dl (6.4-8.2)
--- NOTE | 2018-10-05 10:38 | PN ---
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 (short form) - Note 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: Overall Condition same all f/u noted MRi-- Acute cva ? -- per Neurology Wll transfer to tele discussed in detail with pts daughter/hcp -- yesterday and today willing to consider peg-- but wants to talk to sw first as wants to take him home- dont want to send him to senior care Vital Signs Temp 98.1 F 10/05/18 06:00 Pulse 74 10/05/18 06:00 Resp 20 10/05/18 06:00 BP 131/76 10/05/18 06:00 Pulse Ox 99 10/04/18 21:00 Intake & Output 10/04/18 10/04/18 10/05/18 11:59 23:59 11:59 Intake Total 950 0 Output Total 2 Balance 950 -2 Intake: IV 600 D5-1/2Ns - 1,000 ml @ 83 600 mls/hr IV ASDIR GABI Rx#: [id number] IVPB 350 Oral 0 0 Output: Urine 2 Void 2 Other: Voiding Method Diaper Incontinent # Unmeasured Voids Void 3 Bowel Movement Yes Yes No # Bowel Movements 1 Active Medications Albuterol Sulfate (Ventolin 0.083% Nebulizer Soln -) 1 amp NEB Q6H PRN PRN Reason: WHEEZING Amlodipine Besylate (Norvasc -) 5 mg PO DAILY [facility] Last Admin: 10/04/18 11:25 Dose: Not Given Carbidopa/Levodopa (Sinemet 25/100 -) 1 each PO TID [facility] Last Admin: 10/05/18 06:05 Dose: Not Given Fludrocortisone Acetate (Florinef -) 0.1 mg PO DAILY [facility] Last Admin: 10/04/18 11:24 Dose: Not Given Heparin Sodium (Porcine) (Heparin -) 5,000 unit SQ BID [facility] Last Admin: 10/04/18 21:47 Dose: 5,000 unit Dextrose/Sodium Chloride (D5-1/2ns -) 1,000 mls @ 83 mls/hr IV ASDIR [facility] Last Admin: 10/04/18 14:14 Dose: 83 mls/hr Piperacillin Sod/Tazobactam (Sod 3.375 gm/ Dextrose) 50 mls @ 100 mls/hr IVPB Q8H-IV [facility]; Protocol Last Admin: 10/05/18 01:30 Dose: 100 mls/hr Vancomycin HCl 1,250 mg/ (Dextrose) 250 mls @ 166.667 mls/hr IVPB Q24H [facility]; Protocol Last Admin: 10/04/18 14:13 Dose: 166.667 mls/hr Insulin Aspart (Novolog Vial Sliding Scale -) 1 vial SQ ACHS [facility]; Protocol Last Admin: 10/05/18 06:06 Dose: Not Given Memantine (Namenda -) 10 mg PO BID [facility] Last Admin: 10/04/18 21:48 Dose: Not Given Mirtazapine (Remeron -) 7.5 mg PO HS [facility] Last Admin: 10/04/18 21:48 Dose: Not Given Tamsulosin HCl (Flomax -) 0.4 mg PO BID [facility] Last Admin: 10/04/18 21:48 Dose: Not Given Valproate Sodium (Depakene -) 250 mg PO BID [facility] Last Admin: 10/04/18 21:48 Dose: Not Given CBC, BMP 10/05/18 08:55 10/05/18 08:55 Microbiology 10/03/18 16:00 Urine Culture - Final Urine - Urine Clean Catch 10/03/18 15:14 Blood Culture - Preliminary Blood - Peripheral Venous Pending Organism 10/03/18 15:30 Blood Culture - Preliminary Blood - Peripheral Venous NO GROWTH OBTAINED AFTER 24 HOURS, INCUBATION TO CONTINUE FOR 4 DAYS. Physical Exam poorly responsive heent- no jvd luns- diminished cvs---s1, s2 rrr abd - soft ext- no edema A/P Keep Npo fluids - continue present care sw to discuss with family prognosis poor / gaurded discussed with family will follow abx
[2018-10-05] MEDS: FLUDROCORTISONE ACETATE 0.1 MG TABLET (FP) PO SCH (11:19)
[2018-10-05] MEDS: TAMSULOSIN HCL 0.4 MG CAP PO SCH ×2 (11:19→21:52)
[2018-10-05] MEDS: MEMANTINE HCL 10 MG TABLET (FP) PO SCH ×2 (11:19→21:51)
[2018-10-05] MEDS: HEPARIN NA (PORCINE) 5,000 UNITS/ML 1ML VIAL SQ SCH ×2 (11:19→21:52)
[2018-10-05] MEDS: amLODIPine BESYLATE 5 MG TABLET (FP) PO SCH (11:20)
[2018-10-05] MEDS: VALPROATE SODIUM 250 MG/5 ML UNIT DOSE CUP PO SCH (11:21)
--- NOTE | 2018-10-05 11:54 | PN ---
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, Physician History of Present Illness: patient looks more lethargic now going on mri - Current Medication List Current Medications: Active Medications Albuterol Sulfate (Ventolin 0.083% Nebulizer Soln -) 1 amp NEB Q6H PRN PRN Reason: WHEEZING Amlodipine Besylate (Norvasc -) 5 mg PO DAILY [facility] Last Admin: 10/05/18 11:20 Dose: Not Given Carbidopa/Levodopa (Sinemet 25/100 -) 1 each PO TID [facility] Last Admin: 10/05/18 06:05 Dose: Not Given Fludrocortisone Acetate (Florinef -) 0.1 mg PO DAILY [facility] Last Admin: 10/05/18 11:19 Dose: Not Given Heparin Sodium (Porcine) (Heparin -) 5,000 unit SQ BID [facility] Last Admin: 10/05/18 11:19 Dose: 5,000 unit Dextrose/Sodium Chloride (D5-1/2ns -) 1,000 mls @ 83 mls/hr IV [facility] Last Admin: 10/04/18 14:14 Dose: 83 mls/hr Piperacillin Sod/Tazobactam (Sod 3.375 gm/ Dextrose) 50 mls @ 100 mls/hr IVPB Q8H-IV [facility]; Protocol Last Admin: 10/05/18 10:00 Dose: 100 mls/hr Vancomycin HCl 1,250 mg/ (Dextrose) 250 mls @ 166.667 mls/hr IVPB Q24H [facility]; Protocol Last Admin: 10/04/18 14:13 Dose: 166.667 mls/hr Insulin Aspart (Novolog Vial Sliding Scale -) 1 vial SQ ACHS [facility]; Protocol Last Admin: 10/05/18 06:06 Dose: Not Given Memantine (Namenda -) 10 mg PO BID [facility] Last Admin: 10/05/18 11:19 Dose: Not Given Mirtazapine (Remeron -) 7.5 mg PO HS [facility] Last Admin: 10/04/18 21:48 Dose: Not Given Tamsulosin HCl (Flomax -) 0.4 mg PO BID [facility] Last Admin: 10/05/18 11:19 Dose: Not Given Valproate Sodium (Depakene -) 250 mg PO BID [facility] Last Admin: 10/05/18 11:21 Dose: Not Given - Objective Vital Signs: Vital Signs Temperature 98.1 F 10/05/18 06:00 Pulse Rate 74 10/05/18 06:00 Respiratory Rate 20 10/05/18 06:00 Blood Pressure 131/76 10/05/18 06:00 O2 Sat by Pulse Oximetry (%) 99 10/04/18 21:00 Constitutional: Yes: Other Cardiovascular: Yes: Regular Rate and Rhythm Respiratory: Yes: On Nasal O2, Rhonchi, Other (poor air entry) Gastrointestinal: Yes: Normal Bowel Sounds, Soft Musculoskeletal: Yes: WNL Extremities: Yes: WNL Neurological: Yes: Lethargy Labs: CBC, BMP 10/05/18 08:55 10/05/18 08:55 INR, PTT INR 1.54 (0.83-1.09) H 10/03/18 15:14 Assessment/Plan patient wiht multiple medical problems now more lethargic with facial droop going for mri neuro on the case plan continue current abx await for all reports mri of the brain rest as per the team
--- NOTE | 2018-10-05 12:09 | PN ---
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 (short form) - Note 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: \ Neurology CHIEF COMPLAINT: poor oral intake PCP: Jitendra HISTORY OF PRESENT ILLNESS: 67 year old man from [facility] with poor oral intake for 3 days prior to admission, hyperkalemia in NH -with K of 6.7- (normal here in ER), minimally responsive, had fever in ER of 102.1F, borderline tachy, leukocytosis, low o2 sat, found to have residual food stuffs in oral cavity. Head CT coincidentally showed subtle hypodense lesion, ? infarct, new compared to CT head from August 2018. Discussed with daughter at bedside on admission. She was inquiring if infarct found how mgmt would change and explained cardiovascular risk reduction that would be desired with antiplatelet and statin mgmt. Recommended MRI brain , daughter in agreement, ordered and completed, awaiting official report, does appear show CVA on DWI/ADC dropout, possibly subacute. Daughter was concerned about reduced PO intake, PEG tube discussed by PCP with her and she seems supportive of this. Of note, patient with dementia and on memantine. Also with Parkinson's and on Sinemet. Would not adjust these medications for now. Active Medications Albuterol Sulfate (Ventolin 0.083% Nebulizer Soln -) 1 amp NEB Q6H PRN PRN Reason: WHEEZING Amlodipine Besylate (Norvasc -) 5 mg PO DAILY [facility] Last Admin: 10/05/18 11:20 Dose: Not Given Carbidopa/Levodopa (Sinemet 25/100 -) 1 each PO TID [facility] Last Admin: 10/05/18 06:05 Dose: Not Given Fludrocortisone Acetate (Florinef -) 0.1 mg PO DAILY [facility] Last Admin: 10/05/18 11:19 Dose: Not Given Heparin Sodium (Porcine) (Heparin -) 5,000 unit SQ BID [facility] Last Admin: 10/05/18 11:19 Dose: 5,000 unit Dextrose/Sodium Chloride (D5-1/2ns -) 1,000 mls @ 83 mls/hr IV ASDIR [facility] Last Admin: 10/04/18 14:14 Dose: 83 mls/hr Piperacillin Sod/Tazobactam (Sod 3.375 gm/ Dextrose) 50 mls @ 100 mls/hr IVPB Q8H-IV [facility]; Protocol Last Admin: 10/05/18 10:00 Dose: 100 mls/hr Vancomycin HCl 1,250 mg/ (Dextrose) 250 mls @ 166.667 mls/hr IVPB Q24H [facility]; Protocol Last Admin: 10/04/18 14:13 Dose: 166.667 mls/hr Insulin Aspart (Novolog Vial Sliding Scale -) 1 vial SQ ACHS [facility]; Protocol Last Admin: 10/05/18 06:06 Dose: Not Given Memantine (Namenda -) 10 mg PO BID [facility] Last Admin: 10/05/18 11:19 Dose: Not Given Mirtazapine (Remeron -) 7.5 mg PO HS [facility] Last Admin: 10/04/18 21:48 Dose: Not Given Tamsulosin HCl (Flomax -) 0.4 mg PO BID [facility] Last Admin: 10/05/18 11:19 Dose: Not Given Valproate Sodium (Depakene -) 250 mg PO BID [facility] Last Admin: 10/05/18 11:21 Dose: Not Given PHYSICAL EXAMINATION Vital Signs Temperature 98.9 F 10/05/18 10:00 Pulse Rate 73 10/05/18 10:00 Respiratory Rate 18 10/05/18 10:00 Blood Pressure 145/90 10/05/18 10:00 O2 Sat by Pulse Oximetry (%) 99 10/04/18 21:00 GENERAL: Awake, alert, nonverbal, bedbound HEAD: Normal with no signs of trauma. EYES: Pupils equal, round and reactive to light, extraocular movements intact, sclera anicteric, conjunctiva clear. No lid lag. EARS, NOSE, THROAT: residual foodstuff in oral cavity NECK: Normal range of motion, supple without lymphadenopathy, JVD, or masses. LUNGS: Breath sounds equal, b/l present HEART: Regular rate and rhythm, normal S1 and S2 without murmur, rub or gallop. ABDOMEN: Soft, nontender, not distended, normoactive bowel sounds, no guarding, no rebound, no masses. No hepatomegaly or splenomegaly. MUSCULOSKELETAL: Normal range of motion at all joints. No bony deformities or tenderness. No CVA tenderness. UPPER EXTREMITIES: 2+ pulses, warm, well-perfused. No cyanosis. No clubbing. No peripheral edema. LOWER EXTREMITIES: 2+ pulses, warm, well-perfused. No calf tenderness. No peripheral edema. PSYCHIATRIC: Somnolent SKIN: poor skin turgor, no decubitus ulcers reported as per nursing Neuro: Awake, but nonverbal, not moving extremities, sensory intact to LT CBCD WBC 7.9 K/mm3 (4.0-10.0) 10/05/18 08:55 RBC 3.77 M/mm3 (4.00-5.60) L 10/05/18 08:55 Hgb 10.9 GM/dL (11.7-16.9) L 10/05/18 08:55 Hct 33.2 % (35.4-49) L 10/05/18 08:55 MCV 88.1 fl (80-96) 10/05/18 08:55 MCHC 32.9 g/dl (32.0-35.9) 10/05/18 08:55 RDW 14.6 % (11.9-15.9) 10/05/18 08:55 Plt Count 181 K/MM3 (134-434) 10/05/18 08:55 MPV 9.8 fl (7.5-11.1) 10/05/18 08:55 CMP Sodium 147 mmol/L (136-145) H 10/05/18 08:55 Potassium 3.7 mmol/L (3.5-5.1) 10/05/18 08:55 Chloride 114 mmol/L (98-107) H 10/05/18 08:55 Carbon Dioxide 28 mmol/L (21-32) 10/05/18 08:55 Anion Gap 4 MMOL/L (8-16) L 10/05/18 08:55 BUN 11 mg/dL (7-18) 10/05/18 08:55 Creatinine 0.9 mg/dL (0.55-1.3) 10/05/18 08:55 Creat Clearance w eGFR 83.92 (>60) 10/05/18 08:55 Random Glucose 128 mg/dL (74-106) H 10/05/18 08:55 Calcium 8.9 mg/dL (8.5-10.1) 10/05/18 08:55 Total Bilirubin 0.9 mg/dL (0.2-1) 10/05/18 08:55 AST 11 U/L (15-37) L 10/05/18 08:55 ALT 8 U/L (13-61) L 10/05/18 08:55 Alkaline Phosphatase 119 U/L (45-117) H 10/05/18 08:55 Total Protein 6.8 g/dl (6.4-8.2) 10/05/18 08:55 Albumin 2.4 g/dl (3.4-5.0) L 10/05/18 08:55 CARDIAC ENZYMES Troponin I < 0.02 ng/ml (0.00-0.05) 10/03/18 18:15 Imaging studies reviewed ASSESSMENT/PLAN: 67 year old man from [facility] with poor oral intake for 3 days, hyperkalemia in NH -with K of 6.7- (normal here in ER), minimally responsive, had fever in ER of 102.1F, borderline tachy, leukocytosis, low O2 sat, found to have residual food stuffs in oral cavity. Head CT coincidentally showed subtle hypodense lesion, ? infarct, new compared to CT head from August 2018. Discussed with daughter at bedside. She was inquiring if infarct found how mgmt would change and explained cardiovascular risk reduction that would be desired with antiplatelet and statin mgmt. Recommended MRI brain, daughter in agreement, ordered. Daughter concerned about reduced PO intake, PEG tube discussed by PCP with her and she seems supportive of this. Of note, patient with dementia and on memantine. Also with Parkinson's and on Sinemet. Would not adjust these medications for now. Recommend mgmt for infection, maintain hydration, monitor electrolytes (hypernatremia noted), tight glycemic control for DM. Not currently on ASA, would consider starting with no contraindication. Awaiting official read for MRI brain.
[2018-10-05] MEDS ORDERED: PT OWN MED DRAWER 7, Y5N ONE ×3 (12:41→18:17)
[2018-10-05] MEDS: VANCOMYCIN HCL 1,250 MG in DEXTROSE 5%-WATER - 250 ML IVPB SCH (12:42)
[2018-10-05] MEDS: DEXTROSE 5%-0.45% SALINE 1,000 ML IV SCH ×2 (12:43→18:10)
[2018-10-05] MEDS: VALPROATE SODIUM 500 MG/5 ML VIAL IVPB SCH ×2 (15:30→22:06)
[2018-10-05] MEDS: ASPIRIN 300 MG SUPP.RECT RC SCH (15:45)
[2018-10-05] MEDS: MIRTAZAPINE 15 MG TABLET (FP) PO SCH (21:52)
[2018-10-06] MEDS ORDERED: DEXTROSE 5%-WATER - 50 ML IVPB ONE ×3 (02:46→16:47)
[2018-10-06] MEDS ORDERED: PIPERACILLIN/TAZOBACTAM 3.375 GM VIAL IVPB ONE ×3 (02:46→16:47)
[2018-10-06] MEDS: PIPERACILLIN/TAZOB 3.375 GM 3.375 GM in DEXTROSE 5%-WATER - 50 ML IVPB SCH ×3 (03:18→17:20)
[2018-10-06] MEDS: CARBIDOPA/LEVODOPA 25/100 TABLET (FP) PO SCH ×3 (05:55→21:04)
[2018-10-06] MEDS: INSULIN SLIDING SCALE (NOVOLOG) 1 VIAL SQ SCH ×4 (06:18→22:25)
[2018-10-06 06:42] LABS: CHOLESTEROL 171 mg/dL (50-200); HDL CHOLESTEROL 25 mg/dL (40-60); TRIGLYCERIDES 99 mg/dL (0-150)
[2018-10-06] MEDS ORDERED: PT OWN MED DRAWER 7, Y5N ONE ×3 (08:07→22:19)
--- NOTE | 2018-10-06 08:35 | PN ---
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 (short form) - Note 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: Chief Complaint: Events noted notes reviewed, recurrent stroke as evident on CT scan of the head History of Present Illness: Seen and examined on telemetry. Full consult dictated - Current Medication List Current Medications Albuterol Sulfate (Ventolin 0.083% Nebulizer Soln -) 1 amp NEB Q6H PRN PRN Reason: WHEEZING Amlodipine Besylate (Norvasc -) 5 mg PO DAILY [facility] Last Admin: 10/05/18 11:20 Dose: Not Given Aspirin (Asa -) 300 mg RC DAILY [facility] Last Admin: 10/05/18 15:45 Dose: 300 mg Carbidopa/Levodopa (Sinemet 25/100 -) 1 each PO TID [facility] Last Admin: 10/06/18 05:55 Dose: Not Given Fludrocortisone Acetate (Florinef -) 0.1 mg PO DAILY [facility] Last Admin: 10/05/18 11:19 Dose: Not Given Heparin Sodium (Porcine) (Heparin -) 5,000 unit SQ BID [facility] Last Admin: 10/05/18 21:52 Dose: 5,000 unit Dextrose/Sodium Chloride (D5-1/2ns -) 1,000 mls @ 83 mls/hr IV ASDIR [facility] Last Admin: 10/05/18 18:10 Dose: 83 mls/hr Piperacillin Sod/Tazobactam (Sod 3.375 gm/ Dextrose) 50 mls @ 100 mls/hr IVPB Q8H-IV [facility]; Protocol Last Admin: 10/06/18 03:18 Dose: 100 mls/hr Vancomycin HCl 1,250 mg/ (Dextrose) 250 mls @ 166.667 mls/hr IVPB Q24H [facility]; Protocol Last Admin: 10/05/18 12:42 Dose: 166.667 mls/hr Insulin Aspart (Novolog Vial Sliding Scale -) 1 vial SQ ACHS [facility]; Protocol Last Admin: 10/06/18 06:18 Dose: Not Given Memantine (Namenda -) 10 mg PO BID [facility] Last Admin: 10/05/18 21:51 Dose: Not Given Mirtazapine (Remeron -) 7.5 mg PO HS [facility] Last Admin: 10/05/18 21:52 Dose: Not Given Tamsulosin HCl (Flomax -) 0.4 mg PO BID [facility] Last Admin: 10/05/18 21:52 Dose: Not Given Valproate Sodium (Depacon Injection -) 500 mg IVPB BID [facility] Last Admin: 10/05/18 22:06 Dose: 500 mg - Review of Systems Unable to obtain - Objective Vital Signs: Last Vital Signs Temp Pulse Resp BP Pulse Ox 97.1 F L 67 18 158/80 100 10/06/18 06:00 10/06/18 06:00 10/06/18 06:00 10/06/18 06:00 10/05/18 20:27 Intake & Output 10/03/18 10/04/18 10/05/18 10/06/18 23:59 23:59 23:59 23:59 Intake Total 992 344 0417 1008 Output Total 2 Balance 611 886 5003 1008 Weight 138 lb 3 oz 138 lb Neck: Supple Negative JVD No Bruit Cardiovascular: S1 S2 Regular Rate Rhythm Respiratory: Diminished Breath Sounds Bilaterally Gastrointestinal: Soft Benign Normal Bowel Sounds Ext: Negative Edema Labs: CBC, BMP 10/05/18 08:55 10/05/18 08:55 Hepatic Panel Total Bilirubin 0.9 mg/dL (0.2-1) 10/05/18 08:55 AST 11 U/L (15-37) L 10/05/18 08:55 ALT 8 U/L (13-61) L 10/05/18 08:55 Alkaline Phosphatase 119 U/L (45-117) H 10/05/18 08:55 Albumin 2.4 g/dl (3.4-5.0) L 10/05/18 08:55 INR, PTT INR 1.54 (0.83-1.09) H 10/03/18 15:14 Assessment/Plan ASSESSMENT: 1. Known history of CVA with recurrence 2. CAD/CAC- coronary artery calcification/CT scan chest dated 08/27/18/images reviewed angina pectoris 3. Diastolic LV dysfunction with class 0 NYHA classification LV failure 4. HTN 5. Hypercholesterolemia 6. Alzheimer's dementia 7. Parkinson's disease 8. COPD with aspiration pneumonia/sepsis syndrome 9. Hypernatremia, improving 10. Anemia PLAN: 1. Continue ASA 2. Continue Norvasc 3. Add ACEI or ARBS unless contraindicated 4. Discontinue Fludrocortisone Acetate (Florinef), HTN and Hypernatremia 5. Add statins 5. Obtain echocardiography study to evaluate LV function and valvular function Viktor Rodriguez M.D.
--- NOTE | 2018-10-06 09:04 | PN ---
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 (short form) - Note 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: \ Neurology CHIEF COMPLAINT: poor oral intake PCP: Jitendra HISTORY OF PRESENT ILLNESS: 67 year old man from [facility] with poor oral intake for 3 days prior to admission, hyperkalemia in NH -with K of 6.7- (normal here in ER), minimally responsive, had fever in ER of 102.1F, borderline tachy, leukocytosis, low o2 sat, found to have residual food stuffs in oral cavity. Head CT coincidentally showed subtle hypodense lesion, ? infarct, new compared to CT head from August 2018. Discussed with daughter at bedside on admission. She was inquiring if infarct found how mgmt would change and explained cardiovascular risk reduction that would be desired with antiplatelet and statin mgmt. Recommended MRI brain , daughter in agreement, ordered and completed, awaiting official report still, does appear show CVA on DWI/ADC dropout, possibly subacute. Daughter was concerned about reduced PO intake, PEG tube discussed by PCP with her and she seems supportive of this. Of note, patient with dementia and on memantine. Also with Parkinson's and on Sinemet. Would not adjust these medications for now. Carotid dopplers completed, also awaiting official report. Lipid profile received, LDL 131, will need statin, will order though may not receive unless NGT or Peg placed. Discussed with nurse. Active Medications Albuterol Sulfate (Ventolin 0.083% Nebulizer Soln -) 1 amp NEB Q6H PRN PRN Reason: WHEEZING Amlodipine Besylate (Norvasc -) 5 mg PO DAILY [facility] Last Admin: 10/05/18 11:20 Dose: Not Given Aspirin (Asa -) 300 mg RC DAILY [facility] Last Admin: 10/05/18 15:45 Dose: 300 mg Carbidopa/Levodopa (Sinemet 25/100 -) 1 each PO TID [facility] Last Admin: 10/06/18 05:55 Dose: Not Given Heparin Sodium (Porcine) (Heparin -) 5,000 unit SQ BID [facility] Last Admin: 10/05/18 21:52 Dose: 5,000 unit Dextrose/Sodium Chloride (D5-1/2ns -) 1,000 mls @ 83 mls/hr IV [facility] Last Admin: 10/05/18 18:10 Dose: 83 mls/hr Piperacillin Sod/Tazobactam (Sod 3.375 gm/ Dextrose) 50 mls @ 100 mls/hr IVPB Q8H-IV [facility]; Protocol Last Admin: 10/06/18 03:18 Dose: 100 mls/hr Vancomycin HCl 1,250 mg/ (Dextrose) 250 mls @ 166.667 mls/hr IVPB Q24H [facility]; Protocol Last Admin: 10/05/18 12:42 Dose: 166.667 mls/hr Insulin Aspart (Novolog Vial Sliding Scale -) 1 vial SQ ACHS [facility]; Protocol Last Admin: 10/06/18 06:18 Dose: Not Given Memantine (Namenda -) 10 mg PO BID [facility] Last Admin: 10/05/18 21:51 Dose: Not Given Mirtazapine (Remeron -) 7.5 mg PO HS [facility] Last Admin: 10/05/18 21:52 Dose: Not Given Rosuvastatin Calcium (Crestor -) 20 mg PO HS [facility] Tamsulosin HCl (Flomax -) 0.4 mg PO BID [facility] Last Admin: 10/05/18 21:52 Dose: Not Given Valproate Sodium (Depacon Injection -) 500 mg IVPB BID [facility] Last Admin: 10/05/18 22:06 Dose: 500 mg Valsartan (Diovan -) 80 mg PO DAILY [facility] PHYSICAL EXAMINATION Vital Signs Period Temp Pulse Resp BP Sys/Rubi Pulse Ox Last 24 Hr 97 F-100 F 66-84 18-22 139-163/80-92 100 GENERAL: Awake, alert, nonverbal, bedbound HEAD: Normal with no signs of trauma. EYES: Pupils equal, round and reactive to light, extraocular movements intact, sclera anicteric, conjunctiva clear. No lid lag. EARS, NOSE, THROAT: residual foodstuff in oral cavity NECK: Normal range of motion, supple without lymphadenopathy, JVD, or masses. LUNGS: Breath sounds equal, b/l present HEART: Regular rate and rhythm, normal S1 and S2 without murmur, rub or gallop. ABDOMEN: Soft, nontender, not distended, normoactive bowel sounds, no guarding, no rebound, no masses. No hepatomegaly or splenomegaly. MUSCULOSKELETAL: Normal range of motion at all joints. No bony deformities or tenderness. No CVA tenderness. UPPER EXTREMITIES: 2+ pulses, warm, well-perfused. No cyanosis. No clubbing. No peripheral edema. LOWER EXTREMITIES: 2+ pulses, warm, well-perfused. No calf tenderness. No peripheral edema. PSYCHIATRIC: Somnolent SKIN: poor skin turgor, no decubitus ulcers reported as per nursing Neuro: Awake, but nonverbal, not moving extremities, sensory intact to LT CBCD WBC 7.9 K/mm3 (4.0-10.0) 10/05/18 08:55 RBC 3.77 M/mm3 (4.00-5.60) L 10/05/18 08:55 Hgb 10.9 GM/dL (11.7-16.9) L 10/05/18 08:55 Hct 33.2 % (35.4-49) L 10/05/18 08:55 MCV 88.1 fl (80-96) 10/05/18 08:55 MCHC 32.9 g/dl (32.0-35.9) 10/05/18 08:55 RDW 14.6 % (11.9-15.9) 10/05/18 08:55 Plt Count 181 K/MM3 (134-434) 10/05/18 08:55 MPV 9.8 fl (7.5-11.1) 10/05/18 08:55 CMP Sodium 147 mmol/L (136-145) H 10/05/18 08:55 Potassium 3.7 mmol/L (3.5-5.1) 10/05/18 08:55 Chloride 114 mmol/L (98-107) H 10/05/18 08:55 Carbon Dioxide 28 mmol/L (21-32) 10/05/18 08:55 Anion Gap 4 MMOL/L (8-16) L 10/05/18 08:55 BUN 11 mg/dL (7-18) 10/05/18 08:55 Creatinine 0.9 mg/dL (0.55-1.3) 10/05/18 08:55 Creat Clearance w eGFR 83.92 (>60) 10/05/18 08:55 Random Glucose 128 mg/dL (74-106) H 10/05/18 08:55 Calcium 8.9 mg/dL (8.5-10.1) 10/05/18 08:55 Total Bilirubin 0.9 mg/dL (0.2-1) 10/05/18 08:55 AST 11 U/L (15-37) L 10/05/18 08:55 ALT 8 U/L (13-61) L 10/05/18 08:55 Alkaline Phosphatase 119 U/L (45-117) H 10/05/18 08:55 Total Protein 6.8 g/dl (6.4-8.2) 10/05/18 08:55 Albumin 2.4 g/dl (3.4-5.0) L 10/05/18 08:55 CARDIAC ENZYMES Troponin I < 0.02 ng/ml (0.00-0.05) 10/03/18 18:15 Imaging studies reviewed ASSESSMENT/PLAN: 67 year old man from [facility] with poor oral intake for 3 days, hyperkalemia in NH -with K of 6.7- (normal here in ER), minimally responsive, had fever in ER of 102.1F, borderline tachy, leukocytosis, low O2 sat, found to have residual food stuffs in oral cavity. Head CT coincidentally showed subtle hypodense lesion, ? infarct, new compared to CT head from August 2018. Discussed with daughter at bedside. She was inquiring if infarct found how mgmt would change and explained cardiovascular risk reduction that would be desired with antiplatelet and statin mgmt. Recommended MRI brain, daughter in agreement, ordered. Daughter concerned about reduced PO intake, PEG tube discussed by PCP with her and she seems supportive of this. Of note, patient with dementia and on memantine. Also with Parkinson's and on Sinemet. Would not adjust these medications for now. Recommend mgmt for infection, maintain hydration, monitor electrolytes (hypernatremia noted), tight glycemic control for DM. Awaiting official read for MRI brain, CD doppler. Started on ASA MT. Echo also ordered, awaiting completion. Lipid profile completed and reviewed, LDL 131, will need statin, will order. PCP with PCP, likely for NGT until PEG intervention. Discussed with nurse on rounds as well.
[2018-10-06] MEDS: HEPARIN NA (PORCINE) 5,000 UNITS/ML 1ML VIAL SQ SCH ×2 (09:05→22:24)
[2018-10-06] MEDS: TAMSULOSIN HCL 0.4 MG CAP PO SCH ×2 (09:06→21:04)
[2018-10-06] MEDS: VALPROATE SODIUM 500 MG/5 ML VIAL IVPB SCH ×2 (09:06→22:24)
[2018-10-06] MEDS: ASPIRIN 300 MG SUPP.RECT RC SCH (09:06)
[2018-10-06] MEDS: MEMANTINE HCL 10 MG TABLET (FP) PO SCH ×2 (09:07→21:04)
[2018-10-06] MEDS: amLODIPine BESYLATE 5 MG TABLET (FP) PO SCH (09:07)
--- NOTE | 2018-10-06 09:51 | CONSULT ---
Admitting History and Physical - Primary Care Physician PCP: Clara Ham - Admission History of Present Illness: Per EMR- 67 year old man admitted from [facility], reduced KARY and febrile. Baseline communication is impaired, varied from occasional, somewhat intelligible verbalizations, confused. CT/CXR/MRI noted. No acute infarct per MRI report. CXR rec to consider Ct scan. Pt well known to me from previous admissions.PO intake vs PEG vs hospice were all considered during recent admission. Pt began eating fairly well, family deferred PEG/Hospice and was discharged back to [facility]. Pt was reported to cough frequently during oral feedings at [facility], and was referred for a repeat MBS which was completed on 09/29/18.MBS revealed improved swallowing function. At that time, pt demonstrated fair oral control, stasis in pharynx with pt self generating multiple swallows to successfully improve pharyngeal clearance. There was silent aspiration on thin liquid. Recommendations were Dys puree/nectar on a tsp only, feed slowly, 1/2 tsn at a time, allow pt time to swallow at least 3 times before next bite/sip given, alternate puree/ liquid and complete meal with liquid.Sevveral dry swallows throughout the meal, mouth care before and after each meal. Pt arrived at [facility] minimally responsive with T of 102.1, food in oral cavity according to EMR. Selected Entries 10/03/18 10/03/18 10/03/18 15:04 17:02 20:42 Breakfast Temperature 102.1 F H 99.6 F 99.2 F 10/03/18 10/04/18 10/04/18 21:49 06:00 14:00 Breakfast Temperature 99.2 F 98.7 F 98.3 F 10/04/18 10/05/18 10/05/18 20:00 02:00 06:00 Breakfast Temperature 98.2 F 98.9 F 98.1 F 10/05/18 10/05/18 10/05/18 10:00 14:00 15:00 Breakfast Temperature 98.9 F 98.8 F 97.8 F 10/05/18 10/05/18 10/06/18 18:00 20:34 02:32 Breakfast Temperature 97.8 F 100 F H 97 F L 10/06/18 10/06/18 06:00 09:30 Breakfast NPO Temperature 97.1 F L Laboratory Tests 10/03/18 10/03/18 10/04/18 15:14 15:14 07:50 WBC 11.5 H 9.5 BUN 22 H Random Glucose 10/04/18 10/05/18 10/05/18 07:50 08:55 08:55 WBC 7.9 BUN 17 11 Random Glucose 114 H 128 H History Source: Medical Record Limitations to Obtaining History: Clinical Condition, Dementia - Past Medical 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 CT scan rec.) CT Scan: Report Reviewed (Head CT coincidentally showed subtle hypodense lesion , ? infarct, new compared to CT head from August 2018) MRI: Report Reviewed ((-) acute infarct) Modified Barium Swallow: Report Reviewed (repeat MBS which was completed on 09/29.MBS revealed improved swallowing function. At that time, pt demonstrated fair oral control, stasis in pharynx with pt self generating multiple swallows to successfully improve pharyngeal clearance. There was silent aspiration on thin liquid. Recommendations were Dys puree/nectar on a tsp only, feed slowly, 1/2 tsn at a time, allow pt time to swallow at least 3 times before next bite/ sip given, alternate puree/ liquid and complete meal with liquid.Sevveral dry swallows throughout the meal, mouth care before and after each meal.) - General Mental Status: Awake and Alert, Confused Attention: Distractible, Mild Impairment Ability to Follow Directions: Poor Head/Neck Control: Needs Assist - Hearing Hearing: Normal Speech Evaluation - Communication Primary Language: SLOVENIAN Communication: Yes: Simple Responses (low volume mumbling with occasional somewhat intelligible words.) - Speech Characteristics Voice Loudness: Severely Soft/Quiet Voice Phonatory-based Quality: Yes: Dysphonia, Vocal Wetness Speech Pattern: Impaired Speech Clarity: < 25% Articulation: Yes: Imprecise Dysfluency: Yes: Clonic Rate of Speech: Too Fast Voice, Other Observations: Yes: Progressively Weak Voice, Inadequate Breath Support - Language/Auditory Comprehension Observation: Able to respond to yes/no queries: Yes - Language/Verbal Expression Able to Respond to Simple Queries: Yes: Severely Impaired Able to Communicate Wants and Needs: Yes: Severely Impaired Functional Communication Status: Yes: Severely Impaired - Swallow Evaluation/Bedside Assessment Current Nutritional Intake: NPO Oral Secretions: Yes: Dryness (dry mucous on soft palate. Pt resistent to suctioning and mouth care.) Dentition: Yes: Edentulous Facial Symmetry at Rest: Symmetrical Jaw Position: Open at Rest Lingual Movement: Symmetric Lingual Speed of Movement: Reduced Lingual Movement Strgth Against Opposition: Reduced Lingual Movement Characteristics: Normal Velopharyngeal Movement: Reduced Elevation Laryngeal Elevation: Impaired Laryngeal Movement: Unable to Palpate Rate of Intake: Slow/Holding Labial Seal: Impaired Bilaterally Timing of Swallow: Absent Change in Voice: Yes (wetness following 1/3 tsp applesauce) Recommendations - Speech Evaluation, Impression/Plan Impression: Similar to when admitted recently, limited swallow initiation, aspiration risk. Pt improved as infection cleared with improved swallowing function on 09/30/18. Presently, swallow reflex not palpated. Possible sepsis. High risk of aspiration. - Disposition Discharge to: To be Determined (Per emr notes, daughter considering taking pt home.) - Dysphagia Impressions/Plan Swallowing Skills: Impaired Dysphagia Impressions: Severe Impairment, Risk of Aspiration, Ongoing Evaluation *Silent aspiration: cannot be R/O at bedside Dysphagia Treatment Plan: Other (Mouth care, as allowed by pt. Moisten oral mucosa.) Recommendations: Palliative Care (Consider PEG for nutritional intact, hydration , medication, with possible pleasure feedings per MBS recommendations once infection clears and swallowing function improves.) - Recommendations Diet Consistency: NPO, Other (NPO including meds if possible) Liquids: NPO
[2018-10-06] MEDS: VALSARTAN 80 MG TABLET (UD) PO SCH (10:18)
--- NOTE | 2018-10-06 11:27 | PN ---
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 (short form) - Note 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: pt seen/ examined condition same family agreed for peg-- discussed with Bethany franco also mri-- noted - no acute stroke Vital Signs Temp 97.1 F L 10/06/18 06:00 Pulse 67 10/06/18 06:00 Resp 18 10/06/18 06:00 BP 158/80 10/06/18 06:00 Pulse Ox 100 10/05/18 20:27 Intake & Output 10/05/18 10/05/18 10/06/18 11:59 23:59 11:59 Intake Total 0 1182 1008 Output Total 2 Balance -2 1182 1008 Weight 138 lb Intake: IV 782 1008 D5-1/2Ns - 1,000 ml @ 83 782 1008 mls/hr IV ASDIR [facility] Rx#: [id number] IVPB 400 Oral 0 0 Output: Urine 2 Void 2 Other: Voiding Method Incontinent Incontinent # Unmeasured Voids Void 2 2 Bowel Movement No Yes # Bowel Movements 1 Height 5 ft 10 in Body Mass Index (BMI) 19.8 Active Medications Albuterol Sulfate (Ventolin 0.083% Nebulizer Soln -) 1 amp NEB Q6H PRN PRN Reason: WHEEZING Amlodipine Besylate (Norvasc -) 5 mg PO DAILY [facility] Last Admin: 10/06/18 09:07 Dose: Not Given Aspirin (Asa -) 300 mg RC DAILY [facility] Last Admin: 10/06/18 09:06 Dose: 300 mg Atorvastatin Calcium (Lipitor -) 40 mg PO [facility] Carbidopa/Levodopa (Sinemet 25/100 -) 1 each PO TID [facility] Last Admin: 10/06/18 05:55 Dose: Not Given Heparin Sodium (Porcine) (Heparin -) 5,000 unit SQ BID [facility] Last Admin: 10/06/18 09:05 Dose: 5,000 unit Dextrose/Sodium Chloride (D5-1/2ns -) 1,000 mls @ 83 mls/hr IV [facility] Last Admin: 10/05/18 18:10 Dose: 83 mls/hr Piperacillin Sod/Tazobactam (Sod 3.375 gm/ Dextrose) 50 mls @ 100 mls/hr IVPB Q8H-IV [facility]; Protocol Last Admin: 10/06/18 09:07 Dose: 100 mls/hr Vancomycin HCl 1,250 mg/ (Dextrose) 250 mls @ 166.667 mls/hr IVPB Q24H [facility]; Protocol Last Admin: 10/05/18 12:42 Dose: 166.667 mls/hr Insulin Aspart (Novolog Vial Sliding Scale -) 1 vial SQ ACHS [facility]; Protocol Last Admin: 10/06/18 10:58 Dose: Not Given Memantine (Namenda -) 10 mg PO BID [facility] Last Admin: 10/06/18 09:07 Dose: Not Given Mirtazapine (Remeron -) 7.5 mg PO HS [facility] Last Admin: 10/05/18 21:52 Dose: Not Given Tamsulosin HCl (Flomax -) 0.4 mg PO BID [facility] Last Admin: 10/06/18 09:06 Dose: Not Given Valproate Sodium (Depacon Injection -) 500 mg IVPB BID [facility] Last Admin: 10/06/18 09:06 Dose: 500 mg Valsartan (Diovan -) 80 mg PO DAILY [facility] Last Admin: 10/06/18 10:18 Dose: Not Given CBC, BMP 10/05/18 08:55 10/05/18 08:55 Microbiology 10/03/18 15:14 Blood Culture - Preliminary Blood - Peripheral Venous Staphylococcus Coagulase Neg 10/03/18 15:30 Blood Culture - Preliminary Blood - Peripheral Venous NO GROWTH OBTAINED AFTER 48 HOURS, INCUBATION TO CONTINUE FOR 3 DAYS. 10/03/18 16:00 Urine Culture - Final Urine - Urine Clean Catch Physical Exam poorly responsive heent- no jvd luns- diminished cvs---s1, s2 rrr abd - soft ext- no edema A/P NPO iv fluids abx ent consult-- nasal mass ? in MRI gi consult-- For Peg will follow
--- NOTE | 2018-10-06 11:29 | CONS ---
DATE OF CONSULTATION: 10/06/2018 REQUESTED BY: Clara Ham MD CHIEF COMPLAINT: Cardiovascular evaluation, recurrent stroke, CVA. History was predominately obtained from the chart. Patient with advanced organic brain syndrome, dementia. A 68-year-old male of descent with known history of cerebrovascular disease with residual deficit, advanced organic brain syndrome, dementia, Parkinson disease, coronary artery disease, coronary artery calcification on CT scan of the chest dated August 27, 2018, images were reviewed although not noted on the report, angina pectoris, diastolic left ventricular dysfunction with clinical class zero [place] Heart Association Classification left ventricular failure, hypertensive cardiovascular disease, hypercholesterolemia, chronic obstructive pulmonary disease, resident of an extended care facility who presented to [facility] with altered mental status and was noted to have evidence of probable aspiration pneumonia, hypernatremia. Patient, upon evaluation by Neurology, was noted to have evidence of a new stroke. In view of which, was transferred to a monitored floor for further evaluation and management. As noted above, patient is non-communicative, does not appear to be in any acute distress. PAST MEDICAL HISTORY: Cerebrovascular disease with residual deficit, organic brain syndrome, dementia, Parkinson disease, coronary artery disease, coronary artery calcification on CT scan of the chest dated August 27, 2018, anginal pectoris, diastolic left ventricular dysfunction with clinical class zero [place] Heart Association Classification left ventricular failure, hypertensive cardiovascular disease, hypercholesterolemia, chronic obstructive pulmonary disease, anemia. SOCIAL HISTORY: Resident of an extended care facility. FAMILY HISTORY: Not available. ALLERGIES: As listed. MEDICAL THERAPY: Currently includes albuterol nebulizer, Norvasc 5 mg once a day, aspirin 300 mg rectally daily, Sinemet 25/100 mg 2 times a day, Florinef 0.1 mg once a day, subcu heparin 5000 units twice a day, IV fluids, vancomycin, and piperacillin with Tazobactam, insulin, Namenda, Remeron, Flomax, and valproic sodium twice daily. REVIEW OF SYSTEMS: Unable to obtain. PHYSICAL EXAMINATION: VITAL SIGNS: Blood pressure is 158/80 mmHg, pulse rate is 67 beats per minute. HEAD AND NECK: Pupils are equal, reactive to light and accommodation. External ocular muscles cannot be evaluated. Anicteric sclerae. Negative JVD. No bruit appreciated. CHEST: Diminished breath sounds bilaterally. CARDIOVASCULAR: S1, S2 regular. ABDOMEN: Soft, benign. Normoactive bowel sounds. EXTREMITIES: Negative edema. ELECTROCARDIOGRAM: Reveals sinus rhythm with baseline artifact, premature ventricular contraction, increased voltage. CBC revealed white cell count 7.9, hemoglobin 10.9, platelet count 181. INR 1.54. Basic metabolic profile reveals sodium 147, potassium 3.7. BUN 11, creatinine 0.9. Glucose 128. Cholesterol 171, LDL 131, HDL 25, triglyceride 99. ASSESSMENT: 1. Known history of cerebrovascular disease with recurrent stroke. 2. Coronary artery disease, coronary artery calcification CT scan of the chest dated August 27, 2018, images reviewed, angina pectoris. 3. Diastolic left ventricular dysfunction with class zero [place] Heart Association Classification left ventricular failure. 4. Hypertensive cardiovascular disease. 5. Hypercholesterolemia. 6. Alzheimer dementia. 7. Parkinson disease. 8. Chronic obstructive pulmonary disease with aspiration pneumonia. 9. Sepsis syndrome. 10. Hypernatremia, improving. 11. Anemia. RECOMMENDATIONS: 1. Continuation of aspirin. 2. Continuation of Norvasc. 3. Addition of JOSE MANUEL inhibitor or angiotensin receptive blockers unless contraindicated. 4. Discontinuation of Florinef therapy in view of the above-noted hypertension and hypernatremia. 5. Addition of statins. 6. Echocardiography for evaluation of left ventricular size and systolic function. Thank you for the kind referral. FLORY LING M.D. [id number]
[2018-10-06] MEDS: DEXTROSE 5%-0.45% SALINE 1,000 ML IV SCH (12:04)
[2018-10-06] MEDS: VANCOMYCIN HCL 1,250 MG in DEXTROSE 5%-WATER - 250 ML IVPB SCH (12:04)
--- NOTE | 2018-10-06 13:09 | PN ---
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, Physician - Current Medication List Current Medications: Active Medications Albuterol Sulfate (Ventolin 0.083% Nebulizer Soln -) 1 amp NEB Q6H PRN PRN Reason: WHEEZING Amlodipine Besylate (Norvasc -) 5 mg PO DAILY [facility] Last Admin: 10/06/18 09:07 Dose: Not Given Aspirin (Asa -) 300 mg RC DAILY [facility] Last Admin: 10/06/18 09:06 Dose: 300 mg Atorvastatin Calcium (Lipitor -) 40 mg PO HS [facility] Carbidopa/Levodopa (Sinemet 25/100 -) 1 each PO TID [facility] Last Admin: 10/06/18 05:55 Dose: Not Given Heparin Sodium (Porcine) (Heparin -) 5,000 unit SQ BID [facility] Last Admin: 10/06/18 09:05 Dose: 5,000 unit Dextrose/Sodium Chloride (D5-1/2ns -) 1,000 mls @ 83 mls/hr IV ASDIR [facility] Last Admin: 10/06/18 12:04 Dose: 83 mls/hr Piperacillin Sod/Tazobactam (Sod 3.375 gm/ Dextrose) 50 mls @ 100 mls/hr IVPB Q8H-IV [facility]; Protocol Last Admin: 10/06/18 09:07 Dose: 100 mls/hr Vancomycin HCl 1,250 mg/ (Dextrose) 250 mls @ 166.667 mls/hr IVPB Q24H [facility]; Protocol Last Admin: 10/06/18 12:04 Dose: 166.667 mls/hr Insulin Aspart (Novolog Vial Sliding Scale -) 1 vial SQ ACHS [facility]; Protocol Last Admin: 10/06/18 10:58 Dose: Not Given Memantine (Namenda -) 10 mg PO BID [facility] Last Admin: 10/06/18 09:07 Dose: Not Given Mirtazapine (Remeron -) 7.5 mg PO HS [facility] Last Admin: 10/05/18 21:52 Dose: Not Given Tamsulosin HCl (Flomax -) 0.4 mg PO BID [facility] Last Admin: 10/06/18 09:06 Dose: Not Given Valproate Sodium (Depacon Injection -) 500 mg IVPB BID [facility] Last Admin: 10/06/18 09:06 Dose: 500 mg Valsartan (Diovan -) 80 mg PO DAILY [facility] Last Admin: 10/06/18 10:18 Dose: Not Given - Objective Vital Signs: Vital Signs Temperature 97.1 F L 10/06/18 06:00 Pulse Rate 67 10/06/18 06:00 Respiratory Rate 18 10/06/18 10:00 Blood Pressure 158/80 10/06/18 06:00 O2 Sat by Pulse Oximetry (%) 100 10/06/18 10:00 Labs: CBC, BMP 10/05/18 08:55 10/05/18 08:55 INR, PTT INR 1.54 (0.83-1.09) H 10/03/18 15:14
--- NOTE | 2018-10-06 13:47 | ECHO ---
Name: BRANNON VELEZ Exam:Adult Echocardiogram Study Date: 10/06/2018 10:29 AM Age: 68 yrs Reason For Study: CVA Height: 70 in Weight: 138 lb BSA: 1.8 m2 MMode/2D Measurements & Calculations IVSd: 1.3 cm Ao root diam: 3.5 cm LVIDd: 4.0 cm LA dimension: 2.7 cm LVIDs: 2.8 cm LVPWd: 1.3 cm EDV(Teich): 70.2 ml LVOT diam: 2.0 cm ESV(Teich): 30.8 ml Doppler Measurements & Calculations MV E max julian: 49.0 cm/sec Ao V2 max: 148.0 cm/sec MV A max julian: 78.1 cm/sec Ao max P.8 mmHg MV E/A: 0.63 AI P1/2t: 505.9 msec MV dec time: 0.15 sec KANE(V,D): 2.3 cm2 AI max julian: 451.3 cm/sec LV V1 max P.2 mmHg AI max P.5 mmHg LV V1 max: 102.8 cm/sec AI dec slope: 261.3 cm/sec2 TR max julian: 271.5 cm/sec PI Vmax: 90.9 cm/sec TR max P.5 mmHg Procedure The study was technically good with many images being of high quality. Left Ventricle The left ventricular size, thickness and function are normal. Ejection Fraction = 60-65%. Grade I gertrudis stolic dysfunction, (abnormal relaxation pattern). Right Ventricle The right ventricle is normal in size and function. Atria Normal left and right atrial size and function. Mitral Valve The mitral valve is normal in structure and function. There is trace mitral regurgitation. Tricuspid Valve The tricuspid valve is not well visualized, but is grossly normal. There is trace tricuspid regurgita tion. There was insufficient TR detected to calculate RV systolic pressure. Aortic Valve The aortic valve opens well. There is mild aortic valve thickening. The aortic valve is trileaflet. T race to mild aortic regurgitation. Pulmonic Valve The pulmonic valve is not well visualized. There is no pulmonic valvular regurgitation. Great Vessels The aortic root is normal size. Pericardium/Pleura There is no pericardial effusion. Interpretation Summary Compared to the prior echo report on 07/28/2018, there is no significant change. The left ventricular size, thickness and function are normal The right ventricle is normal in size and function. The mitral valve is normal in structure and function. There is trace mitral regurgitation. There is trace tricuspid regurgitation. Grade I diastolic dysfunction, (abnormal relaxation pattern). Trace to mild aortic regurgitation. Judson Herrera MD 10/06/2018 01:47 PM
[2018-10-06] MEDS ORDERED: ACETAMINOPHEN 650 MG SUPP.RECT PR PRN (15:41)
--- NOTE | 2018-10-06 15:46 | CON.GI ---
Consult Consult Specialty:: GI Referred by:: Medicine Reason for Consultation:: PEG - History of Present Illness Chief Complaint: aspiration History of Present Illness: 68M with dementia admitted with sepsis from aspiration PNA, with inability to tolerate PO. Is on abx for PNA. Has been assessed by S&S, unable to tolerate PO, would need altnerative method of feeding. Patient is unable to give any history. Currently NPO. Fever this afternoon to 100.4. - Past Medical History [employer] SECR[employer]ARY: Yes: Dementia Cardio/Vascular: Yes: HTN, Hyperlipdemia Renal/: Yes: Renal Failure - Past Surgical History Past Surgical History: Yes: None - Alcohol/Substance Use Hx Alcohol Use: No History of Substance Use: reports: None - Smoking History Smoking history: Never smoked Have you smoked in the past 12 months: No Aproximately how many cigarettes per day: 0 - Social History Usual Living Arrangement: [facility] ADL: Support Services History of Recent Travel: Yes Home Medications - Allergies Allergies/Adverse Reactions: Allergies Allergy/AdvReac Type Severity Reaction Status Date / Time haloperidol [From Haldol] Allergy Severe Verified 08/19/18 10:16 benztropine Allergy Verified 08/19/18 10:16 benztropine mesylate Allergy Verified 08/19/18 10:16 [From Cogentin] haloperidol lactate Allergy Verified 08/19/18 10:16 [From Haldol] - Home Medications Home Medications: Ambulatory Orders Fludrocortisone Acetate [Florinef -] 0.1 mg PO DAILY 09/22/17 Memantine HCl [Namenda -] 10 mg PO BID 09/22/17 Sodium Chloride [Saline Nasal [place]] 1 spray NS TID 09/22/17 Tamsulosin HCl [Flomax] 0.4 mg PO BID 09/22/17 Amlodipine Besylate 5 mg PO DAILY 07/27/18 Carbidopa/Levodopa 25/100 [Sinemet 25/100 -] 1 each PO TID 07/27/18 Acetaminophen [Acetaminophen 8 Hour] 650 mg PO Q6H 08/19/18 Nystatin Oral Suspension - [Nystatin Oral Susp 241265 Units/5 ML -] 500,000 units PO Q6HPO cup 09/02/18 Albuterol 0.083% Nebulizer Gloria [Ventolin 0.083% Nebulizer Soln -] 1 neb NEB Q6H 10/03/18 Guaifenesin [Dorothy-Tussin] 100 mg PO Q4H 10/03/18 Mirtazapine 7.5 mg PO HS 10/03/18 Valproate Sodium Liquid [Depakene] 250 mg PO BID 10/03/18 Review of Systems Unable to obtain ROS, reason: dementia Physical Exam-GI Vital Signs: Vital Signs Temperature 100.4 F H 10/06/18 13:56 Pulse Rate 86 10/06/18 13:56 Respiratory Rate 18 10/06/18 13:56 Blood Pressure 159/77 10/06/18 13:56 O2 Sat by Pulse Oximetry (%) 100 10/06/18 10:00 Constitutional: Yes: Cachectic Eyes: Yes: Conjunctiva Clear HENT: Yes: Atraumatic, Normocephalic, Other (temporal wasting) Cardiovascular: Yes: Regular Rate and Rhythm Respiratory: Yes: CTA Bilaterally ...Palpate: Yes: Soft. No: Tenderness ...Rectal Exam: Yes: Deferred Musculoskeletal: Yes: Other (contracted) Edema: No Neurological: No: Alert, Oriented Psychiatric: No: Alert, Oriented Labs: CBC, BMP 10/05/18 08:55 10/05/18 08:55 INR, PTT INR 1.54 (0.83-1.09) H 10/03/18 15:14 Assessment/Plan Patient is appropriate for PEG, but has not defervesced from pneumonia as yet as still having fevers. Would place NGT for feeds in the interim while PNA resolves Would discuss PEG with daughter, Jenni Bowen, , when appropriate and consider placement prior to discharge
[2018-10-06] MEDS: ATORVASTATIN CA 40 MG TABLET (FP) PO SCH (21:04)
[2018-10-06] MEDS: MIRTAZAPINE 15 MG TABLET (FP) PO SCH (21:04)
[2018-10-06] MEDS ORDERED: ROSUVASTATIN CA 20 MG TABLET (FP) PO SCH (22:00)
[2018-10-07] MEDS ORDERED: PIPERACILLIN/TAZOBACTAM 3.375 GM VIAL IVPB ONE ×3 (02:16→17:11)
[2018-10-07] MEDS ORDERED: DEXTROSE 5%-WATER - 50 ML IVPB ONE ×3 (02:17→17:11)
[2018-10-07] MEDS: PIPERACILLIN/TAZOB 3.375 GM 3.375 GM in DEXTROSE 5%-WATER - 50 ML IVPB SCH ×3 (02:20→17:14)
[2018-10-07] MEDS: DEXTROSE 5%-0.45% SALINE 1,000 ML IV SCH ×2 (02:26→14:16)
[2018-10-07] MEDS: CARBIDOPA/LEVODOPA 25/100 TABLET (FP) PO SCH ×3 (05:34→21:00)
[2018-10-07 05:41] LABS: BASO % 0.8 % (0-2.0); HEMATOCRIT 33.9 % (35.4-49); HEMOGLOBIN 11.1 GM/dL (11.7-16.9); LYMPH % 15.8 % (8-40); MCH 28.6 pg (25.7-33.7); MCHC 32.7 g/dl (32.0-35.9); MEAN CELL VOLUME 87.3 fl (80-96); MEAN PLT VOLUME 9.2 fl (7.5-11.1); MONO % 7.7 % (3.8-10.2); NEUT % 74.7 % (42.8-82.8); PLATELET COUNT 193 K/MM3 (134-434); RBC 3.88 M/mm3 (4.00-5.60); RDW 14.4 % (11.9-15.9); WHITE BLOOD COUNT 7.2 K/mm3 (4.0-10.0)
[2018-10-07 06:05] LABS: ALBUMIN 2.4 g/dl (3.4-5.0); ALK PHOS 109 U/L (45-117); ANION GAP 9 MMOL/L (8-16); BILIRUBIN,TOTAL 0.7 mg/dL (0.2-1); BLOOD UREA NITROGEN 16 mg/dL (7-18); CALCIUM 8.6 mg/dL (8.5-10.1); CHLORIDE 113 mmol/L (98-107); CO2 28 mmol/L (21-32); GLUCOSE,RANDOM 130 mg/dL (74-106); POTASSIUM 3.8 mmol/L (3.5-5.1); SGOT/AST 31 U/L (15-37); SGPT/ALT 9 U/L (13-61); SODIUM 150 mmol/L (136-145); TOT PROT 6.9 g/dl (6.4-8.2)
[2018-10-07] MEDS: INSULIN SLIDING SCALE (NOVOLOG) 1 VIAL SQ SCH ×4 (06:16→21:07)
--- NOTE | 2018-10-07 06:34 | PN ---
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 (short form) - Note 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: Chief Complaint: Events noted notes reviewed, unresponsive in no acute distress , overall no change in status History of Present Illness: Seen and examined on telemetry. Events noted notes reviewed, unresponsive in no acute distress, overall no change in status Echocardiography revealed normal LV size and function, trace MR and TR - Current Medication List Current Medications Acetaminophen (Tylenol Suppository -) 650 mg [place] Q6H PRN PRN Reason: FEVER Albuterol Sulfate (Ventolin 0.083% Nebulizer Soln -) 1 amp NEB Q6H PRN PRN Reason: WHEEZING Amlodipine Besylate (Norvasc -) 5 mg PO DAILY [facility] Last Admin: 10/06/18 09:07 Dose: Not Given Aspirin (Asa -) 300 mg RC DAILY [facility] Last Admin: 10/06/18 09:06 Dose: 300 mg Atorvastatin Calcium (Lipitor -) 40 mg PO HS [facility] Last Admin: 10/06/18 21:04 Dose: Not Given Carbidopa/Levodopa (Sinemet 25/100 -) 1 each PO TID [facility] Last Admin: 10/07/18 05:34 Dose: Not Given Heparin Sodium (Porcine) (Heparin -) 5,000 unit SQ BID [facility] Last Admin: 10/06/18 22:24 Dose: 5,000 unit Dextrose/Sodium Chloride (D5-1/2ns -) 1,000 mls @ 83 mls/hr IV ASDIR [facility] Last Admin: 10/07/18 02:26 Dose: 83 mls/hr Piperacillin Sod/Tazobactam (Sod 3.375 gm/ Dextrose) 50 mls @ 100 mls/hr IVPB Q8H-IV [facility]; Protocol Last Admin: 10/07/18 02:20 Dose: 100 mls/hr Vancomycin HCl 1,250 mg/ (Dextrose) 250 mls @ 166.667 mls/hr IVPB Q24H [facility]; Protocol Last Admin: 10/06/18 12:04 Dose: 166.667 mls/hr Insulin Aspart (Novolog Vial Sliding Scale -) 1 vial SQ ACHS [facility]; Protocol Last Admin: 10/07/18 06:16 Dose: Not Given Memantine (Namenda -) 10 mg PO BID [facility] Last Admin: 10/06/18 21:04 Dose: Not Given Mirtazapine (Remeron -) 7.5 mg PO HS [facility] Last Admin: 10/06/18 21:04 Dose: Not Given Tamsulosin HCl (Flomax -) 0.4 mg PO BID [facility] Last Admin: 10/06/18 21:04 Dose: Not Given Valproate Sodium (Depacon Injection -) 500 mg IVPB BID [facility] Last Admin: 10/06/18 22:24 Dose: 500 mg Valsartan (Diovan -) 80 mg PO DAILY [facility] Last Admin: 10/06/18 10:18 Dose: Not Given - Review of Systems Unable to obtain - Objective Vital Signs: Last Vital Signs Temp Pulse Resp BP Pulse Ox 98.0 F 80 18 136/78 98 10/07/18 06:00 10/07/18 06:00 10/07/18 06:00 10/07/18 06:00 10/06/18 21:00 Intake & Output 10/04/18 10/05/18 10/06/18 10/07/18 23:59 23:59 23:59 23:59 Intake Total 950 1182 1445 0 Output Total 2 Balance 950 1180 1445 0 Weight 138 lb Neck: Supple Negative JVD No Bruit Cardiovascular: S1 S2 Regular Rate Rhythm Respiratory: Diminished Breath Sounds Bilaterally Gastrointestinal: Soft Benign Normal Bowel Sounds Ext: Negative Edema Labs: CBC, BMP 10/07/18 05:30 10/07/18 05:30 Hepatic Panel Total Bilirubin 0.7 mg/dL (0.2-1) 10/07/18 05:30 AST 31 U/L (15-37) 10/07/18 05:30 ALT 9 U/L (13-61) L 10/07/18 05:30 Alkaline Phosphatase 109 U/L (45-117) 10/07/18 05:30 Albumin 2.4 g/dl (3.4-5.0) L 10/07/18 05:30 INR, PTT INR 1.54 (0.83-1.09) H 10/03/18 15:14 Assessment/Plan ASSESSMENT: 1. Known history of CVA with recurrence 2. CAD/CAC- coronary artery calcification/CT scan chest dated 08/27/18/images reviewed angina pectoris 3. Diastolic LV dysfunction with class 0 NYHA classification LV failure 4. HTN 5. Hypercholesterolemia 6. Alzheimer's dementia 7. Parkinson's disease 8. COPD with aspiration pneumonia/sepsis syndrome 9. Hypernatremia, persistent 10. Anemia PLAN: 1. Continue ASA 2. Continue Norvasc 3. Continue Diovan 4. Continue statins 5. IV fluids to D5 1/3 NS, for the above noted Hypernatremia Viktor Rodriguez M.D.
[2018-10-07 08:19] LABS: INR 1.5 (0.83-1.09); PROTHROMBIN TIME (PATIENT) 17.8 SEC (9.7-13.0)
[2018-10-07] MEDS ORDERED: PHYTONADIONE 10 MG/1 ML AMP SQ ONE (09:15)
--- NOTE | 2018-10-07 09:15 | PN ---
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 (short form) - Note 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: \ Neurology CHIEF COMPLAINT: poor oral intake PCP: Jitendra HISTORY OF PRESENT ILLNESS: 67 year old man from [facility] with poor oral intake for 3 days prior to admission, hyperkalemia in NH -with K of 6.7- (normal here in ER), minimally responsive, had fever in ER of 102.1F, borderline tachy, leukocytosis, low o2 sat, found to have residual food stuffs in oral cavity. Head CT coincidentally showed subtle hypodense lesion, ? infarct, new compared to CT head from August 2018. Discussed with daughter at bedside on admission. She was inquiring if infarct found how mgmt would change and explained cardiovascular risk reduction that would be desired with antiplatelet and statin mgmt. MRI brain completed, no acute CVA noted. Carotid doppler reviewed and Moderate sized plaques in R comm carotid, small to moderate plaque in L comm carotid. Of note, patient with dementia and on memantine. Also with Parkinson's and on Sinemet. Would not adjust these medications for now. Carotid dopplers completed, also awaiting official report. Lipid profile received, LDL 131, Statin ordered. Active Medications Acetaminophen (Tylenol Suppository -) 650 mg [place] Q6H PRN PRN Reason: FEVER Albuterol Sulfate (Ventolin 0.083% Nebulizer Soln -) 1 amp NEB Q6H PRN PRN Reason: WHEEZING Amlodipine Besylate (Norvasc -) 5 mg PO DAILY [facility] Last Admin: 10/06/18 09:07 Dose: Not Given Aspirin (Asa -) 300 mg RC DAILY [facility] Last Admin: 10/06/18 09:06 Dose: 300 mg Atorvastatin Calcium (Lipitor -) 40 mg PO HS [facility] Last Admin: 10/06/18 21:04 Dose: Not Given Carbidopa/Levodopa (Sinemet 25/100 -) 1 each PO TID [facility] Last Admin: 10/07/18 05:34 Dose: Not Given Heparin Sodium (Porcine) (Heparin -) 5,000 unit SQ BID [facility] Last Admin: 10/06/18 22:24 Dose: 5,000 unit Dextrose/Sodium Chloride (D5-1/2ns -) 1,000 mls @ 83 mls/hr IV ASDIR [facility] Last Admin: 10/07/18 02:26 Dose: 83 mls/hr Piperacillin Sod/Tazobactam (Sod 3.375 gm/ Dextrose) 50 mls @ 100 mls/hr IVPB Q8H-IV [facility]; Protocol Last Admin: 10/07/18 02:20 Dose: 100 mls/hr Vancomycin HCl 1,250 mg/ (Dextrose) 250 mls @ 166.667 mls/hr IVPB Q24H [facility]; Protocol Last Admin: 10/06/18 12:04 Dose: 166.667 mls/hr Insulin Aspart (Novolog Vial Sliding Scale -) 1 vial SQ ACHS [facility]; Protocol Last Admin: 10/07/18 06:16 Dose: Not Given Memantine (Namenda -) 10 mg PO BID [facility] Last Admin: 10/06/18 21:04 Dose: Not Given Mirtazapine (Remeron -) 7.5 mg PO HS [facility] Last Admin: 10/06/18 21:04 Dose: Not Given Phytonadione ([place] Injection -) 10 mg SQ ONCE ONE Stop: 10/07/18 09:16 Tamsulosin HCl (Flomax -) 0.4 mg PO BID [facility] Last Admin: 10/06/18 21:04 Dose: Not Given Valproate Sodium (Depacon Injection -) 500 mg IVPB BID [facility] Last Admin: 10/06/18 22:24 Dose: 500 mg Valsartan (Diovan -) 80 mg PO DAILY [facility] Last Admin: 10/06/18 10:18 Dose: Not Given PHYSICAL EXAMINATION Vital Signs Period Temp Pulse Resp BP Sys/Rubi Pulse Ox Last 24 Hr 98.0 F-100.4 F 78-86 18-18 129-159/71-87 98-100 GENERAL: Awake, alert, nonverbal, bedbound HEAD: Normal with no signs of trauma. EYES: Pupils equal, round and reactive to light, extraocular movements intact, sclera anicteric, conjunctiva clear. No lid lag. EARS, NOSE, THROAT: residual foodstuff in oral cavity NECK: Normal range of motion, supple without lymphadenopathy, JVD, or masses. LUNGS: Breath sounds equal, b/l present HEART: Regular rate and rhythm, normal S1 and S2 without murmur, rub or gallop. ABDOMEN: Soft, nontender, not distended, normoactive bowel sounds, no guarding, no rebound, no masses. No hepatomegaly or splenomegaly. MUSCULOSKELETAL: Normal range of motion at all joints. No bony deformities or tenderness. No CVA tenderness. UPPER EXTREMITIES: 2+ pulses, warm, well-perfused. No cyanosis. No clubbing. No peripheral edema. LOWER EXTREMITIES: 2+ pulses, warm, well-perfused. No calf tenderness. No peripheral edema. PSYCHIATRIC: Somnolent SKIN: poor skin turgor, no decubitus ulcers reported as per nursing Neuro: Awake, but nonverbal, not moving extremities, sensory intact to LT CBCD WBC 7.2 K/mm3 (4.0-10.0) 10/07/18 05:30 RBC 3.88 M/mm3 (4.00-5.60) L 10/07/18 05:30 Hgb 11.1 GM/dL (11.7-16.9) L 10/07/18 05:30 Hct 33.9 % (35.4-49) L 10/07/18 05:30 MCV 87.3 fl (80-96) 10/07/18 05:30 MCHC 32.7 g/dl (32.0-35.9) 10/07/18 05:30 RDW 14.4 % (11.9-15.9) 10/07/18 05:30 Plt Count 193 K/MM3 (134-434) 10/07/18 05:30 MPV 9.2 fl (7.5-11.1) 10/07/18 05:30 CMP Sodium 150 mmol/L (136-145) H 10/07/18 05:30 Potassium 3.8 mmol/L (3.5-5.1) 10/07/18 05:30 Chloride 113 mmol/L (98-107) H 10/07/18 05:30 Carbon Dioxide 28 mmol/L (21-32) 10/07/18 05:30 Anion Gap 9 MMOL/L (8-16) 10/07/18 05:30 BUN 16 mg/dL (7-18) 10/07/18 05:30 Creatinine 3.0 mg/dL (0.55-1.3) H 10/07/18 05:30 Creat Clearance w eGFR 20.91 (>60) 10/07/18 05:30 Random Glucose 130 mg/dL (74-106) H 10/07/18 05:30 Calcium 8.6 mg/dL (8.5-10.1) 10/07/18 05:30 Total Bilirubin 0.7 mg/dL (0.2-1) 10/07/18 05:30 AST 31 U/L (15-37) 10/07/18 05:30 ALT 9 U/L (13-61) L 10/07/18 05:30 Alkaline Phosphatase 109 U/L (45-117) 10/07/18 05:30 Total Protein 6.9 g/dl (6.4-8.2) 10/07/18 05:30 Albumin 2.4 g/dl (3.4-5.0) L 10/07/18 05:30 CARDIAC ENZYMES Troponin I < 0.02 ng/ml (0.00-0.05) 10/03/18 18:15 Imaging studies reviewed ASSESSMENT/PLAN: 67 year old man from [facility] with poor oral intake for 3 days, hyperkalemia in NH -with K of 6.7- (normal here in ER), minimally responsive, had fever in ER of 102.1F, borderline tachy, leukocytosis, low O2 sat, found to have residual food stuffs in oral cavity. Head CT coincidentally showed subtle hypodense lesion, ? infarct, new compared to CT head from August 2018. Discussed with daughter at bedside. She was inquiring if infarct found how mgmt would change and explained cardiovascular risk reduction that would be desired with antiplatelet and statin mgmt. Recommended MRI brain, daughter in agreement, ordered. Daughter concerned about reduced PO intake, PEG tube discussed by PCP with her and she seems supportive of this. Of note, patient with dementia and on memantine. Also with Parkinson's and on Sinemet. Would not adjust these medications for now. Recommend mgmt for infection, maintain hydration, monitor electrolytes (hypernatremia noted), tight glycemic control for DM. MRI brain completed, no acute CVA noted. Carotid doppler reviewed and Moderate sized plaques in R comm carotid, small to moderate plaque in L comm carotid. Of note, patient with dementia and on memantine. Also with Parkinson's and on Sinemet. Would not adjust these medications for now. Carotid dopplers completed, also awaiting official report. Lipid profile received, LDL 131, Statin ordered. Though MRI without infarct, patient would benefit from ASA ppx, will adjust to 81mg. Continue statin as well.
[2018-10-07] MEDS ORDERED: DEXTROSE 5%-1/3 NS - 500 ML IV SCH (09:45)
[2018-10-07] MEDS: VALPROATE SODIUM 500 MG/5 ML VIAL IVPB SCH ×2 (09:51→21:43)
[2018-10-07] MEDS: VALSARTAN 80 MG TABLET (UD) PO SCH (09:51)
[2018-10-07] MEDS: HEPARIN NA (PORCINE) 5,000 UNITS/ML 1ML VIAL SQ SCH ×2 (09:52→21:07)
[2018-10-07] MEDS: TAMSULOSIN HCL 0.4 MG CAP PO SCH ×2 (09:52→21:00)
[2018-10-07] MEDS: amLODIPine BESYLATE 5 MG TABLET (FP) PO SCH (09:52)
[2018-10-07] MEDS: ASPIRIN COATED 81 MG TABLET.EC PO SCH (09:52)
[2018-10-07] MEDS: MEMANTINE HCL 10 MG TABLET (FP) PO SCH ×2 (09:52→21:00)
--- NOTE | 2018-10-07 10:40 | PN ---
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 Not grossly congested or sob. NPO. Selected Entries 10/07/18 10/07/18 10/07/18 02:17 06:00 09:10 Breakfast NPO Temperature 98.5 F 98.0 F Laboratory Tests 10/07/18 05:30 WBC 7.2 for PEG insertion.
--- NOTE | 2018-10-07 11:34 | PN ---
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 (short form) - Note 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: pt examined, events noted no distress Vital Signs - 24 hr 10/06/18 10/06/18 10/06/18 13:56 17:54 21:00 Temperature 100.4 F H 98.3 F Pulse Rate 86 81 81 Respiratory 18 18 18 Rate Blood Pressure 159/77 129/71 146/79 O2 Sat by Pulse 98 Oximetry (%) 10/07/18 10/07/18 02:17 06:00 Temperature 98.5 F 98.0 F Pulse Rate 78 80 Respiratory 18 18 Rate Blood Pressure 147/87 136/78 O2 Sat by Pulse Oximetry (%) Current Medications Generic Name Dose Route Start Last Admin Trade Name Freq PRN Reason Stop Dose Admin Acetaminophen 650 mg 10/06/18 15:41 Tylenol Suppository - [place] Q6H PRN FEVER Albuterol Sulfate 1 amp 10/03/18 22:15 Ventolin 0.083% Nebulizer Soln - NEB Q6H PRN WHEEZING Amlodipine Besylate 5 mg 10/04/18 10:00 10/07/18 09:52 Norvasc - PO Not Given DAILY [facility] Aspirin 81 mg 10/07/18 10:00 10/07/18 09:52 Ecotrin - PO Not Given DAILY [facility] Atorvastatin Calcium 40 mg 10/06/18 22:00 10/06/18 21:04 Lipitor - PO Not Given HS [facility] Carbidopa/Levodopa 1 each 10/04/18 06:00 10/07/18 05:34 Sinemet 25/100 - PO Not Given TID [facility] Heparin Sodium (Porcine) 5,000 unit 10/04/18 10:00 10/07/18 09:52 Heparin - SQ 5,000 unit BID [facility] Administration Piperacillin Sod/Tazobactam 50 mls @ 100 mls/hr 10/04/18 12:45 10/07/18 09:52 Sod 3.375 gm/ Dextrose IVPB 100 mls/hr Q8H-IV [facility] Administration Protocol Vancomycin HCl 1,250 mg/ 250 mls @ 166.667 mls/hr 10/04/18 12:45 10/06/18 12: 04 Dextrose IVPB 166.667 mls/hr Q24H [facility] Administration Protocol Dextrose/Sodium Chloride 500 mls @ 100 mls/hr 10/07/18 09:45 D5-1/3ns - IV ASDIR [facility] Insulin Aspart 1 vial 10/04/18 07:00 10/07/18 11:10 Novolog Vial Sliding Scale - SQ Not Given ACHS [facility] Protocol Memantine 10 mg 10/04/18 10:00 10/07/18 09:52 Namenda - PO Not Given BID [facility] Mirtazapine 7.5 mg 10/04/18 22:00 10/06/18 21:04 Remeron - PO Not Given HS [facility] Tamsulosin HCl 0.4 mg 10/04/18 10:00 10/07/18 09:52 Flomax - PO Not Given BID [facility] Valproate Sodium 500 mg 10/05/18 13:30 10/07/18 09:51 Depacon Injection - IVPB 500 mg BID [facility] Administration Valsartan 80 mg 10/06/18 10:00 10/07/18 09:51 Diovan - PO Not Given DAILY [facility] Laboratory Results - last 24 hr 10/06/18 10/06/18 10/07/18 16:05 22:24 04:57 WBC RBC Hgb Hct MCV MCH MCHC RDW Plt Count MPV Absolute Neuts (auto) Neutrophils % Lymphocytes % Monocytes % Eosinophils % Basophils % Nucleated RBC % PT with INR INR Sodium Potassium Chloride Carbon Dioxide Anion Gap BUN Creatinine Creat Clearance w eGFR POC Glucometer 112 112 123 Random Glucose Calcium Total Bilirubin AST ALT Alkaline Phosphatase Total Protein Albumin 10/07/18 10/07/18 10/07/18 05:30 05:30 05:30 WBC 7.2 RBC 3.88 L Hgb 11.1 L Hct 33.9 L MCV 87.3 MCH 28.6 MCHC 32.7 RDW 14.4 Plt Count 193 MPV 9.2 Absolute Neuts (auto) 5.4 Neutrophils % 74.7 Lymphocytes % 15.8 Monocytes % 7.7 Eosinophils % 1.0 Basophils % 0.8 Nucleated RBC % 0 PT with INR 17.80 H INR 1.50 H Sodium 150 H Potassium 3.8 Chloride 113 H Carbon Dioxide 28 Anion Gap 9 BUN 16 Creatinine 3.0 H Creat Clearance w eGFR 20.91 POC Glucometer Random Glucose 130 H Calcium 8.6 Total Bilirubin 0.7 AST 31 ALT 9 L Alkaline Phosphatase 109 Total Protein 6.9 Albumin 2.4 L 10/07/18 11:09 WBC RBC Hgb Hct MCV MCH MCHC RDW Plt Count MPV Absolute Neuts (auto) Neutrophils % Lymphocytes % Monocytes % Eosinophils % Basophils % Nucleated RBC % PT with INR INR Sodium Potassium Chloride Carbon Dioxide Anion Gap BUN Creatinine Creat Clearance w eGFR POC Glucometer 131 Random Glucose Calcium Total Bilirubin AST ALT Alkaline Phosphatase Total Protein Albumin Physical Exam poorly responsive heent- no jvd lungs- diminished cvs---s1, s2 rrr abd - soft ext- no edema A/P NPO dc po meds change BP meds to IV iv fluids--> change to clinimix abx ent consult-- nasal mass ? in MRI gi consult-- For Peg-- noted Problem List - Problems (1) Aspiration pneumonia Code(s): J69.0 - PNEUMONITIS DUE TO INHALATION OF FOOD AND VOMIT (2) Sepsis Code(s): A41.9 - SEPSIS, UNSPECIFIED ORGANISM (3) Altered mental status Code(s): R41.82 - ALTERED MENTAL STATUS, UNSPECIFIED Qualifiers: Altered mental status type: unspecified Qualified Code(s): R41.82 - Altered mental status, unspecified (4) Dehydration Code(s): E86.0 - DEHYDRATION (5) HTN (hypertension) Code(s): I10 - ESSENTIAL (PRIMARY) HYPERTENSION Qualifiers: Hypertension type: essential hypertension Qualified Code(s): I10 - Essential (primary) hypertension (6) Lewy body dementia with behavioral disturbance Code(s): G31.83 - DEMENTIA WITH LEWY BODIES; F02.81 - DEMENTIA IN OTH DISEASES CLASSD HEAVENWHR W BEHAVIORAL DISTURB
[2018-10-07] MEDS ORDERED: AMINO ACIDS 4.25%/D5W 1,000 ML IV SCH (12:00)
--- NOTE | 2018-10-07 12:03 | PN ---
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 (short form) - Note 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: VAscular Surgery Carotid US images reviewed. Carotid ultrasound within normal limits. No stenosis. No need for any surgery Medical management. Aniceto Eastman DO
[2018-10-07] MEDS: ENALAPRILAT DIHYDRATE 1.25 MG/1 ML VIAL IVPB SCH ×3 (13:29→21:00)
--- NOTE | 2018-10-07 13:59 | PN ---
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 (short form) - Note 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: Afebrile. NGT not placed secondary to large nasal polyp described on MRI of brain. Patient's daughter Jenni present at bedside. Discussed PEG placement as a means for enteral nutrition. We discussed alternatives ( like not placing tube and comfort measures, surgical G-tube, radiographically placed G-Tube that requires NGT however) to and potential risks of the procedure like but not limited to bleeding, perforation requiring surgery to repair, infection , perotinitis if the tube was prematurely dislodged, sedation medication effects , all of which could be potentially life threatening. She has agreed to the procedure. She wants her father to be full code with intubation if medically necessary. AM Labs ordered Dosed Vitamin K today given INR 1.5 AM heparin held
[2018-10-07] MEDS: VANCOMYCIN HCL 1,250 MG in DEXTROSE 5%-WATER - 250 ML IVPB SCH (14:11)
--- NOTE | 2018-10-07 14:38 | PN ---
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, Physician - Current Medication List Current Medications: Active Medications Acetaminophen (Tylenol Suppository -) 650 mg [place] Q6H PRN PRN Reason: FEVER Albuterol Sulfate (Ventolin 0.083% Nebulizer Soln -) 1 amp NEB Q6H PRN PRN Reason: WHEEZING Amlodipine Besylate (Norvasc -) 5 mg PO DAILY [facility] Last Admin: 10/07/18 09:52 Dose: Not Given Aspirin (Ecotrin -) 81 mg PO DAILY [facility] Last Admin: 10/07/18 09:52 Dose: Not Given Atorvastatin Calcium (Lipitor -) 40 mg PO HS [facility] Last Admin: 10/06/18 21:04 Dose: Not Given Carbidopa/Levodopa (Sinemet 25/100 -) 1 each PO TID [facility] Last Admin: 10/07/18 13:31 Dose: Not Given Enalaprilat (Vasotec Injection -) 1.25 mg IVPB Q6H-IV [facility] Last Admin: 10/07/18 13:29 Dose: 1.25 mg Heparin Sodium (Porcine) (Heparin -) 5,000 unit SQ BID [facility] Last Admin: 10/07/18 09:52 Dose: 5,000 unit Piperacillin Sod/Tazobactam (Sod 3.375 gm/ Dextrose) 50 mls @ 100 mls/hr IVPB Q8H-IV [facility]; Protocol Last Admin: 10/07/18 09:52 Dose: 100 mls/hr Vancomycin HCl 1,250 mg/ (Dextrose) 250 mls @ 166.667 mls/hr IVPB Q24H [facility]; Protocol Last Admin: 10/07/18 14:11 Dose: 166.667 mls/hr Dextrose/Sodium Chloride (D5-1/2ns -) 1,000 mls @ 100 mls/hr IV ASDIR [facility] Last Admin: 10/07/18 14:16 Dose: 100 mls/hr Insulin Aspart (Novolog Vial Sliding Scale -) 1 vial SQ ACHS [facility]; Protocol Last Admin: 10/07/18 11:10 Dose: Not Given Memantine (Namenda -) 10 mg PO BID [facility] Last Admin: 10/07/18 09:52 Dose: Not Given Mirtazapine (Remeron -) 7.5 mg PO HS [facility] Last Admin: 10/06/18 21:04 Dose: Not Given Saliva Substitute (Mouthkote Solution) 1 applic MM QID PRN PRN Reason: dry mouth Tamsulosin HCl (Flomax -) 0.4 mg PO BID [facility] Last Admin: 10/07/18 09:52 Dose: Not Given Valproate Sodium (Depacon Injection -) 500 mg IVPB BID [facility] Last Admin: 10/07/18 09:51 Dose: 500 mg Valsartan (Diovan -) 80 mg PO DAILY [facility] Last Admin: 10/07/18 09:51 Dose: Not Given - Objective Vital Signs: Vital Signs Temperature 97.4 F L 10/07/18 14:10 Pulse Rate 91 H 10/07/18 14:10 Respiratory Rate 20 10/07/18 14:10 Blood Pressure 158/79 10/07/18 14:10 O2 Sat by Pulse Oximetry (%) 98 10/07/18 09:00 Labs: CBC, BMP 10/07/18 05:30 10/07/18 05:30 INR, PTT INR 1.50 (0.83-1.09) H 10/07/18 05:30
[2018-10-07] MEDS: LYTES/YERBA SANTA 60 ML SPRAY MM PRN (15:05)
[2018-10-07 16:14] LABS: ALBUMIN 2.2 g/dl (3.4-5.0); ALK PHOS 102 U/L (45-117); ANION GAP 8 MMOL/L (8-16); BILIRUBIN,TOTAL 0.6 mg/dL (0.2-1); BLOOD UREA NITROGEN 16 mg/dL (7-18); CALCIUM 8.4 mg/dL (8.5-10.1); CHLORIDE 112 mmol/L (98-107); CO2 25 mmol/L (21-32); CREATININE 2.8 mg/dL (0.55-1.3); GLUCOSE,RANDOM 127 mg/dL (74-106); POTASSIUM 3.4 mmol/L (3.5-5.1); SGOT/AST 35 U/L (15-37); SGPT/ALT 13 U/L (13-61); SODIUM 145 mmol/L (136-145); TOT PROT 6.7 g/dl (6.4-8.2)
[2018-10-07] MEDS: ATORVASTATIN CA 40 MG TABLET (FP) PO SCH (21:00)
[2018-10-07] MEDS: MIRTAZAPINE 15 MG TABLET (FP) PO SCH (21:00)
[2018-10-07] MEDS ORDERED: PT OWN MED DRAWER 7, Y5N ONE ×2 (21:05→21:38)
[2018-10-08] MEDS ORDERED: DEXTROSE 5%-WATER - 50 ML IVPB ONE ×2 (02:36→09:02)
[2018-10-08] MEDS ORDERED: PIPERACILLIN/TAZOBACTAM 3.375 GM VIAL IVPB ONE ×2 (02:36→09:02)
[2018-10-08] MEDS: PIPERACILLIN/TAZOB 3.375 GM 3.375 GM in DEXTROSE 5%-WATER - 50 ML IVPB SCH ×3 (02:42→17:35)
[2018-10-08] MEDS: ENALAPRILAT DIHYDRATE 1.25 MG/1 ML VIAL IVPB SCH ×4 (03:05→21:20)
[2018-10-08] MEDS: INSULIN SLIDING SCALE (NOVOLOG) 1 VIAL SQ SCH ×4 (06:05→21:25)
[2018-10-08] MEDS: CARBIDOPA/LEVODOPA 25/100 TABLET (FP) PO SCH ×3 (06:05→21:22)
[2018-10-08 06:07] LABS: BASO % 0.4 % (0-2.0); EOS % 0.9 % (0-4.5); HEMOGLOBIN 10.7 GM/dL (11.7-16.9); LYMPH % 14.5 % (8-40); MCH 28.7 pg (25.7-33.7); MCHC 33.4 g/dl (32.0-35.9); MEAN PLT VOLUME 9.6 fl (7.5-11.1); MONO % 11.4 % (3.8-10.2); NEUT % 72.8 % (42.8-82.8); PLATELET COUNT 172 K/MM3 (134-434); RBC 3.72 M/mm3 (4.00-5.60); RDW 14.9 % (11.9-15.9); WHITE BLOOD COUNT 7.5 K/mm3 (4.0-10.0)
[2018-10-08 06:55] LABS: ALK PHOS 89 U/L (45-117); ANION GAP 8 MMOL/L (8-16); BILIRUBIN,TOTAL 0.8 mg/dL (0.2-1); BLOOD UREA NITROGEN 17 mg/dL (7-18); CALCIUM 8.3 mg/dL (8.5-10.1); CHLORIDE 113 mmol/L (98-107); CO2 26 mmol/L (21-32); GLUCOSE,RANDOM 108 mg/dL (74-106); POTASSIUM 3.4 mmol/L (3.5-5.1); SGOT/AST 31 U/L (15-37); SGPT/ALT 11 U/L (13-61); SODIUM 146 mmol/L (136-145); TOT PROT 6.3 g/dl (6.4-8.2)
[2018-10-08 07:09] LABS: INR 1.44 (0.83-1.09); PROTHROMBIN TIME (PATIENT) 17.1 SEC (9.7-13.0)
--- NOTE | 2018-10-08 08:31 | PN ---
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 (short form) - Note 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: Chief Complaint: Events noted notes reviewed, unresponsive in no acute distress , overall no change in status History of Present Illness: Seen and examined on telemetry. Events noted notes reviewed, unresponsive in no acute distress, overall no change in status Echocardiography revealed normal LV size and function, trace MR and TR - Current Medication List Current Medications Acetaminophen (Tylenol Suppository -) 650 mg [place] Q6H PRN PRN Reason: FEVER Last Admin: 10/07/18 21:08 Dose: 650 mg Albuterol Sulfate (Ventolin 0.083% Nebulizer Soln -) 1 amp NEB Q6H PRN PRN Reason: WHEEZING Amlodipine Besylate (Norvasc -) 5 mg PO DAILY [facility] Last Admin: 10/07/18 09:52 Dose: Not Given Aspirin (Ecotrin -) 81 mg PO DAILY [facility] Last Admin: 10/07/18 09:52 Dose: Not Given Atorvastatin Calcium (Lipitor -) 40 mg PO HS [facility] Last Admin: 10/07/18 21:00 Dose: Not Given Carbidopa/Levodopa (Sinemet 25/100 -) 1 each PO TID [facility] Last Admin: 10/08/18 06:05 Dose: Not Given Enalaprilat (Vasotec Injection -) 1.25 mg IVPB Q6H-IV [facility] Last Admin: 10/08/18 03:05 Dose: 1.25 mg Heparin Sodium (Porcine) (Heparin -) 5,000 unit SQ BID [facility] Last Admin: 10/07/18 21:07 Dose: 5,000 unit Piperacillin Sod/Tazobactam (Sod 3.375 gm/ Dextrose) 50 mls @ 100 mls/hr IVPB Q8H-IV [facility]; Protocol Last Admin: 10/08/18 02:42 Dose: 100 mls/hr Vancomycin HCl 1,250 mg/ (Dextrose) 250 mls @ 166.667 mls/hr IVPB Q24H [facility]; Protocol Last Admin: 10/07/18 14:11 Dose: 166.667 mls/hr Dextrose/Sodium Chloride (D5-1/2ns -) 1,000 mls @ 100 mls/hr IV ASDIR [facility] Last Admin: 10/07/18 14:16 Dose: 100 mls/hr Insulin Aspart (Novolog Vial Sliding Scale -) 1 vial SQ ACHS [facility]; Protocol Last Admin: 10/08/18 06:05 Dose: Not Given Memantine (Namenda -) 10 mg PO BID [facility] Last Admin: 10/07/18 21:00 Dose: Not Given Mirtazapine (Remeron -) 7.5 mg PO HS [facility] Last Admin: 10/07/18 21:00 Dose: Not Given Saliva Substitute (Mouthkote Solution) 1 applic MM QID PRN PRN Reason: dry mouth Last Admin: 10/07/18 15:05 Dose: 1 applic Tamsulosin HCl (Flomax -) 0.4 mg PO BID [facility] Last Admin: 10/07/18 21:00 Dose: Not Given Valproate Sodium (Depacon Injection -) 500 mg IVPB BID [facility] Last Admin: 10/07/18 21:43 Dose: 500 mg Valsartan (Diovan -) 80 mg PO DAILY [facility] Last Admin: 10/07/18 09:51 Dose: Not Given - Review of Systems Unable to obtain - Objective Vital Signs: Last Vital Signs Temp Pulse Resp BP Pulse Ox 98.1 F 77 18 142/75 99 10/08/18 07:00 10/08/18 07:00 10/08/18 07:00 10/08/18 07:00 10/07/18 21:00 Intake & Output 10/05/18 10/06/18 10/07/18 10/08/18 23:59 23:59 23:59 23:59 Intake Total 1182 1445 550 700 Output Total 2 Balance 1180 1445 550 700 Weight 138 lb Neck: Supple Negative JVD No Bruit Cardiovascular: S1 S2 Regular Rate Rhythm Respiratory: Diminished Breath Sounds Bilaterally Gastrointestinal: Soft Benign Normal Bowel Sounds Ext: Negative Edema Labs: CBC, BMP 10/08/18 05:30 10/08/18 05:30 Hepatic Panel Total Bilirubin 0.8 mg/dL (0.2-1) 10/08/18 05:30 AST 31 U/L (15-37) 10/08/18 05:30 ALT 11 U/L (13-61) L 10/08/18 05:30 Alkaline Phosphatase 89 U/L (45-117) 10/08/18 05:30 Albumin 2.0 g/dl (3.4-5.0) L 10/08/18 05:30 Assessment/Plan ASSESSMENT: 1. Known history of CVA with recurrence 2. CAD/CAC- coronary artery calcification/CT scan chest dated 08/27/18/images reviewed angina pectoris 3. Diastolic LV dysfunction with class 0 NYHA classification LV failure 4. HTN 5. Hypercholesterolemia 6. Alzheimer's dementia 7. Parkinson's disease 8. COPD with aspiration pneumonia/sepsis syndrome 9. Hypernatremia, persistent but improved 10. Anemia PLAN: 1. Continue ASA PO ??, pending PEG insertion 2. Continue Norvasc PO ??, pending PEG insertion 3. Diovan changed to IV Vasotec 4. Continue statins PO ??, pending PEG insertion 5. IV fluids to D5 1/3 NS, for the above noted Hypernatremia 6. There are no absolute contraindications in proceeding with planned PEG insertion considering that there is evidence of ACS and/or de-compensated CHF and/or malignant ventricular arrhythmia Viktor Rodriguez M.D.
--- NOTE | 2018-10-08 09:03 | PN ---
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 (short form) - Note 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: \ Neurology CHIEF COMPLAINT: poor oral intake PCP: Jitendra HISTORY OF PRESENT ILLNESS: 67 year old man from [facility] with poor oral intake for 3 days prior to admission, hyperkalemia in NH -with K of 6.7- (normal here in ER), minimally responsive, had fever in ER of 102.1F, borderline tachy, leukocytosis, low o2 sat, found to have residual food stuffs in oral cavity. Head CT coincidentally showed subtle hypodense lesion, ? infarct, new compared to CT head from August 2018. Discussed with daughter at bedside on admission. She was inquiring if infarct found how mgmt would change and explained cardiovascular risk reduction that would be desired with antiplatelet and statin mgmt. MRI brain completed, no acute CVA noted. Carotid doppler reviewed and Moderate sized plaques in R comm carotid, small to moderate plaque in L comm carotid. Of note, patient with dementia and on memantine. Also with Parkinson's and on Sinemet. Would not adjust these medications for now. Lipid profile received, LDL 131, Statin ordered. Also on IV Abx for infection. Getting medical optimization. Active Medications Acetaminophen (Tylenol Suppository -) 650 mg [place] Q6H PRN PRN Reason: FEVER Last Admin: 10/07/18 21:08 Dose: 650 mg Albuterol Sulfate (Ventolin 0.083% Nebulizer Soln -) 1 amp NEB Q6H PRN PRN Reason: WHEEZING Amlodipine Besylate (Norvasc -) 5 mg PO DAILY [facility] Last Admin: 10/07/18 09:52 Dose: Not Given Aspirin (Ecotrin -) 81 mg PO DAILY [facility] Last Admin: 10/07/18 09:52 Dose: Not Given Atorvastatin Calcium (Lipitor -) 40 mg PO HS [facility] Last Admin: 10/07/18 21:00 Dose: Not Given Carbidopa/Levodopa (Sinemet 25/100 -) 1 each PO TID [facility] Last Admin: 10/08/18 06:05 Dose: Not Given Enalaprilat (Vasotec Injection -) 1.25 mg IVPB Q6H-IV [facility] Last Admin: 10/08/18 03:05 Dose: 1.25 mg Heparin Sodium (Porcine) (Heparin -) 5,000 unit SQ BID [facility] Last Admin: 10/07/18 21:07 Dose: 5,000 unit Piperacillin Sod/Tazobactam (Sod 3.375 gm/ Dextrose) 50 mls @ 100 mls/hr IVPB Q8H-IV [facility]; Protocol Last Admin: 10/08/18 02:42 Dose: 100 mls/hr Vancomycin HCl 1,250 mg/ (Dextrose) 250 mls @ 166.667 mls/hr IVPB Q24H [facility]; Protocol Last Admin: 10/07/18 14:11 Dose: 166.667 mls/hr Dextrose/Sodium Chloride (D5-1/2ns -) 1,000 mls @ 100 mls/hr IV ASDIR [facility] Last Admin: 10/07/18 14:16 Dose: 100 mls/hr Insulin Aspart (Novolog Vial Sliding Scale -) 1 vial SQ ACHS [facility]; Protocol Last Admin: 10/08/18 06:05 Dose: Not Given Memantine (Namenda -) 10 mg PO BID [facility] Last Admin: 10/07/18 21:00 Dose: Not Given Mirtazapine (Remeron -) 7.5 mg PO HS [facility] Last Admin: 10/07/18 21:00 Dose: Not Given Saliva Substitute (Mouthkote Solution) 1 applic MM QID PRN PRN Reason: dry mouth Last Admin: 10/07/18 15:05 Dose: 1 applic Tamsulosin HCl (Flomax -) 0.4 mg PO BID [facility] Last Admin: 10/07/18 21:00 Dose: Not Given Valproate Sodium (Depacon Injection -) 500 mg IVPB BID [facility] Last Admin: 10/07/18 21:43 Dose: 500 mg Valsartan (Diovan -) 80 mg PO DAILY [facility] Last Admin: 10/07/18 09:51 Dose: Not Given PHYSICAL EXAMINATION Vital Signs Period Temp Pulse Resp BP Sys/Rubi Pulse Ox Last 24 Hr 97.4 F-100.4 F 72-91 17-20 137-160/75-98 99 GENERAL: Awake, alert, nonverbal, bedbound HEAD: Normal with no signs of trauma. EYES: Pupils equal, round and reactive to light, extraocular movements intact, sclera anicteric, conjunctiva clear. No lid lag. EARS, NOSE, THROAT: residual foodstuff in oral cavity NECK: Normal range of motion, supple without lymphadenopathy, JVD, or masses. LUNGS: Breath sounds equal, b/l present HEART: Regular rate and rhythm, normal S1 and S2 without murmur, rub or gallop. ABDOMEN: Soft, nontender, not distended, normoactive bowel sounds, no guarding, no rebound, no masses. No hepatomegaly or splenomegaly. MUSCULOSKELETAL: Normal range of motion at all joints. No bony deformities or tenderness. No CVA tenderness. UPPER EXTREMITIES: 2+ pulses, warm, well-perfused. No cyanosis. No clubbing. No peripheral edema. LOWER EXTREMITIES: 2+ pulses, warm, well-perfused. No calf tenderness. No peripheral edema. PSYCHIATRIC: Somnolent SKIN: poor skin turgor, no decubitus ulcers reported as per nursing Neuro: Awake, but nonverbal, not moving extremities, sensory intact to LT CBCD WBC 7.2 K/mm3 (4.0-10.0) 10/07/18 05:30 RBC 3.88 M/mm3 (4.00-5.60) L 10/07/18 05:30 Hgb 11.1 GM/dL (11.7-16.9) L 10/07/18 05:30 Hct 33.9 % (35.4-49) L 10/07/18 05:30 MCV 87.3 fl (80-96) 10/07/18 05:30 MCHC 32.7 g/dl (32.0-35.9) 10/07/18 05:30 RDW 14.4 % (11.9-15.9) 10/07/18 05:30 Plt Count 193 K/MM3 (134-434) 10/07/18 05:30 MPV 9.2 fl (7.5-11.1) 10/07/18 05:30 CMP Sodium 150 mmol/L (136-145) H 10/07/18 05:30 Potassium 3.8 mmol/L (3.5-5.1) 10/07/18 05:30 Chloride 113 mmol/L (98-107) H 10/07/18 05:30 Carbon Dioxide 28 mmol/L (21-32) 10/07/18 05:30 Anion Gap 9 MMOL/L (8-16) 10/07/18 05:30 BUN 16 mg/dL (7-18) 10/07/18 05:30 Creatinine 3.0 mg/dL (0.55-1.3) H 10/07/18 05:30 Creat Clearance w eGFR 20.91 (>60) 10/07/18 05:30 Random Glucose 130 mg/dL (74-106) H 10/07/18 05:30 Calcium 8.6 mg/dL (8.5-10.1) 10/07/18 05:30 Total Bilirubin 0.7 mg/dL (0.2-1) 10/07/18 05:30 AST 31 U/L (15-37) 10/07/18 05:30 ALT 9 U/L (13-61) L 10/07/18 05:30 Alkaline Phosphatase 109 U/L (45-117) 10/07/18 05:30 Total Protein 6.9 g/dl (6.4-8.2) 10/07/18 05:30 Albumin 2.4 g/dl (3.4-5.0) L 10/07/18 05:30 CARDIAC ENZYMES Troponin I < 0.02 ng/ml (0.00-0.05) 10/03/18 18:15 Imaging studies reviewed ASSESSMENT/PLAN: 67 year old man from [facility] with poor oral intake for 3 days, hyperkalemia in NH -with K of 6.7- (normal here in ER), minimally responsive, had fever in ER of 102.1F, borderline tachy, leukocytosis, low O2 sat, found to have residual food stuffs in oral cavity. Head CT coincidentally showed subtle hypodense lesion, ? infarct, new compared to CT head from August 2018. Discussed with daughter at bedside. She was inquiring if infarct found how mgmt would change and explained cardiovascular risk reduction that would be desired with antiplatelet and statin mgmt. Recommended MRI brain, daughter in agreement, ordered. Daughter concerned about reduced PO intake, PEG tube discussed by PCP with her and she seems supportive of this. Of note, patient with dementia and on memantine. Also with Parkinson's and on Sinemet. Would not adjust these medications for now. Recommend mgmt for infection, maintain hydration, monitor electrolytes (hypernatremia noted), tight glycemic control for DM. MRI brain completed, no acute CVA noted. Carotid doppler reviewed and Moderate sized plaques in R comm carotid, small to moderate plaque in L comm carotid. Of note, patient with dementia and on memantine. Also with Parkinson's and on Sinemet. Would not adjust these medications for now. Carotid dopplers completed, also awaiting official report. Lipid profile received, LDL 131, Statin ordered. Though MRI without infarct, patient would benefit from ASA ppx especially with carotid disease as noted, adjusted to 81mg from 300 per rectum. Continue statin as well. On IV abx. Medical optimization in progress and ongoing.
--- NOTE | 2018-10-08 10:23 | PN ---
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 (short form) - Note 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: pt examined, events noted Vital Signs - 24 hr 10/07/18 10/08/18 10/08/18 21:00 01:39 07:00 Temperature 100.4 F H 97.4 F L 98.1 F Pulse Rate 89 72 77 Respiratory 17 18 18 Rate Blood Pressure 151/98 137/77 142/75 O2 Sat by Pulse 99 Oximetry (%) 10/08/18 10/08/18 10/08/18 09:00 10:00 11:02 Temperature 97.1 F L 98.7 F 98.1 F Pulse Rate 75 78 Respiratory 18 16 Rate Blood Pressure 162/72 161/81 O2 Sat by Pulse 100 99 Oximetry (%) 10/08/18 10/08/18 10/08/18 11:17 11:32 11:45 Temperature 98.4 F Pulse Rate 81 76 78 Respiratory 18 20 20 Rate Blood Pressure 154/88 145/79 135/74 O2 Sat by Pulse 100 100 100 Oximetry (%) 10/08/18 10/08/18 14:23 18:00 Temperature 97.7 F 99.2 F Pulse Rate 75 77 Respiratory 18 18 Rate Blood Pressure 155/92 130/75 O2 Sat by Pulse Oximetry (%) Current Medications Generic Name Dose Route Start Last Admin Trade Name Freq PRN Reason Stop Dose Admin Acetaminophen 650 mg 10/06/18 15:41 10/07/18 21:08 Tylenol Suppository - OK 650 mg Q6H PRN Administration FEVER Albuterol Sulfate 1 amp 10/03/18 22:15 Ventolin 0.083% Nebulizer Soln - NEB Q6H PRN WHEEZING Amlodipine Besylate 5 mg 10/04/18 10:00 10/08/18 10:39 Norvasc - PO Not Given DAILY [facility] Aspirin 81 mg 10/07/18 10:00 10/08/18 10:38 Ecotrin - PO Not Given DAILY [facility] Atorvastatin Calcium 40 mg 10/06/18 22:00 10/07/18 21:00 Lipitor - PO Not Given HS [facility] Carbidopa/Levodopa 1 each 10/04/18 06:00 10/08/18 14:00 Sinemet 25/100 - PO Not Given TID [facility] Enalaprilat 1.25 mg 10/07/18 11:45 10/08/18 15:36 Vasotec Injection - IVPB 1.25 mg Q6H-IV [facility] Administration Heparin Sodium (Porcine) 5,000 unit 10/04/18 10:00 10/07/18 21:07 Heparin - SQ 5,000 unit BID [facility] Administration Piperacillin Sod/Tazobactam 50 mls @ 100 mls/hr 10/04/18 12:45 10/08/18 17:35 Sod 3.375 gm/ Dextrose IVPB 100 mls/hr Q8H-IV [facility] Administration Protocol Vancomycin HCl 1,250 mg/ 250 mls @ 166.667 mls/hr 10/04/18 12:45 10/08/18 16: 45 Dextrose IVPB 166.667 mls/hr Q24H [facility] Administration Protocol Dextrose/Sodium Chloride 1,000 mls @ 100 mls/hr 10/07/18 14:15 10/08/18 15:41 D5-1/2ns - IV 100 mls/hr ASDIR [facility] Administration Insulin Aspart 1 vial 10/04/18 07:00 10/08/18 18:26 Novolog Vial Sliding Scale - SQ Not Given ACHS [facility] Protocol Memantine 10 mg 10/04/18 10:00 10/08/18 10:38 Namenda - PO Not Given BID [facility] Mirtazapine 7.5 mg 10/04/18 22:00 10/07/18 21:00 Remeron - PO Not Given HS [facility] Saliva Substitute 1 applic 10/07/18 12:03 10/07/18 15:05 Mouthkote Solution MM 1 applic QID PRN Administration dry mouth Tamsulosin HCl 0.4 mg 10/04/18 10:00 10/08/18 10:38 Flomax - PO Not Given BID [facility] Valproate Sodium 500 mg 10/05/18 13:30 10/08/18 11:37 Depacon Injection - IVPB Not Given BID [facility] Valsartan 80 mg 10/06/18 10:00 10/08/18 10:37 Diovan - PO Not Given DAILY [facility] Laboratory Results - last 24 hr 10/07/18 10/08/18 10/08/18 21:01 05:22 05:30 WBC 7.5 RBC 3.72 L Hgb 10.7 L Hct 32.0 L MCV 86.0 MCH 28.7 MCHC 33.4 RDW 14.9 Plt Count 172 MPV 9.6 Absolute Neuts (auto) 5.5 Neutrophils % 72.8 Lymphocytes % 14.5 Monocytes % 11.4 H Eosinophils % 0.9 Basophils % 0.4 Nucleated RBC % 0 PT with INR INR Sodium Potassium Chloride Carbon Dioxide Anion Gap BUN Creatinine Creat Clearance w eGFR POC Glucometer 115 107 Random Glucose Calcium Total Bilirubin AST ALT Alkaline Phosphatase Total Protein Albumin 10/08/18 10/08/18 10/08/18 05:30 05:30 09:38 WBC RBC Hgb Hct MCV MCH MCHC RDW Plt Count MPV Absolute Neuts (auto) Neutrophils % Lymphocytes % Monocytes % Eosinophils % Basophils % Nucleated RBC % PT with INR 17.10 H INR 1.44 H Sodium 146 H Potassium 3.4 L Chloride 113 H Carbon Dioxide 26 Anion Gap 8 BUN 17 Creatinine 3.0 H Creat Clearance w eGFR 20.91 POC Glucometer 121 Random Glucose 108 H Calcium 8.3 L Total Bilirubin 0.8 AST 31 ALT 11 L Alkaline Phosphatase 89 Total Protein 6.3 L Albumin 2.0 L 10/08/18 18:04 WBC RBC Hgb Hct MCV MCH MCHC RDW Plt Count MPV Absolute Neuts (auto) Neutrophils % Lymphocytes % Monocytes % Eosinophils % Basophils % Nucleated RBC % PT with INR INR Sodium Potassium Chloride Carbon Dioxide Anion Gap BUN Creatinine Creat Clearance w eGFR POC Glucometer 128 Random Glucose Calcium Total Bilirubin AST ALT Alkaline Phosphatase Total Protein Albumin Physical Exam poorly responsive heent- no jvd lungs- diminished cvs---s1, s2 rrr abd - soft ext- no edema A/P NPO dc po meds change BP meds to IV for PEG tube noted elevated creatinine, IV fluids abx ent consult-- nasal mass ? in MRI Problem List - Problems (1) Aspiration pneumonia Code(s): J69.0 - PNEUMONITIS DUE TO INHALATION OF FOOD AND VOMIT (2) Sepsis Code(s): A41.9 - SEPSIS, UNSPECIFIED ORGANISM (3) Altered mental status Code(s): R41.82 - ALTERED MENTAL STATUS, UNSPECIFIED Qualifiers: Altered mental status type: unspecified Qualified Code(s): R41.82 - Altered mental status, unspecified (4) Dehydration Code(s): E86.0 - DEHYDRATION (5) HTN (hypertension) Code(s): I10 - ESSENTIAL (PRIMARY) HYPERTENSION Qualifiers: Hypertension type: essential hypertension Qualified Code(s): I10 - Essential (primary) hypertension (6) Lewy body dementia with behavioral disturbance Code(s): G31.83 - DEMENTIA WITH LEWY BODIES; F02.81 - DEMENTIA IN OTH DISEASES CLASSD SEME Rodriguez BEHAVIORAL DISTURB
[2018-10-08] MEDS: VALSARTAN 80 MG TABLET (UD) PO SCH (10:37)
[2018-10-08] MEDS: TAMSULOSIN HCL 0.4 MG CAP PO SCH ×2 (10:38→21:20)
[2018-10-08] MEDS: ASPIRIN COATED 81 MG TABLET.EC PO SCH (10:38)
[2018-10-08] MEDS: MEMANTINE HCL 10 MG TABLET (FP) PO SCH ×2 (10:38→21:21)
[2018-10-08] MEDS: amLODIPine BESYLATE 5 MG TABLET (FP) PO SCH (10:39)
--- NOTE | 2018-10-08 10:47 | PN ---
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, Physician - Current Medication List Current Medications: Active Medications Acetaminophen (Tylenol Suppository -) 650 mg [place] Q6H PRN PRN Reason: FEVER Last Admin: 10/07/18 21:08 Dose: 650 mg Albuterol Sulfate (Ventolin 0.083% Nebulizer Soln -) 1 amp NEB Q6H PRN PRN Reason: WHEEZING Amlodipine Besylate (Norvasc -) 5 mg PO DAILY [facility] Last Admin: 10/07/18 09:52 Dose: Not Given Aspirin (Ecotrin -) 81 mg PO DAILY [facility] Last Admin: 10/07/18 09:52 Dose: Not Given Atorvastatin Calcium (Lipitor -) 40 mg PO HS [facility] Last Admin: 10/07/18 21:00 Dose: Not Given Carbidopa/Levodopa (Sinemet 25/100 -) 1 each PO TID [facility] Last Admin: 10/08/18 06:05 Dose: Not Given Enalaprilat (Vasotec Injection -) 1.25 mg IVPB Q6H-IV [facility] Last Admin: 10/08/18 03:05 Dose: 1.25 mg Heparin Sodium (Porcine) (Heparin -) 5,000 unit SQ BID [facility] Last Admin: 10/07/18 21:07 Dose: 5,000 unit Piperacillin Sod/Tazobactam (Sod 3.375 gm/ Dextrose) 50 mls @ 100 mls/hr IVPB Q8H-IV [facility]; Protocol Last Admin: 10/08/18 02:42 Dose: 100 mls/hr Vancomycin HCl 1,250 mg/ (Dextrose) 250 mls @ 166.667 mls/hr IVPB Q24H [facility]; Protocol Last Admin: 10/07/18 14:11 Dose: 166.667 mls/hr Dextrose/Sodium Chloride (D5-1/2ns -) 1,000 mls @ 100 mls/hr IV ASDIR [facility] Last Admin: 10/07/18 14:16 Dose: 100 mls/hr Insulin Aspart (Novolog Vial Sliding Scale -) 1 vial SQ ACHS [facility]; Protocol Last Admin: 10/08/18 06:05 Dose: Not Given Memantine (Namenda -) 10 mg PO BID [facility] Last Admin: 10/07/18 21:00 Dose: Not Given Mirtazapine (Remeron -) 7.5 mg PO HS [facility] Last Admin: 10/07/18 21:00 Dose: Not Given Saliva Substitute (Mouthkote Solution) 1 applic MM QID PRN PRN Reason: dry mouth Last Admin: 10/07/18 15:05 Dose: 1 applic Tamsulosin HCl (Flomax -) 0.4 mg PO BID [facility] Last Admin: 10/07/18 21:00 Dose: Not Given Valproate Sodium (Depacon Injection -) 500 mg IVPB BID [facility] Last Admin: 10/07/18 21:43 Dose: 500 mg Valsartan (Diovan -) 80 mg PO DAILY [facility] Last Admin: 10/07/18 09:51 Dose: Not Given - Objective Vital Signs: Vital Signs Temperature 98.1 F 10/08/18 07:00 Pulse Rate 77 10/08/18 07:00 Respiratory Rate 18 10/08/18 07:00 Blood Pressure 142/75 10/08/18 07:00 O2 Sat by Pulse Oximetry (%) 99 10/07/18 21:00 Labs: CBC, BMP 10/08/18 05:30 10/08/18 05:30 INR, PTT INR 1.44 (0.83-1.09) H 10/08/18 05:30
[2018-10-08] MEDS: VALPROATE SODIUM 500 MG/5 ML VIAL IVPB SCH ×2 (11:37→21:22)
[2018-10-08] MEDS: DEXTROSE 5%-0.45% SALINE 1,000 ML IV SCH (15:41)
[2018-10-08] MEDS: VANCOMYCIN HCL 1,250 MG in DEXTROSE 5%-WATER - 250 ML IVPB SCH (16:45)
[2018-10-08] MEDS ORDERED: PT OWN MED DRAWER 7, Y5N ONE (21:18)
[2018-10-08] MEDS: MIRTAZAPINE 15 MG TABLET (FP) PO SCH (21:20)
[2018-10-08] MEDS: ATORVASTATIN CA 40 MG TABLET (FP) PO SCH (21:21)
[2018-10-09] MEDS ORDERED: PIPERACILLIN/TAZOBACTAM 3.375 GM VIAL IVPB ONE ×3 (02:04→17:18)
[2018-10-09] MEDS ORDERED: DEXTROSE 5%-WATER - 50 ML IVPB ONE ×3 (02:05→17:18)
[2018-10-09] MEDS: PIPERACILLIN/TAZOB 3.375 GM 3.375 GM in DEXTROSE 5%-WATER - 50 ML IVPB SCH ×3 (02:56→17:23)
[2018-10-09] MEDS: ENALAPRILAT DIHYDRATE 1.25 MG/1 ML VIAL IVPB SCH ×2 (02:59→09:09)
[2018-10-09] MEDS: CARBIDOPA/LEVODOPA 25/100 TABLET (FP) PO SCH (06:12)
[2018-10-09] MEDS: INSULIN SLIDING SCALE (NOVOLOG) 1 VIAL SQ SCH ×4 (06:16→23:00)
--- NOTE | 2018-10-09 08:35 | PN ---
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 (short form) - Note 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: \ Neurology CHIEF COMPLAINT: poor oral intake PCP: Jitendra HISTORY OF PRESENT ILLNESS: 67 year old man from [place] with poor oral intake for 3 days prior to admission, hyperkalemia in NH -with K of 6.7- (normal here in ER), minimally responsive, had fever in ER of 102.1F, borderline tachy, leukocytosis, low o2 sat, found to have residual food stuffs in oral cavity. Head CT coincidentally showed subtle hypodense lesion, ? infarct, new compared to CT head from August 2018. Discussed with daughter at bedside on admission. She was inquiring if infarct found how mgmt would change and explained cardiovascular risk reduction that would be desired with antiplatelet and statin mgmt. MRI brain completed, no acute CVA noted. Carotid doppler reviewed and Moderate sized plaques in R comm carotid, small to moderate plaque in L comm carotid. Of note, patient with dementia and on memantine. Also with Parkinson's and on Sinemet. Would not adjust these medications for now. Lipid profile with LDL 131, Statin ordered. Also on IV Abx for infection. Getting medical optimization. No new neurologic events, remains at baseline. Is awake and alert but nonverbal and minimal functional ability. 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 Active Medications Acetaminophen (Tylenol Suppository -) 650 mg ID Q6H PRN PRN Reason: FEVER Last Admin: 10/07/18 21:08 Dose: 650 mg Albuterol Sulfate (Ventolin 0.083% Nebulizer Soln -) 1 amp NEB Q6H PRN PRN Reason: WHEEZING Amlodipine Besylate (Norvasc -) 5 mg PO DAILY [facility] Last Admin: 10/08/18 10:39 Dose: Not Given Aspirin (Ecotrin -) 81 mg PO DAILY [facility] Last Admin: 10/08/18 10:38 Dose: Not Given Atorvastatin Calcium (Lipitor -) 40 mg PO HS [facility] Last Admin: 10/08/18 21:21 Dose: 40 mg Carbidopa/Levodopa (Sinemet 25/100 -) 1 each PO TID [facility] Last Admin: 10/09/18 06:12 Dose: 1 each Enalaprilat (Vasotec Injection -) 1.25 mg IVPB Q6H-IV [facility] Last Admin: 10/09/18 02:59 Dose: 1.25 mg Heparin Sodium (Porcine) (Heparin -) 5,000 unit SQ BID [facility] Last Admin: 10/07/18 21:07 Dose: 5,000 unit Piperacillin Sod/Tazobactam (Sod 3.375 gm/ Dextrose) 50 mls @ 100 mls/hr IVPB Q8H-IV [facility]; Protocol Last Admin: 10/09/18 02:56 Dose: 100 mls/hr Vancomycin HCl 1,250 mg/ (Dextrose) 250 mls @ 166.667 mls/hr IVPB Q24H [facility]; Protocol Last Admin: 10/08/18 16:45 Dose: 166.667 mls/hr Insulin Aspart (Novolog Vial Sliding Scale -) 1 vial SQ ACHS [facility]; Protocol Last Admin: 10/09/18 06:16 Dose: Not Given Memantine (Namenda -) 10 mg PO BID [facility] Last Admin: 10/08/18 21:21 Dose: 10 mg Mirtazapine (Remeron -) 7.5 mg PO HS [facility] Last Admin: 10/08/18 21:20 Dose: 7.5 mg Saliva Substitute (Mouthkote Solution) 1 applic MM QID PRN PRN Reason: dry mouth Last Admin: 10/07/18 15:05 Dose: 1 applic Tamsulosin HCl (Flomax -) 0.4 mg PO BID [facility] Last Admin: 10/08/18 21:20 Dose: 0.4 mg Valproate Sodium (Depacon Injection -) 500 mg IVPB BID [facility] Last Admin: 10/08/18 21:22 Dose: 500 mg Valsartan (Diovan -) 80 mg PO DAILY [facility] Last Admin: 10/08/18 10:37 Dose: Not Given PHYSICAL EXAMINATION Vital Signs Period Temp Pulse Resp BP Sys/Rubi Pulse Ox Last 24 Hr 97.1 F-99.2 F 75-81 16-20 130-162/72-92 99-100 GENERAL: Awake, alert, nonverbal, bedbound HEAD: Normal with no signs of trauma. EYES: Pupils equal, round and reactive to light, extraocular movements intact, sclera anicteric, conjunctiva clear. No lid lag. EARS, NOSE, THROAT: residual foodstuff in oral cavity NECK: Normal range of motion, supple without lymphadenopathy, JVD, or masses. LUNGS: Breath sounds equal, b/l present HEART: Regular rate and rhythm, normal S1 and S2 without murmur, rub or gallop. ABDOMEN: Soft, nontender, not distended, normoactive bowel sounds, no guarding, no rebound, no masses. No hepatomegaly or splenomegaly. MUSCULOSKELETAL: Normal range of motion at all joints. No bony deformities or tenderness. No CVA tenderness. UPPER EXTREMITIES: 2+ pulses, warm, well-perfused. No cyanosis. No clubbing. No peripheral edema. LOWER EXTREMITIES: 2+ pulses, warm, well-perfused. No calf tenderness. No peripheral edema. PSYCHIATRIC: Somnolent SKIN: poor skin turgor, no decubitus ulcers reported as per nursing Neuro: Awake, but nonverbal, not moving extremities, sensory intact to LT CBCD WBC 7.5 K/mm3 (4.0-10.0) 10/08/18 05:30 RBC 3.72 M/mm3 (4.00-5.60) L 10/08/18 05:30 Hgb 10.7 GM/dL (11.7-16.9) L 10/08/18 05:30 Hct 32.0 % (35.4-49) L 10/08/18 05:30 MCV 86.0 fl (80-96) 10/08/18 05:30 MCHC 33.4 g/dl (32.0-35.9) 10/08/18 05:30 RDW 14.9 % (11.9-15.9) 10/08/18 05:30 Plt Count 172 K/MM3 (134-434) 10/08/18 05:30 MPV 9.6 fl (7.5-11.1) 10/08/18 05:30 CMP Sodium 146 mmol/L (136-145) H 10/08/18 05:30 Potassium 3.4 mmol/L (3.5-5.1) L 10/08/18 05:30 Chloride 113 mmol/L (98-107) H 10/08/18 05:30 Carbon Dioxide 26 mmol/L (21-32) 10/08/18 05:30 Anion Gap 8 MMOL/L (8-16) 10/08/18 05:30 BUN 17 mg/dL (7-18) 10/08/18 05:30 Creatinine 3.0 mg/dL (0.55-1.3) H 10/08/18 05:30 Creat Clearance w eGFR 20.91 (>60) 10/08/18 05:30 Random Glucose 108 mg/dL (74-106) H 10/08/18 05:30 Calcium 8.3 mg/dL (8.5-10.1) L 10/08/18 05:30 Total Bilirubin 0.8 mg/dL (0.2-1) 10/08/18 05:30 AST 31 U/L (15-37) 10/08/18 05:30 ALT 11 U/L (13-61) L 10/08/18 05:30 Alkaline Phosphatase 89 U/L (45-117) 10/08/18 05:30 Total Protein 6.3 g/dl (6.4-8.2) L 10/08/18 05:30 Albumin 2.0 g/dl (3.4-5.0) L 10/08/18 05:30 CARDIAC ENZYMES Troponin I < 0.02 ng/ml (0.00-0.05) 10/03/18 18:15 Imaging studies reviewed ASSESSMENT/PLAN: 67 year old man from [facility] with poor oral intake for 3 days, hyperkalemia in NH -with K of 6.7- (normal here in ER), minimally responsive, had fever in ER of 102.1F, borderline tachy, leukocytosis, low O2 sat, found to have residual food stuffs in oral cavity. Head CT coincidentally showed subtle hypodense lesion, ? infarct, new compared to CT head from August 2018. Discussed with daughter at bedside. She was inquiring if infarct found how mgmt would change and explained cardiovascular risk reduction that would be desired with antiplatelet and statin mgmt. Recommended MRI brain, daughter in agreement, ordered. Daughter concerned about reduced PO intake, PEG tube discussed by PCP with her and she seems supportive of this. Of note, patient with dementia and on memantine. Also with Parkinson's and on Sinemet. Would not adjust these medications for now. Of note, patient with dementia and on memantine. Recommend mgmt for infection, maintain hydration, monitor electrolytes (hypernatremia noted), tight glycemic control for DM. MRI brain completed, no acute CVA noted. Carotid doppler reviewed and Moderate sized plaques in R comm carotid, small to moderate plaque in L comm carotid. Also with Parkinson's and on Sinemet. Would not adjust these medications for now. Lipid profile received, LDL 131, Statin ordered. Though MRI without infarct, patient would benefit from ASA ppx especially with carotid disease as noted, adjusted to 81mg from 300 per rectum. Continue statin as well. On IV abx. Medical optimization in progress and ongoing. Neurologically stable at this time.
[2018-10-09] MEDS ORDERED: PT OWN MED DRAWER 7, Y5N ONE ×3 (09:02→21:07)
[2018-10-09] MEDS: amLODIPine BESYLATE 5 MG TABLET (FP) PO SCH (09:09)
[2018-10-09] MEDS: HEPARIN NA (PORCINE) 5,000 UNITS/ML 1ML VIAL SQ SCH ×2 (09:09→22:54)
[2018-10-09] MEDS: TAMSULOSIN HCL 0.4 MG CAP PO SCH ×2 (09:09→22:51)
[2018-10-09] MEDS: VALSARTAN 80 MG TABLET (UD) PO SCH (09:09)
[2018-10-09] MEDS: VALPROATE SODIUM 500 MG/5 ML VIAL IVPB SCH (09:10)
[2018-10-09] MEDS: ASPIRIN COATED 81 MG TABLET.EC PO SCH (09:10)
[2018-10-09] MEDS: MEMANTINE HCL 10 MG TABLET (FP) PO SCH (09:10)
[2018-10-09 10:21] LABS: ANION GAP 6 MMOL/L (8-16); BLOOD UREA NITROGEN 20 mg/dL (7-18); CALCIUM 8.5 mg/dL (8.5-10.1); CHLORIDE 111 mmol/L (98-107); CO2 28 mmol/L (21-32); CREATININE 2.6 mg/dL (0.55-1.3); GLUCOSE,RANDOM 136 mg/dL (74-106); POTASSIUM 3.4 mmol/L (3.5-5.1); SODIUM 146 mmol/L (136-145)
--- NOTE | 2018-10-09 11:03 | PN ---
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, Physician History of Present Illness: Lethargic post PEG. - Current Medication List Current Medications: Active Medications Acetaminophen (Tylenol Suppository -) 650 mg [place] Q6H PRN PRN Reason: FEVER Last Admin: 10/07/18 21:08 Dose: 650 mg Albuterol Sulfate (Ventolin 0.083% Nebulizer Soln -) 1 amp NEB Q6H PRN PRN Reason: WHEEZING Amlodipine Besylate (Norvasc -) 10 mg PO DAILY [facility] Aspirin (Ecotrin -) 81 mg PO DAILY [facility] Last Admin: 10/09/18 09:10 Dose: 81 mg Atorvastatin Calcium (Lipitor -) 40 mg PO HS [facility] Last Admin: 10/08/18 21:21 Dose: 40 mg Carbidopa/Levodopa (Sinemet 25/100 -) 1 each PO TID [facility] Last Admin: 10/09/18 06:12 Dose: 1 each Heparin Sodium (Porcine) (Heparin -) 5,000 unit SQ BID [facility] Last Admin: 10/09/18 09:09 Dose: 5,000 unit Piperacillin Sod/Tazobactam (Sod 3.375 gm/ Dextrose) 50 mls @ 100 mls/hr IVPB Q8H-IV [facility]; Protocol Last Admin: 10/09/18 09:09 Dose: 100 mls/hr Vancomycin HCl 1,250 mg/ (Dextrose) 250 mls @ 166.667 mls/hr IVPB Q24H [facility]; Protocol Last Admin: 10/08/18 16:45 Dose: 166.667 mls/hr Insulin Aspart (Novolog Vial Sliding Scale -) 1 vial SQ ACHS [facility]; Protocol Last Admin: 10/09/18 06:16 Dose: Not Given Memantine (Namenda -) 10 mg PO BID [facility] Last Admin: 10/09/18 09:10 Dose: 10 mg Mirtazapine (Remeron -) 7.5 mg PO HS [facility] Last Admin: 10/08/18 21:20 Dose: 7.5 mg Saliva Substitute (Mouthkote Solution) 1 applic MM QID PRN PRN Reason: dry mouth Last Admin: 10/07/18 15:05 Dose: 1 applic Tamsulosin HCl (Flomax -) 0.4 mg PO BID [facility] Last Admin: 10/09/18 09:09 Dose: 0.4 mg Valproate Sodium (Depacon Injection -) 500 mg IVPB BID [facility] Last Admin: 10/09/18 09:10 Dose: 500 mg - Objective Vital Signs: Vital Signs Temperature 97.5 F L 10/09/18 10:00 Pulse Rate 80 10/09/18 10:00 Respiratory Rate 18 10/09/18 10:00 Blood Pressure 134/89 10/09/18 10:00 O2 Sat by Pulse Oximetry (%) 97 10/09/18 09:00 Constitutional: Yes: No Distress, Calm, Thin Neck: Yes: Supple Cardiovascular: Yes: Regular Rate and Rhythm Respiratory: Yes: Regular, CTA Bilaterally, On Nasal O2 Gastrointestinal: Yes: Normal Bowel Sounds, Soft, Other (PEG in place) Edema: No Labs: CBC, BMP 10/08/18 05:30 10/09/18 09:30 INR, PTT INR 1.44 (0.83-1.09) H 10/08/18 05:30 - ....Imaging EKG: Report Reviewed (Tele: NSR occ PVC no PAF) Problem List - Problems (1) PEG (percutaneous endoscopic gastrostomy) status Code(s): Z93.1 - GASTROSTOMY STATUS (2) Acute hypernatremia Code(s): E87.0 - HYPEROSMOLALITY AND HYPERNATREMIA (3) Altered mental status Code(s): R41.82 - ALTERED MENTAL STATUS, UNSPECIFIED Qualifiers: Altered mental status type: unspecified Qualified Code(s): R41.82 - Altered mental status, unspecified (4) HLD (hyperlipidemia) Code(s): E78.5 - HYPERLIPIDEMIA, UNSPECIFIED Qualifiers: Hyperlipidemia type: pure hypercholesterolemia Qualified Code(s): E78.00 - Pure hypercholesterolemia, unspecified; E78.0 - Pure hypercholesterolemia (5) HTN (hypertension) Code(s): I10 - ESSENTIAL (PRIMARY) HYPERTENSION Qualifiers: Hypertension type: essential hypertension Qualified Code(s): I10 - Essential (primary) hypertension (6) Lewy body dementia with behavioral disturbance Code(s): G31.83 - DEMENTIA WITH LEWY BODIES; F02.81 - DEMENTIA IN OTH DISEASES CLASSD ELSWHR W BEHAVIORAL DISTURB (7) Parkinsonian features Code(s): R25.9 - UNSPECIFIED ABNORMAL INVOLUNTARY MOVEMENTS (8) Diastolic dysfunction Code(s): I51.89 - OTHER ILL-DEFINED HEART DISEASES (9) Unqny-on-geqwjiq kidney injury Code(s): N17.9 - ACUTE KIDNEY FAILURE, UNSPECIFIED; N18.9 - CHRONIC KIDNEY DISEASE, UNSPECIFIED Qualifiers: Acute renal failure type: unspecified Chronic kidney disease stage: stage 2 (mild) Qualified Code(s): N17.9 - Acute kidney failure, unspecified; N18.2 - Chronic kidney disease, stage 2 (mild) Assessment/Plan 1. Known history of CVA with recurrence 2. CAD/CAC- coronary artery calcification/CT scan chest dated 08/27/18/images reviewed angina pectoris 3. Diastolic LV dysfunction with class 0 NYHA classification LV failure 4. HTN 5. Hypercholesterolemia 6. Alzheimer's dementia post PEG 7. Parkinson's disease 8. COPD with aspiration pneumonia/sepsis syndrome 9. Hypernatremia, persistent but improved 10. Anemia 11. Acute on CKD PLAN: 1. Continue ASA 81 qd 2. Continue Norvasc 10 qd 3. Resume Diovan 80 qd once renal fxn stabilizes 4. Continue Lipitor 40 qhs 5. Free H20 repletion for hypernatremia 6. DVT prophylaxis
--- NOTE | 2018-10-09 11:08 | PN ---
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 (short form) - Note 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: pt examined, events noted GT placed yesterday Vital Signs - 24 hr 10/08/18 10/08/18 10/08/18 11:17 11:32 11:45 Temperature 98.4 F Pulse Rate 81 76 78 Respiratory 18 20 20 Rate Blood Pressure 154/88 145/79 135/74 O2 Sat by Pulse 100 100 100 Oximetry (%) 10/08/18 10/08/18 10/08/18 14:23 18:00 20:25 Temperature 97.7 F 99.2 F Pulse Rate 75 77 Respiratory 18 18 18 Rate Blood Pressure 155/92 130/75 O2 Sat by Pulse 100 Oximetry (%) 10/09/18 10/09/18 10/09/18 00:00 05:31 09:00 Temperature 97.6 F 97.9 F Pulse Rate 78 76 Respiratory 18 18 Rate Blood Pressure 150/85 155/85 O2 Sat by Pulse 97 Oximetry (%) 10/09/18 10:00 Temperature 97.5 F L Pulse Rate 80 Respiratory 18 Rate Blood Pressure 134/89 O2 Sat by Pulse Oximetry (%) Current Medications Generic Name Dose Route Start Last Admin Trade Name Freq PRN Reason Stop Dose Admin Acetaminophen 650 mg 10/06/18 15:41 10/07/18 21:08 Tylenol Suppository - [place] 650 mg Q6H PRN Administration FEVER Albuterol Sulfate 1 amp 10/03/18 22:15 Ventolin 0.083% Nebulizer Soln - NEB Q6H PRN WHEEZING Amlodipine Besylate 10 mg 10/10/18 10:00 Norvasc - PO DAILY [facility] Aspirin 81 mg 10/09/18 11:05 Ecotrin - NR DAILY [facility] Atorvastatin Calcium 40 mg 10/09/18 11:05 Lipitor - GT HS [facility] Carbidopa/Levodopa 1 each 10/09/18 11:05 Sinemet 25/100 - GT TID [facility] Divalproex Sodium 500 mg 10/09/18 22:00 Depakote Sprinkle Caps - GT BID [facility] Heparin Sodium (Porcine) 5,000 unit 10/04/18 10:00 10/09/18 09:09 Heparin - SQ 5,000 unit BID [facility] Administration Piperacillin Sod/Tazobactam 50 mls @ 100 mls/hr 10/04/18 12:45 10/09/18 09:09 Sod 3.375 gm/ Dextrose IVPB 100 mls/hr Q8H-IV [facility] Administration Protocol Vancomycin HCl 1,250 mg/ 250 mls @ 166.667 mls/hr 10/04/18 12:45 10/08/18 16: 45 Dextrose IVPB 166.667 mls/hr Q24H [facility] Administration Protocol Insulin Aspart 1 vial 10/04/18 07:00 10/09/18 06:16 Novolog Vial Sliding Scale - SQ Not Given ACHS [facility] Protocol Memantine 10 mg 10/09/18 11:05 Namenda - GT BID [facility] Saliva Substitute 1 applic 10/07/18 12:03 10/07/18 15:05 Mouthkote Solution MM 1 applic QID PRN Administration dry mouth Tamsulosin HCl 0.4 mg 10/04/18 10:00 10/09/18 09:09 Flomax - PO 0.4 mg BID [facility] Administration Laboratory Results - last 24 hr 10/08/18 10/08/18 10/09/18 18:04 21:24 06:15 Sodium Potassium Chloride Carbon Dioxide Anion Gap BUN Creatinine Creat Clearance w eGFR POC Glucometer 128 120 146 Random Glucose Calcium 10/09/18 09:30 Sodium 146 H Potassium 3.4 L Chloride 111 H Carbon Dioxide 28 Anion Gap 6 L BUN 20 H Creatinine 2.6 H Creat Clearance w eGFR 24.67 POC Glucometer Random Glucose 136 H Calcium 8.5 Physical Exam poorly responsive heent- no jvd lungs- diminished cvs---s1, s2 rrr abd - soft, GT+ , abd binder ext- no edema A/P NPO tolerating GT feeding Nutrition eval for feeding change po meds to GT dc Diovan, Remeron increase Amlodipine abx per ID check bladder scan -- noted elevated creatinine-- if retaining urine , may place sharp-- spoke with RN Problem List - Problems (1) Aspiration pneumonia Code(s): J69.0 - PNEUMONITIS DUE TO INHALATION OF FOOD AND VOMIT (2) Sepsis Code(s): A41.9 - SEPSIS, UNSPECIFIED ORGANISM (3) Altered mental status Code(s): R41.82 - ALTERED MENTAL STATUS, UNSPECIFIED Qualifiers: Qualified Code(s): R41.82 - Altered mental status, unspecified (4) Dehydration Code(s): E86.0 - DEHYDRATION (5) HTN (hypertension) Code(s): I10 - ESSENTIAL (PRIMARY) HYPERTENSION Qualifiers: Qualified Code(s): I10 - Essential (primary) hypertension (6) Lewy body dementia with behavioral disturbance Code(s): G31.83 - DEMENTIA WITH LEWY BODIES; F02.81 - DEMENTIA IN OTH DISEASES CLASSD ESME Rodriguez BEHAVIORAL DISTURB
[2018-10-09] MEDS ORDERED: POTASSIUM CHLORIDE ORAL LIQUID 20 MEQ/15 ML GT ONE (11:09)
--- NOTE | 2018-10-09 12:08 | PN ---
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, Physician History of Present Illness: no new issues gtube place blood cx result noted - Current Medication List Current Medications: Active Medications Acetaminophen (Tylenol Suppository -) 650 mg AK Q6H PRN PRN Reason: FEVER Last Admin: 10/07/18 21:08 Dose: 650 mg Albuterol Sulfate (Ventolin 0.083% Nebulizer Soln -) 1 amp NEB Q6H PRN PRN Reason: WHEEZING Amlodipine Besylate (Norvasc -) 10 mg PO DAILY [facility] Aspirin (Ecotrin -) 81 mg NR DAILY [facility] Atorvastatin Calcium (Lipitor -) 40 mg GT HS [facility] Carbidopa/Levodopa (Sinemet 25/100 -) 1 each GT TID [facility] Divalproex Sodium (Depakote -) 500 mg PO BID [facility] Heparin Sodium (Porcine) (Heparin -) 5,000 unit SQ BID [facility] Last Admin: 10/09/18 09:09 Dose: 5,000 unit Piperacillin Sod/Tazobactam (Sod 3.375 gm/ Dextrose) 50 mls @ 100 mls/hr IVPB Q8H-IV [facility]; Protocol Last Admin: 10/09/18 09:09 Dose: 100 mls/hr Insulin Aspart (Novolog Vial Sliding Scale -) 1 vial SQ ACHS [facility]; Protocol Last Admin: 10/09/18 11:41 Dose: Not Given Memantine (Namenda -) 10 mg GT BID [facility] Saliva Substitute (Mouthkote Solution) 1 applic MM QID PRN PRN Reason: dry mouth Last Admin: 10/07/18 15:05 Dose: 1 applic Tamsulosin HCl (Flomax -) 0.4 mg PO BID [facility] Last Admin: 10/09/18 09:09 Dose: 0.4 mg - Objective Vital Signs: Vital Signs Temperature 97.5 F L 10/09/18 10:00 Pulse Rate 80 10/09/18 10:00 Respiratory Rate 18 10/09/18 10:00 Blood Pressure 134/89 10/09/18 10:00 O2 Sat by Pulse Oximetry (%) 97 10/09/18 09:00 Constitutional: Yes: No Distress, Calm Cardiovascular: Yes: S1, S2 Respiratory: Yes: Regular, Poor Air Entry Gastrointestinal: Yes: Normal Bowel Sounds, Soft, Other (g tube in place) Musculoskeletal: Yes: WNL Extremities: Yes: WNL Neurological: Yes: Other Psychiatric: Yes: Other Labs: CBC, BMP 10/08/18 05:30 10/09/18 09:30 INR, PTT INR 1.44 (0.83-1.09) H 10/08/18 05:30 Assessment/Plan Problem List - Problems (1) Aspiration pneumonia Code(s): J69.0 - PNEUMONITIS DUE TO INHALATION OF FOOD AND VOMIT (2) Sepsis Code(s): A41.9 - SEPSIS, UNSPECIFIED ORGANISM (3) Altered mental status Code(s): R41.82 - ALTERED MENTAL STATUS, UNSPECIFIED Qualifiers: Qualified Code(s): R41.82 - Altered mental status, unspecified (4) Dehydration Code(s): E86.0 - DEHYDRATION (5) HTN (hypertension) Code(s): I10 - ESSENTIAL (PRIMARY) HYPERTENSION Qualifiers: Qualified Code(s): I10 - Essential (primary) hypertension (6) Lewy body dementia with behavioral disturbance Code(s): G31.83 - DEMENTIA WITH LEWY BODIES; F02.81 - DEMENTIA IN OTH DISEASES CLASSD ELSWHR W BEHAVIORAL DISTURB plan will stop vanco and monitor will get a repeat blood cx rest continue current mgmt nutrition
[2018-10-09] MEDS: CARBIDOPA/LEVODOPA 25/100 TABLET (FP) GT SCH ×2 (14:46→22:53)
[2018-10-09] MEDS: DIVALPROEX SODIUM 500 MG TABLET E.C. PO SCH (22:53)
[2018-10-09] MEDS: ATORVASTATIN CA 40 MG TABLET (FP) GT SCH (22:54)
[2018-10-09] MEDS: MEMANTINE HCL 10 MG TABLET (FP) GT SCH (22:54)
[2018-10-09] MEDS ORDERED: VALPROATE SODIUM 500 MG/5 ML VIAL IVPB ONE (23:17)
[2018-10-10] MEDS ORDERED: PIPERACILLIN/TAZOBACTAM 3.375 GM VIAL IVPB ONE ×3 (01:34→17:25)
[2018-10-10] MEDS ORDERED: DEXTROSE 5%-WATER - 50 ML IVPB ONE ×4 (01:35→18:44)
[2018-10-10] MEDS: PIPERACILLIN/TAZOB 3.375 GM 3.375 GM in DEXTROSE 5%-WATER - 50 ML IVPB SCH ×2 (01:59→10:47)
[2018-10-10] MEDS ORDERED: PT OWN MED DRAWER 7, Y5N ONE ×3 (06:10→22:48)
[2018-10-10] MEDS: INSULIN SLIDING SCALE (NOVOLOG) 1 VIAL SQ SCH ×4 (06:33→23:00)
[2018-10-10] MEDS: CARBIDOPA/LEVODOPA 25/100 TABLET (FP) GT SCH ×3 (06:48→22:50)
[2018-10-10 07:30] LABS: BASO % 0.4 % (0-2.0); EOS % 0.9 % (0-4.5); HEMATOCRIT 31.4 % (35.4-49); HEMOGLOBIN 10.3 GM/dL (11.7-16.9); LYMPH % 12.1 % (8-40); MCH 28.6 pg (25.7-33.7); MCHC 32.8 g/dl (32.0-35.9); MEAN CELL VOLUME 87.3 fl (80-96); MEAN PLT VOLUME 9.4 fl (7.5-11.1); MONO % 9.2 % (3.8-10.2); NEUT % 77.4 % (42.8-82.8); PLATELET COUNT 178 K/MM3 (134-434); RBC 3.59 M/mm3 (4.00-5.60); RDW 15.4 % (11.9-15.9); WHITE BLOOD COUNT 8.5 K/mm3 (4.0-10.0)
[2018-10-10 07:41] LABS: ALK PHOS 103 U/L (45-117); ANION GAP 6 MMOL/L (8-16); BILIRUBIN,TOTAL 0.5 mg/dL (0.2-1); BLOOD UREA NITROGEN 24 mg/dL (7-18); CALCIUM 8.4 mg/dL (8.5-10.1); CHLORIDE 111 mmol/L (98-107); CO2 28 mmol/L (21-32); CREATININE 2.6 mg/dL (0.55-1.3); GLUCOSE,RANDOM 125 mg/dL (74-106); POTASSIUM 3.7 mmol/L (3.5-5.1); SGOT/AST 29 U/L (15-37); SGPT/ALT 12 U/L (13-61); SODIUM 146 mmol/L (136-145); TOT PROT 6.4 g/dl (6.4-8.2)
--- NOTE | 2018-10-10 08:45 | PN ---
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 (short form) - Note 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: \ Neurology CHIEF COMPLAINT: poor oral intake PCP: Jitendra HISTORY OF PRESENT ILLNESS: 67 year old man from [place] with poor oral intake for 3 days prior to admission, hyperkalemia in NH -with K of 6.7- (normal here in ER), minimally responsive, had fever in ER of 102.1F, borderline tachy, leukocytosis, low o2 sat, found to have residual food stuffs in oral cavity. Head CT coincidentally showed subtle hypodense lesion, ? infarct, new compared to CT head from August 2018. Discussed with daughter at bedside on admission. She was inquiring if infarct found how mgmt would change and explained cardiovascular risk reduction that would be desired with antiplatelet and statin mgmt. MRI brain completed, no acute CVA noted. Carotid doppler reviewed and Moderate sized plaques in R comm carotid, small to moderate plaque in L comm carotid. Of note, patient with dementia and on memantine. Also with Parkinson's and on Sinemet. Would not adjust these medications for now. Lipid profile with LDL 131, Statin ordered. On zoysn for infection. Getting medical optimization. No new neurologic events, remains at baseline. Is awake and alert but nonverbal and minimal functional ability. G tube in place, tolerating well per notes. Active Medications Acetaminophen (Tylenol Suppository -) 650 mg [place] Q6H PRN PRN Reason: FEVER Last Admin: 10/07/18 21:08 Dose: 650 mg Albuterol Sulfate (Ventolin 0.083% Nebulizer Soln -) 1 amp NEB Q6H PRN PRN Reason: WHEEZING Amlodipine Besylate (Norvasc -) 10 mg PO DAILY [facility] Aspirin (Ecotrin -) 81 mg NR DAILY [facility] Atorvastatin Calcium (Lipitor -) 40 mg GT HS [facility] Last Admin: 10/09/18 22:54 Dose: 40 mg Carbidopa/Levodopa (Sinemet 25/100 -) 1 each GT TID [facility] Last Admin: 10/10/18 06:48 Dose: 1 each Divalproex Sodium (Depakote -) 500 mg PO BID [facility] Last Admin: 10/09/18 22:53 Dose: Not Given Heparin Sodium (Porcine) (Heparin -) 5,000 unit SQ BID [facility] Last Admin: 10/09/18 22:54 Dose: 5,000 unit Piperacillin Sod/Tazobactam (Sod 3.375 gm/ Dextrose) 50 mls @ 100 mls/hr IVPB Q8H-IV [facility]; Protocol Last Admin: 10/10/18 01:59 Dose: 100 mls/hr Insulin Aspart (Novolog Vial Sliding Scale -) 1 vial SQ ACHS [facility]; Protocol Last Admin: 10/10/18 06:33 Dose: Not Given Memantine (Namenda -) 10 mg GT BID [facility] Last Admin: 10/09/18 22:54 Dose: 10 mg Saliva Substitute (Mouthkote Solution) 1 applic MM QID PRN PRN Reason: dry mouth Last Admin: 10/07/18 15:05 Dose: 1 applic Tamsulosin HCl (Flomax -) 0.4 mg PO BID [facility] Last Admin: 10/09/18 22:51 Dose: Not Given PHYSICAL EXAMINATION Vital Signs Period Temp Pulse Resp BP Sys/Rubi Pulse Ox Last 24 Hr 97.5 F-99.5 F 78-96 18-20 102-138/57-89 97-98 GENERAL: Awake, alert, nonverbal, bedbound HEAD: Normal with no signs of trauma. EYES: Pupils equal, round and reactive to light, extraocular movements intact, sclera anicteric, conjunctiva clear. No lid lag. EARS, NOSE, THROAT: residual foodstuff in oral cavity NECK: Normal range of motion, supple without lymphadenopathy, JVD, or masses. LUNGS: Breath sounds equal, b/l present HEART: Regular rate and rhythm, normal S1 and S2 without murmur, rub or gallop. ABDOMEN: Soft, nontender, not distended, normoactive bowel sounds, no guarding, no rebound, no masses. No hepatomegaly or splenomegaly. MUSCULOSKELETAL: Normal range of motion at all joints. No bony deformities or tenderness. No CVA tenderness. UPPER EXTREMITIES: 2+ pulses, warm, well-perfused. No cyanosis. No clubbing. No peripheral edema. LOWER EXTREMITIES: 2+ pulses, warm, well-perfused. No calf tenderness. No peripheral edema. PSYCHIATRIC: Somnolent SKIN: poor skin turgor, no decubitus ulcers reported as per nursing Neuro: Awake, but nonverbal, not moving extremities, sensory intact to LT CBCD WBC 8.5 K/mm3 (4.0-10.0) 10/10/18 06:00 RBC 3.59 M/mm3 (4.00-5.60) L 10/10/18 06:00 Hgb 10.3 GM/dL (11.7-16.9) L 10/10/18 06:00 Hct 31.4 % (35.4-49) L 10/10/18 06:00 MCV 87.3 fl (80-96) 10/10/18 06:00 MCHC 32.8 g/dl (32.0-35.9) 10/10/18 06:00 RDW 15.4 % (11.9-15.9) 10/10/18 06:00 Plt Count 178 K/MM3 (134-434) 10/10/18 06:00 MPV 9.4 fl (7.5-11.1) 10/10/18 06:00 CMP Sodium 146 mmol/L (136-145) H 10/10/18 06:00 Potassium 3.7 mmol/L (3.5-5.1) 10/10/18 06:00 Chloride 111 mmol/L (98-107) H 10/10/18 06:00 Carbon Dioxide 28 mmol/L (21-32) 10/10/18 06:00 Anion Gap 6 MMOL/L (8-16) L 10/10/18 06:00 BUN 24 mg/dL (7-18) H 10/10/18 06:00 Creatinine 2.6 mg/dL (0.55-1.3) H 10/10/18 06:00 Creat Clearance w eGFR 24.67 (>60) 10/10/18 06:00 Random Glucose 125 mg/dL (74-106) H 10/10/18 06:00 Calcium 8.4 mg/dL (8.5-10.1) L 10/10/18 06:00 Total Bilirubin 0.5 mg/dL (0.2-1) 10/10/18 06:00 AST 29 U/L (15-37) 10/10/18 06:00 ALT 12 U/L (13-61) L 10/10/18 06:00 Alkaline Phosphatase 103 U/L (45-117) 10/10/18 06:00 Total Protein 6.4 g/dl (6.4-8.2) 10/10/18 06:00 Albumin 2.0 g/dl (3.4-5.0) L 10/10/18 06:00 CARDIAC ENZYMES Troponin I < 0.02 ng/ml (0.00-0.05) 10/03/18 18:15 Imaging studies reviewed ASSESSMENT/PLAN: 67 year old man from [facility] with poor oral intake for 3 days, hyperkalemia in NH -with K of 6.7- (normal here in ER), minimally responsive, had fever in ER of 102.1F, borderline tachy, leukocytosis, low O2 sat, found to have residual food stuffs in oral cavity. Head CT coincidentally showed subtle hypodense lesion, ? infarct, new compared to CT head from August 2018. Discussed with daughter at bedside. She was inquiring if infarct found how mgmt would change and explained cardiovascular risk reduction that would be desired with antiplatelet and statin mgmt. Recommended MRI brain, daughter in agreement, ordered. Daughter concerned about reduced PO intake, PEG tube discussed by PCP with her and she seems supportive of this. Of note, patient with dementia and on memantine. Also with Parkinson's and on Sinemet. Would not adjust these medications for now. Of note, patient with dementia and on memantine. Recommend mgmt for infection, maintain hydration, monitor electrolytes (hypernatremia noted), tight glycemic control for DM. MRI brain completed, no acute CVA noted. Carotid doppler reviewed and Moderate sized plaques in R comm carotid, small to moderate plaque in L comm carotid. Also with Parkinson's and on Sinemet. Would not adjust these medications for now. Lipid profile received, LDL 131, Statin ordered. Remains on asa 81. Continue statin as well. On IV Zosyn. Getting medical optimization. No new neurologic events, remains at baseline. Is awake and alert but nonverbal and minimal functional ability. G tube in place, tolerating well per notes. Medical optimization in progress and ongoing. Neurologically stable at this time.
[2018-10-10] MEDS ORDERED: ASPIRIN COATED 81 MG TABLET.EC NR SCH (10:00)
--- NOTE | 2018-10-10 10:22 | PN ---
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 (short form) - Note 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: pt seen / examined . chart reviewed. overall condition same afebrile Vital Signs Temp 98.2 F 10/10/18 05:54 Pulse 78 10/10/18 05:54 Resp 20 10/10/18 05:54 BP 128/67 10/10/18 05:54 Pulse Ox 98 10/09/18 20:43 Intake & Output 10/09/18 10/09/18 10/10/18 11:59 23:59 11:59 Intake Total 0 800 0 Balance 0 800 0 Intake: IVPB 200 Oral 0 0 Tube Feeding 360 Tube Irrigant 240 Other: Voiding Method Incontinent Incontinent Incontinent # Unmeasured Voids Void 2 2 Bowel Movement No Yes No # Bowel Movements 1 Body Mass Index (BMI) 19.8 Active Medications Acetaminophen (Tylenol Suppository -) 650 mg [place] Q6H PRN PRN Reason: FEVER Last Admin: 10/07/18 21:08 Dose: 650 mg Albuterol Sulfate (Ventolin 0.083% Nebulizer Soln -) 1 amp NEB Q6H PRN PRN Reason: WHEEZING Amlodipine Besylate (Norvasc -) 10 mg PO DAILY [facility] Aspirin (Ecotrin -) 81 mg NR DAILY [facility] Atorvastatin Calcium (Lipitor -) 40 mg GT HS [facility] Last Admin: 10/09/18 22:54 Dose: 40 mg Carbidopa/Levodopa (Sinemet 25/ -) 1 each GT TID [facility] Last Admin: 10/10/18 06:48 Dose: 1 each Divalproex Sodium (Depakote -) 500 mg PO BID [facility] Last Admin: 10/09/18 22:53 Dose: Not Given Heparin Sodium (Porcine) (Heparin -) 5,000 unit SQ BID [facility] Last Admin: 10/09/18 22:54 Dose: 5,000 unit Piperacillin Sod/Tazobactam (Sod 3.375 gm/ Dextrose) 50 mls @ 100 mls/hr IVPB Q8H-IV [facility]; Protocol Last Admin: 10/10/18 01:59 Dose: 100 mls/hr Insulin Aspart (Novolog Vial Sliding Scale -) 1 vial SQ ACHS [facility]; Protocol Last Admin: 10/10/18 06:33 Dose: Not Given Memantine (Namenda -) 10 mg GT BID [facility] Last Admin: 10/09/18 22:54 Dose: 10 mg Saliva Substitute (Mouthkote Solution) 1 applic MM QID PRN PRN Reason: dry mouth Last Admin: 10/07/18 15:05 Dose: 1 applic Tamsulosin HCl (Flomax -) 0.4 mg PO BID [facility] Last Admin: 10/09/18 22:51 Dose: Not Given CBC, BMP 10/10/18 06:00 10/10/18 06:00 Physical Exam Awake/poorly responsive heent- no jvd lungs- diminished cvs---s1, s2 rrr abd - soft, GT+ , abd binder ext- no edema A/P tolerating GT feeding Nutrition eval for feeding cr same passing urine-- monitor off jorge will consult renal also will follow condition remains gaurded
[2018-10-10] MEDS: amLODIPine BESYLATE 5 MG TABLET (FP) PO SCH (10:53)
[2018-10-10] MEDS: HEPARIN NA (PORCINE) 5,000 UNITS/ML 1ML VIAL SQ SCH ×2 (10:53→22:51)
[2018-10-10] MEDS: DIVALPROEX SODIUM 500 MG TABLET E.C. PO SCH (10:54)
[2018-10-10] MEDS: TAMSULOSIN HCL 0.4 MG CAP PO SCH ×2 (10:55→22:50)
[2018-10-10] MEDS: MEMANTINE HCL 10 MG TABLET (FP) GT SCH ×2 (10:56→22:51)
--- NOTE | 2018-10-10 11:45 | PN ---
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, Physician History of Present Illness: Lethargic post PEG, nonverbal. - Current Medication List Current Medications: Active Medications Acetaminophen (Tylenol Suppository -) 650 mg [place] Q6H PRN PRN Reason: FEVER Last Admin: 10/07/18 21:08 Dose: 650 mg Albuterol Sulfate (Ventolin 0.083% Nebulizer Soln -) 1 amp NEB Q6H PRN PRN Reason: WHEEZING Amlodipine Besylate (Norvasc -) 10 mg PO DAILY [facility] Last Admin: 10/10/18 10:53 Dose: 10 mg Aspirin (Asa -) 81 mg GT DAILY [facility] Atorvastatin Calcium (Lipitor -) 40 mg GT HS [facility] Last Admin: 10/09/18 22:54 Dose: 40 mg Carbidopa/Levodopa (Sinemet 25/100 -) 1 each GT TID [facility] Last Admin: 10/10/18 06:48 Dose: 1 each Heparin Sodium (Porcine) (Heparin -) 5,000 unit SQ BID [facility] Last Admin: 10/10/18 10:53 Dose: 5,000 unit Piperacillin Sod/Tazobactam (Sod 3.375 gm/ Dextrose) 50 mls @ 100 mls/hr IVPB Q8H-IV [facility]; Protocol Last Admin: 10/10/18 10:47 Dose: 100 mls/hr Insulin Aspart (Novolog Vial Sliding Scale -) 1 vial SQ ACHS [facility]; Protocol Last Admin: 10/10/18 06:33 Dose: Not Given Memantine (Namenda -) 10 mg GT BID [facility] Last Admin: 10/10/18 10:56 Dose: 10 mg Saliva Substitute (Mouthkote Solution) 1 applic MM QID PRN PRN Reason: dry mouth Last Admin: 10/07/18 15:05 Dose: 1 applic Tamsulosin HCl (Flomax -) 0.4 mg PO BID [facility] Last Admin: 10/10/18 10:55 Dose: Not Given Valproate Sodium (Depakene -) 500 mg GT BID [facility] - Objective Vital Signs: Vital Signs Temperature 98.2 F 10/10/18 05:54 Pulse Rate 78 10/10/18 05:54 Respiratory Rate 20 10/10/18 05:54 Blood Pressure 128/67 10/10/18 05:54 O2 Sat by Pulse Oximetry (%) 98 10/09/18 20:43 Constitutional: Yes: No Distress, Calm, Thin Neck: Yes: Supple Cardiovascular: Yes: Regular Rate and Rhythm Respiratory: Yes: Regular, Diminished Gastrointestinal: Yes: Soft, Other (PEG tube in place) Edema: No Labs: CBC, BMP 10/10/18 06:00 10/10/18 06:00 INR, PTT INR 1.44 (0.83-1.09) H 10/08/18 05:30 Problem List - Problems (1) PEG (percutaneous endoscopic gastrostomy) status Code(s): Z93.1 - GASTROSTOMY STATUS (2) Acute hypernatremia Code(s): E87.0 - HYPEROSMOLALITY AND HYPERNATREMIA (3) Altered mental status Code(s): R41.82 - ALTERED MENTAL STATUS, UNSPECIFIED Qualifiers: Altered mental status type: unspecified Qualified Code(s): R41.82 - Altered mental status, unspecified (4) HLD (hyperlipidemia) Code(s): E78.5 - HYPERLIPIDEMIA, UNSPECIFIED Qualifiers: Hyperlipidemia type: pure hypercholesterolemia Qualified Code(s): E78.00 - Pure hypercholesterolemia, unspecified; E78.0 - Pure hypercholesterolemia (5) HTN (hypertension) Code(s): I10 - ESSENTIAL (PRIMARY) HYPERTENSION Qualifiers: Hypertension type: essential hypertension Qualified Code(s): I10 - Essential (primary) hypertension (6) Lewy body dementia with behavioral disturbance Code(s): G31.83 - DEMENTIA WITH LEWY BODIES; F02.81 - DEMENTIA IN OTH DISEASES CLASSD ELSWHR W BEHAVIORAL DISTURB (7) Parkinsonian features Code(s): R25.9 - UNSPECIFIED ABNORMAL INVOLUNTARY MOVEMENTS (8) Diastolic dysfunction Code(s): I51.89 - OTHER ILL-DEFINED HEART DISEASES (9) [id number]-zepcadd kidney injury Code(s): N17.9 - ACUTE KIDNEY FAILURE, UNSPECIFIED; N18.9 - CHRONIC KIDNEY DISEASE, UNSPECIFIED Qualifiers: Acute renal failure type: unspecified Chronic kidney disease stage: stage 2 (mild) Qualified Code(s): N17.9 - Acute kidney failure, unspecified; N18.2 - Chronic kidney disease, stage 2 (mild) Assessment/Plan 1. Known history of CVA with recurrence 2. CAD/CAC- coronary artery calcification/CT scan chest dated 08/27/18/images reviewed angina pectoris 3. Diastolic LV dysfunction with class 0 NYHA classification LV failure 4. HTN 5. Hypercholesterolemia 6. Alzheimer's dementia post PEG 7. Parkinson's disease 8. COPD with aspiration pneumonia/sepsis syndrome 9. Hypernatremia, persistent but improved 10. Anemia 11. Acute on CKD PLAN: 1. Continue ASA 81 qd 2. Continue Norvasc 10 qd 3. Resume Diovan 80 qd once renal fxn stabilizes 4. Continue Lipitor 40 qhs 5. Free H20 repletion for hypernatremia 6. DVT prophylaxis
[2018-10-10] MEDS: VALPROATE SODIUM 250 MG/5 ML UNIT DOSE CUP GT SCH ×2 (14:17→22:51)
--- NOTE | 2018-10-10 15:11 | PN ---
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, Physician - Current Medication List Current Medications: Active Medications Acetaminophen (Tylenol Suppository -) 650 mg [place] Q6H PRN PRN Reason: FEVER Last Admin: 10/07/18 21:08 Dose: 650 mg Albuterol Sulfate (Ventolin 0.083% Nebulizer Soln -) 1 amp NEB Q6H PRN PRN Reason: WHEEZING Amlodipine Besylate (Norvasc -) 10 mg PO DAILY [facility] Last Admin: 10/10/18 10:53 Dose: 10 mg Aspirin (Asa -) 81 mg GT DAILY [facility] Atorvastatin Calcium (Lipitor -) 40 mg GT HS [facility] Last Admin: 10/09/18 22:54 Dose: 40 mg Carbidopa/Levodopa (Sinemet 25/100 -) 1 each GT TID [facility] Last Admin: 10/10/18 14:18 Dose: 1 each Heparin Sodium (Porcine) (Heparin -) 5,000 unit SQ BID [facility] Last Admin: 10/10/18 10:53 Dose: 5,000 unit Piperacillin Sod/Tazobactam (Sod 3.375 gm/ Dextrose) 50 mls @ 100 mls/hr IVPB Q8H-IV [facility]; Protocol Last Admin: 10/10/18 10:47 Dose: 100 mls/hr Insulin Aspart (Novolog Vial Sliding Scale -) 1 vial SQ ACHS [facility]; Protocol Last Admin: 10/10/18 12:41 Dose: Not Given Memantine (Namenda -) 10 mg GT BID [facility] Last Admin: 10/10/18 10:56 Dose: 10 mg Saliva Substitute (Mouthkote Solution) 1 applic MM QID PRN PRN Reason: dry mouth Last Admin: 10/07/18 15:05 Dose: 1 applic Tamsulosin HCl (Flomax -) 0.4 mg PO BID [facility] Last Admin: 10/10/18 10:55 Dose: Not Given Valproate Sodium (Depakene -) 500 mg GT BID [facility] Last Admin: 10/10/18 14:17 Dose: 500 mg - Objective Vital Signs: Vital Signs Temperature 98.3 F 10/10/18 14:09 Pulse Rate 83 10/10/18 14:09 Respiratory Rate 22 H 10/10/18 14:09 Blood Pressure 115/65 10/10/18 14:09 O2 Sat by Pulse Oximetry (%) 99 10/10/18 09:00 Labs: CBC, BMP 10/10/18 06:00 10/10/18 06:00 INR, PTT INR 1.44 (0.83-1.09) H 10/08/18 05:30
--- NOTE | 2018-10-10 16:36 | CONSULT ---
Consult Consult Specialty:: Nephrology Reason for Consultation:: hypernatremia - History of Present Illness Chief Complaint: initially send in for abnormal labs History of Present Illness: Pt is a 67 year old male with pmhx of dementia, copd, cva, and htn who was initially sent in for abnormal labs. He was found to be hypernatremic and in renal failure. I was called to evaluate him. He is unable to give much history. I reviewed the chart. He is tolerating feeds. - History Source History Provided By: Medical Record - Past Medical History [employer]: Yes: Dementia Cardio/Vascular: Yes: HTN, Hyperlipdemia Renal/: Yes: Renal Failure - Past Surgical History Past Surgical History: Yes: None - Alcohol/Substance Use Hx Alcohol Use: No History of Substance Use: reports: None - Smoking History Smoking history: Unknown if ever smoked Have you smoked in the past 12 months: No Aproximately how many cigarettes per day: 0 - Social History Usual Living Arrangement: Alf ADL: Support Services History of Recent Travel: Yes Home Medications - Allergies Allergies/Adverse Reactions: Allergies Allergy/AdvReac Type Severity Reaction Status Date / Time haloperidol [From Haldol] Allergy Severe Verified 08/19/18 10:16 benztropine Allergy Verified 08/19/18 10:16 benztropine mesylate Allergy Verified 08/19/18 10:16 [From Cogentin] haloperidol lactate Allergy Verified 08/19/18 10:16 [From Haldol] - Home Medications Home Medications: Ambulatory Orders Fludrocortisone Acetate [Florinef -] 0.1 mg PO DAILY 09/22/17 Memantine HCl [Namenda -] 10 mg PO BID 09/22/17 Sodium Chloride [Saline Nasal [place]] 1 spray NS TID 09/22/17 Tamsulosin HCl [Flomax] 0.4 mg PO BID 09/22/17 Amlodipine Besylate 5 mg PO DAILY 07/27/18 Carbidopa/Levodopa 25/100 [Sinemet 25/100 -] 1 each PO TID 07/27/18 Acetaminophen [Acetaminophen 8 Hour] 650 mg PO Q6H 08/19/18 Nystatin Oral Suspension - [Nystatin Oral Susp 056443 Units/5 ML -] 500,000 units PO Q6HPO cup 09/02/18 Albuterol 0.083% Nebulizer Gloria [Ventolin 0.083% Nebulizer Soln -] 1 neb NEB Q6H 10/03/18 Guaifenesin [Dorothy-Tussin] 100 mg PO Q4H 10/03/18 Mirtazapine 7.5 mg PO HS 10/03/18 Valproate Sodium Liquid [Depakene] 250 mg PO BID 10/03/18 Family Disease History - Family Disease History Family History: Denies Review of Systems Unable to obtain ROS, reason: pt not verbal Physical Exam Vital Signs: Vital Signs Temperature 98.3 F 10/10/18 14:09 Pulse Rate 83 10/10/18 14:09 Respiratory Rate 22 H 10/10/18 14:09 Blood Pressure 115/65 10/10/18 14:09 O2 Sat by Pulse Oximetry (%) 99 10/10/18 09:00 Constitutional: Yes: Calm Eyes: Yes: Conjunctiva Clear Cardiovascular: Yes: S1, S2 Respiratory: Yes: CTA Bilaterally Gastrointestinal: Yes: Soft, Other (peg) Renal/: Yes: Incontinence Musculoskeletal: Yes: Muscle Weakness Edema: No Neurological: Yes: Lethargy Labs: CBC, BMP 10/10/18 06:00 10/10/18 06:00 Laboratory Tests 10/05/18 10/07/18 10/07/18 08:55 05:30 14:30 Sodium 150 H 145 Potassium BUN Creatinine 0.9 3.0 H 2.8 H 10/08/18 10/09/18 10/10/18 05:30 09:30 06:00 Sodium 146 H 146 H 146 H Potassium 3.7 BUN 24 H Creatinine 3.0 H 2.6 H 2.6 H Problem List - Problems (1) Acute hypernatremia Code(s): E87.0 - HYPEROSMOLALITY AND HYPERNATREMIA (2) [id number] kidney injury Code(s): N17.9 - ACUTE KIDNEY FAILURE, UNSPECIFIED; N18.9 - CHRONIC KIDNEY DISEASE, UNSPECIFIED Qualifiers: Acute renal failure type: unspecified Chronic kidney disease stage: stage 2 (mild) Qualified Code(s): N17.9 - Acute kidney failure, unspecified; N18.2 - Chronic kidney disease, stage 2 (mild) (3) PEG (percutaneous endoscopic gastrostomy) status Code(s): Z93.1 - GASTROSTOMY STATUS Assessment/Plan Current Medications Generic Name Dose Route Start Last Admin Trade Name Freq PRN Reason Stop Dose Admin Acetaminophen 650 mg 10/06/18 15:41 10/07/18 21:08 Tylenol Suppository - IN 650 mg Q6H PRN Administration FEVER Albuterol Sulfate 1 amp 10/03/18 22:15 Ventolin 0.083% Nebulizer Soln - NEB Q6H PRN WHEEZING Amlodipine Besylate 10 mg 10/10/18 10:00 10/10/18 10:53 Norvasc - PO 10 mg DAILY [facility] Administration Aspirin 81 mg 10/11/18 10:00 Asa - GT DAILY [facility] Atorvastatin Calcium 40 mg 10/09/18 22:00 10/09/18 22:54 Lipitor - GT 40 mg HS [facility] Administration Carbidopa/Levodopa 1 each 10/09/18 14:00 10/10/18 14:18 Sinemet 25/100 - GT 1 each TID [facility] Administration Heparin Sodium (Porcine) 5,000 unit 10/04/18 10:00 10/10/18 10:53 Heparin - SQ 5,000 unit BID [facility] Administration Piperacillin Sod/Tazobactam 50 mls @ 100 mls/hr 10/10/18 18:00 Sod 2.275 gm/ Dextrose IVPB Q8H-IV [facility] Protocol Insulin Aspart 1 vial 10/04/18 07:00 10/10/18 12:41 Novolog Vial Sliding Scale - SQ Not Given ACHS [facility] Protocol Memantine 10 mg 10/09/18 22:00 10/10/18 10:56 Namenda - GT 10 mg BID [facility] Administration Saliva Substitute 1 applic 10/07/18 12:03 10/07/18 15:05 Mouthkote Solution MM 1 applic QID PRN Administration dry mouth Tamsulosin HCl 0.4 mg 10/04/18 10:00 10/10/18 10:55 Flomax - PO Not Given BID [facility] Valproate Sodium 500 mg 10/10/18 11:15 10/10/18 14:17 Depakene - GT 500 mg BID [facility] Administration Impression 1. [place] 2. hypernatremia 3. dementia 4. copd 5. cva Plan - check renal ultrasound - monitor renal function - check ua and lytes - increase free water with feeds - repeat labs in am
[2018-10-10] MEDS ORDERED: TAZOB IVPB SCH (18:00)
[2018-10-10] MEDS ORDERED: DEXTROSE 5% IVPB SCH (18:00)
[2018-10-10] MEDS ORDERED: WATER IVPB SCH (18:00)
[2018-10-10] MEDS ORDERED: PIPERACILLIN/TAZOB 2.25 GM 2.25 GM in DEXTROSE 5%-WATER - 50 ML IVPB SCH (18:00)
[2018-10-10] MEDS ORDERED: PIPERACILLIN IVPB SCH (18:00)
[2018-10-10] MEDS ORDERED: PIPERACILLIN/TAZOBACTAM 2.25 GM VIAL IVPB ONE (18:44)
[2018-10-10] MEDS: PIPERACILLIN/TAZOB 2.25 GM 2.25 GM in DEXTROSE 5%-WATER - 50 ML IVPB SCH (18:46)
[2018-10-10] MEDS ORDERED: VALPROATE SODIUM 250 MG/5 ML UNIT DOSE CUP GT SCH (22:00)
[2018-10-10] MEDS: ATORVASTATIN CA 40 MG TABLET (FP) GT SCH (22:51)
[2018-10-11] MEDS ORDERED: DEXTROSE 5%-WATER - 50 ML IVPB ONE ×3 (01:01→16:20)
[2018-10-11] MEDS ORDERED: PIPERACILLIN/TAZOBACTAM 2.25 GM VIAL IVPB ONE ×3 (01:01→16:20)
[2018-10-11] MEDS: PIPERACILLIN/TAZOB 2.25 GM 2.25 GM in DEXTROSE 5%-WATER - 50 ML IVPB SCH ×3 (01:05→17:00)
[2018-10-11 01:07] LABS: EPI CELLS 0.7 /HPF (0-5/HPF); URINE APPEARANCE CLOUDY; URINE BACTERIA 0.5 /hpf (NEGATIVE); URINE BILIRUBIN NEGATIVE (NEGATIVE); URINE CASTS 3 /lpf (0-8); URINE COLOR YELLOW; URINE GLUCOSE (UA) NEGATIVE (NEGATIVE); URINE KETONE NEGATIVE (NEGATIVE); URINE LEUK ESTERASE TRACE (NEGATIVE); URINE NITRITE NEGATIVE (NEGATIVE); URINE PROTEIN 1+ (NEGATIVE); URINE WBC 3 /hpf (0-5)
[2018-10-11] MEDS ORDERED: PT OWN MED DRAWER 7, Y5N ONE ×3 (05:18→20:44)
[2018-10-11] MEDS: ALBUTEROL SO4 0.083% IH SOL 2.5 MG/3 ML VIAL.NEB. NEB PRN ×2 (05:20→20:15)
[2018-10-11] MEDS: CARBIDOPA/LEVODOPA 25/100 TABLET (FP) GT SCH ×3 (05:28→21:49)
[2018-10-11] MEDS: INSULIN SLIDING SCALE (NOVOLOG) 1 VIAL SQ SCH ×4 (06:00→22:10)
[2018-10-11 06:40] LABS: ALBUMIN 1.9 g/dl (3.4-5.0); ALK PHOS 93 U/L (45-117); ANION GAP 5 MMOL/L (8-16); BILIRUBIN,TOTAL 0.3 mg/dL (0.2-1); BLOOD UREA NITROGEN 29 mg/dL (7-18); CALCIUM 8.1 mg/dL (8.5-10.1); CHLORIDE 112 mmol/L (98-107); CO2 29 mmol/L (21-32); CREATININE 2.5 mg/dL (0.55-1.3); GLUCOSE,RANDOM 127 mg/dL (74-106); POTASSIUM 3.8 mmol/L (3.5-5.1); SGOT/AST 31 U/L (15-37); SGPT/ALT 8 U/L (13-61); SODIUM 146 mmol/L (136-145); TOT PROT 6.2 g/dl (6.4-8.2)
[2018-10-11 06:57] LABS: BASO % 0.3 % (0-2.0); EOS % 2.3 % (0-4.5); HEMATOCRIT 27.6 % (35.4-49); HEMOGLOBIN 9.2 GM/dL (11.7-16.9); LYMPH % 12.9 % (8-40); MCH 29.3 pg (25.7-33.7); MCHC 33.3 g/dl (32.0-35.9); MEAN CELL VOLUME 88.2 fl (80-96); MEAN PLT VOLUME 9.6 fl (7.5-11.1); MONO % 9.6 % (3.8-10.2); NEUT % 74.9 % (42.8-82.8); PLATELET COUNT 170 K/MM3 (134-434); RBC 3.12 M/mm3 (4.00-5.60); RDW 15.4 % (11.9-15.9); WHITE BLOOD COUNT 8.8 K/mm3 (4.0-10.0)
[2018-10-11] MEDS: ASPIRIN 81 MG CHEWABLE TABLETS GT SCH (10:41)
[2018-10-11] MEDS: TAMSULOSIN HCL 0.4 MG CAP PO SCH ×2 (10:42→21:50)
[2018-10-11] MEDS: amLODIPine BESYLATE 5 MG TABLET (FP) PO SCH (10:42)
[2018-10-11] MEDS: VALPROATE SODIUM 250 MG/5 ML UNIT DOSE CUP GT SCH ×2 (10:42→21:49)
[2018-10-11] MEDS: MEMANTINE HCL 10 MG TABLET (FP) GT SCH ×2 (10:42→21:50)
[2018-10-11] MEDS: HEPARIN NA (PORCINE) 5,000 UNITS/ML 1ML VIAL SQ SCH ×2 (10:43→21:50)
[2018-10-11] MEDS: LYTES/YERBA SANTA 60 ML SPRAY MM PRN ×2 (10:45→16:50)
--- NOTE | 2018-10-11 11:48 | PN ---
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, Physician History of Present Illness: Lethargic post PEG, nonverbal. - Current Medication List Current Medications: Active Medications Acetaminophen (Tylenol Suppository -) 650 mg [place] Q6H PRN PRN Reason: FEVER Last Admin: 10/07/18 21:08 Dose: 650 mg Albuterol Sulfate (Ventolin 0.083% Nebulizer Soln -) 1 amp NEB Q6H PRN PRN Reason: WHEEZING Last Admin: 10/11/18 05:20 Dose: 1 amp Amlodipine Besylate (Norvasc -) 10 mg PO DAILY [facility] Last Admin: 10/11/18 10:42 Dose: Not Given Aspirin (Asa -) 81 mg GT DAILY [facility] Last Admin: 10/11/18 10:41 Dose: 81 mg Atorvastatin Calcium (Lipitor -) 40 mg GT HS [facility] Last Admin: 10/10/18 22:51 Dose: 40 mg Carbidopa/Levodopa (Sinemet 25/100 -) 1 each GT TID [facility] Last Admin: 10/11/18 05:28 Dose: 1 each Heparin Sodium (Porcine) (Heparin -) 5,000 unit SQ BID [facility] Last Admin: 10/11/18 10:43 Dose: 5,000 unit Piperacillin Sod/Tazobactam (Sod 2.25 gm/ Dextrose) 50 mls @ 100 mls/hr IVPB Q8H-IV [facility]; Protocol Last Admin: 10/11/18 10:43 Dose: 100 mls/hr Insulin Aspart (Novolog Vial Sliding Scale -) 1 vial SQ ACHS [facility]; Protocol Last Admin: 10/11/18 06:00 Dose: Not Given Memantine (Namenda -) 10 mg GT BID [facility] Last Admin: 10/11/18 10:42 Dose: 10 mg Saliva Substitute (Mouthkote Solution) 1 applic MM QID PRN PRN Reason: dry mouth Last Admin: 10/11/18 10:45 Dose: 1 applic Tamsulosin HCl (Flomax -) 0.4 mg PO BID [facility] Last Admin: 10/11/18 10:42 Dose: 0.4 mg Valproate Sodium (Depakene -) 500 mg GT BID [facility] Last Admin: 10/11/18 10:42 Dose: 500 mg - Objective Vital Signs: Vital Signs Temperature 99 F 10/11/18 10:40 Pulse Rate 83 10/11/18 10:40 Respiratory Rate 18 10/11/18 10:40 Blood Pressure 96/77 10/11/18 10:40 O2 Sat by Pulse Oximetry (%) 96 10/10/18 21:00 Constitutional: Yes: No Distress, Calm, Thin Neck: Yes: Supple Cardiovascular: Yes: Regular Rate and Rhythm Respiratory: Yes: Regular, Diminished, On Nasal O2 Gastrointestinal: Yes: Normal Bowel Sounds, Soft, Other (PEG in place) Edema: No Labs: CBC, BMP 10/11/18 05:30 10/11/18 05:30 INR, PTT INR 1.44 (0.83-1.09) H 10/08/18 05:30 - ....Imaging Ultrasound: Report Reviewed (No hydronephrosis) Problem List - Problems (1) PEG (percutaneous endoscopic gastrostomy) status Code(s): Z93.1 - GASTROSTOMY STATUS (2) Acute hypernatremia Code(s): E87.0 - HYPEROSMOLALITY AND HYPERNATREMIA (3) Altered mental status Code(s): R41.82 - ALTERED MENTAL STATUS, UNSPECIFIED Qualifiers: Altered mental status type: unspecified Qualified Code(s): R41.82 - Altered mental status, unspecified (4) HLD (hyperlipidemia) Code(s): E78.5 - HYPERLIPIDEMIA, UNSPECIFIED Qualifiers: Hyperlipidemia type: pure hypercholesterolemia Qualified Code(s): E78.00 - Pure hypercholesterolemia, unspecified; E78.0 - Pure hypercholesterolemia (5) HTN (hypertension) Code(s): I10 - ESSENTIAL (PRIMARY) HYPERTENSION Qualifiers: Hypertension type: essential hypertension Qualified Code(s): I10 - Essential (primary) hypertension (6) Lewy body dementia with behavioral disturbance Code(s): G31.83 - DEMENTIA WITH LEWY BODIES; F02.81 - DEMENTIA IN OTH DISEASES CLASSD ELSWHR W BEHAVIORAL DISTURB (7) Parkinsonian features Code(s): R25.9 - UNSPECIFIED ABNORMAL INVOLUNTARY MOVEMENTS (8) Diastolic dysfunction Code(s): I51.89 - OTHER ILL-DEFINED HEART DISEASES (9) Celfu-wa-rsttdhl kidney injury Code(s): N17.9 - ACUTE KIDNEY FAILURE, UNSPECIFIED; N18.9 - CHRONIC KIDNEY DISEASE, UNSPECIFIED Qualifiers: Acute renal failure type: unspecified Chronic kidney disease stage: stage 2 (mild) Qualified Code(s): N17.9 - Acute kidney failure, unspecified; N18.2 - Chronic kidney disease, stage 2 (mild) Assessment/Plan 1. Known history of CVA with recurrence 2. CAD/CAC- coronary artery calcification/CT scan chest dated 08/27/18/images reviewed angina pectoris 3. Diastolic LV dysfunction with class 0 NYHA classification LV failure 4. HTN 5. Hypercholesterolemia 6. Alzheimer's dementia post PEG 7. Parkinson's disease 8. COPD with aspiration pneumonia/sepsis syndrome 9. Hypernatremia, persistent but improved 10. Anemia 11. Acute on CKD PLAN: 1. Continue ASA 81 qd 2. Continue Norvasc 10 qd 3. Resume Diovan 80 qd once renal fxn stabilizes 4. Continue Lipitor 40 qhs 5. Free H20 repletion for hypernatremia 6. DVT prophylaxis
--- NOTE | 2018-10-11 13:01 | PN ---
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 (short form) - Note 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: pt examined, events noted family at bedside vitals, labs noted Physical Exam poorly responsive heent- no jvd lungs- diminished cvs---s1, s2 rrr abd - soft ext- no edema A/P dc po meds change BP meds to GT for PEG tube renal function about the same abx per ID Problem List - Problems (1) Aspiration pneumonia Code(s): J69.0 - PNEUMONITIS DUE TO INHALATION OF FOOD AND VOMIT (2) Sepsis Code(s): A41.9 - SEPSIS, UNSPECIFIED ORGANISM (3) Altered mental status Code(s): R41.82 - ALTERED MENTAL STATUS, UNSPECIFIED Qualifiers: Altered mental status type: unspecified Qualified Code(s): R41.82 - Altered mental status, unspecified (4) Dehydration Code(s): E86.0 - DEHYDRATION (5) HTN (hypertension) Code(s): I10 - ESSENTIAL (PRIMARY) HYPERTENSION Qualifiers: Hypertension type: essential hypertension Qualified Code(s): I10 - Essential (primary) hypertension (6) Lewy body dementia with behavioral disturbance Code(s): G31.83 - DEMENTIA WITH LEWY BODIES; F02.81 - DEMENTIA IN OTH DISEASES CLASSD ESME W BEHAVIORAL DISTURB
[2018-10-11] MEDS: FLUCONAZOLE 100 MG TABLET (UD) GT SCH (14:16)
--- NOTE | 2018-10-11 16:41 | PN ---
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 (short form) - Note 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: covering dr alvarado 1. [place] 2. hypernatremia 3. dementia 4. copd 5. cva Current Medications Acetaminophen (Tylenol Suppository -) 650 mg [place] Q6H PRN PRN Reason: FEVER Last Admin: 10/07/18 21:08 Dose: 650 mg Albuterol Sulfate (Ventolin 0.083% Nebulizer Soln -) 1 amp NEB Q6H PRN PRN Reason: WHEEZING Last Admin: 10/11/18 05:20 Dose: 1 amp Amlodipine Besylate (Norvasc -) 10 mg PO DAILY [facility] Last Admin: 10/11/18 10:42 Dose: Not Given Aspirin (Asa -) 81 mg GT DAILY [facility] Last Admin: 10/11/18 10:41 Dose: 81 mg Atorvastatin Calcium (Lipitor -) 40 mg GT HS [facility] Last Admin: 10/10/18 22:51 Dose: 40 mg Carbidopa/Levodopa (Sinemet 25/100 -) 1 each GT TID [facility] Last Admin: 10/11/18 14:16 Dose: 1 each Fluconazole (Diflucan -) 100 mg GT DAILY [facility] Last Admin: 10/11/18 14:16 Dose: 100 mg Heparin Sodium (Porcine) (Heparin -) 5,000 unit SQ BID [facility] Last Admin: 10/11/18 10:43 Dose: 5,000 unit Piperacillin Sod/Tazobactam (Sod 2.25 gm/ Dextrose) 50 mls @ 100 mls/hr IVPB Q8H-IV [facility]; Protocol Last Admin: 10/11/18 10:43 Dose: 100 mls/hr Insulin Aspart (Novolog Vial Sliding Scale -) 1 vial SQ ACHS [facility]; Protocol Last Admin: 10/11/18 12:09 Dose: 2 units Memantine (Namenda -) 10 mg GT BID [facility] Last Admin: 10/11/18 10:42 Dose: 10 mg Saliva Substitute (Mouthkote Solution) 1 applic MM QID PRN PRN Reason: dry mouth Last Admin: 10/11/18 10:45 Dose: 1 applic Tamsulosin HCl (Flomax -) 0.4 mg PO BID [facility] Last Admin: 10/11/18 10:42 Dose: 0.4 mg Valproate Sodium (Depakene -) 500 mg GT BID [facility] Last Admin: 10/11/18 10:42 Dose: 500 mg Last Vital Signs Temp Pulse Resp BP Pulse Ox 99.2 F 89 18 109/63 97 10/11/18 14:36 10/11/18 14:36 10/11/18 14:36 10/11/18 14:36 10/11/18 10:45 CBC, BMP 10/11/18 05:30 10/11/18 05:30 IMP Hypernatremia Na 146 ad not improving further Plan-
--- NOTE | 2018-10-11 17:00 | PN ---
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, Physician History of Present Illness: Pt seen and examined, events noted, labs/imaging results reviewed. Tmax 99.4F , wbc normal. s/p peg placement, +BM reported today. Nonverbal, no current distress. As per RN + thick sputum noted in oral cavity during suctioning. - Current Medication List Current Medications: Active Medications Acetaminophen (Tylenol Suppository -) 650 mg [place] Q6H PRN PRN Reason: FEVER Last Admin: 10/07/18 21:08 Dose: 650 mg Albuterol Sulfate (Ventolin 0.083% Nebulizer Soln -) 1 amp NEB Q6H PRN PRN Reason: WHEEZING Last Admin: 10/11/18 05:20 Dose: 1 amp Amlodipine Besylate (Norvasc -) 10 mg PO DAILY [facility] Last Admin: 10/11/18 10:42 Dose: Not Given Aspirin (Asa -) 81 mg GT DAILY [facility] Last Admin: 10/11/18 10:41 Dose: 81 mg Atorvastatin Calcium (Lipitor -) 40 mg GT HS [facility] Last Admin: 10/10/18 22:51 Dose: 40 mg Carbidopa/Levodopa (Sinemet 25/100 -) 1 each GT TID [facility] Last Admin: 10/11/18 14:16 Dose: 1 each Fluconazole (Diflucan -) 100 mg GT DAILY [facility] Last Admin: 10/11/18 14:16 Dose: 100 mg Heparin Sodium (Porcine) (Heparin -) 5,000 unit SQ BID [facility] Last Admin: 10/11/18 10:43 Dose: 5,000 unit Piperacillin Sod/Tazobactam (Sod 2.25 gm/ Dextrose) 50 mls @ 100 mls/hr IVPB Q8H-IV [facility]; Protocol Last Admin: 10/11/18 10:43 Dose: 100 mls/hr Insulin Aspart (Novolog Vial Sliding Scale -) 1 vial SQ ACHS [facility]; Protocol Last Admin: 10/11/18 12:09 Dose: 2 units Memantine (Namenda -) 10 mg GT BID [facility] Last Admin: 10/11/18 10:42 Dose: 10 mg Saliva Substitute (Mouthkote Solution) 1 applic MM QID PRN PRN Reason: dry mouth Last Admin: 10/11/18 10:45 Dose: 1 applic Tamsulosin HCl (Flomax -) 0.4 mg PO BID [facility] Last Admin: 10/11/18 10:42 Dose: 0.4 mg Valproate Sodium (Depakene -) 500 mg GT BID [facility] Last Admin: 10/11/18 10:42 Dose: 500 mg - Objective Vital Signs: Vital Signs Temperature 99.2 F 10/11/18 14:36 Pulse Rate 89 10/11/18 14:36 Respiratory Rate 18 10/11/18 14:36 Blood Pressure 109/63 10/11/18 14:36 O2 Sat by Pulse Oximetry (%) 97 10/11/18 10:45 Constitutional: Yes: No Distress Cardiovascular: Yes: Regular Rate and Rhythm Respiratory: Yes: Other (poor inspiratory effort) Gastrointestinal: Yes: Normal Bowel Sounds, Soft, Other (peg, binder on) Integumentary: Yes: WNL Neurological: Yes: Weakness Labs: CBC, BMP 10/11/18 05:30 10/11/18 05:30 INR, PTT INR 1.44 (0.83-1.09) H 10/08/18 05:30 Microbiology 10/10/18 06:30 Blood - Peripheral Venous Blood Culture - Preliminary NO GROWTH OBTAINED AFTER 24 HOURS, INCUBATION TO CONTINUE FOR 4 DAYS. 10/10/18 06:00 Blood - Peripheral Venous Blood Culture - Preliminary NO GROWTH OBTAINED AFTER 24 HOURS, INCUBATION TO CONTINUE FOR 4 DAYS. 10/03/18 15:30 Blood - Peripheral Venous Blood Culture - Final NO GROWTH AFTER 5 DAYS INCUBATION 10/03/18 15:14 Blood - Peripheral Venous Blood Culture - Final Staphylococcus Epidermidis 10/03/18 16:00 Urine - Urine Clean Catch Urine Culture - Final Problem List - Problems (1) Acute hypernatremia Code(s): E87.0 - HYPEROSMOLALITY AND HYPERNATREMIA (2) Slvgp-lz-lrjhsur kidney injury Code(s): N17.9 - ACUTE KIDNEY FAILURE, UNSPECIFIED; N18.9 - CHRONIC KIDNEY DISEASE, UNSPECIFIED Qualifiers: Acute renal failure type: unspecified Chronic kidney disease stage: stage 2 (mild) Qualified Code(s): N17.9 - Acute kidney failure, unspecified; N18.2 - Chronic kidney disease, stage 2 (mild) (3) Aspiration pneumonia Code(s): J69.0 - PNEUMONITIS DUE TO INHALATION OF FOOD AND VOMIT (4) PEG (percutaneous endoscopic gastrostomy) status Code(s): Z93.1 - GASTROSTOMY STATUS (5) Sepsis Code(s): A41.9 - SEPSIS, UNSPECIFIED ORGANISM (6) Altered mental status Code(s): R41.82 - ALTERED MENTAL STATUS, UNSPECIFIED Qualifiers: Altered mental status type: unspecified Qualified Code(s): R41.82 - Altered mental status, unspecified (7) BPH (benign prostatic hyperplasia) Code(s): N40.0 - BENIGN PROSTATIC HYPERPLASIA WITHOUT LOWER URINRY TRACT SYMP (8) COPD (chronic obstructive pulmonary disease) Code(s): J44.9 - CHRONIC OBSTRUCTIVE PULMONARY DISEASE, UNSPECIFIED (9) HLD (hyperlipidemia) Code(s): E78.5 - HYPERLIPIDEMIA, UNSPECIFIED Qualifiers: Hyperlipidemia type: pure hypercholesterolemia Qualified Code(s): E78.00 - Pure hypercholesterolemia, unspecified; E78.0 - Pure hypercholesterolemia (10) HTN (hypertension) Code(s): I10 - ESSENTIAL (PRIMARY) HYPERTENSION Qualifiers: Hypertension type: essential hypertension Qualified Code(s): I10 - Essential (primary) hypertension Assessment/Plan Fever PNA with possible recurrent aspiration Hypoxemia AMS CKD s/p peg -- continue Zosyn for now and monitor temp trend -- latest blood cultures neg (previous likely contaminated) -- continue oral suctioning monitor
[2018-10-11] MEDS: ATORVASTATIN CA 40 MG TABLET (FP) GT SCH (21:49)
[2018-10-12] MEDS ORDERED: PIPERACILLIN/TAZOBACTAM 2.25 GM VIAL IVPB ONE ×2 (01:04→09:56)
[2018-10-12] MEDS ORDERED: DEXTROSE 5%-WATER - 50 ML IVPB ONE ×2 (01:05→09:56)
[2018-10-12] MEDS: PIPERACILLIN/TAZOB 2.25 GM 2.25 GM in DEXTROSE 5%-WATER - 50 ML IVPB SCH ×3 (01:20→18:41)
[2018-10-12] MEDS ORDERED: PT OWN MED DRAWER 7, Y5N ONE ×4 (05:34→21:28)
[2018-10-12] MEDS: CARBIDOPA/LEVODOPA 25/100 TABLET (FP) GT SCH ×3 (06:23→21:40)
[2018-10-12] MEDS: INSULIN SLIDING SCALE (NOVOLOG) 1 VIAL SQ SCH ×4 (06:23→21:47)
[2018-10-12 06:35] LABS: ALBUMIN 1.8 g/dl (3.4-5.0); ALK PHOS 101 U/L (45-117); ANION GAP 6 MMOL/L (8-16); BILIRUBIN,TOTAL 0.3 mg/dL (0.2-1); BLOOD UREA NITROGEN 33 mg/dL (7-18); CALCIUM 8.3 mg/dL (8.5-10.1); CHLORIDE 110 mmol/L (98-107); CO2 29 mmol/L (21-32); CREATININE 2.6 mg/dL (0.55-1.3); GLUCOSE,RANDOM 145 mg/dL (74-106); POTASSIUM 4.2 mmol/L (3.5-5.1); SGOT/AST 30 U/L (15-37); SGPT/ALT 13 U/L (13-61); SODIUM 145 mmol/L (136-145); TOT PROT 6.5 g/dl (6.4-8.2)
[2018-10-12] MEDS: TAMSULOSIN HCL 0.4 MG CAP PO SCH ×2 (10:18→21:40)
[2018-10-12] MEDS: ASPIRIN 81 MG CHEWABLE TABLETS GT SCH (10:18)
[2018-10-12] MEDS: FLUCONAZOLE 100 MG TABLET (UD) GT SCH (10:18)
[2018-10-12] MEDS: HEPARIN NA (PORCINE) 5,000 UNITS/ML 1ML VIAL SQ SCH ×2 (10:19→21:40)
[2018-10-12] MEDS: VALPROATE SODIUM 250 MG/5 ML UNIT DOSE CUP GT SCH ×2 (10:19→21:40)
[2018-10-12] MEDS: MEMANTINE HCL 10 MG TABLET (FP) GT SCH ×2 (10:19→21:40)
[2018-10-12] MEDS: amLODIPine BESYLATE 5 MG TABLET (FP) PO SCH (10:20)
--- NOTE | 2018-10-12 10:49 | PN ---
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 (short form) - Note 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: pt examined, events noted remains lethargic no spike in temps tolerating GT feeding Vital Signs - 24 hr 10/11/18 10/11/18 10/12/18 21:00 22:00 02:21 Temperature 98.1 F 99.8 F H Pulse Rate 84 91 H Respiratory 18 18 Rate Blood Pressure 105/69 106/62 O2 Sat by Pulse 96 Oximetry (%) 10/12/18 10/12/18 10/12/18 06:00 09:00 10:00 Temperature 98.6 F 99.8 F H Pulse Rate 98 H 92 H Respiratory 18 18 18 Rate Blood Pressure 115/52 L 114/67 O2 Sat by Pulse 98 Oximetry (%) 10/12/18 10/12/18 15:39 18:04 Temperature 96.8 F L 98 F Pulse Rate 89 70 Respiratory 18 18 Rate Blood Pressure 134/58 L 109/60 O2 Sat by Pulse Oximetry (%) Current Medications Generic Name Dose Route Start Last Admin Trade Name Freq PRN Reason Stop Dose Admin Acetaminophen 650 mg 10/06/18 15:41 10/07/18 21:08 Tylenol Suppository - GA 650 mg Q6H PRN Administration FEVER Albuterol Sulfate 1 amp 10/03/18 22:15 10/11/18 20:15 Ventolin 0.083% Nebulizer Soln - NEB 1 amp Q6H PRN Administration WHEEZING Amlodipine Besylate 10 mg 10/10/18 10:00 10/12/18 10:20 Norvasc - PO 10 mg DAILY [facility] Administration Aspirin 81 mg 10/11/18 10:00 10/12/18 10:18 Asa - GT 81 mg DAILY [facility] Administration Atorvastatin Calcium 40 mg 10/09/18 22:00 10/11/18 21:49 Lipitor - GT 40 mg HS [facility] Administration Carbidopa/Levodopa 1 each 10/09/18 14:00 10/12/18 14:43 Sinemet 25/100 - GT 1 each TID [facility] Administration Fluconazole 100 mg 10/11/18 13:15 10/12/18 10:18 Diflucan - GT 100 mg DAILY [facility] Administration Heparin Sodium (Porcine) 5,000 unit 10/04/18 10:00 10/12/18 10:19 Heparin - SQ 5,000 unit BID [facility] Administration Piperacillin Sod/Tazobactam 50 mls @ 100 mls/hr 10/10/18 18:00 10/12/18 10:17 Sod 2.25 gm/ Dextrose IVPB 100 mls/hr Q8H-IV [facility] Administration Protocol Insulin Aspart 1 vial 10/04/18 07:00 10/12/18 16:28 Novolog Vial Sliding Scale - SQ Not Given ACHS [facility] Protocol Memantine 10 mg 10/09/18 22:00 10/12/18 10:19 Namenda - GT 10 mg BID [facility] Administration Saliva Substitute 1 applic 10/07/18 12:03 10/11/18 16:50 Mouthkote Solution MM 1 applic QID PRN Administration dry mouth Tamsulosin HCl 0.4 mg 10/04/18 10:00 10/12/18 10:18 Flomax - PO 0.4 mg BID [facility] Administration Valproate Sodium 500 mg 10/10/18 11:15 10/12/18 10:19 Depakene - GT 500 mg BID [facility] Administration Laboratory Results - last 24 hr 10/11/18 10/12/18 10/12/18 21:55 05:30 05:30 Sodium 145 Potassium 4.2 Chloride 110 H Carbon Dioxide 29 Anion Gap 6 L BUN 33 H Creatinine 2.6 H Creat Clearance w eGFR 24.67 POC Glucometer 127 Random Glucose 145 H Hemoglobin A1c % 5.0 Calcium 8.3 L Total Bilirubin 0.3 AST 30 ALT 13 Alkaline Phosphatase 101 Total Protein 6.5 Albumin 1.8 L 10/12/18 10/12/18 10/12/18 06:17 11:35 16:15 Sodium Potassium Chloride Carbon Dioxide Anion Gap BUN Creatinine Creat Clearance w eGFR POC Glucometer 133 130 138 Random Glucose Hemoglobin A1c % Calcium Total Bilirubin AST ALT Alkaline Phosphatase Total Protein Albumin Physical Exam oral thrush + poorly responsive heent- no jvd lungs- diminished cvs---s1, s2 rrr abd - soft,GT+ ext- no edema A/P renal function about the same diflucan for thrush abx per ID continue with meds Problem List - Problems (1) Aspiration pneumonia Code(s): J69.0 - PNEUMONITIS DUE TO INHALATION OF FOOD AND VOMIT (2) Sepsis Code(s): A41.9 - SEPSIS, UNSPECIFIED ORGANISM (3) Altered mental status Code(s): R41.82 - ALTERED MENTAL STATUS, UNSPECIFIED Qualifiers: Altered mental status type: unspecified Qualified Code(s): R41.82 - Altered mental status, unspecified (4) Dehydration Code(s): E86.0 - DEHYDRATION (5) HTN (hypertension) Code(s): I10 - ESSENTIAL (PRIMARY) HYPERTENSION Qualifiers: Hypertension type: essential hypertension Qualified Code(s): I10 - Essential (primary) hypertension (6) Lewy body dementia with behavioral disturbance Code(s): G31.83 - DEMENTIA WITH LEWY BODIES; F02.81 - DEMENTIA IN OTH DISEASES CLASSD ELSWHR W BEHAVIORAL DISTURB
--- NOTE | 2018-10-12 12:07 | PN ---
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, Physician History of Present Illness: Lethargic post PEG, nonverbal. - Current Medication List Current Medications: Active Medications Acetaminophen (Tylenol Suppository -) 650 mg [place] Q6H PRN PRN Reason: FEVER Last Admin: 10/07/18 21:08 Dose: 650 mg Albuterol Sulfate (Ventolin 0.083% Nebulizer Soln -) 1 amp NEB Q6H PRN PRN Reason: WHEEZING Last Admin: 10/11/18 20:15 Dose: 1 amp Amlodipine Besylate (Norvasc -) 10 mg PO DAILY [facility] Last Admin: 10/12/18 10:20 Dose: 10 mg Aspirin (Asa -) 81 mg GT DAILY [facility] Last Admin: 10/12/18 10:18 Dose: 81 mg Atorvastatin Calcium (Lipitor -) 40 mg GT HS [facility] Last Admin: 10/11/18 21:49 Dose: 40 mg Carbidopa/Levodopa (Sinemet 25/100 -) 1 each GT TID [facility] Last Admin: 10/12/18 06:23 Dose: 1 each Fluconazole (Diflucan -) 100 mg GT DAILY [facility] Last Admin: 10/12/18 10:18 Dose: 100 mg Heparin Sodium (Porcine) (Heparin -) 5,000 unit SQ BID [facility] Last Admin: 10/12/18 10:19 Dose: 5,000 unit Piperacillin Sod/Tazobactam (Sod 2.25 gm/ Dextrose) 50 mls @ 100 mls/hr IVPB Q8H-IV [facility]; Protocol Last Admin: 10/12/18 10:17 Dose: 100 mls/hr Insulin Aspart (Novolog Vial Sliding Scale -) 1 vial SQ ACHS [facility]; Protocol Last Admin: 10/12/18 11:55 Dose: Not Given Memantine (Namenda -) 10 mg GT BID [facility] Last Admin: 10/12/18 10:19 Dose: 10 mg Saliva Substitute (Mouthkote Solution) 1 applic MM QID PRN PRN Reason: dry mouth Last Admin: 10/11/18 16:50 Dose: 1 applic Tamsulosin HCl (Flomax -) 0.4 mg PO BID [facility] Last Admin: 10/12/18 10:18 Dose: 0.4 mg Valproate Sodium (Depakene -) 500 mg GT BID [facility] Last Admin: 10/12/18 10:19 Dose: 500 mg - Objective Vital Signs: Vital Signs Temperature 98.6 F 10/12/18 06:00 Pulse Rate 98 H 10/12/18 06:00 Respiratory Rate 18 10/12/18 09:00 Blood Pressure 115/52 L 10/12/18 06:00 O2 Sat by Pulse Oximetry (%) 98 10/12/18 09:00 Constitutional: Yes: No Distress, Calm, Thin Neck: Yes: Supple Cardiovascular: Yes: Regular Rate and Rhythm Respiratory: Yes: Regular, Diminished, On Nasal O2 Gastrointestinal: Yes: Normal Bowel Sounds, Soft, Other (PEG in place) Edema: No Labs: CBC, BMP 10/11/18 05:30 10/12/18 05:30 INR, PTT INR 1.44 (0.83-1.09) H 10/08/18 05:30 Problem List - Problems (1) PEG (percutaneous endoscopic gastrostomy) status Code(s): Z93.1 - GASTROSTOMY STATUS (2) Acute hypernatremia Code(s): E87.0 - HYPEROSMOLALITY AND HYPERNATREMIA (3) Altered mental status Code(s): R41.82 - ALTERED MENTAL STATUS, UNSPECIFIED Qualifiers: Altered mental status type: unspecified Qualified Code(s): R41.82 - Altered mental status, unspecified (4) HLD (hyperlipidemia) Code(s): E78.5 - HYPERLIPIDEMIA, UNSPECIFIED Qualifiers: Hyperlipidemia type: pure hypercholesterolemia Qualified Code(s): E78.00 - Pure hypercholesterolemia, unspecified; E78.0 - Pure hypercholesterolemia (5) HTN (hypertension) Code(s): I10 - ESSENTIAL (PRIMARY) HYPERTENSION Qualifiers: Hypertension type: essential hypertension Qualified Code(s): I10 - Essential (primary) hypertension (6) Lewy body dementia with behavioral disturbance Code(s): G31.83 - DEMENTIA WITH LEWY BODIES; F02.81 - DEMENTIA IN OTH DISEASES CLASSD ELSWHR W BEHAVIORAL DISTURB (7) Parkinsonian features Code(s): R25.9 - UNSPECIFIED ABNORMAL INVOLUNTARY MOVEMENTS (8) Diastolic dysfunction Code(s): I51.89 - OTHER ILL-DEFINED HEART DISEASES (9) Hkinr-un-uatmgln kidney injury Code(s): N17.9 - ACUTE KIDNEY FAILURE, UNSPECIFIED; N18.9 - CHRONIC KIDNEY DISEASE, UNSPECIFIED Qualifiers: Acute renal failure type: unspecified Chronic kidney disease stage: stage 2 (mild) Qualified Code(s): N17.9 - Acute kidney failure, unspecified; N18.2 - Chronic kidney disease, stage 2 (mild) Assessment/Plan 1. Known history of CVA with recurrence 2. CAD/CAC- coronary artery calcification/CT scan chest dated 08/27/18/images reviewed angina pectoris 3. Diastolic LV dysfunction with class 0 NYHA classification LV failure 4. HTN 5. Hypercholesterolemia 6. Alzheimer's dementia post PEG 7. Parkinson's disease 8. COPD with aspiration pneumonia 9. Hypernatremia, persistent but improved 10. Anemia 11. Acute on CKD PLAN: 1. Continue ASA 81 qd 2. Continue Norvasc 10 qd 3. Resume Diovan 80 qd once renal fxn stabilizes 4. Continue Lipitor 40 qhs 5. Free H20 repletion for hypernatremia, complete abx course for asp PNA 6. DVT prophylaxis
--- NOTE | 2018-10-12 15:09 | PN ---
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 (short form) - Note 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: covering dr alvarado 1. [place] 2. hypernatremia 3. dementia 4. copd 5. cva Current Medications Acetaminophen (Tylenol Suppository -) 650 mg [place] Q6H PRN PRN Reason: FEVER Last Admin: 10/07/18 21:08 Dose: 650 mg Albuterol Sulfate (Ventolin 0.083% Nebulizer Soln -) 1 amp NEB Q6H PRN PRN Reason: WHEEZING Last Admin: 10/11/18 20:15 Dose: 1 amp Amlodipine Besylate (Norvasc -) 10 mg PO DAILY [facility] Last Admin: 10/12/18 10:20 Dose: 10 mg Aspirin (Asa -) 81 mg GT DAILY [facility] Last Admin: 10/12/18 10:18 Dose: 81 mg Atorvastatin Calcium (Lipitor -) 40 mg GT HS [facility] Last Admin: 10/11/18 21:49 Dose: 40 mg Carbidopa/Levodopa (Sinemet 25/100 -) 1 each GT TID [facility] Last Admin: 10/12/18 14:43 Dose: 1 each Fluconazole (Diflucan -) 100 mg GT DAILY [facility] Last Admin: 10/12/18 10:18 Dose: 100 mg Heparin Sodium (Porcine) (Heparin -) 5,000 unit SQ BID [facility] Last Admin: 10/12/18 10:19 Dose: 5,000 unit Piperacillin Sod/Tazobactam (Sod 2.25 gm/ Dextrose) 50 mls @ 100 mls/hr IVPB Q8H-IV [facility]; Protocol Last Admin: 10/12/18 10:17 Dose: 100 mls/hr Insulin Aspart (Novolog Vial Sliding Scale -) 1 vial SQ ACHS [facility]; Protocol Last Admin: 10/12/18 11:55 Dose: Not Given Memantine (Namenda -) 10 mg GT BID [facility] Last Admin: 10/12/18 10:19 Dose: 10 mg Saliva Substitute (Mouthkote Solution) 1 applic MM QID PRN PRN Reason: dry mouth Last Admin: 10/11/18 16:50 Dose: 1 applic Tamsulosin HCl (Flomax -) 0.4 mg PO BID [facility] Last Admin: 10/12/18 10:18 Dose: 0.4 mg Valproate Sodium (Depakene -) 500 mg GT BID [facility] Last Admin: 10/12/18 10:19 Dose: 500 mg Last Vital Signs Temp Pulse Resp BP Pulse Ox 99.8 F H 92 H 18 114/67 98 10/12/18 10:00 10/12/18 10:00 10/12/18 10:00 10/12/18 10:00 10/12/18 09:00 sleepy difficult to awaken coughs intermittently Lungs rhonchi Heart reg Abd soft nontender, peg Ext no edema CBC, BMP 10/11/18 05:30 10/12/18 05:30 CBC, BMP 10/11/18 05:30 10/11/18 05:30 IMP Hypernatremia slowly improving less arousable Na 145 from 146 , slow improv Plan-
--- NOTE | 2018-10-12 17:03 | PN ---
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, Physician History of Present Illness: Pt remains lethargic, without acute distress. Tmax 99.8. - Current Medication List Current Medications: Active Medications Acetaminophen (Tylenol Suppository -) 650 mg SD Q6H PRN PRN Reason: FEVER Last Admin: 10/07/18 21:08 Dose: 650 mg Albuterol Sulfate (Ventolin 0.083% Nebulizer Soln -) 1 amp NEB Q6H PRN PRN Reason: WHEEZING Last Admin: 10/11/18 20:15 Dose: 1 amp Amlodipine Besylate (Norvasc -) 10 mg PO DAILY [facility] Last Admin: 10/12/18 10:20 Dose: 10 mg Aspirin (Asa -) 81 mg GT DAILY [facility] Last Admin: 10/12/18 10:18 Dose: 81 mg Atorvastatin Calcium (Lipitor -) 40 mg GT HS [facility] Last Admin: 10/11/18 21:49 Dose: 40 mg Carbidopa/Levodopa (Sinemet 25/100 -) 1 each GT TID [facility] Last Admin: 10/12/18 14:43 Dose: 1 each Fluconazole (Diflucan -) 100 mg GT DAILY [facility] Last Admin: 10/12/18 10:18 Dose: 100 mg Heparin Sodium (Porcine) (Heparin -) 5,000 unit SQ BID [facility] Last Admin: 10/12/18 10:19 Dose: 5,000 unit Piperacillin Sod/Tazobactam (Sod 2.25 gm/ Dextrose) 50 mls @ 100 mls/hr IVPB Q8H-IV [facility]; Protocol Last Admin: 10/12/18 10:17 Dose: 100 mls/hr Insulin Aspart (Novolog Vial Sliding Scale -) 1 vial SQ ACHS [facility]; Protocol Last Admin: 10/12/18 16:28 Dose: Not Given Memantine (Namenda -) 10 mg GT BID [facility] Last Admin: 10/12/18 10:19 Dose: 10 mg Saliva Substitute (Mouthkote Solution) 1 applic MM QID PRN PRN Reason: dry mouth Last Admin: 10/11/18 16:50 Dose: 1 applic Tamsulosin HCl (Flomax -) 0.4 mg PO BID [facility] Last Admin: 10/12/18 10:18 Dose: 0.4 mg Valproate Sodium (Depakene -) 500 mg GT BID [facility] Last Admin: 10/12/18 10:19 Dose: 500 mg - Objective Vital Signs: Vital Signs Temperature 96.8 F L 10/12/18 15:39 Pulse Rate 89 10/12/18 15:39 Respiratory Rate 18 10/12/18 15:39 Blood Pressure 134/58 L 10/12/18 15:39 O2 Sat by Pulse Oximetry (%) 98 10/12/18 09:00 Constitutional: Yes: No Distress Cardiovascular: Yes: Regular Rate and Rhythm Respiratory: Yes: Diminished Gastrointestinal: Yes: Normal Bowel Sounds, Soft, Other (+GT) Edema: No Neurological: Yes: Lethargy (nonverbal) Labs: CBC, BMP 10/11/18 05:30 10/12/18 05:30 INR, PTT INR 1.44 (0.83-1.09) H 10/08/18 05:30 Microbiology 10/10/18 06:00 Blood - Peripheral Venous Blood Culture - Preliminary NO GROWTH OBTAINED AFTER 48 HOURS, INCUBATION TO CONTINUE FOR 3 DAYS. 10/10/18 06:30 Blood - Peripheral Venous Blood Culture - Preliminary NO GROWTH OBTAINED AFTER 48 HOURS, INCUBATION TO CONTINUE FOR 3 DAYS. 10/03/18 15:30 Blood - Peripheral Venous Blood Culture - Final NO GROWTH AFTER 5 DAYS INCUBATION 10/03/18 15:14 Blood - Peripheral Venous Blood Culture - Final Staphylococcus Epidermidis 10/03/18 16:00 Urine - Urine Clean Catch Urine Culture - Final Problem List - Problems (1) Acute hypernatremia Code(s): E87.0 - HYPEROSMOLALITY AND HYPERNATREMIA (2) Aoelo-mq-eluwplf kidney injury Code(s): N17.9 - ACUTE KIDNEY FAILURE, UNSPECIFIED; N18.9 - CHRONIC KIDNEY DISEASE, UNSPECIFIED Qualifiers: Acute renal failure type: unspecified Chronic kidney disease stage: stage 2 (mild) Qualified Code(s): N17.9 - Acute kidney failure, unspecified; N18.2 - Chronic kidney disease, stage 2 (mild) (3) Aspiration pneumonia Code(s): J69.0 - PNEUMONITIS DUE TO INHALATION OF FOOD AND VOMIT (4) PEG (percutaneous endoscopic gastrostomy) status Code(s): Z93.1 - GASTROSTOMY STATUS (5) Sepsis Code(s): A41.9 - SEPSIS, UNSPECIFIED ORGANISM (6) Altered mental status Code(s): R41.82 - ALTERED MENTAL STATUS, UNSPECIFIED Qualifiers: Altered mental status type: unspecified Qualified Code(s): R41.82 - Altered mental status, unspecified (7) BPH (benign prostatic hyperplasia) Code(s): N40.0 - BENIGN PROSTATIC HYPERPLASIA WITHOUT LOWER URINRY TRACT SYMP (8) COPD (chronic obstructive pulmonary disease) Code(s): J44.9 - CHRONIC OBSTRUCTIVE PULMONARY DISEASE, UNSPECIFIED (9) HLD (hyperlipidemia) Code(s): E78.5 - HYPERLIPIDEMIA, UNSPECIFIED Qualifiers: Hyperlipidemia type: pure hypercholesterolemia Qualified Code(s): E78.00 - Pure hypercholesterolemia, unspecified; E78.0 - Pure hypercholesterolemia (10) HTN (hypertension) Code(s): I10 - ESSENTIAL (PRIMARY) HYPERTENSION Qualifiers: Hypertension type: essential hypertension Qualified Code(s): I10 - Essential (primary) hypertension Assessment/Plan Fevers - low grade PNA with possible recurrent aspiration AMS - remains lethargic [place] CKD s/p peg Hx of CVA Alzheimer's dementia -- remains clinically the same -- latest blood cultures negative, urine culture neg -- suggest repeat CXR -- continue current antibiotics -- Nephrology following renal function, hypernatremia improved continue monitor
[2018-10-12] MEDS: ALBUTEROL SO4 0.083% IH SOL 2.5 MG/3 ML VIAL.NEB. NEB PRN (20:25)
[2018-10-12] MEDS: ATORVASTATIN CA 40 MG TABLET (FP) GT SCH (21:40)
[2018-10-12] MEDS: LYTES/YERBA SANTA 60 ML SPRAY MM PRN (21:54)
[2018-10-12] MEDS: ACETAMINOPHEN 650 MG/20.3 ML ORAL SOLUTION (CUPS) GT PRN (21:54)
[2018-10-13] MEDS ORDERED: PIPERACILLIN/TAZOBACTAM 2.25 GM VIAL IVPB ONE ×2 (02:36→09:23)
[2018-10-13] MEDS ORDERED: DEXTROSE 5%-WATER - 50 ML IVPB ONE ×2 (02:36→09:23)
[2018-10-13] MEDS: PIPERACILLIN/TAZOB 2.25 GM 2.25 GM in DEXTROSE 5%-WATER - 50 ML IVPB SCH ×2 (02:41→10:22)
[2018-10-13] MEDS ORDERED: PT OWN MED DRAWER 7, Y5N ONE (05:09)
[2018-10-13] MEDS: CARBIDOPA/LEVODOPA 25/100 TABLET (FP) GT SCH ×3 (05:14→21:47)
[2018-10-13] MEDS: LYTES/YERBA SANTA 60 ML SPRAY MM PRN (05:23)
[2018-10-13] MEDS: ACETAMINOPHEN 650 MG/20.3 ML ORAL SOLUTION (CUPS) GT PRN ×2 (05:23→22:02)
[2018-10-13] MEDS: INSULIN SLIDING SCALE (NOVOLOG) 1 VIAL SQ SCH ×4 (06:08→21:47)
[2018-10-13] MEDS: ALBUTEROL SO4 0.083% IH SOL 2.5 MG/3 ML VIAL.NEB. NEB PRN (07:38)
--- NOTE | 2018-10-13 09:00 | PN ---
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 (short form) - Note 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: Neurology CHIEF COMPLAINT: poor oral intake PCP: Jitendra HISTORY OF PRESENT ILLNESS: 67 year old man from [place] with poor oral intake for 3 days prior to admission, hyperkalemia in NH -with K of 6.7- (normal here in ER), minimally responsive, had fever in ER of 102.1F, borderline tachy, leukocytosis, low o2 sat, found to have residual food stuffs in oral cavity. Head CT coincidentally showed subtle hypodense lesion, ? infarct, new compared to CT head from August 2018. Discussed with daughter at bedside on admission. She was inquiring if infarct found how mgmt would change and explained cardiovascular risk reduction that would be desired with antiplatelet and statin mgmt. MRI brain completed, no acute CVA noted. Carotid doppler reviewed and Moderate sized plaques in R comm carotid, small to moderate plaque in L comm carotid. Of note, patient with dementia and on memantine. Also with Parkinson's and on Sinemet. Would not adjust these medications for now. Lipid profile with LDL 131, Statin ordered. On zoysn for infection. Getting medical optimization. Is awake and alert but nonverbal and minimal functional ability. G tube in place, tolerating feed per nurse. Discussed with nurse during rounds. No new neurologic events, remains stable Active Medications Acetaminophen (Tylenol Oral Solution -) 650 mg GT Q6H PRN PRN Reason: PAIN OR FEVER Last Admin: 10/13/18 05:23 Dose: 650 mg Albuterol Sulfate (Ventolin 0.083% Nebulizer Soln -) 1 amp NEB Q6H PRN PRN Reason: WHEEZING Last Admin: 10/13/18 07:38 Dose: 1 amp Amlodipine Besylate (Norvasc -) 10 mg PO DAILY [facility] Last Admin: 10/12/18 10:20 Dose: 10 mg Aspirin (Asa -) 81 mg GT DAILY [facility] Last Admin: 10/12/18 10:18 Dose: 81 mg Atorvastatin Calcium (Lipitor -) 40 mg GT HS [facility] Last Admin: 10/12/18 21:40 Dose: 40 mg Carbidopa/Levodopa (Sinemet 25/100 -) 1 each GT TID [facility] Last Admin: 10/13/18 05:14 Dose: 1 each Fluconazole (Diflucan -) 100 mg GT DAILY [facility] Last Admin: 10/12/18 10:18 Dose: 100 mg Heparin Sodium (Porcine) (Heparin -) 5,000 unit SQ BID [facility] Last Admin: 10/12/18 21:40 Dose: 5,000 unit Piperacillin Sod/Tazobactam (Sod 2.25 gm/ Dextrose) 50 mls @ 100 mls/hr IVPB Q8H-IV [facility]; Protocol Last Admin: 10/13/18 02:41 Dose: 100 mls/hr Insulin Aspart (Novolog Vial Sliding Scale -) 1 vial SQ ACHS [facility]; Protocol Last Admin: 10/13/18 06:08 Dose: Not Given Memantine (Namenda -) 10 mg GT BID [facility] Last Admin: 10/12/18 21:40 Dose: 10 mg Saliva Substitute (Mouthkote Solution) 1 applic MM QID PRN PRN Reason: dry mouth Last Admin: 10/13/18 05:23 Dose: 1 applic Tamsulosin HCl (Flomax -) 0.4 mg PO BID [facility] Last Admin: 10/12/18 21:40 Dose: 0.4 mg Valproate Sodium (Depakene -) 500 mg GT BID [facility] Last Admin: 10/12/18 21:40 Dose: 500 mg PHYSICAL EXAMINATION Vital Signs Period Temp Pulse Resp BP Sys/Rubi Pulse Ox Last 24 Hr 96.8 F-100.9 F 70-92 16-18 95-134/51-67 97-98 GENERAL: Awake, alert, nonverbal, bedbound HEAD: Normal with no signs of trauma. EYES: Pupils equal, round and reactive to light, extraocular movements intact, sclera anicteric, conjunctiva clear. No lid lag. EARS, NOSE, THROAT: residual foodstuff in oral cavity NECK: Normal range of motion, supple without lymphadenopathy, JVD, or masses. LUNGS: Breath sounds equal, b/l present HEART: Regular rate and rhythm, normal S1 and S2 without murmur, rub or gallop. ABDOMEN: Soft, nontender, not distended, normoactive bowel sounds, no guarding, no rebound, no masses. No hepatomegaly or splenomegaly. MUSCULOSKELETAL: Normal range of motion at all joints. No bony deformities or tenderness. No CVA tenderness. UPPER EXTREMITIES: 2+ pulses, warm, well-perfused. No cyanosis. No clubbing. No peripheral edema. LOWER EXTREMITIES: 2+ pulses, warm, well-perfused. No calf tenderness. No peripheral edema. PSYCHIATRIC: Somnolent SKIN: poor skin turgor, no decubitus ulcers reported as per nursing Neuro: Awake, but nonverbal, not moving extremities, sensory intact to LT CBCD WBC 8.8 K/mm3 (4.0-10.0) 10/11/18 05:30 RBC 3.12 M/mm3 (4.00-5.60) L 10/11/18 05:30 Hgb 9.2 GM/dL (11.7-16.9) L 10/11/18 05:30 Hct 27.6 % (35.4-49) L 10/11/18 05:30 MCV 88.2 fl (80-96) 10/11/18 05:30 MCHC 33.3 g/dl (32.0-35.9) 10/11/18 05:30 RDW 15.4 % (11.9-15.9) 10/11/18 05:30 Plt Count 170 K/MM3 (134-434) 10/11/18 05:30 MPV 9.6 fl (7.5-11.1) 10/11/18 05:30 CMP Sodium 145 mmol/L (136-145) 10/12/18 05:30 Potassium 4.2 mmol/L (3.5-5.1) 10/12/18 05:30 Chloride 110 mmol/L (98-107) H 10/12/18 05:30 Carbon Dioxide 29 mmol/L (21-32) 10/12/18 05:30 Anion Gap 6 MMOL/L (8-16) L 10/12/18 05:30 BUN 33 mg/dL (7-18) H 10/12/18 05:30 Creatinine 2.6 mg/dL (0.55-1.3) H 10/12/18 05:30 Creat Clearance w eGFR 24.67 (>60) 10/12/18 05:30 Random Glucose 145 mg/dL (74-106) H 10/12/18 05:30 Calcium 8.3 mg/dL (8.5-10.1) L 10/12/18 05:30 Total Bilirubin 0.3 mg/dL (0.2-1) 10/12/18 05:30 AST 30 U/L (15-37) 10/12/18 05:30 ALT 13 U/L (13-61) 10/12/18 05:30 Alkaline Phosphatase 101 U/L (45-117) 10/12/18 05:30 Total Protein 6.5 g/dl (6.4-8.2) 10/12/18 05:30 Albumin 1.8 g/dl (3.4-5.0) L 10/12/18 05:30 CARDIAC ENZYMES Troponin I < 0.02 ng/ml (0.00-0.05) 10/03/18 18:15 Imaging studies reviewed ASSESSMENT/PLAN: 67 year old man from [facility] with poor oral intake for 3 days, hyperkalemia in NH -with K of 6.7- (normal here in ER), minimally responsive, had fever in ER of 102.1F, borderline tachy, leukocytosis, low O2 sat, found to have residual food stuffs in oral cavity. Head CT coincidentally showed subtle hypodense lesion, ? infarct, new compared to CT head from August 2018. Discussed with daughter at bedside. She was inquiring if infarct found how mgmt would change and explained cardiovascular risk reduction that would be desired with antiplatelet and statin mgmt. Recommended MRI brain, daughter in agreement, ordered. Daughter concerned about reduced PO intake, PEG tube discussed by PCP with her and she seems supportive of this. Of note, patient with dementia and on memantine. Also with Parkinson's and on Sinemet. Would not adjust these medications for now. Of note, patient with dementia and on memantine. Recommend mgmt for infection, maintain hydration, monitor electrolytes (hypernatremia noted), tight glycemic control for DM. MRI brain completed, no acute CVA noted. Carotid doppler reviewed and Moderate sized plaques in R comm carotid, small to moderate plaque in L comm carotid. Also with Parkinson's and on Sinemet. Would not adjust these medications for now. Lipid profile received, LDL 131, Statin ordered. Remains on asa 81. Continue statin as well. On IV Zosyn. Getting medical optimization. No new neurologic events, remains stable. G tube in place , tolerating well per notes. Medical optimization in progress and ongoing. Discussed with nurse during rounds. Neurologically stable at this time.
[2018-10-13 09:33] LABS: ALBUMIN 1.7 g/dl (3.4-5.0); ALK PHOS 96 U/L (45-117); ANION GAP 5 MMOL/L (8-16); BILIRUBIN,TOTAL 0.3 mg/dL (0.2-1); BLOOD UREA NITROGEN 36 mg/dL (7-18); CALCIUM 8.1 mg/dL (8.5-10.1); CHLORIDE 111 mmol/L (98-107); CO2 31 mmol/L (21-32); CREATININE 2.7 mg/dL (0.55-1.3); GLUCOSE,RANDOM 147 mg/dL (74-106); POTASSIUM 4.3 mmol/L (3.5-5.1); SGOT/AST 31 U/L (15-37); SGPT/ALT 8 U/L (13-61); SODIUM 147 mmol/L (136-145)
[2018-10-13] MEDS: ASPIRIN 81 MG CHEWABLE TABLETS GT SCH (10:21)
[2018-10-13] MEDS: TAMSULOSIN HCL 0.4 MG CAP PO SCH ×2 (10:21→21:34)
[2018-10-13] MEDS: HEPARIN NA (PORCINE) 5,000 UNITS/ML 1ML VIAL SQ SCH ×2 (10:21→21:46)
[2018-10-13] MEDS: MEMANTINE HCL 10 MG TABLET (FP) GT SCH ×2 (10:21→21:47)
[2018-10-13] MEDS: amLODIPine BESYLATE 5 MG TABLET (FP) PO SCH (10:21)
[2018-10-13] MEDS: FLUCONAZOLE 100 MG TABLET (UD) GT SCH (10:21)
[2018-10-13] MEDS: VALPROATE SODIUM 250 MG/5 ML UNIT DOSE CUP GT SCH ×2 (10:22→21:46)
--- NOTE | 2018-10-13 11:02 | PN ---
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, Physician History of Present Illness: Lethargic post PEG, nonverbal. - Current Medication List Current Medications: Active Medications Acetaminophen (Tylenol Oral Solution -) 650 mg GT Q6H PRN PRN Reason: PAIN OR FEVER Last Admin: 10/13/18 05:23 Dose: 650 mg Albuterol Sulfate (Ventolin 0.083% Nebulizer Soln -) 1 amp NEB Q6H PRN PRN Reason: WHEEZING Last Admin: 10/13/18 07:38 Dose: 1 amp Amlodipine Besylate (Norvasc -) 10 mg PO DAILY [facility] Last Admin: 10/13/18 10:21 Dose: 10 mg Aspirin (Asa -) 81 mg GT DAILY [facility] Last Admin: 10/13/18 10:21 Dose: 81 mg Atorvastatin Calcium (Lipitor -) 40 mg GT HS [facility] Last Admin: 10/12/18 21:40 Dose: 40 mg Carbidopa/Levodopa (Sinemet 25/100 -) 1 each GT TID [facility] Last Admin: 10/13/18 05:14 Dose: 1 each Fluconazole (Diflucan -) 100 mg GT DAILY [facility] Last Admin: 10/13/18 10:21 Dose: 100 mg Heparin Sodium (Porcine) (Heparin -) 5,000 unit SQ BID [facility] Last Admin: 10/13/18 10:21 Dose: 5,000 unit Piperacillin Sod/Tazobactam (Sod 2.25 gm/ Dextrose) 50 mls @ 100 mls/hr IVPB Q8H-IV [facility]; Protocol Last Admin: 10/13/18 10:22 Dose: 100 mls/hr Insulin Aspart (Novolog Vial Sliding Scale -) 1 vial SQ ACHS [facility]; Protocol Last Admin: 10/13/18 06:08 Dose: Not Given Memantine (Namenda -) 10 mg GT BID [facility] Last Admin: 10/13/18 10:21 Dose: 10 mg Saliva Substitute (Mouthkote Solution) 1 applic MM QID PRN PRN Reason: dry mouth Last Admin: 10/13/18 05:23 Dose: 1 applic Tamsulosin HCl (Flomax -) 0.4 mg PO BID [facility] Last Admin: 10/13/18 10:21 Dose: 0.4 mg Valproate Sodium (Depakene -) 500 mg GT BID [facility] Last Admin: 10/13/18 10:22 Dose: 500 mg - Objective Vital Signs: Vital Signs Temperature 99.8 F H 10/13/18 05:20 Pulse Rate 81 10/13/18 05:20 Respiratory Rate 16 10/13/18 05:20 Blood Pressure 125/60 10/13/18 05:20 O2 Sat by Pulse Oximetry (%) 97 10/12/18 21:00 Constitutional: Yes: No Distress, Calm Neck: Yes: Supple Cardiovascular: Yes: Regular Rate and Rhythm Respiratory: Yes: Regular, Diminished, On Nasal O2 Gastrointestinal: Yes: Normal Bowel Sounds, Soft, Other (PEG in place) Edema: No Labs: CBC, BMP 10/11/18 05:30 10/13/18 00:01 INR, PTT INR 1.44 (0.83-1.09) H 10/08/18 05:30 Problem List - Problems (1) PEG (percutaneous endoscopic gastrostomy) status Code(s): Z93.1 - GASTROSTOMY STATUS (2) Acute hypernatremia Code(s): E87.0 - HYPEROSMOLALITY AND HYPERNATREMIA (3) Altered mental status Code(s): R41.82 - ALTERED MENTAL STATUS, UNSPECIFIED Qualifiers: Altered mental status type: unspecified Qualified Code(s): R41.82 - Altered mental status, unspecified (4) HLD (hyperlipidemia) Code(s): E78.5 - HYPERLIPIDEMIA, UNSPECIFIED Qualifiers: Hyperlipidemia type: pure hypercholesterolemia Qualified Code(s): E78.00 - Pure hypercholesterolemia, unspecified; E78.0 - Pure hypercholesterolemia (5) HTN (hypertension) Code(s): I10 - ESSENTIAL (PRIMARY) HYPERTENSION Qualifiers: Hypertension type: essential hypertension Qualified Code(s): I10 - Essential (primary) hypertension (6) Lewy body dementia with behavioral disturbance Code(s): G31.83 - DEMENTIA WITH LEWY BODIES; F02.81 - DEMENTIA IN OTH DISEASES CLASSD ELSWHR W BEHAVIORAL DISTURB (7) Parkinsonian features Code(s): R25.9 - UNSPECIFIED ABNORMAL INVOLUNTARY MOVEMENTS (8) Diastolic dysfunction Code(s): I51.89 - OTHER ILL-DEFINED HEART DISEASES (9) [id number]-[id number] kidney injury Code(s): N17.9 - ACUTE KIDNEY FAILURE, UNSPECIFIED; N18.9 - CHRONIC KIDNEY DISEASE, UNSPECIFIED Qualifiers: Acute renal failure type: unspecified Chronic kidney disease stage: stage 2 (mild) Qualified Code(s): N17.9 - Acute kidney failure, unspecified; N18.2 - Chronic kidney disease, stage 2 (mild) Assessment/Plan 1. Known history of CVA with recurrence 2. CAD/CAC- coronary artery calcification/CT scan chest dated 08/27/18/images reviewed angina pectoris 3. Diastolic LV dysfunction with class 0 NYHA classification LV failure 4. HTN 5. Hypercholesterolemia 6. Alzheimer's dementia post PEG 7. Parkinson's disease 8. COPD with aspiration pneumonia 9. Hypernatremia, persistent but improved 10. Anemia 11. Acute on CKD PLAN: 1. Continue ASA 81 qd 2. Continue Norvasc 10 qd 3. Resume Diovan 80 qd once renal fxn stabilizes 4. Continue Lipitor 40 qhs 5. Free H20 repletion for hypernatremia, complete abx course for asp PNA 6. DVT prophylaxis
--- NOTE | 2018-10-13 11:48 | PN ---
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 (short form) - Note 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: pt seen/ examined chart reviewed weak lethargic chronic ill appearance afebrile Vital Signs Temp 99.8 F H 10/13/18 05:20 Pulse 81 10/13/18 05:20 Resp 16 10/13/18 05:20 BP 125/60 10/13/18 05:20 Pulse Ox 97 10/12/18 21:00 Intake & Output 10/12/18 10/12/18 10/13/18 11:59 23:59 11:59 Intake Total 1114 525 785 Output Total 1000 350 Balance 1114 -475 435 Intake: IVPB 50 Tube Feeding 562 275 385 Tube Irrigant 552 250 350 Output: Urine 1000 350 Void 1000 350 Other: Voiding Method External Catheter External Catheter Bowel Movement No No Active Medications Acetaminophen (Tylenol Oral Solution -) 650 mg GT Q6H PRN PRN Reason: PAIN OR FEVER Last Admin: 10/13/18 05:23 Dose: 650 mg Albuterol Sulfate (Ventolin 0.083% Nebulizer Soln -) 1 amp NEB Q6H PRN PRN Reason: WHEEZING Last Admin: 10/13/18 07:38 Dose: 1 amp Amlodipine Besylate (Norvasc -) 10 mg PO DAILY [facility] Last Admin: 10/13/18 10:21 Dose: 10 mg Aspirin (Asa -) 81 mg GT DAILY [facility] Last Admin: 10/13/18 10:21 Dose: 81 mg Atorvastatin Calcium (Lipitor -) 40 mg GT HS [facility] Last Admin: 10/12/18 21:40 Dose: 40 mg Carbidopa/Levodopa (Sinemet 25/100 -) 1 each GT TID [facility] Last Admin: 10/13/18 05:14 Dose: 1 each Fluconazole (Diflucan -) 100 mg GT DAILY [facility] Last Admin: 10/13/18 10:21 Dose: 100 mg Heparin Sodium (Porcine) (Heparin -) 5,000 unit SQ BID [facility] Last Admin: 10/13/18 10:21 Dose: 5,000 unit Piperacillin Sod/Tazobactam (Sod 2.25 gm/ Dextrose) 50 mls @ 100 mls/hr IVPB Q8H-IV [facility]; Protocol Last Admin: 10/13/18 10:22 Dose: 100 mls/hr Insulin Aspart (Novolog Vial Sliding Scale -) 1 vial SQ ACHS [facility]; Protocol Last Admin: 10/13/18 06:08 Dose: Not Given Memantine (Namenda -) 10 mg GT BID [facility] Last Admin: 10/13/18 10:21 Dose: 10 mg Saliva Substitute (Mouthkote Solution) 1 applic MM QID PRN PRN Reason: dry mouth Last Admin: 10/13/18 05:23 Dose: 1 applic Tamsulosin HCl (Flomax -) 0.4 mg PO BID [facility] Last Admin: 10/13/18 10:21 Dose: 0.4 mg Valproate Sodium (Depakene -) 500 mg GT BID [facility] Last Admin: 10/13/18 10:22 Dose: 500 mg CBC, BMP 10/11/18 05:30 10/13/18 00:01 Physical Exam Poorly responsive heent- no jvd lungs- diminished cvs---s1, s2 rrr abd - soft, GT+ , abd binder ext- no edema A/P tolerating GT feeding cr same continue same abx renal following f/u labs repeat cxr will follow discussed with nursing staff also Problem List - Problems (1) [id number]-[id number] kidney injury Code(s): N17.9 - ACUTE KIDNEY FAILURE, UNSPECIFIED; N18.9 - CHRONIC KIDNEY DISEASE, UNSPECIFIED Qualifiers: Acute renal failure type: unspecified Chronic kidney disease stage: stage 2 (mild) Qualified Code(s): N17.9 - Acute kidney failure, unspecified; N18.2 - Chronic kidney disease, stage 2 (mild) (2) Aspiration pneumonia Code(s): J69.0 - PNEUMONITIS DUE TO INHALATION OF FOOD AND VOMIT (3) PEG (percutaneous endoscopic gastrostomy) status Code(s): Z93.1 - GASTROSTOMY STATUS (4) Lewy body dementia with behavioral disturbance Code(s): G31.83 - DEMENTIA WITH LEWY BODIES; F02.81 - DEMENTIA IN OTH DISEASES CLASSD ELSWHR W BEHAVIORAL DISTURB (5) Parkinsonian features Code(s): R25.9 - UNSPECIFIED ABNORMAL INVOLUNTARY MOVEMENTS
--- NOTE | 2018-10-13 12:36 | PN ---
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, Physician History of Present Illness: continues to be lethargic still not responsive - Current Medication List Current Medications: Active Medications Acetaminophen (Tylenol Oral Solution -) 650 mg GT Q6H PRN PRN Reason: PAIN OR FEVER Last Admin: 10/13/18 05:23 Dose: 650 mg Albuterol Sulfate (Ventolin 0.083% Nebulizer Soln -) 1 amp NEB Q6H PRN PRN Reason: WHEEZING Last Admin: 10/13/18 07:38 Dose: 1 amp Amlodipine Besylate (Norvasc -) 10 mg PO DAILY [facility] Last Admin: 10/13/18 10:21 Dose: 10 mg Aspirin (Asa -) 81 mg GT DAILY [facility] Last Admin: 10/13/18 10:21 Dose: 81 mg Atorvastatin Calcium (Lipitor -) 40 mg GT HS [facility] Last Admin: 10/12/18 21:40 Dose: 40 mg Carbidopa/Levodopa (Sinemet 25/100 -) 1 each GT TID [facility] Last Admin: 10/13/18 05:14 Dose: 1 each Fluconazole (Diflucan -) 100 mg GT DAILY [facility] Last Admin: 10/13/18 10:21 Dose: 100 mg Heparin Sodium (Porcine) (Heparin -) 5,000 unit SQ BID [facility] Last Admin: 10/13/18 10:21 Dose: 5,000 unit Insulin Aspart (Novolog Vial Sliding Scale -) 1 vial SQ ACHS [facility]; Protocol Last Admin: 10/13/18 11:58 Dose: Not Given Memantine (Namenda -) 10 mg GT BID [facility] Last Admin: 10/13/18 10:21 Dose: 10 mg Saliva Substitute (Mouthkote Solution) 1 applic MM QID PRN PRN Reason: dry mouth Last Admin: 10/13/18 05:23 Dose: 1 applic Tamsulosin HCl (Flomax -) 0.4 mg PO BID [facility] Last Admin: 10/13/18 10:21 Dose: 0.4 mg Valproate Sodium (Depakene -) 500 mg GT BID [facility] Last Admin: 10/13/18 10:22 Dose: 500 mg - Objective Vital Signs: Vital Signs Temperature 98.8 F 10/13/18 11:00 Pulse Rate 88 10/13/18 11:00 Respiratory Rate 18 10/13/18 11:00 Blood Pressure 121/68 10/13/18 11:00 O2 Sat by Pulse Oximetry (%) 97 10/13/18 09:00 Eyes: Yes: Conjunctiva Clear Cardiovascular: Yes: Regular Rate and Rhythm Gastrointestinal: Yes: Normal Bowel Sounds, Soft, Other (peg in place) Neurological: Yes: Lethargy, Other Psychiatric: Yes: Other Labs: CBC, BMP 10/11/18 05:30 10/13/18 00:01 INR, PTT INR 1.44 (0.83-1.09) H 10/08/18 05:30 Assessment/Plan Problem List - Problems (1) Aspiration pneumonia Code(s): J69.0 - PNEUMONITIS DUE TO INHALATION OF FOOD AND VOMIT (2) Sepsis Code(s): A41.9 - SEPSIS, UNSPECIFIED ORGANISM (3) Altered mental status Code(s): R41.82 - ALTERED MENTAL STATUS, UNSPECIFIED Qualifiers: Qualified Code(s): R41.82 - Altered mental status, unspecified (4) Dehydration Code(s): E86.0 - DEHYDRATION (5) HTN (hypertension) Code(s): I10 - ESSENTIAL (PRIMARY) HYPERTENSION Qualifiers: Qualified Code(s): I10 - Essential (primary) hypertension (6) Lewy body dementia with behavioral disturbance Code(s): G31.83 - DEMENTIA WITH LEWY BODIES; F02.81 - DEMENTIA IN OTH DISEASES CLASSD ELSWHR W BEHAVIORAL DISTURB plan will stop all abx nutrition rest as per the team monitor mental status
--- NOTE | 2018-10-13 15:31 | PN ---
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, Physician History of Present Illness: Pt seen and examined at bedside. He remains lethargic. He is tolerating feeds. - Current Medication List Current Medications: Active Medications Acetaminophen (Tylenol Oral Solution -) 650 mg GT Q6H PRN PRN Reason: PAIN OR FEVER Last Admin: 10/13/18 05:23 Dose: 650 mg Albuterol Sulfate (Ventolin 0.083% Nebulizer Soln -) 1 amp NEB Q6H PRN PRN Reason: WHEEZING Last Admin: 10/13/18 07:38 Dose: 1 amp Amlodipine Besylate (Norvasc -) 10 mg PO DAILY [facility] Last Admin: 10/13/18 10:21 Dose: 10 mg Aspirin (Asa -) 81 mg GT DAILY [facility] Last Admin: 10/13/18 10:21 Dose: 81 mg Atorvastatin Calcium (Lipitor -) 40 mg GT HS [facility] Last Admin: 10/12/18 21:40 Dose: 40 mg Carbidopa/Levodopa (Sinemet 25/100 -) 1 each GT TID [facility] Last Admin: 10/13/18 14:45 Dose: 1 each Fluconazole (Diflucan -) 100 mg GT DAILY [facility] Last Admin: 10/13/18 10:21 Dose: 100 mg Heparin Sodium (Porcine) (Heparin -) 5,000 unit SQ BID [facility] Last Admin: 10/13/18 10:21 Dose: 5,000 unit Insulin Aspart (Novolog Vial Sliding Scale -) 1 vial SQ ACHS [facility]; Protocol Last Admin: 10/13/18 11:58 Dose: Not Given Memantine (Namenda -) 10 mg GT BID [facility] Last Admin: 10/13/18 10:21 Dose: 10 mg Saliva Substitute (Mouthkote Solution) 1 applic MM QID PRN PRN Reason: dry mouth Last Admin: 10/13/18 05:23 Dose: 1 applic Tamsulosin HCl (Flomax -) 0.4 mg PO BID [facility] Last Admin: 10/13/18 10:21 Dose: 0.4 mg Valproate Sodium (Depakene -) 500 mg GT BID [facility] Last Admin: 10/13/18 10:22 Dose: 500 mg - Objective Vital Signs: Vital Signs Temperature 98.1 F 10/13/18 14:23 Pulse Rate 79 10/13/18 14:23 Respiratory Rate 18 10/13/18 14:23 Blood Pressure 115/65 10/13/18 14:23 O2 Sat by Pulse Oximetry (%) 97 10/13/18 09:00 Constitutional: Yes: Calm Eyes: Yes: Conjunctiva Clear Cardiovascular: Yes: S1, S2 Respiratory: Yes: CTA Bilaterally Gastrointestinal: Yes: Soft Genitourinary: Yes: Incontinence, Other (external cath) Musculoskeletal: Yes: Muscle Weakness Edema: No Neurological: Yes: Lethargy Labs: CBC, BMP 10/11/18 05:30 10/13/18 00:01 INR, PTT INR 1.44 (0.83-1.09) H 10/08/18 05:30 Problem List - Problems (1) Acute hypernatremia Code(s): E87.0 - HYPEROSMOLALITY AND HYPERNATREMIA (2) Uldap-ob-sonaldp kidney injury Code(s): N17.9 - ACUTE KIDNEY FAILURE, UNSPECIFIED; N18.9 - CHRONIC KIDNEY DISEASE, UNSPECIFIED Qualifiers: Acute renal failure type: unspecified Chronic kidney disease stage: stage 2 (mild) Qualified Code(s): N17.9 - Acute kidney failure, unspecified; N18.2 - Chronic kidney disease, stage 2 (mild) (3) PEG (percutaneous endoscopic gastrostomy) status Code(s): Z93.1 - GASTROSTOMY STATUS Assessment/Plan Current Medications Generic Name Dose Route Start Last Admin Trade Name Freq PRN Reason Stop Dose Admin Acetaminophen 650 mg 10/12/18 20:02 10/13/18 05:23 Tylenol Oral Solution - GT 650 mg Q6H PRN Administration PAIN OR FEVER Albuterol Sulfate 1 amp 10/03/18 22:15 10/13/18 07:38 Ventolin 0.083% Nebulizer Soln - NEB 1 amp Q6H PRN Administration WHEEZING Amlodipine Besylate 10 mg 10/10/18 10:00 10/13/18 10:21 Norvasc - PO 10 mg DAILY [facility] Administration Aspirin 81 mg 10/11/18 10:00 10/13/18 10:21 Asa - GT 81 mg DAILY [facility] Administration Atorvastatin Calcium 40 mg 10/09/18 22:00 10/12/18 21:40 Lipitor - GT 40 mg HS [facility] Administration Carbidopa/Levodopa 1 each 10/09/18 14:00 10/13/18 14:45 Sinemet 25/100 - GT 1 each TID [facility] Administration Fluconazole 100 mg 10/11/18 13:15 10/13/18 10:21 Diflucan - GT 100 mg DAILY [facility] Administration Heparin Sodium (Porcine) 5,000 unit 10/04/18 10:00 10/13/18 10:21 Heparin - SQ 5,000 unit BID [facility] Administration Insulin Aspart 1 vial 10/04/18 07:00 10/13/18 11:58 Novolog Vial Sliding Scale - SQ Not Given ACHS [facility] Protocol Memantine 10 mg 10/09/18 22:00 10/13/18 10:21 Namenda - GT 10 mg BID [facility] Administration Saliva Substitute 1 applic 10/07/18 12:03 10/13/18 05:23 Mouthkote Solution MM 1 applic QID PRN Administration dry mouth Tamsulosin HCl 0.4 mg 10/04/18 10:00 10/13/18 10:21 Flomax - PO 0.4 mg BID [facility] Administration Valproate Sodium 500 mg 10/10/18 11:15 10/13/18 10:22 Depakene - GT 500 mg BID [facility] Administration Impression 1. [place] 2. hypernatremia 3. dementia 4. copd 5. cva Plan - cont free water with feeds, will increase - will add d5w as well - repeat labs in am - avoid nephrotoxins - monitor renal function
[2018-10-13] MEDS ORDERED: DEXTROSE 5%-WATER - 1,000 ML IV SCH (15:45)
[2018-10-13] MEDS: ATORVASTATIN CA 40 MG TABLET (FP) GT SCH (21:47)
[2018-10-14] MEDS: CARBIDOPA/LEVODOPA 25/100 TABLET (FP) GT SCH ×2 (05:30→14:01)
[2018-10-14] MEDS: ACETAMINOPHEN 650 MG/20.3 ML ORAL SOLUTION (CUPS) GT PRN (05:31)
[2018-10-14 05:48] LABS: BASO % 0.6 % (0-2.0); EOS % 2.4 % (0-4.5); HEMATOCRIT 26.9 % (35.4-49); HEMOGLOBIN 8.8 GM/dL (11.7-16.9); LYMPH % 8.1 % (8-40); MCH 28.6 pg (25.7-33.7); MCHC 32.9 g/dl (32.0-35.9); MEAN CELL VOLUME 87.1 fl (80-96); MEAN PLT VOLUME 8.8 fl (7.5-11.1); MONO % 7.5 % (3.8-10.2); NEUT % 81.4 % (42.8-82.8); PLATELET COUNT 221 K/MM3 (134-434); RBC 3.09 M/mm3 (4.00-5.60); RDW 15.5 % (11.9-15.9); WHITE BLOOD COUNT 9.4 K/mm3 (4.0-10.0)
[2018-10-14] MEDS: INSULIN SLIDING SCALE (NOVOLOG) 1 VIAL SQ SCH ×2 (06:09→12:10)
[2018-10-14 06:48] LABS: ALBUMIN 1.7 g/dl (3.4-5.0); ALK PHOS 102 U/L (45-117); ANION GAP 6 MMOL/L (8-16); BILIRUBIN,TOTAL 0.3 mg/dL (0.2-1); BLOOD UREA NITROGEN 38 mg/dL (7-18); CALCIUM 8.2 mg/dL (8.5-10.1); CHLORIDE 107 mmol/L (98-107); CO2 31 mmol/L (21-32); CREATININE 2.5 mg/dL (0.55-1.3); GLUCOSE,RANDOM 131 mg/dL (74-106); POTASSIUM 4.8 mmol/L (3.5-5.1); SGOT/AST 31 U/L (15-37); SGPT/ALT 13 U/L (13-61); SODIUM 144 mmol/L (136-145); TOT PROT 6.2 g/dl (6.4-8.2)
[2018-10-14] MEDS ORDERED: PT OWN MED DRAWER 7, Y5N ONE (07:01)
[2018-10-14] MEDS: ALBUTEROL SO4 0.083% IH SOL 2.5 MG/3 ML VIAL.NEB. NEB PRN (07:53)
--- NOTE | 2018-10-14 08:02 | PN ---
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 (short form) - Note 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: Chief Complaint: Events noted notes reviewed, unresponsive in no acute distress , overall no change in status History of Present Illness: Seen and examined on telemetry. Events noted notes reviewed, unresponsive in no acute distress, overall no change in status Echocardiography revealed normal LV size and function, trace MR and TR - Current Medication List Current Medications Acetaminophen (Tylenol Oral Solution -) 650 mg GT Q6H PRN PRN Reason: PAIN OR FEVER Last Admin: 10/14/18 05:31 Dose: 650 mg Albuterol Sulfate (Ventolin 0.083% Nebulizer Soln -) 1 amp NEB Q6H PRN PRN Reason: WHEEZING Last Admin: 10/14/18 07:53 Dose: 1 amp Amlodipine Besylate (Norvasc -) 10 mg PO DAILY [facility] Last Admin: 10/13/18 10:21 Dose: 10 mg Aspirin (Asa -) 81 mg GT DAILY [facility] Last Admin: 10/13/18 10:21 Dose: 81 mg Atorvastatin Calcium (Lipitor -) 40 mg GT HS [facility] Last Admin: 10/13/18 21:47 Dose: 40 mg Carbidopa/Levodopa (Sinemet 25/100 -) 1 each GT TID [facility] Last Admin: 10/14/18 05:30 Dose: 1 each Fluconazole (Diflucan -) 100 mg GT DAILY [facility] Last Admin: 10/13/18 10:21 Dose: 100 mg Heparin Sodium (Porcine) (Heparin -) 5,000 unit SQ BID [facility] Last Admin: 10/13/18 21:46 Dose: 5,000 unit Dextrose (D5w -) 1,000 mls @ 42 mls/hr IV ASDIR [facility] Last Admin: 10/13/18 15:51 Dose: 42 mls/hr Insulin Aspart (Novolog Vial Sliding Scale -) 1 vial SQ ACHS [facility]; Protocol Last Admin: 10/14/18 06:09 Dose: Not Given Memantine (Namenda -) 10 mg GT BID [facility] Last Admin: 10/13/18 21:47 Dose: 10 mg Saliva Substitute (Mouthkote Solution) 1 applic MM QID PRN PRN Reason: dry mouth Last Admin: 10/13/18 05:23 Dose: 1 applic Tamsulosin HCl (Flomax -) 0.4 mg PO BID [facility] Last Admin: 10/13/18 21:34 Dose: Not Given Valproate Sodium (Depakene -) 500 mg GT BID [facility] Last Admin: 10/13/18 21:46 Dose: 500 mg - Review of Systems Unable to obtain - Objective Vital Signs: Last Vital Signs Temp Pulse Resp BP Pulse Ox 99.0 F 79 22 H 158/61 97 10/14/18 06:00 10/14/18 06:00 10/14/18 06:00 10/14/18 06:00 10/13/18 21:00 Intake & Output 10/11/18 10/12/18 10/13/18 10/14/18 23:59 23:59 23:59 23:59 Intake Total 2049 1639 1465 1199 Output Total 950 1000 1050 400 Balance 1099 639 415 799 Neck: Supple Negative JVD No Bruit Cardiovascular: S1 S2 Regular Rate Rhythm Respiratory: Diminished Breath Sounds Bilaterally Gastrointestinal: Soft Benign Normal Bowel Sounds Ext: Negative Edema Labs: CBC, BMP 10/14/18 05:30 10/14/18 05:30 Assessment/Plan ASSESSMENT: 1. Known history of CVA with recurrence 2. CAD/CAC- coronary artery calcification/CT scan chest dated 08/27/18/images reviewed angina pectoris 3. Diastolic LV dysfunction with class 0 NYHA classification LV failure 4. HTN 5. Hypercholesterolemia 6. Alzheimer's dementia 7. Parkinson's disease 8. COPD with aspiration pneumonia/sepsis syndrome, resolved 9. Hypernatremia, resolved 10. Anemia PLAN: 1. Continue ASA 2. Continue Norvasc 3. Continue lipitor 4. Consider the addition of B-Blockers unless contraindicated 5. Consider the addition of ARBS or ACEI unless contraindicated and renal function at baseline Viktor Rodriguez M.D.
--- NOTE | 2018-10-14 08:51 | PN ---
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 (short form) - Note 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: Neurology CHIEF COMPLAINT: poor oral intake HISTORY OF PRESENT ILLNESS: 67 year old man from [place] with poor oral intake for 3 days prior to admission, hyperkalemia in NH -with K of 6.7- (normal here in ER), minimally responsive, had fever in ER of 102.1F, borderline tachy, leukocytosis, low o2 sat, found to have residual food stuffs in oral cavity. Head CT coincidentally showed subtle hypodense lesion, ? infarct, new compared to CT head from August 2018. Discussed with daughter at bedside on admission. She was inquiring if infarct found how mgmt would change and explained cardiovascular risk reduction that would be desired with antiplatelet and statin mgmt. MRI brain completed, no acute CVA noted. Carotid doppler reviewed and Moderate sized plaques in R comm carotid, small to moderate plaque in L comm carotid. Of note, patient with dementia and on memantine. Also with Parkinson's and on Sinemet. Would not adjust these medications for now. Lipid profile with LDL 131, Statin ordered. Getting medical optimization. Is awake and alert but nonverbal and minimal functional ability. G tube in place, tolerating feeds. No new neurologic events, notes reviewed. No longer on Zosyn. Active Medications Acetaminophen (Tylenol Oral Solution -) 650 mg GT Q6H PRN PRN Reason: PAIN OR FEVER Last Admin: 10/14/18 05:31 Dose: 650 mg Albuterol Sulfate (Ventolin 0.083% Nebulizer Soln -) 1 amp NEB Q6H PRN PRN Reason: WHEEZING Last Admin: 10/14/18 07:53 Dose: 1 amp Amlodipine Besylate (Norvasc -) 10 mg PO DAILY [facility] Last Admin: 10/13/18 10:21 Dose: 10 mg Aspirin (Asa -) 81 mg GT DAILY [facility] Last Admin: 10/13/18 10:21 Dose: 81 mg Atorvastatin Calcium (Lipitor -) 40 mg GT HS [facility] Last Admin: 10/13/18 21:47 Dose: 40 mg Carbidopa/Levodopa (Sinemet 25/100 -) 1 each GT TID [facility] Last Admin: 10/14/18 05:30 Dose: 1 each Fluconazole (Diflucan -) 100 mg GT DAILY [facility] Last Admin: 10/13/18 10:21 Dose: 100 mg Heparin Sodium (Porcine) (Heparin -) 5,000 unit SQ BID [facility] Last Admin: 10/13/18 21:46 Dose: 5,000 unit Dextrose (D5w -) 1,000 mls @ 42 mls/hr IV ASDIR [facility] Last Admin: 10/13/18 15:51 Dose: 42 mls/hr Insulin Aspart (Novolog Vial Sliding Scale -) 1 vial SQ [facility]; Protocol Last Admin: 10/14/18 06:09 Dose: Not Given Memantine (Namenda -) 10 mg GT BID [facility] Last Admin: 10/13/18 21:47 Dose: 10 mg Saliva Substitute (Mouthkote Solution) 1 applic MM QID PRN PRN Reason: dry mouth Last Admin: 10/13/18 05:23 Dose: 1 applic Tamsulosin HCl (Flomax -) 0.4 mg PO BID [facility] Last Admin: 10/13/18 21:34 Dose: Not Given Valproate Sodium (Depakene -) 500 mg GT BID [facility] Last Admin: 10/13/18 21:46 Dose: 500 mg PHYSICAL EXAMINATION Vital Signs Period Temp Pulse Resp BP Sys/Rubi Pulse Ox Last 24 Hr 97.9 F-99.1 F 73-88 16-22 106-158/60-80 97-97 GENERAL: Awake, alert, nonverbal, bedbound HEAD: Normal with no signs of trauma. EYES: Pupils equal, round and reactive to light, extraocular movements intact, sclera anicteric, conjunctiva clear. No lid lag. EARS, NOSE, THROAT: residual foodstuff in oral cavity NECK: Normal range of motion, supple without lymphadenopathy, JVD, or masses. LUNGS: Breath sounds equal, b/l present HEART: Regular rate and rhythm, normal S1 and S2 without murmur, rub or gallop. ABDOMEN: Soft, nontender, not distended, normoactive bowel sounds, no guarding, no rebound, no masses. No hepatomegaly or splenomegaly. MUSCULOSKELETAL: Normal range of motion at all joints. No bony deformities or tenderness. No CVA tenderness. UPPER EXTREMITIES: 2+ pulses, warm, well-perfused. No cyanosis. No clubbing. No peripheral edema. LOWER EXTREMITIES: 2+ pulses, warm, well-perfused. No calf tenderness. No peripheral edema. PSYCHIATRIC: Somnolent SKIN: poor skin turgor, no decubitus ulcers reported as per nursing Neuro: Awake, but nonverbal, not moving extremities, sensory intact to LT CBCD WBC 9.4 K/mm3 (4.0-10.0) 10/14/18 05:30 RBC 3.09 M/mm3 (4.00-5.60) L 10/14/18 05:30 Hgb 8.8 GM/dL (11.7-16.9) L 10/14/18 05:30 Hct 26.9 % (35.4-49) L 10/14/18 05:30 MCV 87.1 fl (80-96) 10/14/18 05:30 MCHC 32.9 g/dl (32.0-35.9) 10/14/18 05:30 RDW 15.5 % (11.9-15.9) 10/14/18 05:30 Plt Count 221 K/MM3 (134-434) D 10/14/18 05:30 MPV 8.8 fl (7.5-11.1) 10/14/18 05:30 CMP Sodium 144 mmol/L (136-145) 10/14/18 05:30 Potassium 4.8 mmol/L (3.5-5.1) 10/14/18 05:30 Chloride 107 mmol/L (98-107) 10/14/18 05:30 Carbon Dioxide 31 mmol/L (21-32) 10/14/18 05:30 Anion Gap 6 MMOL/L (8-16) L 10/14/18 05:30 BUN 38 mg/dL (7-18) H 10/14/18 05:30 Creatinine 2.5 mg/dL (0.55-1.3) H 10/14/18 05:30 Creat Clearance w eGFR 25.81 (>60) 10/14/18 05:30 Random Glucose 131 mg/dL (74-106) H 10/14/18 05:30 Calcium 8.2 mg/dL (8.5-10.1) L 10/14/18 05:30 Total Bilirubin 0.3 mg/dL (0.2-1) 10/14/18 05:30 AST 31 U/L (15-37) 10/14/18 05:30 ALT 13 U/L (13-61) 10/14/18 05:30 Alkaline Phosphatase 102 U/L (45-117) 10/14/18 05:30 Total Protein 6.2 g/dl (6.4-8.2) L 10/14/18 05:30 Albumin 1.7 g/dl (3.4-5.0) L 10/14/18 05:30 CARDIAC ENZYMES Troponin I < 0.02 ng/ml (0.00-0.05) 10/03/18 18:15 Imaging studies reviewed ASSESSMENT/PLAN: 67 year old man from [facility] with poor oral intake for 3 days, hyperkalemia in NH -with K of 6.7- (normal here in ER), minimally responsive, had fever in ER of 102.1F, borderline tachy, leukocytosis, low O2 sat, found to have residual food stuffs in oral cavity. Head CT coincidentally showed subtle hypodense lesion, ? infarct, new compared to CT head from August 2018. Discussed with daughter at bedside. She was inquiring if infarct found how mgmt would change and explained cardiovascular risk reduction that would be desired with antiplatelet and statin mgmt. Recommended MRI brain, daughter in agreement, ordered. Daughter concerned about reduced PO intake, PEG tube discussed by PCP with her and she seems supportive of this. Of note, patient with dementia and on memantine. Also with Parkinson's and on Sinemet. Would not adjust these medications for now. Of note, patient with dementia and on memantine. Recommend mgmt for infection, maintain hydration, monitor electrolytes (hypernatremia noted), tight glycemic control for DM. MRI brain completed, no acute CVA noted. Carotid doppler reviewed and Moderate sized plaques in R comm carotid, small to moderate plaque in L comm carotid. Also with Parkinson's and on Sinemet. Would not adjust these medications for now. Lipid profile received, LDL 131, Statin ordered. Remains on asa 81. Continue statin as well. Getting medical optimization. No new neurologic events, remains stable. G tube in place, tolerating well per notes. Medical optimization in progress and ongoing. Discussed with nurse during rounds. Neurologically stable at this time. No longer on Zosyn.
[2018-10-14] MEDS: ASPIRIN 81 MG CHEWABLE TABLETS GT SCH (10:05)
[2018-10-14] MEDS: FLUCONAZOLE 100 MG TABLET (UD) GT SCH (10:06)
[2018-10-14] MEDS: TAMSULOSIN HCL 0.4 MG CAP PO SCH (10:06)
[2018-10-14] MEDS: HEPARIN NA (PORCINE) 5,000 UNITS/ML 1ML VIAL SQ SCH (10:06)
[2018-10-14] MEDS: VALPROATE SODIUM 250 MG/5 ML UNIT DOSE CUP GT SCH (10:06)
[2018-10-14] MEDS: amLODIPine BESYLATE 5 MG TABLET (FP) PO SCH (10:07)
[2018-10-14] MEDS: MEMANTINE HCL 10 MG TABLET (FP) GT SCH (10:07)
--- NOTE | 2018-10-14 11:53 | DS ---
Physical Examination Vital Signs: Vital Signs Temperature 99.0 F 10/14/18 06:00 Pulse Rate 79 10/14/18 06:00 Respiratory Rate 22 H 10/14/18 06:00 Blood Pressure 158/61 10/14/18 06:00 O2 Sat by Pulse Oximetry (%) 97 10/13/18 21:00 Constitutional: Yes: No Distress, Calm Cardiovascular: Yes: Regular Rate and Rhythm Respiratory: Yes: Diminished Gastrointestinal: Yes: Normal Bowel Sounds, Soft. No: Tenderness Edema: No Labs: CBC, BMP 10/14/18 05:30 10/14/18 05:30 Discharge Summary Reason For Visit: SEPSIS/ACUTE HYPERNATREMIA Current Active Problems Acute hypernatremia (Acute) [id number] kidney injury (Acute) Aspiration pneumonia (Acute) Diastolic dysfunction (Acute) PEG (percutaneous endoscopic gastrostomy) status (Acute) Sepsis (Acute) Hospital Course: Admitted for AMS, fever initial CT head showed a hypodense lesion ,Brain MRI -- no acute CVA evaluated by neurology, ID , cardiology and Renal Pt found ot be septic due to aspiration pneumonia Completed antibiotics decision made by family for peg placement pt has peg tube and is tolerating diet Course complicated by urinary retention an acute renal failure Free water flushes and iv fluids given renal function steady with a creatinine of 2.5 avoid nephrotoxins sono kidneys-- unremarkable Advance directives discussed with family - he is full code will dc to NH-- check renal function avoid aspiration mouth care Condition: Stable - Instructions [facility]position: [facility] - Home Medications Comprehensive Discharge Medication List: Ambulatory Orders Fludrocortisone Acetate [Florinef -] 0.1 mg PO DAILY 09/22/17 Memantine HCl [Namenda -] 10 mg PO BID 09/22/17 Sodium Chloride [Saline Nasal [place]] 1 spray NS TID 09/22/17 Tamsulosin HCl [Flomax] 0.4 mg PO BID 09/22/17 Amlodipine Besylate 5 mg PO DAILY 07/27/18 Carbidopa/Levodopa 25/100 [Sinemet 25/100 -] 1 each PO TID 07/27/18 Acetaminophen [Acetaminophen 8 Hour] 650 mg PO Q6H 08/19/18 Nystatin Oral Suspension - [Nystatin Oral Susp 019533 Units/5 ML -] 500,000 units PO Q6HPO cup 09/02/18 Albuterol 0.083% Nebulizer Gloria [Ventolin 0.083% Nebulizer Soln -] 1 neb NEB Q6H 10/03/18 Guaifenesin [Dorothy-Tussin] 100 mg PO Q4H 10/03/18 Mirtazapine 7.5 mg PO HS 10/03/18 Valproate Sodium Liquid [Depakene] 250 mg PO BID 10/03/18
[2018-10-14 14:13] VITALS: BP 114/62; PULSE 87; TEMP 97.9
--- NOTE | 2018-10-14 14:43 | PN ---
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, Physician - Current Medication List Current Medications: Active Medications Acetaminophen (Tylenol Oral Solution -) 650 mg GT Q6H PRN PRN Reason: PAIN OR FEVER Last Admin: 10/14/18 05:31 Dose: 650 mg Albuterol Sulfate (Ventolin 0.083% Nebulizer Soln -) 1 amp NEB Q6H PRN PRN Reason: WHEEZING Last Admin: 10/14/18 07:53 Dose: 1 amp Amlodipine Besylate (Norvasc -) 10 mg PO DAILY [facility] Last Admin: 10/14/18 10:07 Dose: 10 mg Aspirin (Asa -) 81 mg GT DAILY [facility] Last Admin: 10/14/18 10:05 Dose: 81 mg Atorvastatin Calcium (Lipitor -) 40 mg GT HS [facility] Last Admin: 10/13/18 21:47 Dose: 40 mg Carbidopa/Levodopa (Sinemet 25/100 -) 1 each GT TID [facility] Last Admin: 10/14/18 14:01 Dose: 1 each Fluconazole (Diflucan -) 100 mg GT DAILY [facility] Last Admin: 10/14/18 10:06 Dose: 100 mg Heparin Sodium (Porcine) (Heparin -) 5,000 unit SQ BID [facility] Last Admin: 10/14/18 10:06 Dose: 5,000 unit Dextrose (D5w -) 1,000 mls @ 42 mls/hr IV ASDIR [facility] Last Admin: 10/13/18 15:51 Dose: 42 mls/hr Insulin Aspart (Novolog Vial Sliding Scale -) [address] [facility]; Protocol Last Admin: 10/14/18 12:10 Dose: Not Given Memantine (Namenda -) 10 mg GT BID [facility] Last Admin: 10/14/18 10:07 Dose: 10 mg Saliva Substitute (Mouthkote Solution) 1 applic MM QID PRN PRN Reason: dry mouth Last Admin: 10/13/18 05:23 Dose: 1 applic Tamsulosin HCl (Flomax -) 0.4 mg PO BID [facility] Last Admin: 10/14/18 10:06 Dose: 0.4 mg Valproate Sodium (Depakene -) 500 mg GT BID [facility] Last Admin: 10/14/18 10:06 Dose: 500 mg - Objective Vital Signs: Vital Signs Temperature 97.9 F 10/14/18 14:12 Pulse Rate 87 10/14/18 14:12 Respiratory Rate 20 10/14/18 14:12 Blood Pressure 114/62 10/14/18 14:12 O2 Sat by Pulse Oximetry (%) 99 10/14/18 09:00 Labs: CBC, BMP 10/14/18 05:30 10/14/18 05:30 INR, PTT INR 1.44 (0.83-1.09) H 10/08/18 05:30
--- NOTE | 2018-10-14 15:20 | PN ---
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, Physician History of Present Illness: Pt seen and examined at bedside. He appears comfortable. No great change in clinical status. - Objective Vital Signs: Vital Signs Temperature 97.9 F 10/14/18 14:12 Pulse Rate 87 10/14/18 14:12 Respiratory Rate 20 10/14/18 14:12 Blood Pressure 114/62 10/14/18 14:12 O2 Sat by Pulse Oximetry (%) 99 10/14/18 09:00 Constitutional: Yes: Calm Eyes: Yes: Conjunctiva Clear HENT: Yes: Atraumatic Neck: Yes: Supple Cardiovascular: Yes: S1, S2 Respiratory: Yes: CTA Bilaterally Gastrointestinal: Yes: Other (peg) Genitourinary: Yes: Incontinence Musculoskeletal: Yes: Muscle Weakness Edema: No Neurological: Yes: Confusion, Lethargy Labs: CBC, BMP 10/14/18 05:30 10/14/18 05:30 INR, PTT INR 1.44 (0.83-1.09) H 10/08/18 05:30 Problem List - Problems (1) Acute hypernatremia Code(s): E87.0 - HYPEROSMOLALITY AND HYPERNATREMIA (2) [id number] kidney injury Code(s): N17.9 - ACUTE KIDNEY FAILURE, UNSPECIFIED; N18.9 - CHRONIC KIDNEY DISEASE, UNSPECIFIED Qualifiers: Acute renal failure type: unspecified Chronic kidney disease stage: stage 2 (mild) Qualified Code(s): N17.9 - Acute kidney failure, unspecified; N18.2 - Chronic kidney disease, stage 2 (mild) (3) PEG (percutaneous endoscopic gastrostomy) status Code(s): Z93.1 - GASTROSTOMY STATUS Assessment/Plan Impression 1. [place] 2. hypernatremia 3. dementia 4. copd 5. cva Plan - sodium is improved - renal function is improving - monitor renal function in rehab - discussed with daughter - avoid nephrotoxins
== END 2018-10-14 15:15 | DRG 720 ==
LOC: JER 14:40 → JERBED 17:42 → J8W 20:00 → J4S 10-05 15:05
PROVIDERS: ADMIT Internal Medicine; ATTEND Internal Medicine
PROC: 0DJ08ZZ Inspection of Upper Intestinal Tract, Via Natural or Artificial Opening Endoscopic (ICD-10-PCS; 2018-10-08)
PROC: 0DH64UZ Insertion of Feeding Device into Stomach, Percutaneous Endoscopic Approach (ICD-10-PCS; principal; 2018-10-08 11:00)
DX: A41.89 Other specified sepsis (principal); J69.0 Pneumonitis due to inhalation of food and vomit; R64 Cachexia; N17.9 Acute kidney failure, unspecified; R13.10 Dysphagia, unspecified; E87.0 Hyperosmolality and hypernatremia; I13.0 Hypertensive heart and chronic kidney disease with heart failure and stage 1 through stage 4 chronic kidney disease, or unspecified chronic kidney disease; F02.81 Dementia in other diseases classified elsewhere, unspecified severity, with behavioral disturbance; E11.65 Type 2 diabetes mellitus with hyperglycemia; G30.9 Alzheimer's disease, unspecified; E87.5 Hyperkalemia; F20.9 Schizophrenia, unspecified; J44.9 Chronic obstructive pulmonary disease, unspecified; G31.83 Neurocognitive disorder with Lewy bodies; B37.0 Candidal stomatitis; N18.2 Chronic kidney disease, stage 2 (mild); E86.0 Dehydration; Z68.1 Body mass index [BMI] 19.9 or less, adult; I25.10 Atherosclerotic heart disease of native coronary artery without angina pectoris; E78.5 Hyperlipidemia, unspecified; Z86.73 Personal history of transient ischemic attack (TIA), and cerebral infarction without residual deficits; N40.0 Benign prostatic hyperplasia without lower urinary tract symptoms; Z74.01 Bed confinement status; J33.9 Nasal polyp, unspecified; K29.70 Gastritis, unspecified, without bleeding; R09.02 Hypoxemia
CPT/HCPCS: 36415; 70450-TC; 70551-TC; 71045-TC-FY; 76775-TC; 80048; 80053; 80061; 80164; 81003; 82436; 82565; 82803; 82962; 83036; 83605; 83721; 83935; 84133; 84300; 84484; 85025; 85610; 85730; 87040; 87086; 87186; 93005; 93010; 93306-TC; 93880-TC; 94640; 99284-25; J0131; J1644